=== PATIENT | female | born 1940 | race Caucasian/White ===

== ENCOUNTER → 2016-05-16 | Outpatient (CLI) | payer MEDICARE ==
--- NOTE | 2016-05-17 11:45 | MM ---
Reason for exam: screening (asymptomatic). Last mammogram was performed 1 year and 10 months ago. History: Patient is postmenopausal. Benign excisional biopsy of the right breast, December 08, 2001. Excisional biopsy of the left breast. Took estrogen for 6 years. Physical Findings: A clinical breast exam by your physician is recommended on an annual basis and results should be correlated with mammographic findings. MG 3D Screening Mammo W/Cad Bilateral CC and MLO view(s) were taken. Prior study comparison: July 09, 2014, bilateral MG screening mammo w CAD. July 06, 2013, bilateral digital screening mammo w/CAD. There are scattered fibroglandular densities. Finding: There are typically benign vascular, diffuse/scattered calcifications in both breasts. There are 4 grouped calcifications in the lower right breast seen on MLO view, short term follow up recommended. New finding since July 09, 2014 and July 06, 2013. ASSESSMENT: Probably benign, BI-RAD 3 RECOMMENDATION: Follow-up diagnostic mammogram of the right breast in 6 months.
== END | disposition home or self-care (01) ==
LOC: RADMAMWWP 14:44
PROVIDERS: ATTEND Family Medicine
DX: Z12.31 Encounter for screening mammogram for malignant neoplasm of breast (principal)
CPT/HCPCS: 77063; G0202

== ENCOUNTER → 2016-11-09 | Outpatient (CLI) | payer MEDICARE ==
--- NOTE | 2016-11-09 15:39 | US ---
EXAMINATION TYPE: US thyroid st tissue head/neck DATE OF EXAM: 11/09/2016 COMPARISON: Thyroid ultrasound September 12, 2015 CLINICAL HISTORY: E04.1 Thyroid Nodules. GLAND SIZE: Right Lobe: 4.9 x 2.0 x 2.0 cm Overall Parenchyma: heterogenous Left Lobe: 4.5 x 2.1 x 2.8 cm Overall Parenchyma: heterogeneous Isthmus Thickness: 0.3 cm NODULES RIGHT: # of nodules measured on right: 4 1. 0.8 X 0.5 x 0.8 cm complex cystic nodule at the upper pole with well-defined margins; . This no dule is wider than tall and shows no intranodular vascularity. Prior size: 0.8 x 0.4 x 0.8 cm 2. 1.1 X 0.8 x 1.0 cm cystic nodule at the mid/upper pole with well-defined margins; . This nodule is wider than tall and shows no intranodular vascularity. Prior size: 1.1 x 0.7 x 0.7 cm 3. 1.2 X 0.7 x 0.9 cm mixed solid nodule at the mid/lower pole with well-defined margins; . This no dule is wider than tall and shows intranodular vascularity. Prior size: 1.2 x 0.8 x 0.9 cm 4. 0.8 X 0.5 x 0.7 cm echogenic solid nodule at the anterior mid lower pole with well-defined margin s; . This nodule is wider than tall and shows intranodular vascularity. Prior size: 0.8 x 0.5 x 0.8 cm LEFT: # of nodules measured on left: 1 1. 2.8 X 1.9 x 2.9 cm isoechoic solid nodule at the mid pole with well-defined margins; . This nod ule is wider than tall and shows intranodular vascularity. Prior size: 2.6 x 2.0 x 2.6 cm ISTHMUS: # of nodules measured in the isthmus: 1 1. 0.6 X 0.3 x 0.6 cm isoechoic solid nodule with well-defined margins; . This nodule is wider esdras n tall and shows no intranodular vascularity. Prior size: 0.5 x 0.4 x 0.5 cm Bilateral neck scanned, no evidence of lymphadenopathy. Multiple thyroid nodules right lobe. Single nodule left lobe. Little to no change from prior exam IMPRESSION: There is redemonstration of multinodular thyroid gland with dominant solid nodule seen left thyroid l obe that appears stable in size and appearance from prior. No suspicious new greater than 1 cm nodule s are evident.
== END | disposition home or self-care (01) ==
LOC: RADUSWWP 14:33
PROVIDERS: ATTEND Otolaryngology
DX: E04.1 Nontoxic single thyroid nodule (principal)
CPT/HCPCS: 76536

== ENCOUNTER → 2016-11-14 | Outpatient (CLI) | payer MEDICARE ==
--- NOTE | 2016-11-15 09:37 | MM ---
Reason for exam: follow-up at short interval from prior study. Last mammogram was performed 6 months ago. History: Patient is postmenopausal. Benign excisional biopsy of the right breast, December 08, 2001. Excisional biopsy of the left breast. Took estrogen for 6 years. Physical Findings: Nurse did not find any significant physical abnormalities on exam. MG 3D Diag Mammo W/Cad RT CC and MLO view(s) were taken of the right breast. Prior study comparison: May 16, 2016, bilateral MG 3d screening mammo w/cad. July 09, 2014, bilateral MG screening mammo w CAD. July 06, 2013, bilateral digital screening mammo w/CAD. There are scattered fibroglandular densities. A couple punctate calcifications are redemonstrated in the inferior right breast. No progressive calcifications or other abnormality seen. These results were verbally communicated with the patient and result sheet given to the patient on 11/14/16. ASSESSMENT: Negative, BI-RAD 1 RECOMMENDATION: Return to routine screening mammogram schedule for both breasts.
== END | disposition home or self-care (01) ==
LOC: RADMAMWWP 14:46
PROVIDERS: ATTEND Family Medicine
DX: R92.8 Other abnormal and inconclusive findings on diagnostic imaging of breast (principal)
CPT/HCPCS: G0206; G0279

== ENCOUNTER 2017-04-10 09:08 | Day surgery (SDC) | payer MEDICARE ==
[2017-04-03 23:07] VITALS: BMI 41.5
[~2017-04-10 09:08] MED LIST: DEXAMETHASONE SOD PHOSPHATE 10 MG/ML 1 ML VIAL IV ONE; FAMOTIDINE 20 MG/2 ML VIAL IV ONE; HYDROmorphone 0.5 MG/0.5 ML SYRINGE IVP PRN; LACTATED RINGERS 1,000 ML IV SCH; ONDANSETRON 4 MG/2 ML VIAL IVP ONE; ceFAZolin 1,000 MG in DEXTROSE/WATER 1 50ML.BAG IV ONE
[2017-04-10 11:12] VITALS: TEMP 97.2
[2017-04-10] MEDS ORDERED: LIDOCAINE 1% 20 ML VIAL (10MG/ML) FOR IV START INTRADERMA ONE (11:14)
[2017-04-10 11:33] LABS: Potassium 3.1 mmol/L (3.5-5.1)
[2017-04-10] MEDS ORDERED: KETOROLAC 30 MG/ML 1 ML VIAL ONE (12:10)
[2017-04-10] MEDS ORDERED: diphenhydrAMINE 50 MG/ML 1 ML VIAL ONE (12:10)
[2017-04-10] MEDS ORDERED: KETAMINE 10 MG/ML 20 ML VIAL ONE (12:10)
[2017-04-10] MEDS ORDERED: MIDAZOLAM 2 MG/2 ML VIAL ONE (12:10)
[2017-04-10] MEDS ORDERED: ePHEDrine SULFATE/0.9% NACL/PF 50 MG/5 ML SYRINGE IV ONE (12:10)
[2017-04-10] MEDS ORDERED: LIDOCAINE 1%-EPI 1:100,000 20 ML VIAL SQ ONE ×3 (12:27)
[2017-04-10] MEDS ORDERED: BACITRACIN 500 UNIT/GM OINT 28.4 GM TUBE TOPICAL ONE (12:27)
[2017-04-10] MEDS ORDERED: SODIUM BICARB 8.4% 50 ML VIAL (1 MEQ/ML) MISCELLANE ONE ×3 (12:27)
--- NOTE | 2017-04-10 13:38 | P.OP ---
Date of Procedure: 04/10/17 Preoperative Diagnosis: Left anterior scalp squamous cell carcinoma Postoperative Diagnosis: Same Procedure(s) Performed: Excision left anterior scalp squamous cell carcinoma 3.5 x 3.2 cm Full-thickness skin graft reconstruction 3.2 x 3.5 cm Anesthesia: MAC Surgeon: Ac Nelson Estimated Blood Loss (ml): 5 Pathology: other (Left anterior scalp skin lesion) Condition: stable Disposition: PACU Indications for Procedure: This 76-year-old white female with a chronic left anterior scalp skin lesion. This has been biopsied outside previously which showed squamous cell carcinoma. This has been persistent. Operative Findings: Skin lesion with mild erythema and eschar left anterior scalp, margins negative on frozen section Description of Procedure: The patient was brought in the operative suite and placed in a supine position. The patient underwent induction of IV sedation by the carpenter supervisor wooden ship after appropriate monitors were placed. The patient was prepped and draped in usual aseptic fashion including shaving a portion of the surrounding hair from the scalp. 1% lidocaine with 1-100,000 epinephrine was infused subcutaneously and field block fashion. This was left to work for 7 minutes vasoconstrictive effect. The lesion is then excised from the surrounding tissue grossly entirely down to the muscular layer. This was marked and sent for frozen section with the frozen section margins being negative. The edges of the wound were undermined however it was apparent that this would not be closed primarily and therefore the skin graft was [id number] the left supraclavicular area which had been prepped and draped prior to the initial excision in place this was necessary. 1% lidocaine with 1-100,000 epinephrine was infused subcutaneously in the left supraclavicular area and an elliptical incision was fashioned and carried sharply through skin and subcutissue to the subcutaneous fat layer. The edges of the wound are undermined hemostasis gained with electrocautery and the wound was closed in the subcu layer with inverted interrupted 4-0 Vicryl suture skin closed with running locking 4-0 Prolene suture. Bacitracin ointment and a sterile dressing were placed. The skin graft was defatted and then cut to the appropriate size and shape and sutured circumferentially with 5-0 Vicryl sutures left long. A bolster dressing was then placed and tied down to the skin graft with the bolster dressing consisting of cotton coated with bacitracin ointment and covered with Adaptic. The patient was then allowed to emerge from anesthesia having tolerated procedure well was transferred to postop recovery area in satisfactory condition.
[2017-04-10 14:32] VITALS: RESP 18
[2017-04-10 15:05] VITALS: BP 167/82; PULSE 76
== END 2017-04-10 15:27 | disposition home or self-care (01) ==
LOC: OR 09:08
PROVIDERS: ATTEND Otolaryngology
DX: C44.42 Squamous cell carcinoma of skin of scalp and neck (principal); L90.5 Scar conditions and fibrosis of skin; L57.0 Actinic keratosis; L57.8 Other skin changes due to chronic exposure to nonionizing radiation; I10 Essential (primary) hypertension; E78.5 Hyperlipidemia, unspecified; J45.998 Other asthma; E04.2 Nontoxic multinodular goiter; K21.9 Gastro-esophageal reflux disease without esophagitis; M19.90 Unspecified osteoarthritis, unspecified site; F32.9 Major depressive disorder, single episode, unspecified; F41.9 Anxiety disorder, unspecified; I51.9 Heart disease, unspecified; E78.00 Pure hypercholesterolemia, unspecified; I25.2 Old myocardial infarction; Z87.891 Personal history of nicotine dependence; E66.9 Obesity, unspecified; Z68.41 Body mass index [BMI] 40.0-44.9, adult; M41.9 Scoliosis, unspecified; Z79.2 Long term (current) use of antibiotics; Z79.891 Long term (current) use of opiate analgesic; Z79.52 Long term (current) use of systemic steroids; Z79.899 Other long term (current) drug therapy; Z88.5 Allergy status to narcotic agent; Z88.2 Allergy status to sulfonamides
CPT/HCPCS: 11624; 15220; 93005; 88305; 80051; 88331; J2250; J1200; J1100; J2405; J1885; J0690

== ENCOUNTER 2017-07-18 07:06 | Day surgery (SDC) | payer MEDICARE ==
[2017-07-08 14:06] VITALS: BMI 41.5
[~2017-07-18 07:06] MED LIST changes: -DEXAMETHASONE SOD PHOSPHATE 10 MG/ML 1 ML VIAL IV ONE; -FAMOTIDINE 20 MG/2 ML VIAL IV ONE; -HYDROmorphone 0.5 MG/0.5 ML SYRINGE IVP PRN; -ONDANSETRON 4 MG/2 ML VIAL IVP ONE; -ceFAZolin 1,000 MG in DEXTROSE/WATER 1 50ML.BAG IV ONE
[2017-07-18] MEDS ORDERED: RX INFO: IV CONTRAST WAS GIVEN 1 EACH MISC MISCELLANE PRN (07:46)
--- NOTE | 2017-07-18 07:46 | P.GSHP ---
History of Present Illness H&P Date: 07/18/17 Chief Complaint: Screening colonoscopy This is a 76-year-old female referred from Dr. Trujillo. Patient presents to the hospital for screening colonoscopy. The patient fell this morning and she may have bumped her head against a piece of furniture warehouse. Patient denies any loss of consciousness. Due to the fact that she received IV sedation. The patient be scheduled for computed tomography scan of her head prior to colonoscopy. Past Medical History Past Medical History: Coronary Artery Disease (CAD), Cancer, Heart Failure, Eye Disorder, GERD/Reflux, Hearing Disorder / Deafness, Hyperlipidemia, Hypertension , Myocardial Infarction ([place]), Mitral Valve Prolapse (MVP), Osteoarthritis (OA), Pneumonia Additional Past Medical History / Comment(s): CHRONIC BACK PAIN, DJD, SPINAL STENOSIS, SCOLIOSIS, IBS WITH FREQUENT LOOSE STOOLS., STATES HX OF FAST HEART RATE, LINDSAY hemorrhoids,HEARING AIDS, MACULAR DEGENERATION, VARICOSE VEINS, STRESS INDUCED ASTHMA - STATES SOB WITH ACTIVITY. 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 TOTAL KNEES, LINDSAY TOTAL SHOULDERS,Cardiac ablation x2,skin CA removed with skin graft to neck Past Anesthesia/Blood Transfusion Reactions: Motion Sickness Smoking Status: Former smoker - Past Family History Father Family Medical History: Cancer Additional Family Medical History / Comment(s): ORAL CANCER Medications and Allergies Home Medications Medication Instructions Recorded Confirmed Type ALPRAZolam [Xanax] 0.5 mg PO QID 10/03/13 07/08/17 History Gabapentin [Neurontin] 100 mg PO TID 10/03/13 07/08/17 History Sertraline [Zoloft] 100 mg PO 1300 10/03/13 07/08/17 History Simvastatin [Zocor] 10 mg PO HS 10/03/13 07/08/17 History Aspirin 81 mg PO DAILY #1 chewable 11/21/14 07/08/17 Rx Carvedilol [Coreg] 1.5 tab PO BID 07/25/15 07/08/17 History Irbesartan 300 mg PO 1500 07/25/15 07/08/17 History Famotidine [Pepcid] 20 mg PO DAILY@1600 04/02/17 07/08/17 History Loperamide [Imodium] 2 mg PO DAILY PRN 04/02/17 07/08/17 History Calcium Carbonate [Calcium] 600 mg PO DAILY 07/08/17 07/08/17 History Cholecalciferol (Vitamin D3) 2,000 unit PO DAILY 07/08/17 07/08/17 History [Vitamin D3] Ibandronate Sodium [Boniva] 150 mg PO QMONTH 07/08/17 07/08/17 History Phenyleph/Mineral Oil/Petrolat 1 applic RECTAL DAILY PRN 07/08/17 07/08/17 History [Preparation H Ointment] Wheat Dextrin [Benefiber] 3 gm PO DAILY 07/08/17 07/08/17 History Zeaxanthin 5mg W/Lutein 25mg 1 tab PO DAILY 07/08/17 07/08/17 History Allergies Allergy/AdvReac Type Severity Reaction Status Date / Time codeine Allergy Severe Nausea & Verified 07/08/17 13:24 Vomiting Opioids - Morphine Analogues Allergy Dyspnea- Verified 07/08/17 13:24 Pt states withdrawal. Surgical - Exam - General well developed, well nourished, no distress - Eyes PERRL, normal ocular movement - ENT normal pinna, normal nares - Neck no masses - Respiratory normal expansion - Cardiovascular Rhythm: regular - Abdomen Abdomen: soft, non tender Assessment and Plan Assessment: [facility]. We'll perform computed tomography scan of the brain prior to receiving IV sedation. The patient will be scheduled for colonoscopy today if her CAT scan is negative.
--- NOTE | 2017-07-18 08:57 | CT ---
EXAMINATION TYPE: CT brain wo con DATE OF EXAM: 07/18/2017 COMPARISON: 10/03/2013 INDICATION: Patient fell today and hit head. Patient has no complaints at time of study. DLP: 1017 mGycm, Automated exposure control for dose reduction was used. CONTRAST: None CT of the brain is performed utilizing 3 mm thick sections through the posterior fossa and 3 mm thick sections through the remaining calvarium. Study is performed within 24 hours of arrival to the hosp [facility]. No abnormal hyperdensity is present to suggest an acute intracranial hemorrhage. No mass lesion is evident. No acute infarcts are evident. A small old lacunar infarct or Virchow-Abbe space is within the right basal ganglion, present previously. Ventricles and sulci are appropriate for the patient age. Paranasal sinuses and mastoid air cells within the [id number] are clear. Superficial soft tissues appear unremarkable. No acute fractures are evident. IMPRESSIONS: 1. No acute intracranial process.
[2017-07-18] MEDS ORDERED: GLYCOPYRROLATE 0.2 MG/ML 2 ML VIAL ONE (09:37)
[2017-07-18] MEDS ORDERED: LIDOCAINE 1% INJ 10MG/ML (20 ML MDV) ONE (09:37)
[2017-07-18] MEDS ORDERED: PROPOFOL 10 MG/ML 20 ML VIAL IV ONE (09:37)
[2017-07-18] MEDS ORDERED: ePHEDrine SULFATE/0.9% NACL/PF 50 MG/5 ML SYRINGE IV ONE (09:37)
--- NOTE | 2017-07-18 10:07 | P.OP ---
Date of Procedure: 07/18/17 Preoperative Diagnosis: GI bleed Hemorrhoids Postoperative Diagnosis: Severe internal and external hemorrhoids Diverticulosis Procedure(s) Performed: Colonoscopy Anesthesia: MAC Surgeon: Tu Kirk Pathology: none sent Condition: stable Disposition: PACU Description of Procedure: The patient's placed on the endoscopy table in the lateral position. She received IV sedation. Digital rectal exam was performed which revealed severe internal and external hemorrhoids. The flexible colonoscope was then placed patient anus and passed throughout the colon. Patient had significant diverticulosis. The scope was positioned in the right colon. At this point patient had significant bradycardia. The MVA was called to the room. He was decided to stop procedure this point. Scope was then withdrawn. Distal right colon, transverse colon appeared normal. In the descending colon there was diverticulosis. The sigmoid colon there is extensive diverticulosis. There were some very large diverticula. Scope was then brought back the rectum this appeared normal. Scope withdrawn for patient. Patient was sent to phase 1 recovery to have an EKG performed.
[2017-07-18 10:30] VITALS: TEMP 97.5
[2017-07-18 10:33] VITALS: RESP 16
[2017-07-18 11:28] VITALS: BP 157/76; PULSE 85
== END 2017-07-18 12:08 | disposition home or self-care (01) ==
LOC: ORWHC2ENDO 07:06
PROVIDERS: ATTEND Surgery
DX: K64.4 Residual hemorrhoidal skin tags (principal); K64.8 Other hemorrhoids; K57.30 Diverticulosis of large intestine without perforation or abscess without bleeding; Z53.8 Procedure and treatment not carried out for other reasons; Z91.81 History of falling; R00.1 Bradycardia, unspecified; K21.9 Gastro-esophageal reflux disease without esophagitis; K58.9 Irritable bowel syndrome, unspecified; I25.10 Atherosclerotic heart disease of native coronary artery without angina pectoris; I11.0 Hypertensive heart disease with heart failure; I50.9 Heart failure, unspecified; Z87.891 Personal history of nicotine dependence; J45.998 Other asthma; I34.1 Nonrheumatic mitral (valve) prolapse; H35.30 Unspecified macular degeneration; H91.90 Unspecified hearing loss, unspecified ear; M19.90 Unspecified osteoarthritis, unspecified site; M48.00 Spinal stenosis, site unspecified; M41.9 Scoliosis, unspecified; Z85.828 Personal history of other malignant neoplasm of skin; E78.5 Hyperlipidemia, unspecified; I25.2 Old myocardial infarction; Z79.82 Long term (current) use of aspirin; Z79.899 Other long term (current) drug therapy; Z88.5 Allergy status to narcotic agent
CPT/HCPCS: 93005; 70450; 45378; J2001; J2704

== ENCOUNTER 2017-08-08 07:07 | Day surgery (SDC) | payer MEDICARE ==
[2017-07-29 14:15] VITALS: BMI 40.7
[~2017-08-08 07:07] MED LIST changes: +DEXAMETHASONE SOD PHOSPHATE 10 MG/ML 1 ML VIAL IV ONE; +HEPARIN SODIUM,PORCINE 5,000 UNIT/ML 1 ML VIAL SQ ONE; +ONDANSETRON ODT 4 MG TAB PO ONE; +Pre Op ABX Message 1 EACH MISC MISCELLANE ONE; +fentaNYL (PF) 50 MCG/ML 2 ML AMP IV PRN
[2017-08-08 07:44] VITALS: RESP 18; TEMP 96.4
[2017-08-08] MEDS ORDERED: NA PHOS,M-B/NA PHOS,DI-BA 133 ML ENEMA RECTAL ONE (07:44)
[2017-08-08] MEDS ORDERED: LIDOCAINE 1% 20 ML VIAL (10MG/ML) FOR IV START INTRADERMA ONE (08:13)
[2017-08-08] MEDS ORDERED: ONDANSETRON 4 MG/2 ML VIAL IVP ONE (08:13)
[2017-08-08 08:15] LABS: Basophils % (A) 0 %; Eosinophils # (A) 0.2 k/uL (0-0.7); Eosinophils % (A) 2 %; HCT 44.4 % (34.0-46.0); HGB 14.6 gm/dL (11.4-16.0); Lymphocytes # (A) 0.8 k/uL (1.0-4.8); Lymphocytes % (A) 10 %; MCH 29.5 pg (25.0-35.0); MCHC 32.9 g/dL (31.0-37.0); MCV 89.7 fL (80.0-100.0); Mean Platelet Volume 7.1; Monocytes # (A) 0.6 k/uL (0-1.0); Monocytes % (A) 8 %; Neutrophils # (A) 5.9 k/uL (1.3-7.7); Neutrophils % (A) 78 %; Platelet Count 254 k/uL (150-450); RBC 4.95 m/uL (3.80-5.40); RDW 13.5 % (11.5-15.5); WBC 7.6 k/uL (3.8-10.6)
--- NOTE | 2017-08-08 08:36 | P.GSHP ---
History of Present Illness H&P Date: 08/08/17 Chief Complaint: Hemorrhoids This is a 76-year-old female who's had chronic issues with rectal pain and bleeding. She underwent previous colonoscopies found and internal/external hemorrhoids. Patient presents today for internal and external hemorrhoidectomy. Patient aware of risk of postoperative pain bleeding and drainage. 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 GLAUCOMA -"STRESS INDUCED" NODULES THYROID Last Myocardial Infarction Date:: 2009 History of Any Multi-Drug Resistant Organisms: None Reported Past Surgical History: Cardiac Ablation, Cholecystectomy, Heart Catheterization , Hysterectomy, Joint Replacement, Orthopedic Surgery Additional Past Surgical History / Comment(s): THYROID BX, LINDSAY. TOTAL KNEES, LINDSAY TOTAL SHOULDERS,Cardiac ablation x2,skin CA removed with skin graft to neck Past Anesthesia/Blood Transfusion Reactions: Motion Sickness Smoking Status: Former smoker - Past Family History Father Family Medical History: Cancer Additional Family Medical History / Comment(s): ORAL CANCER Medications and Allergies Home Medications Medication Instructions Recorded Confirmed Type ALPRAZolam [Xanax] 0.5 mg PO QID 10/03/13 08/08/17 History Gabapentin [Neurontin] 100 mg PO TID 10/03/13 08/08/17 History Sertraline [Zoloft] 100 mg PO 1300 10/03/13 08/08/17 History Simvastatin [Zocor] 10 mg PO HS 10/03/13 08/08/17 History Aspirin 81 mg PO DAILY #1 chewable 11/21/14 08/08/17 Rx Carvedilol [Coreg] 9.37 mg PO BID 07/25/15 08/08/17 History Irbesartan 300 mg PO 1500 07/25/15 08/08/17 History Famotidine [Pepcid] 20 mg PO DAILY@1600 04/02/17 08/08/17 History Loperamide [Imodium] 2 mg PO DAILY PRN 04/02/17 08/08/17 History Calcium Carbonate [Calcium] 600 mg PO DAILY 07/08/17 08/08/17 History Cholecalciferol (Vitamin D3) 2,000 unit PO DAILY 07/08/17 08/08/17 History [Vitamin D3] Ibandronate Sodium [Boniva] 150 mg PO QMONTH 07/08/17 08/08/17 History Phenyleph/Mineral Oil/Petrolat 1 applic RECTAL DAILY PRN 07/08/17 08/08/17 History [Preparation H Ointment] Wheat Dextrin [Benefiber] 3 gm PO DAILY 07/08/17 08/08/17 History Zeaxanthin 5mg W/Lutein 25mg 1 tab PO DAILY 07/08/17 08/08/17 History Allergies Allergy/AdvReac Type Severity Reaction Status Date / Time codeine Allergy Severe Nausea & Verified 07/29/17 13:56 Vomiting Opioids - Morphine Analogues Allergy Dyspnea- Verified 07/29/17 13:56 Surgical - Exam Vital Signs Temp Pulse Resp BP Pulse Ox 96.4 F L 55 L 18 162/64 93 L 08/08/17 07:36 08/08/17 07:36 08/08/17 07:36 08/08/17 07:36 08/08/17 07:36 - General well developed, no distress - Eyes PERRL - ENT normal pinna - Neck no masses - Respiratory normal expansion - Cardiovascular Rhythm: regular - Abdomen Abdomen: soft, non tender - Rectum Severe internal and external hemorrhoids Results - Labs 08/08/17 07:50 Abnormal Lab Results - Last 24 Hours (Table) 08/08/17 Range/Units 07:50 Lymphocytes # 0.8 L (1.0-4.8) k/uL Assessment and Plan Assessment: Internal and external hemorrhoids. We'll perform hemorrhoidectomy.
[2017-08-08] MEDS ORDERED: PROPOFOL 10 MG/ML 20 ML VIAL IV ONE (09:01)
[2017-08-08] MEDS ORDERED: LIDOCAINE 1% INJ 10MG/ML (20 ML MDV) ONE (09:01)
[2017-08-08] MEDS ORDERED: MIDAZOLAM 2 MG/2 ML VIAL ONE (09:01)
[2017-08-08] MEDS ORDERED: BUPIVACAINE (PF) 0.25% 30 ML VIAL SQ ONE (09:17)
--- NOTE | 2017-08-08 10:07 | P.OP ---
Date of Procedure: 08/08/17 Preoperative Diagnosis: Internal and external hemorrhoids Postoperative Diagnosis: Internal and external hemorrhoids Procedure(s) Performed: Internal and external hemorrhoidectomy Anesthesia: MAC Surgeon: Tu Kirk Pathology: other (Internal and external hemorrhoids) Condition: stable Disposition: PACU Description of Procedure: The patient's placed on the bring table in the prone jackknife position. She received IV sedation. Her anus was prepped and draped in sterile fashion. The patient had large internal and external hemorrhoids. Using the anal retractor the left hemorrhoidal column was grasped first and then using the Harmonic scissors the rectus performed. Next the right anterior and right posterior hemorrhoid columns were excised in identical fashion. The posterior hemostasis. The anus was packed with Gelfoam. Patient top she will was sent to recovery room stable condition.
[2017-08-08 10:37] VITALS: BP 183/74; PULSE 59
== END 2017-08-08 11:25 | disposition home or self-care (01) ==
LOC: OR 07:07
PROVIDERS: ATTEND Surgery
DX: K64.4 Residual hemorrhoidal skin tags (principal); K64.8 Other hemorrhoids; I42.0 Dilated cardiomyopathy; I11.0 Hypertensive heart disease with heart failure; I50.22 Chronic systolic (congestive) heart failure; E78.5 Hyperlipidemia, unspecified; I47.2 Ventricular tachycardia; I34.0 Nonrheumatic mitral (valve) insufficiency; E89.0 Postprocedural hypothyroidism; I34.1 Nonrheumatic mitral (valve) prolapse; M19.90 Unspecified osteoarthritis, unspecified site; M54.9 Dorsalgia, unspecified; G89.29 Other chronic pain; M48.00 Spinal stenosis, site unspecified; M41.9 Scoliosis, unspecified; K58.8 Other irritable bowel syndrome; H35.30 Unspecified macular degeneration; K21.9 Gastro-esophageal reflux disease without esophagitis; H91.90 Unspecified hearing loss, unspecified ear; E04.1 Nontoxic single thyroid nodule; F41.9 Anxiety disorder, unspecified; F32.9 Major depressive disorder, single episode, unspecified; I25.2 Old myocardial infarction; Z96.653 Presence of artificial knee joint, bilateral; Z96.612 Presence of left artificial shoulder joint; Z96.611 Presence of right artificial shoulder joint; Z85.828 Personal history of other malignant neoplasm of skin; Z79.82 Long term (current) use of aspirin; Z79.899 Other long term (current) drug therapy; Z88.5 Allergy status to narcotic agent; Z88.8 Allergy status to other drugs, medicaments and biological substances; Z87.891 Personal history of nicotine dependence
CPT/HCPCS: 88304; 85025; 46260; J2250; J1644; J1100; J2405; J2001; J2704

== ENCOUNTER → 2017-11-14 | Outpatient (CLI) | payer MEDICARE ==
--- NOTE | 2017-11-15 07:13 | US ---
EXAMINATION TYPE: US thyroid st tissue head/neck DATE OF EXAM: 11/14/2017 COMPARISON: 09/12/2015, 01/18/2014 and 2013. CLINICAL HISTORY: E04.1 THYROID NODULE. follow up thyroid nodules. Hx of bx- benign. Not on thyroid meds. GLAND SIZE: Right Lobe: 4.6 x 1.9 x 1.7 cm Overall Parenchyma: heterogenous Left Lobe: 3.7 x 2.1 x 3.1 cm Overall Parenchyma: Heterogenous Isthmus Thickness: 0.3 cm NODULES Right: # of nodules measured on left: 4 1. 1.2 X 0.8 x 0.8 cm cystic nodule at the upper pole with well-defined margins. This nodule is ta ller than wide and shows no intranodular vascularity. Prior size: 0.8 x 0.5 x 0.8 cm. This measures 0.9 x 0.7 x 0.7 cm on the exam of 2012. Only minima l interval growth is seen. 2. 1.7 X 1.0 x 1.0 cm cystic nodule at the upper/mid pole with well-defined margins. This nodule is taller than wide and shows no intranodular vascularity. Prior size: 1.1 x 0.8 x 1.0 cm. This measured 0.9 x 1.1 x 0.6 cm on the exam of 2012. Continued surveillance is recommended for interval growth. 3. 1.4 X 1.0 x 0.9 cm mixed nodule at the mid/lower pole with well-defined margins. This nodule is taller than wide and shows intranodular vascularity. Prior size: 1.2 x 0.7 x 0.9 cm. This measured 0.7 x 0.8 x 0.6 cm on the exam of 2012. Some inter fei growth is demonstrated. Continued surveillance is recommended. 4. 0.8 X 0.5 x 0.7 cm echogenic solid nodule at the lower pole with well-defined margins. This nodu le is taller than wide and shows no intranodular vascularity. Prior size: 0.8 x 0.5 x 0.7 cm. This measured 0.6 x 1.1 x 0.6 cm on the exam of 2012 and can be considered benign. LEFT: # of nodules measured on right: 2 1. 2.8 X 2.9 x 2.1 cm Complex solid nodule at the mid pole with well-defined margins. This nodule is wider than tall and shows intranodular vascularity. Prior size: 2.8 x 1.9 x 2.9 cm. This measured 2.4 x 2.1 x 2.2 cm on the exam of 2012, however giv en its more suspicious features fine-needle aspiration could be performed. 2. 0.9 X 0.7 x 0.6 cm cystic nodule at the upper pole with well-defined margins. This nodule is maribel ler than wide and shows no intranodular vascularity. Prior size: No previous ISTHMUS: # of nodules measured in the isthmus: 1 1. 0.6 X 0.6 x 0.3 cm hypoechoic solid nodule at the left lateral region with well-defined margins. This nodule is taller than wide and shows no intranodular vascularity. Prior size: 0.6 x 0.3 x 0.6 cm Bilateral neck scanned, no evidence of lymphadenopathy. IMPRESSION: Multinodular goiter with most thyroid nodules similar in size or demonstrating only mild interval edmond wth in comparison to exams dating back to 2013. The largest nodules the most suspicious on the left. If not previously biopsied fine-needle aspiration could be considered given its size (greater than 2. 5 cm).
== END | disposition home or self-care (01) ==
LOC: RADUSWWP 15:34
PROVIDERS: ATTEND Otolaryngology
DX: E04.2 Nontoxic multinodular goiter (principal); Z88.5 Allergy status to narcotic agent
CPT/HCPCS: 76536

== ENCOUNTER 2017-12-20 14:18 | Observation (INO) | payer MEDICARE ==
[2017-12-20 16:05] LABS: Basophils % (A) 1 %; Eosinophils # (A) 0.2 k/uL (0-0.7); Eosinophils % (A) 3 %; HCT 42.7 % (34.0-46.0); HGB 13.8 gm/dL (11.4-16.0); Lymphocytes # (A) 1.5 k/uL (1.0-4.8); Lymphocytes % (A) 25 %; MCHC 32.3 g/dL (31.0-37.0); MCV 89.7 fL (80.0-100.0); Mean Platelet Volume 7.2; Monocytes # (A) 0.4 k/uL (0-1.0); Monocytes % (A) 8 %; Neutrophils # (A) 3.6 k/uL (1.3-7.7); Neutrophils % (A) 62 %; Platelet Count 195 k/uL (150-450); RBC 4.76 m/uL (3.80-5.40); RDW 14.6 % (11.5-15.5); WBC 5.7 k/uL (3.8-10.6)
[2017-12-20 16:17] LABS: ALT 20 U/L (9-52); AST 19 U/L (14-36); Albumin 3.9 g/dL (3.5-5.0); Alkaline Phosphatase 61 U/L (38-126); Anion Gap 8 mmol/L; Blood Urea Nitrogen 17 mg/dL (7-17); Calcium 9.4 mg/dL (8.4-10.2); Carbon Dioxide 29 mmol/L (22-30); Chloride 105 mmol/L (98-107); Glucose 96 mg/dL (74-99); Magnesium 1.9 mg/dL (1.6-2.3); Potassium 3.2 mmol/L (3.5-5.1); Sodium 142 mmol/L (137-145); Total Protein 6.8 g/dL (6.3-8.2)
[2017-12-20 16:31] LABS: Creatine Kinase MB 1.2 ng/mL (0.0-2.4); Troponin I 0.015 ng/mL (0.000-0.034)
[2017-12-20] MEDS ORDERED: POTASSIUM CHLORIDE ER 20 MEQ TAB.ER PO STA (16:44)
[2017-12-20] MEDS ORDERED: ASPIRIN 325 MG TAB PO STA (16:44)
[2017-12-20] MEDS ORDERED: NALOXONE 0.4 MG/ML 1 ML VIAL IV PRN (16:51)
--- NOTE | 2017-12-20 16:59 | ED ---
General Adult HPI - General Chief complaint: Chest Pain Stated complaint: chest pain, htn Time Seen by Provider: 12/20/17 14:49 Source: patient, RN notes reviewed, old records reviewed Mode of arrival: wheelchair Limitations: no limitations - History of Present Illness Initial comments: 77 yo female presents from outpatient surgery with chief complaint of chest pain. Patient states she began feeling some throat and jaw pain which progressed into her chest. She initially thought this may be related to some pills she had taken. She did describe it as a burning sensation. This pain progressed and became more severe, central chest pain. Given the symptoms and was not advised that she continue to undergo her outpatient surgery which was I see of the thyroid gland. She was transferred to the emergency department for evaluation. She states she did have some nausea, no significant vomiting. Pain was resolved by the time of my evaluation. - Related Data Home Medications Medication Instructions Recorded Confirmed ALPRAZolam [Xanax] 0.5 mg PO QID 10/03/13 12/20/17 Gabapentin [Neurontin] 100 mg PO TID 10/03/13 12/20/17 Sertraline [Zoloft] 100 mg PO 1300 10/03/13 12/20/17 Simvastatin [Zocor] 10 mg PO HS 10/03/13 12/20/17 Carvedilol [Coreg] 9.37 mg PO BID 07/25/15 12/20/17 Irbesartan 300 mg PO 1500 07/25/15 12/20/17 Famotidine [Pepcid] 20 mg PO DAILY@1600 04/02/17 12/20/17 Calcium Carbonate [Calcium] 600 mg PO DAILY 07/08/17 12/20/17 Cholecalciferol (Vitamin D3) 2,000 unit PO DAILY 07/08/17 12/20/17 [Vitamin D3] Wheat Dextrin [Benefiber] 3 gm PO DAILY 07/08/17 12/20/17 Zeaxanthin 5mg W/Lutein 25mg 1 tab PO DAILY 07/08/17 12/20/17 Denosumab [Prolia] 60 mg SQ ONCE 12/18/17 12/20/17 Previous Rx's Medication Instructions Recorded Aspirin 81 mg PO DAILY #1 chewable 11/21/14 Allergies Allergy/AdvReac Type Severity Reaction Status Date / Time codeine Allergy Severe Nausea & Verified 12/20/17 16:00 Vomiting Opioids - Morphine Analogues Allergy Dyspnea- Verified 12/20/17 16:00 Review of Systems ROS Statement: Those systems with pertinent positive or pertinent negative responses have been documented in the HPI. ROS Other: All systems not noted in ROS Statement are negative. 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 GLAUCOMA -"STRESS INDUCED" NODULES THYROID Last Myocardial Infarction Date:: 2009 History of Any Multi-Drug Resistant Organisms: None Reported Past Surgical History: Cardiac Ablation, Cholecystectomy, Heart Catheterization , Hysterectomy, Joint Replacement, Orthopedic Surgery Additional Past Surgical History / Comment(s): THYROID BX, LINDSAY. TOTAL KNEES, LINDSAY TOTAL SHOULDERS,Cardiac ablation x2,skin CA removed with skin graft to neck Past Anesthesia/Blood Transfusion Reactions: Motion Sickness Past Psychological History: Anxiety, Depression, Panic Disorder Smoking Status: Former smoker Past Alcohol Use History: None Reported Past Drug Use History: None Reported - Past Family History Father Family Medical History: Cancer Additional Family Medical History / Comment(s): ORAL CANCER General Exam Limitations: no limitations General appearance: alert, in no apparent distress Head exam: Present: atraumatic, normocephalic Eye exam: Present: normal appearance, PERRL ENT exam: Present: normal exam Neck exam: Present: normal inspection. Absent: tenderness, meningismus Respiratory exam: Present: normal lung sounds bilaterally. Absent: respiratory distress, wheezes Cardiovascular Exam: Present: regular rate, normal rhythm GI/Abdominal exam: Present: soft. Absent: distended, tenderness Extremities exam: Present: normal inspection, full ROM Neurological exam: Present: alert, oriented X3 Psychiatric exam: Present: normal affect, normal mood Skin exam: Present: warm, dry, intact. Absent: cyanosis, diaphoretic Course Vital Signs 12/20/17 14:21 Temperature 99.2 F Pulse Rate 67 Respiratory 18 Rate Blood Pressure 181/78 O2 Sat by Pulse 95 Oximetry EKG Findings - EKG Comments: EKG Findings:: EKG: Sinus rhythm with occasional PVC the left axis, left ventricular hypertrophy, rate of 62, SC interval is 198, QRS duration 124, QTC 450 Medical Decision Making - Medical Decision Making 77 yo female presenting for evaluation of chest pain. EKG shows sinus rhythm with ectopy. CBC within normal limits, CMP does show hypokalemia at 3.2 which is replaced with both oral and IV potassium magnesium is normal 1.9, troponin is 0.015. Chest x-ray shows cardiomegaly, no heart failure. There is density seen on previous chest x-ray. Patient has no pain on reevaluation. Echo will be obtained She will be kept in observation for serial cardiac enzymes, potassium replacement and reevaluation as well as cardiology consultation. - Lab Data Result diagrams: 12/20/17 15:50 12/20/17 15:50 Lab Results 12/20/17 12/20/17 12/20/17 Range/Units 15:50 15:50 15:50 WBC 5.7 (3.8-10.6) k/uL RBC 4.76 (3.80-5.40) m/uL Hgb 13.8 (11.4-16.0) gm/dL Hct 42.7 (34.0-46.0) % MCV 89.7 (80.0-100.0) fL MCH 29.0 (25.0-35.0) pg MCHC 32.3 (31.0-37.0) g/dL RDW 14.6 (11.5-15.5) % Plt Count 195 (150-450) k/uL Neutrophils % 62 % Lymphocytes % 25 % Monocytes % 8 % Eosinophils % 3 % Basophils % 1 % Neutrophils # 3.6 (1.3-7.7) k/uL Lymphocytes # 1.5 (1.0-4.8) k/uL Monocytes # 0.4 (0-1.0) k/uL Eosinophils # 0.2 (0-0.7) k/uL Basophils # 0.0 (0-0.2) k/uL Sodium 142 (137-145) mmol/L Potassium 3.2 L (3.5-5.1) mmol/L Chloride 105 (98-107) mmol/L Carbon Dioxide 29 (22-30) mmol/L Anion Gap 8 mmol/L BUN 17 (7-17) mg/dL Creatinine 0.60 (0.52-1.04) mg/dL Est GFR (CKD-EPI)AfAm >90 (>60 ml/min/1.73 sqM) Est GFR (CKD-EPI)NonAf 89 (>60 ml/min/1.73 sqM) Glucose 96 (74-99) mg/dL Calcium 9.4 (8.4-10.2) mg/dL Magnesium 1.9 (1.6-2.3) mg/dL Total Bilirubin 1.0 (0.2-1.3) mg/dL AST 19 (14-36) U/L ALT 20 (9-52) U/L Alkaline Phosphatase 61 (38-126) U/L Total Creatine Kinase 44 (30-135) U/L CK-MB (CK-2) 1.2 (0.0-2.4) ng/mL CK-MB (CK-2) Rel Index 2.7 Troponin I 0.015 (0.000-0.034) ng/mL NT-Pro-B Natriuret Pep pg/mL Total Protein 6.8 (6.3-8.2) g/dL Albumin 3.9 (3.5-5.0) g/dL 12/20/17 Range/Units 15:50 WBC (3.8-10.6) k/uL RBC (3.80-5.40) m/uL Hgb (11.4-16.0) gm/dL Hct (34.0-46.0) % MCV (80.0-100.0) fL MCH (25.0-35.0) pg MCHC (31.0-37.0) g/dL RDW (11.5-15.5) % Plt Count (150-450) k/uL Neutrophils % % Lymphocytes % % Monocytes % % Eosinophils % % Basophils % % Neutrophils # (1.3-7.7) k/uL Lymphocytes # (1.0-4.8) k/uL Monocytes # (0-1.0) k/uL Eosinophils # (0-0.7) k/uL Basophils # (0-0.2) k/uL Sodium (137-145) mmol/L Potassium (3.5-5.1) mmol/L Chloride (98-107) mmol/L Carbon Dioxide (22-30) mmol/L Anion Gap mmol/L BUN (7-17) mg/dL Creatinine (0.52-1.04) mg/dL Est GFR (CKD-EPI)AfAm (>60 ml/min/1.73 sqM) Est GFR (CKD-EPI)NonAf (>60 ml/min/1.73 sqM) Glucose (74-99) mg/dL Calcium (8.4-10.2) mg/dL Magnesium (1.6-2.3) mg/dL Total Bilirubin (0.2-1.3) mg/dL AST (14-36) U/L ALT (9-52) U/L Alkaline Phosphatase (38-126) U/L Total Creatine Kinase (30-135) U/L CK-MB (CK-2) (0.0-2.4) ng/mL CK-MB (CK-2) Rel Index Troponin I (0.000-0.034) ng/mL NT-Pro-B Natriuret Pep 930 pg/mL Total Protein (6.3-8.2) g/dL Albumin (3.5-5.0) g/dL Disposition Clinical Impression: Chest pain, Hypokalemia Disposition: ADMITTED IP TO THIS [facility] Condition: Stable Is patient prescribed a controlled substance at d/c from ED?: No Referrals: Murali Trujillo MD [Primary Care Provider] - 1-2 days Decision to Admit Reason: Admit from EC Decision Date: 12/20/17 Decision Time: 16:59
--- NOTE | 2017-12-20 17:03 | XR ---
EXAMINATION TYPE: XR chest 2V DATE OF EXAM: 12/20/2017 COMPARISON: 11/20/2014 HISTORY: Chest pain TECHNIQUE: Frontal and lateral views of the chest are obtained. FINDINGS: Heart is enlarged. There is some infiltrate in the left midlung. There are bilateral shoul kevyn prostheses. There is no pleural effusion. There is no heart failure. IMPRESSION: There is moderate cardiomegaly. No heart failure. There is new 2.5 cm somewhat rounded a marylin of infiltrate in the left midlung compared to old exam. This density however is present on older exam of 01/24/2013 and is consistent with scarring. No definite acute lung disease.
[2017-12-20] MEDS ORDERED: LOSARTAN 50 MG TAB PO STA (17:07)
[2017-12-20] MEDS: 0.9% NACL WITH KCL 20 MEQ/L 1,000 ML IV SCH (18:15)
[2017-12-20] MEDS: POTASSIUM CHLORIDE 20 MEQ in WATER FOR INJECTION 1 100ML.BAG IVPB SCH ×2 (18:17→21:11)
[2017-12-20 18:34] LABS: INR 1.1 (<1.2); Partial Thromboplastin Time 24.1 sec (22.0-30.0); Prothrombin Time 10.7 sec (9.0-12.0)
[2017-12-20] MEDS: CARVEDILOL 3.125 MG TAB PO SCH (19:02)
[2017-12-20] MEDS: ALPRAZolam 0.5 MG TAB PO SCH ×2 (19:06→21:12)
[2017-12-20 21:02] VITALS: BMI 37.0
[2017-12-20] MEDS: GABAPENTIN 100 MG CAP PO SCH (21:12)
[2017-12-20] MEDS: ATORVASTATIN 10 MG TAB PO SCH (21:12)
--- NOTE | 2017-12-20 22:22 | P.HPIM ---
History of Present Illness H&P Date: 12/20/17 Chief Complaint: Chest pain 77 year old female with significant cardiac past medical history. Patient was at home , when she started having throat burning after taking her pills, then pain radiated down to retrosternal burning sensation, then started radiating to left shoulder, she describes the pain as burning "20/10" in severity, she still went to her OUtpatient surgery (today to have a biopsy of her thyroid gland,) but upon mentioning her chest pain , she was advised to go to the ED. This was associated with palpitations, nausea, but no SOB, sweating , or dizziness By the time the patient made it to the ED, her chest pain was easing , she did not take anything for the pain at home, and pain resolved 2 hours after its onset. In the ED, However, she was found to have multiple PVCs, and had a short run of non sustained vtach. asymptomatic though. Her labs showed hypokalemia , but other baldwin unremarkable, her CXR unremarkable . patient otherwise denies any nausea vomiting, abd pain , trouble breathing, coughing, or SOB. denies any fevers, chills, dizziness, or headache. She denies any GI bleeding. She denies any focal neurological deficits. She reports occasional leg edema but denies orthopnea. Review of Systems Pertinent positives as noted in HPI. 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 GLAUCOMA -"STRESS INDUCED" NODULES THYROID Last Myocardial Infarction Date:: 2009 History of Any Multi-Drug Resistant Organisms: None Reported Past Surgical History: Cardiac Ablation, Cholecystectomy, Heart Catheterization , Hysterectomy, Joint Replacement, Orthopedic Surgery Additional Past Surgical History / Comment(s): THYROID BX, LINDSAY. TOTAL KNEES, LINDSAY TOTAL SHOULDERS,Cardiac ablation x2,skin CA removed with skin graft to neck Past Anesthesia/Blood Transfusion Reactions: Motion Sickness Past Psychological History: Anxiety, Depression, Panic Disorder Smoking Status: Former smoker Past Alcohol Use History: None Reported Past Drug Use History: None Reported - Past Family History Father Family Medical History: Cancer Additional Family Medical History / Comment(s): ORAL CANCER Medications and Allergies Home Medications Medication Instructions Recorded Confirmed Type ALPRAZolam [Xanax] 0.5 mg PO QID 10/03/13 12/20/17 History Gabapentin [Neurontin] 100 mg PO TID 10/03/13 12/20/17 History Sertraline [Zoloft] 100 mg PO 1300 10/03/13 12/20/17 History Simvastatin [Zocor] 10 mg PO HS 10/03/13 12/20/17 History Aspirin 81 mg PO DAILY #1 chewable 11/21/14 12/20/17 Rx Carvedilol [Coreg] 9.37 mg PO BID 07/25/15 12/20/17 History Irbesartan 300 mg PO 1500 07/25/15 12/20/17 History Famotidine [Pepcid] 20 mg PO DAILY@1600 04/02/17 12/20/17 History Calcium Carbonate [Calcium] 600 mg PO DAILY 07/08/17 12/20/17 History Cholecalciferol (Vitamin D3) 2,000 unit PO DAILY 07/08/17 12/20/17 History [Vitamin D3] Wheat Dextrin [Benefiber] 3 gm PO DAILY 07/08/17 12/20/17 History Zeaxanthin 5mg W/Lutein 25mg 1 tab PO DAILY 07/08/17 12/20/17 History Denosumab [Prolia] 60 mg SQ ONCE 12/18/17 12/20/17 History Allergies Allergy/AdvReac Type Severity Reaction Status Date / Time codeine Allergy Severe Nausea & Verified 12/20/17 16:00 Vomiting Opioids - Morphine Analogues Allergy Dyspnea- Verified 12/20/17 16:00 Physical Exam Vitals: Vital Signs Temp Pulse Resp BP Pulse Ox 12/20/17 20:27 60 15 188/88 96 12/20/17 20:15 120 H 18 191/89 97 12/20/17 19:40 97.2 F L 78 18 194/80 96 12/20/17 19:10 97.2 F L 57 L 18 181/90 95 12/20/17 18:26 88 18 172/88 97 12/20/17 16:53 52 L 18 190/94 97 12/20/17 14:21 99.2 F 67 18 181/78 95 Intake and Output 12/20/17 12/20/17 12/20/17 06:59 14:59 22:59 Other: Weight 80.286 kg Constitutional: No acute distress, conversant, pleasant Eyes: Anicteric sclerae, moist conjunctiva, no lid-lag Pupils equal round reactive to light ENMT: NC/AT Oropharynx clear, no erythema, or exudates Neck: Supple, FROM, no masses, or JVD No carotid bruits palpable nodular thyromegaly Lungs: Clear to auscultation Clear to percussion Normal respiratory effort, no accessory muscle use Cardiovascular: Heart regular in rate and rhythm, systolic murmur, no gallops, or rubs No peripheral edema Abdominal: Soft Nontender, no guarding, rebound or rigidity Abdomen moving with respiration Normoactive bowel sounds No hepatomegaly, No splenomegaly No palpable mass No abdominal wall hernia noted Skin: Normal temperature, tone, texture, turgor No induration No subcutaneous nodules No rash, lesions No ulcers Extremities: No digital cyanosis No clubbing Pedal pulses intact and symmetrical Radial pulses intact and symmetrical No calf tenderness Psychiatric: Alert and oriented to person, place and time Appropriate affect fair judgment Neuro Muscles Strength 5/5 in all 4 extremities Sensation to light touch grossly present throughout Cranial nerves II-XII grossly intact No focal sensory deficits Lymphatics: no palpable cervical or supraclavicular , or inguinal lymph nodes Results CBC & Chem 7: 12/20/17 15:50 12/20/17 15:50 Labs: Abnormal Lab Results - Last 24 Hours (Table) 12/20/17 Range/Units 15:50 Potassium 3.2 L (3.5-5.1) mmol/L Assessment and Plan Assessment: 77 year old female with history of CAD, CHF , and multinodular goiter. Patient admitted under observation with anticipated length of stay <48 hours, for chest pain rule out. She was at the outpatient surgery getting ready for thyroid biopsy, when suddenly developed severe chest pain, procedure was cancelled and patient sent to the ED for evaluation. currently patient is chest pain free, however, she was having multiple PVCs and a run of non sustained Vtach, she had hypokalemia. Plan: Chest pain, rule out ACS chronic systolic CHF , NICMP based on left heart cath 2016 with LVEF of 25% and no significant CAD frequent PVCs, run of non sustained Vtach Hypokalemia trending cardiac enzymes cardiac monitoring cardiology consult replace electrolytes, follow up levels pain control , nitro PRN resume home meds ASA, statin, coreg and ARB Malignant hypertension with chest pain resume BP meds add hydrazine PRN multinodular goiter OP follow up hyperlipidemia on statin DVT ppx, heparin sc tid Preformed a thorough record review from recent hospitalization , left heart cath 2016 showing systolic CHF , NICMP with LVEF of 25% and no significant CAD Surrogate decision-maker: Johnny , patient CODE STATUS:full code Discussed with: Patient, ER, RN Anticipated discharge: <[address]: home A total of 60 minutes was spent on the care of this complex patient more than 50 % of the time was spent in counseling and care coordination.
[2017-12-20] MEDS: hydrALAZINE HCL 20 MG/ML 1 ML VIAL IVP PRN (22:32)
[2017-12-20 23:36] LABS: Creatine Kinase MB 1.1 ng/mL (0.0-2.4); Troponin I 0.024 ng/mL (0.000-0.034)
[2017-12-21] MEDS: HEPARIN SODIUM,PORCINE 5,000 UNIT/ML 1 ML VIAL SQ SCH ×4 (00:44→23:06)
[2017-12-21 04:30] LABS: Basophils % (A) 1 %; Eosinophils % (A) 1 %; HCT 43.7 % (34.0-46.0); HGB 13.4 gm/dL (11.4-16.0); Lymphocytes # (A) 1.7 k/uL (1.0-4.8); Lymphocytes % (A) 20 %; MCH 28.7 pg (25.0-35.0); MCHC 30.7 g/dL (31.0-37.0); MCV 93.6 fL (80.0-100.0); Monocytes # (A) 0.4 k/uL (0-1.0); Monocytes % (A) 4 %; Neutrophils # (A) 6.1 k/uL (1.3-7.7); Neutrophils % (A) 73 %; Platelet Count 185 k/uL (150-450); RBC 4.67 m/uL (3.80-5.40); RDW 14.5 % (11.5-15.5); WBC 8.4 k/uL (3.8-10.6)
[2017-12-21 04:42] LABS: ALT 18 U/L (9-52); AST 18 U/L (14-36); Albumin 3.4 g/dL (3.5-5.0); Alkaline Phosphatase 55 U/L (38-126); Anion Gap 8 mmol/L; Blood Urea Nitrogen 15 mg/dL (7-17); Calcium 9.1 mg/dL (8.4-10.2); Carbon Dioxide 26 mmol/L (22-30); Chloride 108 mmol/L (98-107); Glucose 115 mg/dL (74-99); Potassium 3.6 mmol/L (3.5-5.1); Sodium 142 mmol/L (137-145); Total Protein 6.1 g/dL (6.3-8.2)
[2017-12-21 05:22] LABS: Creatine Kinase MB 0.8 ng/mL (0.0-2.4); Troponin I 0.014 ng/mL (0.000-0.034)
[2017-12-21] MEDS ORDERED: POTASSIUM CHLORIDE ER 20 MEQ TAB.ER PO STA (06:52)
[2017-12-21] MEDS: CARVEDILOL 3.125 MG TAB PO SCH (06:53)
[2017-12-21] MEDS: hydrALAZINE HCL 20 MG/ML 1 ML VIAL IVP PRN (07:02)
[2017-12-21] MEDS: GABAPENTIN 100 MG CAP PO SCH ×3 (09:48→20:58)
[2017-12-21] MEDS: ALPRAZolam 0.5 MG TAB PO SCH ×4 (09:48→23:07)
[2017-12-21] MEDS: ASPIRIN 81 MG PO SCH (09:52)
--- NOTE | 2017-12-21 11:06 | P.CRDCN ---
History of Present Illness Consult date: 12/21/17 Reason for Consult (text): Chest pain Consult reason: chest pain Chief complaint: Chest discomfort History of present illness: This is a 77-year-old female patient who presented to the hospital with chest discomfort she described as a burning sensation after taking her pills. She also had radiation to her left shoulder. The patient was referred to the emergency department from the outpatient setting where she was scheduled to undergo thyroid gland surgery she describes some nausea but no shortness breath or diaphoresis. She's been up to the bathroom without any difficulties. States that she is quite constipated this morning. EKG shows a normal sinus mechanism with PVCs. No ST or T-wave abnormalities. The patient was seen in 2016 and underwent cardiac catheterization by Dr. Thai Canales which showed no coronary artery disease. She does have a history of nonischemic cardiomyopathy with an ejection fraction of 20-25%. Troponin 2 are negative. She was hypertensive on admission but her blood pressure is better controlled this morning. She is quite anxious. She is in no acute distress Review of Systems All systems: negative Constitutional: Reports as per HPI Past Medical History Past Medical History: Cancer, Heart Failure, Eye Disorder, GERD/Reflux, Hearing Disorder / Deafness, Hyperlipidemia, Hypertension, Myocardial Infarction ([place]), Mitral Valve Prolapse (MVP), Osteoarthritis (OA), Pneumonia Additional Past Medical History / Comment(s): CHRONIC BACK PAIN, SPINAL STENOSIS, SCOLIOSIS, IBS WITH FREQUENT LOOSE STOOLS., STATES HX OF FAST HEART RATE, hemorrhoids,HEARING AIDS, MACULAR DEGENERATION, VARICOSE VEINS, STRESS INDUCED ASTHMA - HX OF FALLS- 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 GLAUCOMA -"STRESS INDUCED" NODULES THYROID Last Myocardial Infarction Date:: 2009 History of Any Multi-Drug Resistant Organisms: None Reported Past Surgical History: Cardiac Ablation, Cholecystectomy, Heart Catheterization , Hysterectomy, Joint Replacement, Orthopedic Surgery Additional Past Surgical History / Comment(s): THYROID BX, LINDSAY. TOTAL KNEES, LINDSAY TOTAL SHOULDERS,Cardiac ablation x2,skin CA removed with skin graft to neck Past Anesthesia/Blood Transfusion Reactions: Motion Sickness Past Psychological History: Anxiety, Depression, Panic Disorder Smoking Status: Former smoker Past Alcohol Use History: None Reported Past Drug Use History: None Reported - Past Family History Father Family Medical History: Cancer Additional Family Medical History / Comment(s): ORAL CANCER Medications and Allergies Home Medications Medication Instructions Recorded Confirmed Type ALPRAZolam [Xanax] 0.5 mg PO QID 10/03/13 12/20/17 History Gabapentin [Neurontin] 100 mg PO TID 10/03/13 12/20/17 History Sertraline [Zoloft] 100 mg PO 1300 10/03/13 12/20/17 History Simvastatin [Zocor] 10 mg PO HS 10/03/13 12/20/17 History Aspirin 81 mg PO DAILY #1 chewable 11/21/14 12/20/17 Rx Carvedilol [Coreg] 9.37 mg PO BID 07/25/15 12/20/17 History Irbesartan 300 mg PO 1500 07/25/15 12/20/17 History Famotidine [Pepcid] 20 mg PO DAILY@1600 04/02/17 12/20/17 History Calcium Carbonate [Calcium] 600 mg PO DAILY 07/08/17 12/20/17 History Cholecalciferol (Vitamin D3) 2,000 unit PO DAILY 07/08/17 12/20/17 History [Vitamin D3] Wheat Dextrin [Benefiber] 3 gm PO DAILY 07/08/17 12/20/17 History Zeaxanthin 5mg W/Lutein 25mg 1 tab PO DAILY 07/08/17 12/20/17 History Denosumab [Prolia] 60 mg SQ ONCE 12/18/17 12/20/17 History Allergies Allergy/AdvReac Type Severity Reaction Status Date / Time codeine Allergy Severe Nausea & Verified 12/20/17 16:00 Vomiting Opioids - Morphine Analogues Allergy Dyspnea- Verified 12/20/17 16:00 Physical Exam Vitals: Vital Signs Temp Pulse Pulse Resp BP BP Pulse Ox 12/21/17 09:00 58 L 16 114/61 97 12/21/17 06:50 52 L 18 185/87 97 12/21/17 04:00 52 L 18 152/70 97 12/21/17 00:00 97.4 F L 48 L 18 147/79 96 12/20/17 21:18 55 L 18 188/75 95 12/20/17 20:27 60 15 188/88 96 12/20/17 20:15 120 H 18 191/89 97 12/20/17 20:00 55 L 18 12/20/17 19:40 97.2 F L 78 18 194/80 96 12/20/17 19:10 97.2 F L 57 L 18 181/90 95 12/20/17 18:26 88 18 172/88 97 12/20/17 17:52 97.8 F 78 18 169/74 97 12/20/17 16:53 52 L 18 190/94 97 12/20/17 14:21 99.2 F 67 18 181/78 95 Intake and Output 12/20/17 12/21/17 12/21/17 22:59 06:59 14:59 Intake Total 480 480 360 Balance 480 480 360 Intake: Oral 480 480 360 Other: # Voids 2 5 Weight 80.286 kg 77.4 kg - Constitutional General appearance: obese - EENT Eyes: normal appearance ENT: hearing grossly normal - Neck Carotids: bilateral: upstroke normal - Respiratory Respiratory: bilateral: CTA - Cardiovascular Rhythm: regular Abnormal Heart Sounds: systolic murmur leg Peripheral Edema: bilateral: None dorsalis pedis Peripheral Pulses: bilateral: Normal - Musculoskeletal Musculoskeletal: gait normal - Psychiatric Psychiatric: A&O x's 3 Anxious Results 12/21/17 03:59 12/21/17 03:59 Cardiac Enzymes 12/20/17 12/20/17 12/20/17 Range/Units 15:50 15:50 22:37 AST 19 (14-36) U/L CK-MB (CK-2) 1.2 1.1 (0.0-2.4) ng/mL Troponin I 0.015 0.024 (0.000-0.034) ng/mL 12/21/17 12/21/17 Range/Units 03:59 03:59 AST 18 (14-36) U/L CK-MB (CK-2) 0.8 (0.0-2.4) ng/mL Troponin I 0.014 (0.000-0.034) ng/mL Coagulation 12/20/17 Range/Units 18:22 PT 10.7 (9.0-12.0) sec APTT 24.1 (22.0-30.0) sec CBC 12/20/17 12/21/17 Range/Units 15:50 03:59 WBC 5.7 8.4 (3.8-10.6) k/uL RBC 4.76 4.67 (3.80-5.40) m/uL Hgb 13.8 13.4 (11.4-16.0) gm/dL Hct 42.7 43.7 (34.0-46.0) % Plt Count 195 185 (150-450) k/uL Comprehensive Metabolic Panel 12/20/17 12/21/17 Range/Units 15:50 03:59 Sodium 142 142 (137-145) mmol/L Potassium 3.2 L 3.6 (3.5-5.1) mmol/L Chloride 105 108 H (98-107) mmol/L Carbon Dioxide 29 26 (22-30) mmol/L BUN 17 15 (7-17) mg/dL Creatinine 0.60 0.53 (0.52-1.04) mg/dL Glucose 96 115 H (74-99) mg/dL Calcium 9.4 9.1 (8.4-10.2) mg/dL AST 19 18 (14-36) U/L ALT 20 18 (9-52) U/L Alkaline Phosphatase 61 55 (38-126) U/L Total Protein 6.8 6.1 L (6.3-8.2) g/dL Albumin 3.9 3.4 L (3.5-5.0) g/dL Current Medications Generic Name Dose Route Start Last Admin Trade Name Freq PRN Reason Stop Dose Admin Alprazolam 0.5 mg 12/20/17 18:00 12/21/17 09:48 Xanax PO 0.5 mg QID TOM Administration Aspirin 81 mg 12/21/17 09:00 12/21/17 09:52 Aspirin PO 81 mg DAILY TOM Administration Atorvastatin Calcium 10 mg 12/20/17 21:00 12/20/17 21:12 Lipitor PO 10 mg HS TOM Administration Carvedilol 9.375 mg 12/20/17 17:30 12/21/17 06:53 Coreg PO Not Given BID-W/MEALS [facility] Famotidine 20 mg 12/21/17 16:00 Pepcid PO DAILY@1600 TOM Gabapentin 100 mg 12/20/17 22:00 12/21/17 09:48 Neurontin PO 100 mg TID TOM Administration Heparin Sodium (Porcine) 5,000 unit 12/21/17 00:00 12/21/17 09:47 Heparin SQ 5,000 unit Q8HR TOM Administration Hydralazine HCl 10 mg 12/20/17 22:13 12/21/17 07:02 Apresoline IVP 10 mg Q6HR PRN Administration Blood Pressure - High SBP>180 Potassium Chloride/Sodium Chloride 1,000 mls @ 50 mls/hr 12/20/17 17:00 12/20 18:15 Ns-Kcl 20 Meq/L Iv Solution IV 50 mls/hr .Q20H TOM Administration Losartan Potassium 100 mg 12/21/17 15:00 Cozaar PO 1500 TOM Naloxone HCl 0.2 mg 12/20/17 16:51 Narcan IV Q2M PRN Opioid Reversal Sertraline HCl 100 mg 12/21/17 13:00 Zoloft PO 1300 TOM Intake and Output 12/20/17 12/21/17 12/21/17 22:59 06:59 14:59 Intake Total 480 480 360 Balance 480 480 360 Intake: Oral 480 480 360 Other: # Voids 2 5 Weight 80.286 kg 77.4 kg 12/21/17 03:59 12/21/17 03:59 EKG Interpretations (text) Normal sinus mechanism with occasional PVCs. Assessment and Plan Assessment: Atypical chest discomfort History of nonischemic cardiomyopathy Hypokalemia Frequent PVCs, nonsustained V. tach 1 Hypertension Morbid obesity Plan: Continue cardiac medications including aspirin, Lipitor, hydralazine and Cozaar. Increase Coreg for better blood pressure control and decrease PVCs. Obtain echocardiogram to evaluate LV size and systolic function. Replace potassium per protocol. Serial troponins are negative and EKG is not indicative of acute ischemia. Chest pain is atypical. No further cardiac investigations are necessary at this time. We will continue to monitor closely and make further recommendations as necessary. MANAGER FINANCE note has been reviewed, I agree with a documented findings and plan of care. Patient was seen and examined.
[2017-12-21] MEDS ORDERED: SERTRALINE 100 MG TAB PO SCH (13:00)
--- NOTE | 2017-12-21 13:56 | P.PN ---
Subjective Progress Note Date: 12/21/17 (Delayed charting bradford seen at 1030) Principal diagnosis: burning feeling in her chest Patient is a 77-year-old female with a past medical history of GERD, hypertension, dyslipidemia, prior myocardial infarction who presented to the hospital with complaint of retrosternal burning sensation. Initially patient was at the hospital for a biopsy of her thyroid gland however with her symptoms they were concerned and alert sent to the emergency department. In the ER she underwent an extensive evaluation and was found to have multiple PVCs and a short run of nonsustained V. tach. She was found to be hypokalemic on laboratory analysis but is otherwise unremarkable. Chest x-ray was within normal limits. Initial troponin and EKG were unremarkable. She was admitted as chest pain observation. Serial troponins remained negative. Her blood pressure was elevated on the morning of 12/21 but patient is feeling very anxious. Patient seen and examined at bedside. She complains of anxiety and panic attack from her blood pressure being up. This made her feel short of breath this is now resolved. She is no longer having the retrosternal burning cessation. She denies any nausea or vomiting but she is complaining of anxiety. Objective - Vital Signs Vital signs: Vital Signs Temp 97.4 F L 12/21/17 00:00 Pulse 73 12/21/17 12:00 Resp 17 12/21/17 12:00 BP 130/74 12/21/17 12:00 Pulse Ox 96 12/21/17 12:00 Intake & Output 12/20/17 12/21/17 12/21/17 18:59 06:59 18:59 Intake Total 960 582 Output Total 900 Balance 960 -318 Weight 80.286 kg 77.4 kg Intake: Oral 960 582 Output: Urine 900 Other: # Voids 5 2 - Exam General: non toxic, mild distress secondary to anxiety, appears at stated age Derm: warm, dry Head: atraumatic, normocephalic, symmetric Eyes: EOMI, no lid lag, anicteric sclera Mouth: no lip lesion, mucus membranes moist Cardiovascular: S1S2 reg, no murmur, positive posterior tibial pulse bilateral, Lungs: CTA bilateral, no rhonchi, no rales , no accessory muscle use Abdominal: soft, nontender to palpation, no guarding, no appreciable organomegaly Ext: no gross muscle atrophy, no edema, no contractures Neuro: CN II-XI grossly intact, no focal neuro deficits Psych: Alert, oriented, anxious with flight of ideas - Labs CBC & Chem 7: 12/21/17 03:59 12/21/17 03:59 Labs: Abnormal Lab Results - Last 24 Hours (Table) 12/20/17 12/21/17 12/21/17 Range/Units 15:50 03:59 03:59 MCHC 30.7 L (31.0-37.0) g/dL Potassium 3.2 L (3.5-5.1) mmol/L Chloride 108 H (98-107) mmol/L Glucose 115 H (74-99) mg/dL Total Protein 6.1 L (6.3-8.2) g/dL Albumin 3.4 L (3.5-5.0) g/dL Assessment and Plan Assessment: Chest discomfort -Serial troponins negative -Aspirin, statin, Coreg -Await cardiology recommendations -Await echocardiogram -Patient with normal left heart cath in 2016 Nonischemic cardiomyopathy, chronic systolic congestive heart failure with ejection fraction 25% -Resume aspirin, statin, Coreg, and beta carlitos -Heart healthy diet -Monitor for signs of fluid overload Hypertensive urgency, improved -Continue home blood pressure medications, coreg increased by cardio -Likely related to anxiety Multinodular goiter -Outpatient follow-up Dyslipidemia -Statin DVT prophylaxis: Heparin Discussed with: Patient, nursing Anticipated discharge: [address]: home A total of 25 minutes was spent on the care of this complex patient more than 50 % of the time was spent in counseling and care coordination.
[2017-12-21] MEDS ORDERED: LOSARTAN 50 MG TAB PO SCH (15:00)
[2017-12-21] MEDS ORDERED: FAMOTIDINE 20 MG TAB PO SCH (16:00)
[2017-12-21] MEDS: CARVEDILOL 12.5 MG TAB PO SCH (17:30)
[2017-12-21] MEDS: 0.9% NACL WITH KCL 20 MEQ/L 1,000 ML IV SCH ×2 (18:58→20:58)
[2017-12-21] MEDS: hydrALAZINE HCL 50 MG TAB PO SCH (20:54)
[2017-12-21] MEDS: ATORVASTATIN 10 MG TAB PO SCH (20:54)
[2017-12-22] MEDS: CARVEDILOL 12.5 MG TAB PO SCH (07:03)
[2017-12-22] MEDS: hydrALAZINE HCL 50 MG TAB PO SCH (07:04)
[2017-12-22] MEDS ORDERED: LORazepam 2 MG/ML INJ IV STA (07:11)
[2017-12-22] MEDS: ALPRAZolam 0.5 MG TAB PO SCH (07:15)
[2017-12-22 08:29] VITALS: TEMP 98
[2017-12-22] MEDS: ASPIRIN 81 MG PO SCH (08:34)
[2017-12-22] MEDS: GABAPENTIN 100 MG CAP PO SCH (08:34)
[2017-12-22] MEDS: HEPARIN SODIUM,PORCINE 5,000 UNIT/ML 1 ML VIAL SQ SCH (08:35)
[2017-12-22 08:47] LABS: Anion Gap 6 mmol/L; Blood Urea Nitrogen 18 mg/dL (7-17); Calcium 9.2 mg/dL (8.4-10.2); Carbon Dioxide 22 mmol/L (22-30); Chloride 115 mmol/L (98-107); Glucose 100 mg/dL (74-99); Potassium 4.7 mmol/L (3.5-5.1); Sodium 143 mmol/L (137-145)
[2017-12-22] MEDS ORDERED: PANTOPRAZOLE 40 MG TABLET PO STA (10:22)
[2017-12-22 10:37] VITALS: BP 136/73; PULSE 65; RESP 16
--- NOTE | 2017-12-22 11:47 | P.PN ---
Subjective Progress Note Date: 12/22/17 This is a 77-year-old female patient who presented to the hospital with chest discomfort she described as a burning sensation after taking her pills. She also had radiation to her left shoulder. The patient was referred to the emergency department from the outpatient setting where she was scheduled to undergo thyroid gland surgery she describes some nausea but no shortness breath or diaphoresis. She's been up to the bathroom without any difficulties. States that she is quite constipated this morning. EKG shows a normal sinus mechanism with PVCs. No ST or T-wave abnormalities. The patient was seen in 2016 and underwent cardiac catheterization by Dr. Thai Canales which showed no coronary artery disease. She does have a history of nonischemic cardiomyopathy with an ejection fraction of 20-25%. Troponin 2 are negative. She was hypertensive on admission but her blood pressure is better controlled this morning. She is quite anxious. She is in no acute distress. 12/22/2017. The patient is doing well this morning. Denies any chest discomfort, shortness breath or palpitations. No further ventricular tachycardia noted on the monitor. Occasional PVCs only. She remains in a normal sinus mechanism. She is hemodynamically stable. Objective - Vital Signs Vital signs: Vital Signs Temp 98.0 F 12/22/17 08:00 Pulse 65 12/22/17 10:36 Resp 16 12/22/17 10:36 BP 136/73 12/22/17 10:36 Pulse Ox 93 L 12/22/17 10:36 Intake & Output 12/21/17 12/22/17 12/22/17 18:59 06:59 18:59 Intake Total 582 480 200 Output Total 1700 1600 900 Balance -1118 -1120 -700 Weight 78.8 kg Intake: Oral 582 480 200 Output: Urine 1700 1600 900 Other: Voiding Method Toilet Toilet Toilet # Voids 2 2 - Exam GENERAL EXAM: Patient is alert and oriented and doesn't appear to be in any acute distress. Patient is obese HEENT: Normocephalic. Normal reaction of pupils, equal size, normal range of extraocular motion. No erythema or exudates in the throat. NECK: No masses, no nuchal rigidity. CHEST: No chest wall deformity. LUNGS: Diminished air exchange HEART: S1 and S2 normal. 2/6 systolic murmur. ABDOMEN: No hepatosplenomegaly, normal bowel sounds, no guarding or rigidity. SKIN: No rashes CENTRAL NERVOUS SYSTEM: No focal deficits. EXTREMITIES: No cyanosis. Trace edema. - Labs CBC & Chem 7: 12/21/17 03:59 12/22/17 07:15 Labs: Abnormal Lab Results - Last 24 Hours (Table) 12/22/17 Range/Units 07:15 Chloride 115 H (98-107) mmol/L BUN 18 H (7-17) mg/dL Glucose 100 H (74-99) mg/dL Assessment and Plan Assessment: Atypical chest discomfort History of nonischemic cardiomyopathy Hypokalemia Frequent PVCs, nonsustained V. tach 1 Hypertension Morbid obesity Plan: Continue current cardiac medications including aspirin, Coreg, Lipitor, hydralazine and Cozaar. Echocardiogram has been ordered. No further recommendations at this time. The patient may be discharged home if she is medically stable to follow up as an outpatient for echocardiogram. She can follow with Dr. VC Canales in 2 weeks.
--- NOTE | 2017-12-22 12:00 | ECHOF ---
Referral Reason: MEASUREMENTS -------- HEIGHT: 147.3 cm WEIGHT: 77.1 kg BP: 185/87 IVSd: 1.4 cm (0.6 - 1.1) LVIDd: 3.9 cm (3.9 - 5.3) LVPWd: 1.4 cm (0.6 - 1.1) IVSs: 1.6 cm LVIDs: 1.8 cm LVPWs: 1.6 cm LAESV Index (A-L): 56.72 ml/m MV E Chapo: 0.44 m/s MV DecT: 258 ms MV A Chapo: 0.73 m/s MV E/A Ratio: 0.61 AV maxP.93 mmHg AV meanP.12 mmHg RAP: 5.00 mmHg RVSP: 14.45 mmHg FINDINGS -------- Sinus rhythm. This was a technically adequate study. The left ventricular size is normal. There is moderate concentric left ventricular hypertrophy. O verall left ventricular systolic function is normal with, an EF between 55 - 60 %. The right ventricle is normal in size and function. LA is severely dilated >40 ml/m2 The right atrium is normal in size. There is mild aortic valve sclerosis. Trace amount of aortic regurgitation. There is no evidence of aortic stenosis. The mitral valve leaflets are mildly thickened. There is trace to mild mitral regurgitation. Trace tricuspid regurgitation present. Right ventricular systolic pressure is normal at < 35 mmHg. There is no evidence of pulmonary hypertension. The pulmonic valve was not well visualized. The aortic root size is normal. Normal inferior vena cava with normal inspiratory collapse consistent with estimated right atrial pre ssure of 5 mmHg. There is no pericardial effusion. CONCLUSIONS -------- 1. Sinus rhythm. 2. This was a technically adequate study. 3. The left ventricular size is normal. 4. There is moderate concentric left ventricular hypertrophy. 5. Overall left ventricular systolic function is normal with, an EF between 55 - 60 %. 6. LA is severely dilated >40 ml/m2 7. There is mild aortic valve sclerosis. 8. The mitral valve leaflets are mildly thickened. 9. There is trace to mild mitral regurgitation. 10. Trace tricuspid regurgitation present. 11. Right ventricular systolic pressure is normal at < 35 mmHg. 12. There is no evidence of pulmonary hypertension. 13. The pulmonic valve was not well visualized. 14. The aortic root size is normal. 15. There is no pericardial effusion. ELECTROMEDICAL EQUIPMENT TECHNICIAN: Cam Mejia RDCS
--- NOTE | 2017-12-22 13:47 | P.DS ---
Providers Date of admission: 12/20/17 16:53 Expected date of discharge: 12/22/17 Attending physician: Lisa Rodriguez MD Consults: 12/20/17 16:52 Consult Physician Routine Consulting Provider: Margarito Canales Consult Reason/Comments: Chest pain Do you want consulting provider notified?: Yes Primary care physician: Murali Trujillo Hospital Course: Discharge Diagnosis: Noncardiac chest pain, concern for pill esophagitis Hypertensive urgency Nonischemic cardiomyopathy-ejection fraction now improved to 55-60% Multinodular goiter Dyslipidemia Anxiety Hospital Course: Patient is a 77-year-old female with a past medical history of GERD, hypertension, dyslipidemia, prior myocardial infarction who presented to the hospital with complaint of retrosternal burning sensation that started after swallowing a pill. Initially patient was at the hospital for a biopsy of her thyroid gland however with her symptoms they were concerned and alert sent to the emergency department. In the ER she underwent an extensive evaluation and was found to have multiple PVCs and a short run of nonsustained V. tach. She was found to be hypokalemic on laboratory analysis but is otherwise unremarkable. Chest x-ray was within normal limits. Initial troponin and EKG were unremarkable. She was admitted as chest pain observation. Serial troponins remained negative. Her blood pressure was elevated on the morning of 12/21 but patient is feeling very anxious. Her Coreg was increased and she seen by cardiology. She did have some continued high blood pressures and she was started on hydralazine. Her echocardiogram showed improvement in her ejection fraction at 55-60% with a severely dilated left atrium. She had a normal cardiac catheterization with no signs of ischemic disease in 2016. She was seen by cardiology who did not recommend further inpatient workup. She had one additional chest pain the morning of 12/22. This occurred when she had been startled awake. She describes it as a half dollar sized area of pain in her left chest wall that went through to her back. She had been laying flat and sleeping. Patient reports that she does have a history of acid reflux and struggles with this intermittently. This all had begun when she tried swallowing a pill. She was transitioned off of her H2 carlitos and onto omeprazole. She was determined stable for discharge home and she had been cleared by cardiology. We suggested continued outpatient follow-up with Dr. Trujillo for further evaluation of possible esophageal etiology of her pain. We have also asked her to follow up with cardiology in the office in 2 weeks. Medications: Coreg increased to 12.5 twice a day, hydralazine 50mg 3 times a day. Patient seen and examined at bedside. Patient is feeling fine now. She states chest pain only lasted a brief second. It occurred after she was startled awake and didn't understand was telling her. She also been laying flat. She reports that the pain started as a half-dollar size lesion on the left center area of her chest and then tracked up the back of her throat to the roof of her mouth. She does struggle with acid reflux. Her other episode of chest pain which prompted admission occurred after attempting to swallow a pill. We discussed that she may be having increased acid reflux or possible esophagitis. She is willing to undergo 6 weeks trial of PPI. Vital signs reviewed and stable. General: non toxic, no distress, appears at stated age Derm: warm, dry Head: atraumatic, normocephalic, symmetric Eyes: EOMI, no lid lag, anicteric sclera Mouth: no lip lesion, mucus membranes moist Cardiovascular: S1S2 reg, no murmur, positive posterior tibial pulse bilateral, Lungs: CTA bilateral, no rhonchi, no rales , no accessory muscle use Abdominal: soft, nontender to palpation, no guarding, no appreciable organomegaly Ext: no gross muscle atrophy, no edema, no contractures Neuro: CN II-XI grossly intact, no focal neuro deficits Psych: Alert, oriented, anxious A total of 30 minutes of time were spent preparing this complex discharge summary . Pertinent Studies: Echo-ejection fraction at 55-60% with a severely dilated left atrium. Patient Condition at Discharge: Stable Plan - Discharge Summary Discharge Rx Participant: No New Discharge Prescriptions: New Carvedilol [Coreg*] 12.5 mg PO BID-W/MEALS #60 tab hydrALAZINE HCL [Apresoline] 50 mg PO TID #90 tab Omeprazole 40 mg PO DAILY #30 capsule. Continue Sertraline [Zoloft] 100 mg PO 1300 Gabapentin [Neurontin] 100 mg PO TID Simvastatin [Zocor] 10 mg PO HS ALPRAZolam [Xanax] 0.5 mg PO QID Aspirin 81 mg PO DAILY #1 chewable Irbesartan 300 mg PO 1500 Calcium Carbonate [Calcium] 600 mg PO DAILY Zeaxanthin 5mg W/Lutein 25mg 1 tab PO DAILY Cholecalciferol (Vitamin D3) [Vitamin D3] 2,000 unit PO DAILY Wheat Dextrin [Benefiber] 3 gm PO DAILY Denosumab [Prolia] 60 mg SQ ONCE Discontinued Carvedilol [Coreg] 9.37 mg PO BID Famotidine [Pepcid] 20 mg PO DAILY@1600 Discharge Medication List ALPRAZolam [Xanax] 0.5 mg PO QID 10/03/13 [History] Gabapentin [Neurontin] 100 mg PO TID 10/03/13 [History] Sertraline [Zoloft] 100 mg PO 1300 10/03/13 [History] Simvastatin [Zocor] 10 mg PO HS 10/03/13 [History] Aspirin 81 mg PO DAILY #1 chewable 11/21/14 [Rx] Irbesartan 300 mg PO 1500 07/25/15 [History] Calcium Carbonate [Calcium] 600 mg PO DAILY 07/08/17 [History] Cholecalciferol (Vitamin D3) [Vitamin D3] 2,000 unit PO DAILY 07/08/17 [History] Wheat Dextrin [Benefiber] 3 gm PO DAILY 07/08/17 [History] Zeaxanthin 5mg W/Lutein 25mg 1 tab PO DAILY 07/08/17 [History] Denosumab [Prolia] 60 mg SQ ONCE 12/18/17 [History] Carvedilol [Coreg*] 12.5 mg PO BID-W/MEALS #60 tab 12/22/17 [Rx] Omeprazole 40 mg PO DAILY #30 capsule. 12/22/17 [Rx] hydrALAZINE HCL [Apresoline] 50 mg PO TID #90 tab 12/22/17 [Rx] Follow up Appointment(s)/Referral(s): Murali Trujillo MD [Primary Care Provider] - 1-2 days Kang Clemens MD [STAFF PHYSICIAN] - 2 Weeks Patient Instructions/Handouts: Chest Pain (ED), Hypokalemia (DC), Gastroesophageal Reflux Disease (DC) Activity/Diet/Wound Care/Special Instructions: Heart healthy diet Activity as tolerated Discharge Disposition: HOME SELF-CARE
== END 2017-12-22 13:16 | disposition home or self-care (01) ==
LOC: EC 14:18 → 3OBS 16:53 → 3SUR 18:52 → 6SEL 19:54
PROVIDERS: ADMIT Internal Medicine; ATTEND Internal Medicine
DX: R07.89 Other chest pain (principal); I16.0 Hypertensive urgency; E87.6 Hypokalemia; K21.9 Gastro-esophageal reflux disease without esophagitis; E04.2 Nontoxic multinodular goiter; I11.0 Hypertensive heart disease with heart failure; I50.22 Chronic systolic (congestive) heart failure; I49.3 Ventricular premature depolarization; I47.2 Ventricular tachycardia; I34.1 Nonrheumatic mitral (valve) prolapse; E78.5 Hyperlipidemia, unspecified; Z68.36 Body mass index [BMI] 36.0-36.9, adult; E66.01 Morbid (severe) obesity due to excess calories; F41.0 Panic disorder [episodic paroxysmal anxiety]; H91.90 Unspecified hearing loss, unspecified ear; M19.90 Unspecified osteoarthritis, unspecified site; F32.9 Major depressive disorder, single episode, unspecified; F41.9 Anxiety disorder, unspecified; M41.9 Scoliosis, unspecified; K58.9 Irritable bowel syndrome, unspecified; G89.29 Other chronic pain; M54.9 Dorsalgia, unspecified; M48.00 Spinal stenosis, site unspecified; J45.909 Unspecified asthma, uncomplicated; H35.30 Unspecified macular degeneration; I83.90 Asymptomatic varicose veins of unspecified lower extremity; H40.9 Unspecified glaucoma; Z79.82 Long term (current) use of aspirin; Z79.899 Other long term (current) drug therapy; Z88.5 Allergy status to narcotic agent; I25.2 Old myocardial infarction; Z97.4 Presence of external hearing-aid; Z91.81 History of falling; Z87.01 Personal history of pneumonia (recurrent); Z90.49 Acquired absence of other specified parts of digestive tract; Z90.710 Acquired absence of both cervix and uterus; Z96.653 Presence of artificial knee joint, bilateral; Z96.612 Presence of left artificial shoulder joint; Z96.611 Presence of right artificial shoulder joint; Z85.828 Personal history of other malignant neoplasm of skin; Z87.891 Personal history of nicotine dependence; Z80.0 Family history of malignant neoplasm of digestive organs
CPT/HCPCS: 96376; 96366 ×3; 96372 ×2; 96375; 96365; 99285; 36415; 93005; 93306; 83880; 80053 ×2; 80048; 82550 ×2; 82553 ×2; 83735 ×2; 84484 ×2; 85025 ×2; 85610; 85730; 71046; G0378 ×3; J0360 ×2; J1644 ×2; J3480

== ENCOUNTER → 2017-12-20 | Day surgery (SDC) | payer MEDICARE ==
[2017-12-20 14:14] VITALS: BP 208/94; PULSE 64; RESP 16; TEMP 98.6
--- NOTE | 2017-12-20 15:05 | US ---
Discontinued fine-needle aspiration of thyroid On presentation patient was noted to be hypertensive. Fine-needle aspiration thyroid can be reschedul ed.
== END ==
LOC: RADPROMAIN 13:40
PROVIDERS: ATTEND Otolaryngology
DX: Z53.8 Procedure and treatment not carried out for other reasons (principal); I10 Essential (primary) hypertension; R07.9 Chest pain, unspecified; E04.1 Nontoxic single thyroid nodule
CPT/HCPCS: 76536

== ENCOUNTER 2018-01-03 12:11 | Day surgery (SDC) | payer MEDICARE ==
[2018-01-03 13:16] VITALS: RESP 16; TEMP 97.3
--- NOTE | 2018-01-03 15:29 | US ---
EXAMINATION TYPE: US FNA thyroid DATE OF EXAM: 01/03/2018 COMPARISON: NONE HISTORY: Thyroid nodule, E04.1 Maximal barrier technique was utilized. Ultrasound using sterile technique. The skin overlying the lo wer pole cystic nodule was localized with ultrasound and the overlying skin prepped and draped. Lidoc preet used for local anesthesia. 3 passes with a 25-gauge needle were made into the nodule under ultra sound guidance. Aspirate specimen submitted to cytology. Following the procedure hemostasis achieved. No immediate complication IMPRESSION: Status post ultrasound-guided fine-needle aspiration of right lower lobe thyroid nodule, pathology pending.
--- NOTE | 2018-01-03 15:30 | US ---
EXAMINATION TYPE: US FNA thyroid DATE OF EXAM: 01/03/2018 COMPARISON: NONE HISTORY: Thyroid nodule.Maximal barrier technique was utilized. After informed consent, skin overlyi ng the lesion was localized with ultrasound and the overlying skin prepped and draped. Ultrasound was utilized using sterile technique. Lidocaine was used for local anesthesia. 3 passes with a 25-gauge needle were made into the right lobe mid pole cystic nodule and aspirated specimen was submitted to cytology. Following the procedure hemostasis achieved. No immediate complication. The patient disc harged in stable condition. IMPRESSION: STATUS POST ULTRASOUND GUIDED FINE NEEDLE ASPIRATION OF RIGHT LOBE mid and lower cystic T HYROID NODULE, PATHOLOGY IS PENDING. THIS PROCEDURE WAS PERFORMED BY THE UNDERSIGNED.
--- NOTE | 2018-01-03 15:31 | US ---
EXAMINATION TYPE: US FNA thyroid DATE OF EXAM: 01/03/2018 COMPARISON: Thyroid ultrasound 11/14/2017 HISTORY: Thyroid nodule. Maximal barrier technique was utilized. After informed consent, skin overlying the lower pole solid cystic nodule was localized with ultrasound and the overlying skin prepped and draped. Ultrasound was utilized using sterile technique. Lidocaine was used for local anesthesia. 4 passes with a 25-gauge needle were made into the nodule and aspirated specimen was submitted to cytology. Following the pro cedure hemostasis achieved. No immediate complication. The patient discharged in stable condition. IMPRESSION: STATUS POST ULTRASOUND GUIDED FINE NEEDLE ASPIRATION OF LOWER POLE SOLID CYSTIC THYROID N ODULE, PATHOLOGY IS PENDING. THIS PROCEDURE WAS PERFORMED BY THE UNDERSIGNED.
[2018-01-03 15:53] VITALS: BP 178/92; PULSE 55
== END 2018-01-03 14:45 | disposition home or self-care (01) ==
LOC: RADPROMAIN 12:11
PROVIDERS: ATTEND Otolaryngology
DX: E04.1 Nontoxic single thyroid nodule (principal)
CPT/HCPCS: 10022; 76942; 88173; 88305

== ENCOUNTER → 2018-03-26 | Outpatient (CLI) | payer MEDICARE ==
--- NOTE | 2018-03-27 14:43 | MM ---
Reason for exam: screening (asymptomatic). Last mammogram was performed 1 year and 4 months ago. History: Patient is postmenopausal. Benign excisional biopsy of the right breast, December 08, 2001. Excisional biopsy of the left breast. Took estrogen for 6 years. Physical Findings: A clinical breast exam by your physician is recommended on an annual basis and results should be correlated with mammographic findings. MG 3D Screening Mammo W/Cad Bilateral CC and MLO view(s) were taken. Prior study comparison: November 14, 2016, right breast MG 3d diag mammo w/cad RT. May 16, 2016, bilateral MG 3d screening mammo w/cad. The breast tissue is heterogeneously dense. This may lower the sensitivity of mammography. Stable benign calcifications. No significant changes when compared with prior studies. ASSESSMENT: Benign, BI-RAD 2 RECOMMENDATION: Routine screening mammogram of both breasts in 1 year.
== END | disposition home or self-care (01) ==
LOC: RADMAMWWP 13:10
PROVIDERS: ATTEND Family Medicine
DX: Z12.31 Encounter for screening mammogram for malignant neoplasm of breast (principal)
CPT/HCPCS: 77063; 77067

== ENCOUNTER → 2018-04-03 | Outpatient (CLI) | payer MEDICARE ==
--- NOTE | 2018-04-03 19:01 | PN ---
PROGRESS NOTE DATE OF SERVICE: 04/03/2018 77-year-old lady who has been re-evaluated in Sleep Center for possible obstructive sleep apnea-hypopnea syndrome. Presently, patient's sleep schedule from midnight until 8:00 am, but she wakes up 3 times during the night with nocturia, snoring, and according to her , she has episodes of shallow breathing and possibly stops breathing during the sleep. She also wakes up with dry mouth, panic attacks, palpitation, heart going, gasping for air, restless legs and sweating. In the morning she wakes up tired, has problem with memory, anxiety, irritability, depression, falling asleep during the day. Glasgow Sleepiness Scale today is 9. MEDICATIONS: Alprazolam, gabapentin, carvedilol, hydralazine, vitamin D supplement, omeprazole, baby aspirin, simvastatin, Prolia. PHYSICAL EXAM: GENERAL: lady without distress. VITAL SIGNS: BP 161/93, HR 48, RR 16. Height 4 feet 10 inches, weight 177, body mass index 36.9, temperature 97.8, oxygen saturation at room air 95%. Oropharynx low position of soft palate. Neck: 14 inches in circumference. Supple, no JVD. Thyroid is not palpable. LUNGS Clear to percussion and to auscultation. Good air exchange. No wheezing or rhonchi. HEART: S1, S2 regular. No murmurs, gallops, or rubs. ABDOMEN: Slightly obese. Soft and nontender. Bowel sounds are present. No organomegaly appreciated. EXTREMITIES: 1+ bilateral ankle edema. No clubbing or cyanosis. RECREATIONAL THERAPY TECHNICIAN Awake, alert, and oriented X3. Cranial nerves 2 to 7 intact. There is no fasciculation or atrophy. noted. No focal deficits observed. IMPRESSION: 1. Snoring, witnessed episodes of changing breathing during the sleep. Low position of the soft palate. Possible obstructive sleep apnea-hypopnea syndrome. 2. History of cardiac arrhythmia. 3. Hyperlipidemia. 4. History of irritable bowel syndrome. 5. History of panic attack. 6. Anxiety. 7. Status post bilateral knee replacement. 8. Status post cholecystectomy. 9. History of spinal stenosis. 10.Status post bilateral shoulder replacement. 11.History of atrial fibrillation. PLAN: 1. Polysomnography for evaluation of patient's breathing during sleep. 2. CPAP titration for correction of respiratory abnormalities if necessary. 3. Watching and losing weight. 4. Sleep hygiene with regular time in bed for at least 8 hours. 5. No driving if feeling sleepiness. Thank you very much for allowing me to participate in management of your patient. Sincerely, Mau Figueroa MD, PhD, FAASM Diplomat of [employer] [facility] [place] [facility] / [place]: [id number] /
== END ==
LOC: SLEEP 15:46
PROVIDERS: ATTEND Internal Medicine
DX: R06.83 Snoring (principal); I49.9 Cardiac arrhythmia, unspecified; E78.5 Hyperlipidemia, unspecified; K58.9 Irritable bowel syndrome, unspecified; F41.0 Panic disorder [episodic paroxysmal anxiety]; F41.9 Anxiety disorder, unspecified; M48.00 Spinal stenosis, site unspecified; I48.91 Unspecified atrial fibrillation; Z96.653 Presence of artificial knee joint, bilateral; Z90.49 Acquired absence of other specified parts of digestive tract; Z96.611 Presence of right artificial shoulder joint; Z96.612 Presence of left artificial shoulder joint; Z99.89 Dependence on other enabling machines and devices; Z79.899 Other long term (current) drug therapy; Z79.82 Long term (current) use of aspirin

== ENCOUNTER → 2018-05-07 | Outpatient (CLI) | payer MEDICARE ==
--- NOTE | 2018-05-07 14:59 | SFUN ---
SLEEP CENTER FOLLOW UP NOTE DATE OF SERVICE: 05/07/2018 A 77-year-old lady who has been followed in the Sleep Center to discuss results of the sleep study and following plan. I discussed results of the sleep study with the patient and family in detail. Sleep study showed mild obstructive sleep apnea-hypopnea syndrome with apnea-hypopnea index 5.7 and lowest oxygen level 87.3%. Heart rate by computer calculation was in the range between 33 and 64. No periodic limb movements have been documented. Patient continued to have symptoms of excessive daytime sleepiness. [place] Sleepiness Scale significantly increased to 17. PHYSICAL EXAM: Patient in no distress. BP 155/95, HR 45, RR 16, temperature 97.6, oxygen saturation at room air 94%. Weight 177 pounds. Height 4 foot 10 inches tall. PHYSICAL EXAM: OROPHARYNX: Low position of soft palate. ABDOMEN: Slightly obese. Neck Supple, no JVD. Thyroid is not palpable. LUNGS Clear to percussion and to auscultation. Good air exchange. No wheezing or rhonchi. HEART S1, S2 regular. No murmurs, gallops, or rubs. EXTREMITIES No clubbing or cyanosis. UI SOFTWARE ENGINEER Awake, alert, and oriented X3. Cranial nerves 2 to 7 intact. There is no fasciculation or atrophy. noted. No focal deficits observed. IMPRESSION: 1. Mild obstructive sleep apnea-hypopnea syndrome. 2. Hypertension. 3. History of cardiac arrhythmia including ventricular tachycardia and atrial fibrillation episodes. 4. Hyperlipidemia. 5. Irritable bowel syndrome. 6. Anxiety. 7. History of panic attacks. 8. Status post bilateral knee replacement. 9. Status post bilateral shoulder replacement. PLAN: 1. CPAP titration for correction of respiratory abnormalities during sleep. 2. Sleep hygiene with regular time in bed for at least 8 hours. 3. No driving if feeling sleepiness. 4. Watching and losing weight. Thank you very much for allowing me to participate in the management of your patient. Sincerely, Mau Figueroa MD, PhD, FAASM Diplomat of [employer] [facility] [place] [facility] / [place]AN: [id number] /
== END | disposition home or self-care (01) ==
LOC: SLEEP 14:09
PROVIDERS: ATTEND Internal Medicine
DX: G47.33 Obstructive sleep apnea (adult) (pediatric) (principal); I10 Essential (primary) hypertension; E78.5 Hyperlipidemia, unspecified; K58.9 Irritable bowel syndrome, unspecified; F41.9 Anxiety disorder, unspecified; Z86.79 Personal history of other diseases of the circulatory system; Z86.59 Personal history of other mental and behavioral disorders; Z96.653 Presence of artificial knee joint, bilateral; Z96.611 Presence of right artificial shoulder joint; Z96.612 Presence of left artificial shoulder joint

== ENCOUNTER → 2018-05-16 | Outpatient (CLI) | payer MEDICARE ==
[2018-05-16 17:55] LABS: Basophils % (A) 0 %; Eosinophils # (A) 0.1 k/uL (0-0.7); Eosinophils % (A) 2 %; HCT 41.4 % (34.0-46.0); HGB 13.5 gm/dL (11.4-16.0); Lymphocytes # (A) 1.3 k/uL (1.0-4.8); Lymphocytes % (A) 23 %; MCH 30.6 pg (25.0-35.0); MCHC 32.5 g/dL (31.0-37.0); MCV 94.2 fL (80.0-100.0); Mean Platelet Volume 6.4; Monocytes # (A) 0.4 k/uL (0-1.0); Monocytes % (A) 7 %; Neutrophils # (A) 3.8 k/uL (1.3-7.7); Neutrophils % (A) 66 %; Platelet Count 205 k/uL (150-450); RDW 13.7 % (11.5-15.5); WBC 5.7 k/uL (3.8-10.6)
[2018-05-16 23:51] LABS: Albumin 4.1 g/dL (3.80-4.90); Albumin/Globulin Ratio 2.16 (1.60-3.17); Anion Gap 7.8 mmol/L (4.00-12.00); Calcium 9.7 mg/dL (8.7-10.3); Carbon Dioxide 29.2 mmol/L (21.6-31.8); Globulin 1.9 g/dL (1.6-3.3); Potassium 3.4 mmol/L (3.5-5.5); Total Bilirubin 1.2 mg/dL (0.3-1.2)
== END | disposition home or self-care (01) ==
LOC: LABWHC1 17:07
PROVIDERS: ATTEND Nurse Practitioner Adult Health
DX: I50.9 Heart failure, unspecified (principal)
CPT/HCPCS: 36415; 80053; 83880; 85025

== ENCOUNTER 2018-05-21 10:18 | Emergency (ER) | payer MEDICARE ==
[2018-05-21 10:41] VITALS: TEMP 98
[2018-05-21] MEDS ORDERED: SODIUM CHLORIDE 0.9% 1,000 ML IV STA ×2 (11:48)
--- NOTE | 2018-05-21 12:26 | ED ---
Female Urogenital HPI - General Chief complaint: Urogenital Stated complaint: urinary/bowel issues Time Seen by Provider: 05/21/18 11:09 Source: patient, RN notes reviewed, old records reviewed Mode of arrival: wheelchair Limitations: no limitations - History of Present Illness Initial comments: 77-year-old female presents emergency department today with complaints of urinary retention and pain with constipation and lack of bowel movements. Patient states that she was found by her nurse practitioner and diagnosed with urinary tract infection. She is to follow up with urology. But she does not currently be treated with any antibiotics. Patient states that she has severe lower abdominal distention and pain. - Related Data Home Medications Medication Instructions Recorded Confirmed ALPRAZolam [Xanax] 0.5 mg PO QID 10/03/13 05/21/18 Gabapentin [Neurontin] 100 mg PO TID 10/03/13 05/21/18 Simvastatin [Zocor] 10 mg PO HS 10/03/13 05/21/18 Irbesartan 300 mg PO DAILY 07/25/15 05/21/18 Calcium Carbonate [Calcium] 600 mg PO DAILY 07/08/17 05/21/18 Cholecalciferol (Vitamin D3) 2,000 unit PO DAILY 07/08/17 05/21/18 [Vitamin D3] Wheat Dextrin [Benefiber] 3 gm PO DAILY 07/08/17 05/21/18 Zeaxanthin 5mg W/Lutein 25mg 1 tab PO DAILY 07/08/17 05/21/18 Denosumab [Prolia] 60 mg SQ ONCE 12/18/17 05/21/18 Sertraline [Zoloft] 100 mg PO DAILY 05/21/18 05/21/18 Previous Rx's Medication Instructions Recorded Aspirin 81 mg PO DAILY #1 chewable 11/21/14 Carvedilol [Coreg*] 12.5 mg PO BID-W/MEALS #60 tab 12/22/17 Omeprazole 40 mg PO DAILY #30 capsule. 12/22/17 hydrALAZINE HCL [Apresoline] 50 mg PO TID #90 tab 12/22/17 Bisacodyl [Dulcolax] 10 mg PO ONCE #20 tablet. 05/21/18 Cephalexin [Keflex] 500 mg PO Q8HR #21 cap 05/21/18 Allergies Allergy/AdvReac Type Severity Reaction Status Date / Time codeine Allergy Severe Nausea & Verified 05/21/18 11:52 Vomiting Opioids - Morphine Analogues Allergy Dyspnea- Verified 05/21/18 11:52 Review of Systems ROS Statement: Those systems with pertinent positive or pertinent negative responses have been documented in the HPI. ROS Other: All systems not noted in ROS Statement are negative. 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 GLAUCOMA -"STRESS INDUCED" NODULES THYROID Last Myocardial Infarction Date:: 2009 History of Any Multi-Drug Resistant Organisms: None Reported Past Surgical History: Cardiac Ablation, Cholecystectomy, Heart Catheterization , Hysterectomy, Joint Replacement, Orthopedic Surgery Additional Past Surgical History / Comment(s): THYROID BX, LINDSAY. TOTAL KNEES, LINDSAY TOTAL SHOULDERS,Cardiac ablation x2,skin CA removed with skin graft to neck Past Anesthesia/Blood Transfusion Reactions: Motion Sickness Past Psychological History: Anxiety, Depression, Panic Disorder Smoking Status: Former smoker Past Alcohol Use History: None Reported Past Drug Use History: None Reported - Past Family History Father Family Medical History: Cancer Additional Family Medical History / Comment(s): ORAL CANCER General Exam - General Exam Comments Initial Comments: 77 year old female, moderatediscomfort' Limitations: no limitations General appearance: alert, in no apparent distress Head exam: Present: atraumatic, normocephalic, normal inspection Eye exam: Present: normal appearance, PERRL, EOMI. Absent: scleral icterus, conjunctival injection, periorbital swelling ENT exam: Present: normal exam, mucous membranes moist Neck exam: Present: normal inspection. Absent: tenderness, meningismus, lymphadenopathy Respiratory exam: Present: normal lung sounds bilaterally. Absent: respiratory distress, wheezes, rales, rhonchi, stridor Cardiovascular Exam: Present: regular rate, normal rhythm, normal heart sounds. Absent: systolic murmur, diastolic murmur, rubs, gallop, clicks GI/Abdominal exam: Present: soft, normal bowel sounds. Absent: distended, tenderness, guarding, rebound, rigid Rectal exam: Present: normal inspection, normal rectal tone, fecal impaction Extremities exam: Present: normal inspection, full ROM, normal capillary refill. Absent: tenderness, pedal edema, joint swelling, calf tenderness Back exam: Present: normal inspection Neurological exam: Present: alert, oriented X3, CN II-XII intact Psychiatric exam: Present: normal affect, normal mood Course Vital Signs 05/21/18 05/21/18 05/21/18 10:34 15:09 18:32 Temperature 98 F Pulse Rate 55 L 67 56 L Respiratory 18 20 20 Rate Blood Pressure 136/68 150/92 182/84 O2 Sat by Pulse 95 95 93 L Oximetry Medical Decision Making - Medical Decision Making 77 year old femael presents with fecal impaction and urinary retention. Patient has 9cm dilted rectum with stool. She has urinary retention due to pressure on her bladder. She states she used to take stool softners and then recently decided not to take them. She had kohler cath placed, and patient ahd 1800 cc of urine output. She undersent disimpaction and had large amout of stool removed. She was given mag citrate and Rx for stool softners. CT abdomen and pelvis also shows possible mass over stomach. Discussed follow up with GI and PCP. Will DC with kohler cath for removal by PCP or urology. - Lab Data Result diagrams: 05/21/18 12:17 05/21/18 12:17 Lab Results 05/21/18 05/21/18 05/21/18 Range/Units 12:17 12:17 12:17 WBC 5.1 (3.8-10.6) k/uL RBC 4.47 (3.80-5.40) m/uL Hgb 13.5 (11.4-16.0) gm/dL Hct 41.8 (34.0-46.0) % MCV 93.7 (80.0-100.0) fL MCH 30.2 (25.0-35.0) pg MCHC 32.2 (31.0-37.0) g/dL RDW 13.8 (11.5-15.5) % Plt Count 225 (150-450) k/uL Neutrophils % 67 % Lymphocytes % 22 % Monocytes % 7 % Eosinophils % 2 % Basophils % 1 % Neutrophils # 3.4 (1.3-7.7) k/uL Lymphocytes # 1.1 (1.0-4.8) k/uL Monocytes # 0.3 (0-1.0) k/uL Eosinophils # 0.1 (0-0.7) k/uL Basophils # 0.0 (0-0.2) k/uL PT 10.7 (9.0-12.0) sec INR 1.0 (<1.2) APTT 24.0 (22.0-30.0) sec Sodium 141 (137-145) mmol/L Potassium 2.9 L (3.5-5.1) mmol/L Chloride 107 (98-107) mmol/L Carbon Dioxide 28 (22-30) mmol/L Anion Gap 6 mmol/L BUN 21 H (7-17) mg/dL Creatinine 0.73 (0.52-1.04) mg/dL Est GFR (CKD-EPI)AfAm >90 (>60 ml/min/1.73 sqM) Est GFR (CKD-EPI)NonAf 81 (>60 ml/min/1.73 sqM) Glucose 95 (74-99) mg/dL Calcium 9.9 (8.4-10.2) mg/dL Magnesium (1.6-2.3) mg/dL Total Bilirubin 1.3 (0.2-1.3) mg/dL AST 18 (14-36) U/L ALT 29 (9-52) U/L Alkaline Phosphatase 46 (38-126) U/L Total Protein 6.1 L (6.3-8.2) g/dL Albumin 3.7 (3.5-5.0) g/dL Amylase 33 (30-110) U/L Lipase 58 (23-300) U/L Urine Color Urine Appearance (Clear) Urine pH (5.0-8.0) Ur Specific [place] (1.001-1.035) Urine Protein (Negative) Urine Glucose (UA) (Negative) Urine Ketones (Negative) Urine Blood (Negative) Urine Nitrite (Negative) Urine Bilirubin (Negative) Urine Urobilinogen (<2.0) mg/dL Ur Leukocyte Esterase (Negative) 05/21/18 05/21/18 Range/Units 12:17 13:29 WBC (3.8-10.6) k/uL RBC (3.80-5.40) m/uL Hgb (11.4-16.0) gm/dL Hct (34.0-46.0) % MCV (80.0-100.0) fL MCH (25.0-35.0) pg MCHC (31.0-37.0) g/dL RDW (11.5-15.5) % Plt Count (150-450) k/uL Neutrophils % % Lymphocytes % % Monocytes % % Eosinophils % % Basophils % % Neutrophils # (1.3-7.7) k/uL Lymphocytes # (1.0-4.8) k/uL Monocytes # (0-1.0) k/uL Eosinophils # (0-0.7) k/uL Basophils # (0-0.2) k/uL PT (9.0-12.0) sec INR (<1.2) APTT (22.0-30.0) sec Sodium (137-145) mmol/L Potassium (3.5-5.1) mmol/L Chloride (98-107) mmol/L Carbon Dioxide (22-30) mmol/L Anion Gap mmol/L BUN (7-17) mg/dL Creatinine (0.52-1.04) mg/dL Est GFR (CKD-EPI)AfAm (>60 ml/min/1.73 sqM) Est GFR (CKD-EPI)NonAf (>60 ml/min/1.73 sqM) Glucose (74-99) mg/dL Calcium (8.4-10.2) mg/dL Magnesium 2.0 (1.6-2.3) mg/dL Total Bilirubin (0.2-1.3) mg/dL AST (14-36) U/L ALT (9-52) U/L Alkaline Phosphatase (38-126) U/L Total Protein (6.3-8.2) g/dL Albumin (3.5-5.0) g/dL Amylase (30-110) U/L Lipase (23-300) U/L Urine Color Yellow Urine Appearance Clear (Clear) Urine pH 6.0 (5.0-8.0) Ur Specific [place] 1.012 (1.001-1.035) Urine Protein Negative (Negative) Urine Glucose (UA) Negative (Negative) Urine Ketones Negative (Negative) Urine Blood Negative (Negative) Urine Nitrite Negative (Negative) Urine Bilirubin Negative (Negative) Urine Urobilinogen <2.0 (<2.0) mg/dL Ur Leukocyte Esterase Negative (Negative) Disposition Clinical Impression: Fecal impaction, Hypokalemia, Urinary retention, Abnormal CT scan, stomach Disposition: HOME SELF-CARE Condition: Good Instructions (If sedation given, give patient instructions): Acute Urinary Retention in Women (ED), Fecal Impaction (ED) Additional Instructions: Patient advised to follow-up with your primary care physician next 1-2 days. Keep the Kohler catheter in place until seen by PCP for removal in 2 days. Keflex for UTI prevention after the Kohler catheter removed. Patient should be taking milk of magnesia and stool softeners. Prescriptions: Bisacodyl [Dulcolax] 10 mg PO ONCE #20 tablet. Cephalexin [Keflex] 500 mg PO Q8HR #21 cap Is patient prescribed a controlled substance at d/c from ED?: No Referrals: Murali Trujillo MD [Primary Care Provider] - 1-2 days Time of Disposition: 17:09
[2018-05-21 12:38] LABS: Basophils % (A) 1 %; Eosinophils # (A) 0.1 k/uL (0-0.7); Eosinophils % (A) 2 %; HCT 41.8 % (34.0-46.0); HGB 13.5 gm/dL (11.4-16.0); Lymphocytes # (A) 1.1 k/uL (1.0-4.8); Lymphocytes % (A) 22 %; MCH 30.2 pg (25.0-35.0); MCHC 32.2 g/dL (31.0-37.0); MCV 93.7 fL (80.0-100.0); Mean Platelet Volume 6.4; Monocytes # (A) 0.3 k/uL (0-1.0); Monocytes % (A) 7 %; Neutrophils # (A) 3.4 k/uL (1.3-7.7); Neutrophils % (A) 67 %; Platelet Count 225 k/uL (150-450); RBC 4.47 m/uL (3.80-5.40); RDW 13.8 % (11.5-15.5); WBC 5.1 k/uL (3.8-10.6)
[2018-05-21 12:49] LABS: Prothrombin Time 10.7 sec (9.0-12.0)
[2018-05-21 12:53] LABS: ALT 29 U/L (9-52); AST 18 U/L (14-36); Albumin 3.7 g/dL (3.5-5.0); Alkaline Phosphatase 46 U/L (38-126); Amylase 33 U/L (30-110); Anion Gap 6 mmol/L; Blood Urea Nitrogen 21 mg/dL (7-17); Calcium 9.9 mg/dL (8.4-10.2); Carbon Dioxide 28 mmol/L (22-30); Chloride 107 mmol/L (98-107); Glucose 95 mg/dL (74-99); Lipase 58 U/L (23-300); Potassium 2.9 mmol/L (3.5-5.1); Sodium 141 mmol/L (137-145); Total Bilirubin 1.3 mg/dL (0.2-1.3); Total Protein 6.1 g/dL (6.3-8.2)
[2018-05-21] MEDS ORDERED: POTASSIUM CHLORIDE ER 20 MEQ TAB.ER PO STA (13:48)
[2018-05-21 14:01] LABS: Appearance,Urine Clear (Clear); Bilirubin,Urine Negative (Negative); Blood,Urine Negative (Negative); Color,Urine Yellow; Glucose,Urine (UA) Negative (Negative); Ketones,Urine Negative (Negative); Leukocyte Esterase,Urine Negative (Negative); Nitrite,Urine Negative (Negative); Protein,Urine Negative (Negative); Specific Gravity,Urine 1.012 (1.001-1.035); Urobilinogen,Urine <2.0 mg/dL (<2.0)
[2018-05-21] MEDS ORDERED: DOCUSATE 283 MG/5 ML ENEMA RECTAL STA (14:06)
--- NOTE | 2018-05-21 14:21 | CT ---
EXAMINATION TYPE: CT lumbar spine w con DATE OF EXAM: 05/21/2018 COMPARISON: None HISTORY: Low back pain with nausea, diarrhea and uncontrolled urination CT DLP: 1882.2 mGycm Automated exposure control for dose reduction was used. CONTRAST: CT scan of the lumbar spine, abdomen, and pelvis is performed with IV Contrast, patient injected with 100 mL of Isovue 300. TECHNIQUE: Enhanced CT of the lumbar spine was performed. Bone and soft tissue window settings are s ubmitted as well as coronal and sagittal reconstructions. FINDINGS: Osseous structures: There is focal reversal of the usual lumbar lordosis from T12 through L4. There i s extensive multilevel degenerative disc disease and a severe levoscoliosis. Multilevel facet arthrop athy, intervertebral disc space narrowing, endplate sclerosis, and vacuum disc phenomenon as well as posterior and anterior osteophytes are noted. Multilevel malalignment is seen with mild retrolisthesi s of L2 on L3 and L3 on L4. Overall vertebral body heights appear maintained. L1-L2: Severe degenerative disc disease and a broad-based disc bulge create mild spinal canal stenosi s. Evaluation of the neural foramen are limited secondary to the scoliosis. L2-L3: Severe degenerative disc disease create at least moderate bilateral neural foraminal narrowing and mild spinal canal stenosis, limited by the severe scoliosis. L3-L4: Severe degenerative disc disease create at least moderate bilateral neural foraminal narrowing and mild spinal canal stenosis with limitations as above. L4-L5: At least broad-based disc bulge and severe degenerative disc disease create severe left and mo derate to severe right neural foraminal narrowing again with limitations as described above. Moderate spinal canal stenosis. L5-S1: Severe left and moderate right neural foraminal narrowing and mild spinal canal stenosis are s een due to facet arthropathy and a broad-based disc bulge. In addition to a small hiatal hernia there is a focal gastric fundal lesion with peripheral enhanceme nt and central hypoattenuation on image 4 that could relate to intraluminal mass or polyp. Thickening of the gastric fundus is seen in the visualized portions of the abdomen. Upper pole 9 mm right renal cyst is noted. Too small to accurately characterize left renal lesions ar e seen. No claudia hydronephrosis of either kidney. The urinary bladder is decompressed, shifted anteri alfredo from the large rectal fecal ball, and contains a Caldwell catheter. Air is likely from recent instr umentation. Within the left upper quadrant hazy mesentery is noted on image 143 anterior to the stomach. This cou ld represent mesenteric carcinomatosis given the adjacent appearance of the stomach with diffuse yumiko mike body and fundal thickening. There is a rectal fecal ball dilating the rectum measuring up to 8.9 cm with surrounding rectal wall thickening and presacral edema. Extensive atherosclerosis is seen of the abdominal aorta and its bran ches. Thickening of the adrenal glands are nonspecific and should be further characterized with three -phase CT or MRI abdomen. There is generalized paraspinal muscular atrophy. Hepatic steatosis and cholecystectomy change are present. There is tortuosity of the descending thora cic aorta with extensive atherosclerosis. Post surgical changes of the anterior abdominal wall with d iastases recti and a small amount of local hernia are seen. Large bowel abuts the hernia defect. Sple en is unremarkable. Heart is enlarged. IMPRESSION: 1. Rectal fecal impaction with a fecal ball measuring 8.9 cm and surrounding rectal wall thickening i n addition to surrounding pericolonic edema and presacral edema. This creates mass effect upon the de compressed urinary bladder. Urinary bladder contains air, likely related to the Caldwell catheter placem ent. 2. Abnormal thickening of the gastric fundus and body with possible polyp located within a small hiat al hernia and suspicion for gastric carcinoma versus less likely gastritis. 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 Direct visualization is recommended. 3. Extensive degenerative disc disease of the lumbar spine with severe levoscoliosis, limiting neural foraminal evaluation. There is at least moderate to severe multilevel neural foraminal narrowing as described above and multilevel malalignment, likely on a degenerative basis.
[2018-05-21 15:13] VITALS: RESP 20
[2018-05-21] MEDS ORDERED: MAGNESIUM CITRATE 296 ML BOTTLE PO ONE (17:10)
[2018-05-21 18:33] VITALS: BP 182/84; PULSE 56
== END 2018-05-21 18:32 | disposition home or self-care (01) ==
LOC: EC 10:18
DX: K56.41 Fecal impaction (principal); E87.6 Hypokalemia; R33.9 Retention of urine, unspecified; R93.3 Abnormal findings on diagnostic imaging of other parts of digestive tract; I11.0 Hypertensive heart disease with heart failure; I50.9 Heart failure, unspecified; E78.5 Hyperlipidemia, unspecified; I25.2 Old myocardial infarction; M19.90 Unspecified osteoarthritis, unspecified site; F41.0 Panic disorder [episodic paroxysmal anxiety]; F32.9 Major depressive disorder, single episode, unspecified; Z79.899 Other long term (current) drug therapy; Z88.5 Allergy status to narcotic agent; Z87.891 Personal history of nicotine dependence; Z95.5 Presence of coronary angioplasty implant and graft; Z90.49 Acquired absence of other specified parts of digestive tract; Z85.828 Personal history of other malignant neoplasm of skin; Z96.653 Presence of artificial knee joint, bilateral; Z96.611 Presence of right artificial shoulder joint; Z96.612 Presence of left artificial shoulder joint
CPT/HCPCS: 36415; 80053; 82150; 83690; 83735; 85025; 85610; 85730; 81003; 72132; 74177; 99284; 51702; 96360; 96361 ×3; Q9967

== ENCOUNTER → 2018-06-10 | Outpatient (CLI) | payer MEDICARE ==
[~2018-06-10] MED LIST changes: +DENOSUMAB 60 MG/ML 1 ML SYRINGE SQ ONE; -DEXAMETHASONE SOD PHOSPHATE 10 MG/ML 1 ML VIAL IV ONE; -HEPARIN SODIUM,PORCINE 5,000 UNIT/ML 1 ML VIAL SQ ONE; -LACTATED RINGERS 1,000 ML IV SCH; -ONDANSETRON ODT 4 MG TAB PO ONE; -Pre Op ABX Message 1 EACH MISC MISCELLANE ONE; -fentaNYL (PF) 50 MCG/ML 2 ML AMP IV PRN
[2018-06-10 14:59] VITALS: BP 172/71; PULSE 51; RESP 16; TEMP 97.7
== END ==
LOC: PROCWHC3 13:56
PROVIDERS: ATTEND Nurse Practitioner Adult Health
DX: M81.0 Age-related osteoporosis without current pathological fracture (principal)
CPT/HCPCS: 96372; J0897

== ENCOUNTER → 2018-08-28 | Outpatient (CLI) | payer MEDICARE ==
--- NOTE | 2018-08-28 16:09 | PN ---
PROGRESS NOTE DATE OF SERVICE: 08/11/2018 This patient is a 77-year-old lady who [facility] of obstructive sleep apnea-hypopnea syndrome. Recently the patient received a new CPAP unit. She is able to use the CPAP equipment every night without any significant problems related to mask fitting, pressure or humidification. No snoring with the machine. [place] Sleepiness Scale is 6, which is normal. I checked her CPAP unit. CPAP pressure is 5 cm of water. Leak is 5 L/minute, which is absolutely normal. Apnea-hypopnea index is 0.1, which is perfect. Usage is 100% of nights for more than 4 hours, with average usage 7.7 hours per night, which is an absolutely normal amount. MEDICATIONS: 1. Apresoline. 2. Gabapentin. 3. Sertraline. 4. Simvastatin. 5. Aspirin. 6. Carvedilol. 7. Tylenol. 8. Vitamin D. 9. Spironolactone. PHYSICAL EXAMINATION: GENERAL: A pleasant patient in no distress. VITAL SIGNS: BP 193/113, HR 74, RR 18, weight 180, temperature 98.4. HEENT: PERRLA, EOMI. Evaluation of oropharynx showed tongue protrudes midline. Extremely low position of soft palate. Mallampati IV. NECK: Supple. No JVD. Thyroid is not palpable. LUNGS: Clear to percussion and to auscultation. Good air exchange. No wheezing or rhonchi. HEART: S1, S2 regular. No murmurs, gallops or rubs. ABDOMEN: Obese. EXTREMITIES: No edema. IMPRESSION: 1. Obstructive sleep apnea-hypopnea syndrome, fully controlled with CPAP. The patient demonstrated 100% compliance with treatment, benefitting from treatment. 2. History of cardiac arrhythmia. 3. Hyperlipidemia. 4. History of irritable bowel syndrome. 5. History of anxiety and panic attacks. 6. Status post cholecystectomy. 7. Status post benign tumor of thyroid. 8. Status post bilateral knee replacement. 9. History of spinal stenosis. 10.Status post bilateral shoulder replacement. PLAN: 1. Patient will continue to use CPAP equipment every night for the whole night. 2. Watching and losing weight. 3. Sleep hygiene with regular time in bed for at least 8 hours. 4. No driving if feeling any sleepiness. 5. Follow-up visit in one year, or earlier if the patient has any problems. 6. I will maintain all necessary prescriptions for CPAP supplies, including mask, tube, filters. Thank you very much for allowing me to participate in the management of your patient. Sincerely, Mau Figueroa MD, PhD, FAASM Diplomat of [place] [employer] [place] [employer] [facility] [facility] [place] MMPRINCEL / MARGOT: [id number] /
== END | disposition home or self-care (01) ==
LOC: SLEEP 14:46
PROVIDERS: ATTEND Internal Medicine
DX: G47.33 Obstructive sleep apnea (adult) (pediatric) (principal); E78.5 Hyperlipidemia, unspecified; Z86.79 Personal history of other diseases of the circulatory system; Z87.19 Personal history of other diseases of the digestive system; Z86.59 Personal history of other mental and behavioral disorders; Z86.018 Personal history of other benign neoplasm; Z87.39 Personal history of other diseases of the musculoskeletal system and connective tissue; Z99.89 Dependence on other enabling machines and devices; Z96.653 Presence of artificial knee joint, bilateral; Z96.611 Presence of right artificial shoulder joint; Z96.612 Presence of left artificial shoulder joint; Z90.49 Acquired absence of other specified parts of digestive tract; Z79.82 Long term (current) use of aspirin; Z79.899 Other long term (current) drug therapy

== ENCOUNTER → 2018-10-07 | Outpatient (CLI) | payer MEDICARE ==
--- NOTE | 2018-10-07 23:25 | CT ---
EXAMINATION TYPE: CT abdomen pelvis wo con DATE OF EXAM: 10/07/2018 COMPARISON: 05/21/2018 HISTORY: 77-year-old female with abdominal pain CT DLP: 686.7 mGycm. Automated exposure control for dose reduction was used. TECHNIQUE: Contiguous axial scanning of the abdomen and pelvis without IV contrast. Coronal and sagit maribel reconstructions performed. FINDINGS: Heart remains mildly enlarged without pericardial effusion. Lung bases clear without pleural effusion . Small hiatal hernia redemonstrated. Noncontrast appearance of the liver shows a Aurea's lobe. Noncontrast images of the bilateral adrena l glands show diffuse thickening without discrete nodularity. Noncontrast appearance of the right kidney, spleen, and atrophic pancreas show no gross abnormality. Subcentimeter cortical hypodensity from the upper pole of the left kidney unchanged Suture material along the anterior abdominal midline. No dilated small bowel, free fluid, or free air. No mesenteric or retroperitoneal lymphadenopathy. Normal appendix. There is moderate colonic stool. No pericolonic inflammatory change. Sigmoid diverticulosis. Redundan t sigmoid colon. Peripherally calcified 1.5 cm nodule in the left side of the pelvis probably sequela of prior inflamm atory etiology. Bladder not distended. Uterus surgically absent. Left ovary is visualized. Unable to clearly delineat e the right ovary from adjacent clustered bowel loops. No abnormal fluid collection the pelvis or pel brent lymphadenopathy seen. Bones: Mild degenerative changes at the hips. Degenerated S-shaped scoliosis. IMPRESSION: 1. Small hiatal hernia, moderate stool burden. The previously seen severe fecal impaction has resolv ed. Sigmoid diverticulosis without redundant sigmoid colon. 2. Stable diffuse thickening of the bilateral adrenal glands without discrete nodularity, possible a drenal hyperplasia. 3. Degenerated S-shaped scoliosis.
== END | disposition home or self-care (01) ==
LOC: RADCTMAIN 15:27
PROVIDERS: ATTEND Nurse Practitioner Adult Health
DX: K44.9 Diaphragmatic hernia without obstruction or gangrene (principal); K56.41 Fecal impaction; K57.30 Diverticulosis of large intestine without perforation or abscess without bleeding; E27.9 Disorder of adrenal gland, unspecified
CPT/HCPCS: 74176

== ENCOUNTER → 2018-11-20 | Outpatient (CLI) | payer MEDICARE ==
--- NOTE | 2018-11-21 08:59 | US ---
EXAMINATION TYPE: US thyroid st tissue head/neck DATE OF EXAM: 11/20/2018 COMPARISON: US CLINICAL HISTORY: E04.1 Thyroid nodule. Follow up GLAND SIZE: Right Lobe: 5.0 x 1.7 x 1.5 cm Overall Parenchyma: heterogenous Left Lobe: 5.1 x 4.0 x 2.6 cm Overall Parenchyma: heterogeneous Isthmus Thickness: 0.2 cm NODULES RIGHT: # of nodules measured on right: 3 largest of multiple 1. 1.3 X 0.8 x 0.9 cm isoechoic mixed nodule at the upper pole with well-defined margins; present w ith microcalcifications. This nodule is taller than wide and shows intranodular vascularity. Prior size: not seen as only simple cysts seen upper pole on prior US 2. 1.3 X 1.1 x 0.9 cm hypoechoic mixed nodule at the lower pole with well-defined margins. This nod ule is wider than tall and shows no intranodular vascularity. Prior size: 1.4 x 1.0 x 0.9 cm 3. 0.9 X 0.7 x 0.4 cm hyperechoic solid nodule at the lower pole with well-defined margins; present with microcalcifications. This nodule is wider than tall and shows intranodular vascularity. Prior size: 0.9 x 0.7 x 0.5 cm LEFT: # of nodules measured on left: 1 1. 3.2 X 3.2 x 2.3 cm hypoechoic mixed nodule at the mid and lower pole with well-defined margins. This nodule is wider than tall and shows intranodular vascularity. Prior size: 2.8 x 2.9 x 2.1 cm ISTHMUS: # of nodules measured in the isthmus: 1 1. 0.8 X 0.8 x 0.3 cm hypoechoic mixed nodule at the lower pole with well-defined margins. This no dule is wider than tall and shows no intranodular vascularity. Prior size: 0.6 x 0.6 x 0.3 cm Bilateral neck scanned: no evidence of lymphadenopathy. IMPRESSION: 1. Increasing size left lobe thyroid nodule
== END | disposition home or self-care (01) ==
LOC: RADUSWWP 15:57
PROVIDERS: ATTEND Otolaryngology
DX: E04.1 Nontoxic single thyroid nodule (principal)
CPT/HCPCS: 76536

== ENCOUNTER → 2018-12-18 | Outpatient (CLI) | payer MEDICARE ==
[~2018-12-18] MED LIST changes: +DENOSUMAB 60 MG/ML 1 ML SYRINGE SQ NR; -DENOSUMAB 60 MG/ML 1 ML SYRINGE SQ ONE
[2018-12-18 15:00] VITALS: BP 160/81; PULSE 48; RESP 16; TEMP 97.7
== END | disposition home or self-care (01) ==
LOC: PROCWHC3 14:50
PROVIDERS: ATTEND Nurse Practitioner Adult Health
DX: M81.0 Age-related osteoporosis without current pathological fracture (principal)
CPT/HCPCS: 96372; J0897

== ENCOUNTER → 2019-01-08 | Outpatient (CLI) | payer MEDICARE ==
[2019-01-08 23:21] LABS: African American GFR (CKD) 82.4 (60.0-200.0); Anion Gap 6.4 mmol/L (4.00-12.00); BUN/Creat Ratio 28.75 Ratio (12.00-20.00); Calcium 9.7 mg/dL (8.7-10.3); Carbon Dioxide 28.6 mmol/L (21.6-31.8); Chol/HDL Ratio 1.86; LDL Cholesterol,Calculated 48.4 mg/dL (0.0-131.0); Potassium 3.6 mmol/L (3.5-5.5); VLDL Calculation 17.6 mg/dL (5.00-40.00)
== END | disposition home or self-care (01) ==
LOC: LABWHC1 15:13
PROVIDERS: ATTEND Physician Assistant
DX: I11.9 Hypertensive heart disease without heart failure (principal); I43 Cardiomyopathy in diseases classified elsewhere
CPT/HCPCS: 36415; 80048; 80061; 84443

== ENCOUNTER → 2019-03-09 | Day surgery (SDC) | payer MEDICARE ==
[~2019-03-09] MED LIST changes: +ALPRAZolam 0.25 MG TAB PO PRN; +ALPRAZolam 0.5 MG TAB PO PRN; +ASPIRIN 325 MG TAB PO STA; +ATORVASTATIN 80 MG TAB PO STA; -DENOSUMAB 60 MG/ML 1 ML SYRINGE SQ NR; +HEPARIN SODIUM 1,000 UN/ML (10ML VL) IV ONE; +HEPARIN SODIUM 1,000 UN/ML (10ML VL) ONE; +HYDROmorphone 1 MG/ML 1 ML SYRINGE ONE; +IOPAMIDOL-370 125ML BTL INJ ONE; +LIDOCAINE 1% INJ 10MG/ML (20 ML MDV) ONE; +LIDOCAINE 1% INJ 10MG/ML (20 ML MDV) SQ ONE; +MIDAZOLAM 2 MG/2 ML VIAL IVP ONE; +NITROGLYCERIN SL TABS 0.4 MG TAB SUBLINGUAL PRN; +ONDANSETRON 4 MG/2 ML VIAL IVP PRN; +RX INFO: IV CONTRAST WAS GIVEN 1 EACH MISC MISCELLANE PRN; +SODIUM CHLORIDE 0.9% 1,000 ML IV ONE; +SODIUM CHLORIDE 0.9% 1,000 ML IV SCH; +SODIUM CHLORIDE 0.9% 1,000 ML in EMPTY BAG 1 BAG IV ONE; +VERAPAMIL 2.5 MG/ML 2 ML AMP ONE; +VERAPAMIL SYRINGE (5 MG/10 ML) INTRAARTER ONE; +hydrALAZINE HCL 20 MG/ML 1 ML VIAL IVP PRN
[2019-03-09 08:15] LABS: Basophils % (A) 0 %; Eosinophils # (A) 0.1 k/uL (0-0.7); Eosinophils % (A) 2 %; HCT 43.6 % (34.0-46.0); HGB 14.4 gm/dL (11.4-16.0); Lymphocytes # (A) 1.4 k/uL (1.0-4.8); Lymphocytes % (A) 23 %; MCH 30.9 pg (25.0-35.0); MCV 93.4 fL (80.0-100.0); Mean Platelet Volume 6.4; Monocytes # (A) 0.3 k/uL (0-1.0); Monocytes % (A) 6 %; Neutrophils % (A) 67 %; Platelet Count 245 k/uL (150-450); RBC 4.67 m/uL (3.80-5.40); RDW 13.1 % (11.5-15.5)
[2019-03-09 08:44] VITALS: RESP 16; TEMP 97.9
[2019-03-09 09:12] LABS: Potassium 4.7 mmol/L (3.5-5.1)
--- NOTE | 2019-03-09 10:06 | LTR ---
March 09, 2019 Re: Lee Ann Lenny Dear Dr. Roth: I had the pleasure of seeing Lee Ann Galvez at [facility] on March 09, 2019. I was asked to perform a heart catheterization on her by Dr. Carrera. The heart catheterization revealed normal coronaries with dominant left circumflex coronary system and normal left ventricular end-diastolic pressure. A copy of the heart catheterization will be forwarded to you. We want to thank you for allowing us to participate in her care and please do not hesitate to call if you have any question or concern. Sincerely, MD KRISSY Diane / GLENDAN: [id number] /
--- NOTE | 2019-03-09 10:22 | CC ---
CARDIAC CATHETERIZATION REPORT DATE OF SERVICE: March 09, 2019 PERFORMING PHYSICIAN: Harpal Collier MD PROCEDURE PERFORMED: 1. Selective right and left coronary angiogram. 2. Left heart catheterization. INDICATIONS: This is a very pleasant 78-year-old female patient who sees Dr. Carrera in the office as an outpatient with history of cardiomyopathy, hypertension, and history of SVT ablation, was experiencing symptoms of palpitation associated with dizziness and chest discomfort. She underwent myocardial perfusion imaging stress test and that came in to be abnormal. Because of that, a heart catheterization was advised. APPROACH: Right radial artery. COMPLICATION: None. LEVEL OF SEDATION: Moderate with sedation length of 16 minutes. PROCEDURE DESCRIPTION: After obtaining an informed consent, the patient was brought to the cardiac laborer hoisting. The right radial artery was cannulated using micropuncture technique, the micropuncture wire passed easily then I placed a 6-Luxembourgish sheath in the right radial artery. After that I gave the patient 2 mg of verapamil IA and 10,000 units of heparin IV. Selective right and left coronary angiogram was performed using JR4 and JL3.5 catheters. Left heart catheterization was performed using 5-Luxembourgish pigtail catheter. The procedure was completed without any complication. SELECTIVE CORONARY ANGIOGRAM: 1. The right coronary angiogram is a medium caliber vessel. It is a nondominant vessel. It appeared to be angiographically normal. 2. The left main is angiographically normal. It bifurcates into left circumflex, ramus intermedius, and left anterior descending artery. 3. Left circumflex is a large caliber vessel. It is a dominant vessel. It is angiographically normal. In the proximal portion, it gives rise into a large OM branch which appeared to be angiographically normal. 4. The ramus intermedius is a moderate caliber vessel and seems to be angiographically normal. 5. The LAD: The proximal LAD appeared to be angiographically normal. The mid LAD appeared to be normal and the LAD distally is normal as well. HEMODYNAMICS: The LVEDP was 10 mmHg without significant gradient across the aortic valve. CONCLUSION: 1. Normal coronary angiogram. 2. Dominant left circumflex coronary system. 3. Normal left ventricular end-diastolic pressure. POSTPROCEDURE MANAGEMENT: 1. Maximize medical treatment. 2. Follow up with Dr. Carrera in the office as an outpatient. MMODL / IJN: [id number] /
[2019-03-09 17:35] VITALS: BP 123/61; PULSE 56
== END ==
LOC: CATHCVL 07:18
PROVIDERS: ATTEND Internal Medicine Interventional Cardiology
DX: R07.89 Other chest pain (principal); R00.2 Palpitations; R94.39 Abnormal result of other cardiovascular function study; R42 Dizziness and giddiness; R06.02 Shortness of breath; I42.0 Dilated cardiomyopathy; I11.0 Hypertensive heart disease with heart failure; I50.22 Chronic systolic (congestive) heart failure; I47.1 Supraventricular tachycardia; E78.5 Hyperlipidemia, unspecified; Z72.0 Tobacco use; Z88.5 Allergy status to narcotic agent; Z88.8 Allergy status to other drugs, medicaments and biological substances; G47.33 Obstructive sleep apnea (adult) (pediatric); Z99.89 Dependence on other enabling machines and devices; Z79.82 Long term (current) use of aspirin; Z79.899 Other long term (current) drug therapy
CPT/HCPCS: 93458; 80048; 85025; C1769; C1894; J2250; J0360; J2405; J2001; J1644; Q9967

== ENCOUNTER → 2019-04-20 | Outpatient (CLI) | payer MEDICARE ==
[2019-04-20 13:14] LABS: HCT 41.6 % (34.0-46.0); HGB 12.9 gm/dL (11.4-16.0); MCH 30.1 pg (25.0-35.0); MCHC 31.1 g/dL (31.0-37.0); MCV 96.9 fL (80.0-100.0); Mean Platelet Volume 7.8; Platelet Count 185 k/uL (150-450); RBC 4.29 m/uL (3.80-5.40); RDW 13.1 % (11.5-15.5); WBC 5.7 k/uL (3.8-10.6)
[2019-04-20 13:27] LABS: African American GFR (CKD) >90 (>60 ml/min/1.73 sqM); Anion Gap 4 mmol/L; Blood Urea Nitrogen 27 mg/dL (7-17); Carbon Dioxide 29 mmol/L (22-30); Chloride 109 mmol/L (98-107); Glucose 84 mg/dL (74-99); Non-African American GFR(CKD) 82 (>60 ml/min/1.73 sqM); Potassium 4.4 mmol/L (3.5-5.1); Sodium 142 mmol/L (137-145)
== END | disposition home or self-care (01) ==
LOC: LABPAT 12:15
PROVIDERS: ATTEND Internal Medicine Clinical Cardiac Electrophysiology
DX: Z01.812 Encounter for preprocedural laboratory examination (principal); I47.2 Ventricular tachycardia; I49.5 Sick sinus syndrome
CPT/HCPCS: 36415; 80051; 82565; 82947; 84520; 85027

== ENCOUNTER 2019-04-22 08:58 | Emergency (ER) | payer MEDICARE ==
[2019-04-22 09:04] VITALS: RESP 18; TEMP 98.3
[2019-04-22] MEDS ORDERED: SODIUM CHLORIDE 0.9% 500 ML 500 ML IV STA (09:13)
[2019-04-22 09:43] LABS: Basophils % (A) 1 %; Eosinophils # (A) 0.1 k/uL (0-0.7); Eosinophils % (A) 3 %; HCT 43.9 % (34.0-46.0); HGB 13.9 gm/dL (11.4-16.0); Lymphocytes # (A) 1.3 k/uL (1.0-4.8); Lymphocytes % (A) 31 %; MCH 29.9 pg (25.0-35.0); MCHC 31.6 g/dL (31.0-37.0); MCV 94.6 fL (80.0-100.0); Mean Platelet Volume 7.4; Monocytes # (A) 0.3 k/uL (0-1.0); Monocytes % (A) 6 %; Neutrophils # (A) 2.3 k/uL (1.3-7.7); Neutrophils % (A) 57 %; Platelet Count 195 k/uL (150-450); RBC 4.64 m/uL (3.80-5.40); RDW 13.2 % (11.5-15.5)
[2019-04-22 09:43] LABS: Appearance,Urine Clear (Clear); Bilirubin,Urine Negative (Negative); Blood,Urine Negative (Negative); Color,Urine Light Yellow; Glucose,Urine (UA) Negative (Negative); Ketones,Urine Negative (Negative); Leukocyte Esterase,Urine Negative (Negative); Nitrite,Urine Negative (Negative); PH, Urine 7.5 (5.0-8.0); Protein,Urine Negative (Negative); Specific Gravity,Urine 1.012 (1.001-1.035); Urobilinogen,Urine <2.0 mg/dL (<2.0)
--- NOTE | 2019-04-22 09:50 | ED ---
General Adult HPI - General Chief complaint: Extremity Injury, Lower Stated complaint: abd pain Time Seen by Provider: 04/22/19 09:12 Source: EMS Mode of arrival: EMS Limitations: no limitations - History of Present Illness Initial comments: Dictation was produced using Eleph[employer] dictation software. please excuse any grammatical, word or spelling errors. Chief Complaint: 78-year-old caleb presents with right-sided flank pain. History of Present Illness: She is 78-year-old female presents with right-sided flank pain. She states her pain starts in her back and radiates around the right flank into the groin. Patient states she's had pain like this before she states that it started last night. She reports she has significant history of lower back problems. She states that she has spinal stenosis. Patient states she has pain at rest however is worse with movement. Denies any constitutional symptoms. She does not have any abdominal pain. She talks about how she drank 5 cups of water yesterday. She reports that her pain is controlled and 10 out of 10. The ROS documented in this emergency department record has been reviewed and confirmed by me. Those systems with pertinent positive or negative responses have been documented in the HPI. All other systems are other negative and/or noncontributory. PHYSICAL EXAM: General Impression: Alert and oriented x3, not in acute distress HEENT: Normocephalic atraumatic, extra-ocular movements intact, pupils equal and reactive to light bilaterally, mucous membranes moist. Cardiovascular: Heart regular rate and rhythm, S1&S2 audible, no murmurs, rubs or gallops Chest: Lungs clear to auscultation bilaterally, no rhonchi, no wheeze, no rales Abdomen: Bowel sounds present, abdomen soft, non-tender, non-distended, no organomegaly Musculoskeletal: Pulses present and equal in all extremities, no peripheral edema Motor: no focal deficits noted Neurological: CN II-XII grossly intact, no focal motor or sensory deficits noted Skin: Intact with no visualized rashes Psych: Normal affect and mood ED course: 78-year-old caleb chief complaint flank pain. Vital signs upon arri fei shows blood pressure 213/127, heart rate of 50. She reports she has a history of hypertension. Laboratory evaluation obtained. CBC, coag panel, metabolic panel is negative. Abdominal labs are unremarkable. Urinalysis is negative. Computed tomography scan of the abdomen and pelvis shows severe fecal stasis. Patient given an enema with minimal improvement. Patient was manually disimpacted with removal of large amounts of stool. Discussed with patient that her constipation issues are secondary to poor diet. 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 She is also told to have a more rounded diet with consumption of high-fiber foods including wheat bread, vegetables and fruit. Patient reevaluated at bedside with improvement of symptoms. Patient clear for discharge. - Related Data Home Medications Medication Instructions Recorded Confirmed ALPRAZolam [Xanax] 0.5 mg PO QID PRN 10/03/13 04/22/19 Gabapentin [Neurontin] 100 mg PO TID 10/03/13 04/22/19 Simvastatin [Zocor] 10 mg PO HS 10/03/13 04/22/19 Irbesartan 300 mg PO 1500 07/25/15 04/22/19 Calcium Carbonate [Calcium] 600 mg PO DAILY 07/08/17 04/22/19 Cholecalciferol (Vitamin D3) 50,000 unit PO SA 07/08/17 04/22/19 [Vitamin D3] Denosumab [Prolia] 60 mg SQ Q180D 12/18/17 04/22/19 Carvedilol [Coreg*] 18.75 mg PO BID-W/MEALS 03/06/19 04/22/19 Omeprazole 40 mg PO DAILY@1500 03/06/19 04/22/19 Potassium Chloride [Klor-Con 20] 20 meq PO DAILY@1900 03/06/19 04/22/19 Wheat Dextrin [Benefiber] 3 gm PO DAILY 03/06/19 04/22/19 Bismuth Subsalicylate 524 mg PO Q30M PRN 04/22/19 04/22/19 [Pepto-Bismol] Vit A/Vit C/Vit E/Zinc/Copper 1 cap PO DAILY 04/22/19 04/22/19 [ICAPS SOFTGEL] Previous Rx's Medication Instructions Recorded Aspirin 81 mg PO DAILY #1 chewable 11/21/14 Allergies Allergy/AdvReac Type Severity Reaction Status Date / Time famotidine Allergy Unknown Verified 04/22/19 10:34 spironolactone Allergy Unknown Verified 04/22/19 10:34 codeine AdvReac Severe Nausea & Verified 04/22/19 10:34 Vomiting Opioids - Morphine Analogues AdvReac Dyspnea- Verified 04/22/19 10:34 Review of Systems ROS Statement: Those systems with pertinent positive or pertinent negative responses have been documented in the HPI. ROS Other: All systems not noted in ROS Statement are negative. 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 GLAUCOMA -"STRESS INDUCED" NODULES THYROID; IBS. Losing bladder control Last Myocardial Infarction Date:: 2009 History of Any Multi-Drug Resistant Organisms: None Reported Past Surgical History: Cardiac Ablation, Cholecystectomy, Heart Catheterization, Hysterectomy, Joint Replacement, Orthopedic Surgery Additional Past Surgical History / Comment(s): THYROID BX, LINDSAY. TOTAL KNEES, LINDSAY TOTAL SHOULDERS,Cardiac ablation x2,skin CA removed with skin graft to neck Past Anesthesia/Blood Transfusion Reactions: Motion Sickness Additional Past Anesthesia/Blood Transfusion Reaction / Comment(s): BRADYCARDIA. Past Psychological History: Anxiety, Depression, Panic Disorder Smoking Status: Former smoker Past Alcohol Use History: None Reported Past Drug Use History: None Reported - Past Family History Father Family Medical History: Cancer Additional Family Medical History / Comment(s): ORAL CANCER General Exam Limitations: no limitations Course Vital Signs 04/22/19 04/22/19 09:00 12:26 Temperature 98.3 F Pulse Rate 50 L Respiratory 18 Rate Blood Pressure 213/127 172/98 O2 Sat by Pulse 99 Oximetry Medical Decision Making - Lab Data Result diagrams: 04/22/19 09:28 04/22/19 09:28 Lab Results 04/22/19 04/22/19 04/22/19 Range/Units 09:28 09:28 09:28 WBC 4.0 (3.8-10.6) k/uL RBC 4.64 (3.80-5.40) m/uL Hgb 13.9 (11.4-16.0) gm/dL Hct 43.9 (34.0-46.0) % MCV 94.6 (80.0-100.0) fL MCH 29.9 (25.0-35.0) pg MCHC 31.6 (31.0-37.0) g/dL RDW 13.2 (11.5-15.5) % Plt Count 195 (150-450) k/uL Neutrophils % 57 % Lymphocytes % 31 % Monocytes % 6 % Eosinophils % 3 % Basophils % 1 % Neutrophils # 2.3 (1.3-7.7) k/uL Lymphocytes # 1.3 (1.0-4.8) k/uL Monocytes # 0.3 (0-1.0) k/uL Eosinophils # 0.1 (0-0.7) k/uL Basophils # 0.0 (0-0.2) k/uL PT 9.6 (9.0-12.0) sec INR 0.9 (<1.2) APTT 22.0 (22.0-30.0) sec Sodium 143 (137-145) mmol/L Potassium 3.9 (3.5-5.1) mmol/L Chloride 109 H (98-107) mmol/L Carbon Dioxide 28 (22-30) mmol/L Anion Gap 6 mmol/L BUN 21 H (7-17) mg/dL Creatinine 0.83 (0.52-1.04) mg/dL Est GFR (CKD-EPI)AfAm 79 (>60 ml/min/1.73 sqM) Est GFR (CKD-EPI)NonAf 69 (>60 ml/min/1.73 sqM) Glucose 90 (74-99) mg/dL Calcium 9.5 (8.4-10.2) mg/dL Total Bilirubin 1.2 (0.2-1.3) mg/dL AST 21 (14-36) U/L ALT 11 (4-34) U/L Alkaline Phosphatase 49 (38-126) U/L Total Protein 6.6 (6.3-8.2) g/dL Albumin 3.9 (3.5-5.0) g/dL Lipase 100 (23-300) U/L Urine Color Urine Appearance (Clear) Urine pH (5.0-8.0) Ur Specific [place] (1.001-1.035) Urine Protein (Negative) Urine Glucose (UA) (Negative) Urine Ketones (Negative) Urine Blood (Negative) Urine Nitrite (Negative) Urine Bilirubin (Negative) Urine Urobilinogen (<2.0) mg/dL Ur Leukocyte Esterase (Negative) 04/22/19 Range/Units 09:30 WBC (3.8-10.6) k/uL RBC (3.80-5.40) m/uL Hgb (11.4-16.0) gm/dL Hct (34.0-46.0) % MCV (80.0-100.0) fL MCH (25.0-35.0) pg MCHC (31.0-37.0) g/dL RDW (11.5-15.5) % Plt Count (150-450) k/uL Neutrophils % % Lymphocytes % % Monocytes % % Eosinophils % % Basophils % % Neutrophils # (1.3-7.7) k/uL Lymphocytes # (1.0-4.8) k/uL Monocytes # (0-1.0) k/uL Eosinophils # (0-0.7) k/uL Basophils # (0-0.2) k/uL PT (9.0-12.0) sec INR (<1.2) APTT (22.0-30.0) sec Sodium (137-145) mmol/L Potassium (3.5-5.1) mmol/L Chloride (98-107) mmol/L Carbon Dioxide (22-30) mmol/L Anion Gap mmol/L BUN (7-17) mg/dL Creatinine (0.52-1.04) mg/dL Est GFR (CKD-EPI)AfAm (>60 ml/min/1.73 sqM) Est GFR (CKD-EPI)NonAf (>60 ml/min/1.73 sqM) Glucose (74-99) mg/dL Calcium (8.4-10.2) mg/dL Total Bilirubin (0.2-1.3) mg/dL AST (14-36) U/L ALT (4-34) U/L Alkaline Phosphatase (38-126) U/L Total Protein (6.3-8.2) g/dL Albumin (3.5-5.0) g/dL Lipase (23-300) U/L Urine Color Light Yellow Urine Appearance Clear (Clear) Urine pH 7.5 (5.0-8.0) Ur Specific [place] 1.012 (1.001-1.035) Urine Protein Negative (Negative) Urine Glucose (UA) Negative (Negative) Urine Ketones Negative (Negative) Urine Blood Negative (Negative) Urine Nitrite Negative (Negative) Urine Bilirubin Negative (Negative) Urine Urobilinogen <2.0 (<2.0) mg/dL Ur Leukocyte Esterase Negative (Negative) Disposition Clinical Impression: Constipation Disposition: HOME SELF-CARE Condition: Good Instructions (If sedation given, give patient instructions): Constipation (DC) Additional Instructions: Please get some Metamucil from the local pharmacy and take 1 teaspoon and makes with 8 ounces of Water every day for constipation Is patient prescribed a controlled substance at d/c from ED?: No Referrals: Addie Roth MD [Primary Care Provider] - 1-2 days Time of Disposition: 13:18
[2019-04-22 09:51] LABS: Albumin 3.9 g/dL (3.5-5.0); Calcium 9.5 mg/dL (8.4-10.2); Potassium 3.9 mmol/L (3.5-5.1); Total Bilirubin 1.2 mg/dL (0.2-1.3); Total Protein 6.6 g/dL (6.3-8.2)
[2019-04-22 09:57] LABS: INR 0.9 (<1.2); Prothrombin Time 9.6 sec (9.0-12.0)
--- NOTE | 2019-04-22 10:56 | CT ---
EXAMINATION TYPE: CT abdomen pelvis w con DATE OF EXAM: 04/22/2019 HISTORY: Generalized pain not further specified. CT DLP: 1520.1mGycm Automated Exposure Control for Dose Reduction was Utilized. CONTRAST: CT scan of the abdomen and pelvis is performed without oral but with IV Contrast, patient injected wi th 100 mL of Isovue 300. COMPARISON: CT abdomen and pelvis October 07, 2018 FINDINGS: LUNG BASES: Cardiomegaly is redemonstrated respiratory motion artifact degradation is seen. There is left basilar linear scarring and/or atelectasis. Slightly elevated left hemidiaphragm noted. LIVER/GB: Cholecystectomy clips are redemonstrated. PANCREAS: Moderate to severe diffuse fat replacement atrophy of pancreas again seen. SPLEEN: No significant abnormality is seen. ADRENALS: Nonspecific 2.0 x 1.2 cm low dense right adrenal nodule image 12 not significantly enlarged from prior CT where it had Hounsfield units near 0 consistent with benign lipid rich adenoma. Nonspe cific thickening of left adrenal gland favors benign lipid rich hyperplasia. KIDNEYS: Occasional subcentimeter low dense lesions throughout both kidneys favor simple thin-walled cyst. Symmetric cortical medullary uptake and excretion is seen without hydronephrosis identified yoandy aterally. BOWEL: Stable small size hiatal hernia. Suboptimal evaluation of bowel without enteric contrast. Stom ach is poorly distended and thus suboptimally evaluated. No suspicious small bowel dilatation. Wander ing cecum into the anterior right mid abdomen noted coronal image 42. Terminal ileum identified coron al image 54 and axial image 39 both within normal limits. Moderate prominence of fecal material in th e right colon. There are diverticula in the sigmoid colon. There is severe fecal prominence in the di stal sigmoid colon and rectum. Some diverticula sigmoid colon redemonstrated without CT evidence for acute diverticulitis. UTERUS/ADNEXA: No gross abnormality seen. LYMPH NODES: No greater than 1cm abdominal or pelvic lymph nodes are appreciated. OSSEOUS STRUCTURES: Underlying levoconvex scoliosis centered at L3 level redemonstrated. Multilevel m oderate to severe disc space narrowing in the lumbar spine with multilevel vacuum disc phenomenon. Mo derate narrowing in both hip joints. OTHER: There is 1 cm calcified phlebolith or lymph node in the central pelvis axial image 58 redemons trated that is stable. IMPRESSION: Severe rectal fecal stasis identified even more prominent from prior study. Overall nonob structive bowel gas pattern. Wandering cecum with mild to moderate proximal colonic fecal stasis on c urrent study similar in appearance to prior study.
[2019-04-22] MEDS ORDERED: POLYETHYLENE GLYCOL 3350 17 GM POWD.PACK PO STA (12:45)
[2019-04-22 13:35] VITALS: BP 172/88; PULSE 68
== END 2019-04-22 13:30 | disposition home or self-care (01) ==
LOC: EC 08:58
DX: K59.00 Constipation, unspecified (principal); M48.00 Spinal stenosis, site unspecified; I11.0 Hypertensive heart disease with heart failure; I50.9 Heart failure, unspecified; K21.9 Gastro-esophageal reflux disease without esophagitis; H91.90 Unspecified hearing loss, unspecified ear; E78.5 Hyperlipidemia, unspecified; I25.2 Old myocardial infarction; M19.90 Unspecified osteoarthritis, unspecified site; F41.9 Anxiety disorder, unspecified; Z87.891 Personal history of nicotine dependence; Z88.5 Allergy status to narcotic agent; Z88.8 Allergy status to other drugs, medicaments and biological substances; Z79.899 Other long term (current) drug therapy; Z85.828 Personal history of other malignant neoplasm of skin; Z96.653 Presence of artificial knee joint, bilateral; Z96.611 Presence of right artificial shoulder joint; Z96.612 Presence of left artificial shoulder joint; Z98.890 Other specified postprocedural states
CPT/HCPCS: 99284; 36415; 80053; 83690; 85025; 85610; 85730; 81003; 74177; Q9967

== ENCOUNTER 2019-05-04 13:45 | Day surgery (SDC) | payer MEDICARE ==
[2019-05-01 11:57] VITALS: BMI 37.6
[~2019-05-04 13:45] MED LIST changes: -ALPRAZolam 0.25 MG TAB PO PRN; -ALPRAZolam 0.5 MG TAB PO PRN; -ASPIRIN 325 MG TAB PO STA; -ATORVASTATIN 80 MG TAB PO STA; -HEPARIN SODIUM 1,000 UN/ML (10ML VL) IV ONE; -HEPARIN SODIUM 1,000 UN/ML (10ML VL) ONE; -HYDROmorphone 1 MG/ML 1 ML SYRINGE ONE; -IOPAMIDOL-370 125ML BTL INJ ONE; +LIDOCAINE 1% 20 ML VIAL (10MG/ML) FOR IV START INTRADERMA PRN; -LIDOCAINE 1% INJ 10MG/ML (20 ML MDV) ONE; -LIDOCAINE 1% INJ 10MG/ML (20 ML MDV) SQ ONE; -MIDAZOLAM 2 MG/2 ML VIAL IVP ONE; -NITROGLYCERIN SL TABS 0.4 MG TAB SUBLINGUAL PRN; -ONDANSETRON 4 MG/2 ML VIAL IVP PRN; -RX INFO: IV CONTRAST WAS GIVEN 1 EACH MISC MISCELLANE PRN; -SODIUM CHLORIDE 0.9% 1,000 ML IV ONE; -SODIUM CHLORIDE 0.9% 1,000 ML in EMPTY BAG 1 BAG IV ONE; -VERAPAMIL 2.5 MG/ML 2 ML AMP ONE; -VERAPAMIL SYRINGE (5 MG/10 ML) INTRAARTER ONE; +ceFAZolin 1,000 MG in SODIUM CHLORIDE 0.9% IRRIGATIO 250 ML IRRIGATION ONE; -hydrALAZINE HCL 20 MG/ML 1 ML VIAL IVP PRN
[2019-05-04] MEDS ORDERED: MIDAZOLAM 2 MG/2 ML VIAL ONE (14:20)
[2019-05-04] MEDS ORDERED: PROPOFOL 10 MG/ML 20 ML VIAL IV ONE (14:20)
[2019-05-04] MEDS ORDERED: fentaNYL (PF) 50 MCG/ML 2 ML AMP ONE (14:20)
[2019-05-04] MEDS ORDERED: SODIUM CHLORIDE 0.9% 1,000 ML IV ONE (14:25)
[2019-05-04] MEDS ORDERED: LIDOCAINE 1% INJ 10MG/ML (20 ML MDV) ONE ×2 (14:57→16:25)
[2019-05-04] MEDS ORDERED: LIDOCAINE 1% INJ 10MG/ML (20 ML MDV) SQ ONE ×2 (15:07→16:29)
--- NOTE | 2019-05-04 16:02 | P.HPCAR ---
History of Present Illness This is Dr. Carrera dictating an H&P on this patient The patient was interviewed and examined by me IMPRESSION / ASSESSMENT: History of LV VT status post ablation many years back Frequent PVCs and very long runs of nonsustained ventricular tachycardia despite high-dose carvedilol Dizzy spells Left radical ejection fraction low normal of about 50% Normal coronary arteries normal LVEDP Hypertension Dyslipidemia PLAN: Diagnostic EP study for risk stratification, to look for any easily inducible fast ventricular tachycardia or ventricular fibrillation HPI This is a 78-year-old female who has had a history of idiopathic ventricular tachycardia status post successful ablation almost 12 years back. Recent 24 Holter monitors show frequent PVCs and runs of nonsustained ventricular tachycardia that are quite long. She is on carvedilol and despite that she has breakthrough episodes. She is normal coronary arteries She complains of chest discomfort off and on and dizzy spells. No heart failure symptoms Most recently she denies any orthopnea PND or any fever chills. She had a urinary tract infection ROS: No fever chills or rigors, no cough, phlegm or expectoration, no nausea, vomiting or diarrhea, no hematuria, dysuria, no musculoskeletal complaints, no strokes or seizures, no skin lesions. EXAMINATION: Afebrile 98.2F pulse rate in the 60s Heart sounds are normal no murmurs Breath sounds are clear no rhonchi no crackles Abdomen is soft nontender Extremities warm no edema No JVD No lower extremity edema REVIEW OF LABS, ECG & MEDICAL DATA medications reviewed and include carvedilol aspirin and hydralazine Physical Exam Vitals: Vital Signs Temp Pulse Resp BP Pulse Ox 05/04/19 14:05 98.2 F 62 16 188/81 96 Intake and Output 05/04/19 05/04/19 05/04/19 06:59 14:59 22:59 Other: Weight 84.7 kg Past Medical History Past Medical History: Cancer, Eye Disorder, GERD/Reflux, Hearing Disorder / Deafness, Hyperlipidemia, Osteoarthritis (OA), Pneumonia, Rheumatoid Arthritis (RA), Skin Disorder, Sleep Apnea/CPAP/BIPAP Additional Past Medical History / Comment(s): CHRONIC BACK PAIN, SPINAL STENOSIS, SCOLIOSIS, IBS, DEGENERATION, VARICOSE VEINS, STRESS INDUCED ASTHMA - HX OF FALLS- USES CANE ,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 GLAUCOMA -"STRESS INDUCED",8 NODULES ON THYROID; soreness on rt side of neck, psoriasis, eczema, see Dr Carrera H&P Last Myocardial Infarction Date:: 2009 History of Any Multi-Drug Resistant Organisms: None Reported Past Surgical History: Cardiac Ablation, Cholecystectomy, EPS, Heart Catheterization, Hysterectomy, Joint Replacement, Orthopedic Surgery Additional Past Surgical History / Comment(s): THYROID BX, LINDSAY. TOTAL KNEES, LINDSAY TOTAL SHOULDERS,Cardiac ablation x2,skin CA removed with skin graft to neck, hemorrhoidectomy, lindsay cataracts, "stomach surgery for a hemorrhage during pregancy", tumor removed from thyroid Past Anesthesia/Blood Transfusion Reactions: Previous Problems w/ Anesthesia, Motion Sickness Additional Past Anesthesia/Blood Transfusion Reaction / Comment(s): "heart failure with colonocopy twice" Smoking Status: Former smoker - Past Family History Father Family Medical History: Cancer Additional Family Medical History / Comment(s): ORAL CANCER Physical Examination Vital Signs Temp Pulse Resp BP Pulse Ox 05/04/19 14:05 98.2 F 62 16 188/81 96 Intake and Output 05/04/19 05/04/19 05/04/19 06:59 14:59 22:59 Other: Weight 84.7 kg Results Current Medications Generic Name Dose Route Start Last Admin Trade Name Freq PRN Reason Stop Dose Admin Lactated Ringer's 1,000 mls @ 20 mls/hr 05/01/19 09:00 Lactated Ringers IV .Q24H TOM Sodium Chloride 1,000 mls @ 20 mls/hr 05/04/19 06:36 Saline 0.9% IV .Q24H TOM Sodium Chloride 1,000 mls @ 50 mls/hr 05/04/19 06:36 Saline 0.9% IV .Q20H TOM Sodium Chloride 1,000 mls @ 50 mls/hr 05/04/19 06:36 Saline 0.9% IV .Q20H TOM Lidocaine HCl 0.1 ml 05/01/19 08:52 .Xylocaine 1% Inj (10mg/Ml) For Iv Start INTRADERMA PER PROTOCOL PRN IV Start Intake and Output 05/04/19 05/04/19 05/04/19 06:59 14:59 22:59 Other: Weight 84.7 kg Patient Weight 05/05/19 06:59 Weight 84.7 kg
--- NOTE | 2019-05-04 16:06 | P.PRLE ---
RE: Lee Ann Galvez V Dear Addie Lee Ann Mathews underwent a diagnostic EP study for frequent runs of nonsustained ventricular tachycardia which were quite long despite high doses of beta bloc kers. She's had a history of VT ablation in the past A diagnostic EP study revealed a very rapid VT at 323 beats a minute. She underwent dual-chamber ICD since she also has Sick Sinus Syndrome which is limited the dose of beta blockers previously After implantation of dual-chamber ICD. Hydralazine and further maximize carvedilol Thank you for entrusting me with the care of the patient Warm regards Sincerely Mani Carrera
--- NOTE | 2019-05-04 16:11 | P.PCN ---
Preoperative Diagnosis: Diagnosis Frequent runs of nonsustained ventricular tachycardia very long On 18.75 mg twice daily of carvedilol Sick Sinus Syndrome Past history of sustained VT status post ablation almost 12 years back and very mild cardio myopathy ejection fraction at best 50% Diagnostic EP study recommended further stratification to see if she has any inducible fast VT of ventricular fibrillation Details Impression was brought to the EP lab in a fasting state with informed consent was obtained prior to procedure the right groin was prepped and draped as a protocol. 3 venous sheaths were placed in the right femoral vein VADs 3 diagnostic cath was replaced including a high right atrial catheter, His bundle catheter and RV catheter Patient was sinus rhythm with the start of study Sinus cycle length 1007 ms, WI interval 209 ms, QRS 148 ms and QT 463 ms AH 112 and HV 46 ms Sinus node recovery times at 600 ms was 763 ms Intermittent pacing at a cycle length of 500 ms atrial fibrillation was induced Burst stimulation was performed from the RV septum from 400 ms down to 200 ms Very fast ventricular tachycardia was induced, 323 beats a minute, cycle length 191 ms With antitachycardia pacing, her VT degenerated into ventricular fibrillation and she received an external shock successfully The VT morphology is as follows Left bundle branch block morphology, QS pattern with a transition in V2 Somewhat upright QRS is in inferior leads Upright QRS is in lead 1 and aVL Intracardiac catheter in the RV septum was earlier than the onset of the QRS consistent with a rightward exit of the ventricular tachycardia. The intracardiac electrogram on the RV apical catheter was slightly later than this. Plan Proceed with a dual-chamber ICD since she has Sick Sinus Syndrome Following that maximize beta blockers and stop hydralazine Atrial based pacing
[2019-05-04] MEDS ORDERED: IOPAMIDOL-250 50ML BTL IV ONE (16:16)
[2019-05-04] MEDS ORDERED: SODIUM CHLORIDE 0.9% 50 ML with ceFAZolin 1,000 MG IV ONE ×4 (16:20)
[2019-05-04] MEDS ORDERED: SODIUM CHLORIDE 0.9% 50 ML IV ONE (16:20)
[2019-05-04] MEDS ORDERED: HEPARIN SODIUM 1,000 UN/ML (10ML VL) ONE (16:25)
[2019-05-04] MEDS ORDERED: DEXTROSE 5% IN WATER 100 ML with AMIODARONE 150 MG IV ONE (17:08)
[2019-05-04] MEDS ORDERED: ACETAMINOPHEN TAB 325 MG TAB PO PRN ×2 (17:32)
[2019-05-04] MEDS ORDERED: LOPERAMIDE 2 MG CAP PO PRN (17:33)
[2019-05-04] MEDS ORDERED: DENOSUMAB 60 MG/ML 1 ML SYRINGE SQ SCH (17:45)
[2019-05-04] MEDS ORDERED: ACETAMINOPHEN IV (For NPO) 1,000 MG in EMPTY BAG 1 BAG IVPB ONE (18:00)
[2019-05-04] MEDS: SODIUM CHLORIDE 0.9% 1,000 ML IV SCH (18:41)
[2019-05-04] MEDS: CARVEDILOL 12.5 MG TAB PO SCH (19:52)
[2019-05-04] MEDS: ALPRAZolam 0.5 MG TAB PO PRN (19:53)
--- NOTE | 2019-05-04 19:56 | PCN ---
PROCEDURE NOTE Lee Ann Galvez underwent diagnostic EP study for risk stratification for recurrent episodes of long runs of nonsustained ventricular tachycardia and very frequent PVCs despite a fairly high dose of beta blockers. Diagnostic EP study revealed very easily inducible, very fast VT at 323 beats per minute and antitachycardia pacing resulted in degeneration of ventricular fibrillation. She has underlying sick sinus syndrome and this limits further maximization of beta blockers. Therefore a dual-chamber ICD was implanted. DESCRIPTION OF PROCEDURE: The patient presented to the EP lab in a fasting state. Written informed consent was obtained prior to the procedure. The left shoulder area was prepped and draped as per protocol. 1% lidocaine was used for local anesthesia. IV antibiotics were administered. 4 cm incision was made in the left deltopectoral groove and carried down to the level of the muscle. A subfascial pocket was made. Hemostasis was assured. The left axillary vein was accessed at 2 separate points under fluoroscopy and via appropriately-sized introducer sheaths 2 leads were positioned the right heart. The atrial lead was a passive lead Medtronic model #4574, 53 cm length and serial number [id number]. The patient was in atrial fibrillation from the EP study and we did perform an electrical cardioversion, but she had immediate recurrence of atrial fibrillation and therefore IV amiodarone was administered. However, the brief period of sinus rhythm, the P waves were greater than 2.5 mV. Pacing impedance 850 ohms. During atrial fibrillation, the fibrillated waves were about 0.6-0.8 mV. The ICD lead was single coil Medtronic model #6935m, 62 cm in length and serial number [id number]. This was positioned just above the RV apex. was noted. The R-waves were 18 mV, pacing impedance 730 ohms, pacing threshold 0.7 V at 0.5 milliseconds. 10 V test negative. Both leads were secured to the underlying pectoralis fascia using 2 nonabsorbable sutures. Pocket was irrigated with antibiotic solution. Leads were connected to the generator (Medtronic ICD dual chamber Evera MRI XT DF 4, model number [id number], serial number [id number]) leads and generator were then placed in subfascial pocket. The generator was secured to the underlying pectoralis muscle with 1 nonabsorbable suture and the pocket was irrigated with antibiotic solution. The wound was closed in 3 layers and dressed per protocol. Defibrillation level testing was performed under anesthesia. Shock and T-wave protocol was used to induce ventricular fibrillation. This was adequately and appropriately detected at least sensitivity. No drop outs noted. Charge time 2.1 seconds. Shocking impedance 73 ohms. No post shock noise. The device was then programmed at 2 zones, VT at 176 beats per minute and VF at 214 beats per minute with appropriate antitachycardia pacing, cardioversion defibrillation. The VT detection was programmed at 76 beats and VF at 30 or 40. Pacing AAI to DDDR to avoid RV pacing. PLAN: Maximize Coreg to 25 mg twice daily and stop hydralazine. If needed, Coreg can be increased to 50 mg twice daily. Continue irbesartan. Continue all other medications. MMODL / IJN: [id number] /
[2019-05-04 20:44] VITALS: RESP 18
[2019-05-04] MEDS ORDERED: ATORVASTATIN 10 MG TAB PO SCH (21:00)
[2019-05-04] MEDS: HYDROcodone/APAP 5-325MG 1 EACH TAB PO PRN (21:32)
[2019-05-04] MEDS: GABAPENTIN 100 MG CAP PO SCH (23:13)
[2019-05-05] MEDS: SODIUM CHLORIDE 0.9% 1,000 ML IV SCH ×2 (02:51→04:45)
[2019-05-05] MEDS: HYDROcodone/APAP 5-325MG 1 EACH TAB PO PRN (04:43)
[2019-05-05] MEDS: ALPRAZolam 0.5 MG TAB PO PRN (04:43)
--- NOTE | 2019-05-05 08:39 | XR ---
EXAMINATION TYPE: XR chest 2V DATE OF EXAM: 05/05/2019 COMPARISON: 12/20/2017 HISTORY: 78-year-old female placement check TECHNIQUE: AP and lateral views FINDINGS: Bilateral shoulder arthroplasties. Left anterior chest wall ICD generator with right atrial and right ventricular leads. Heart remains moderately enlarged. No sizable effusion. Some opacity at the poste rior base likely projectional. Kyphotic deformity thoracolumbar junction. IMPRESSION: Moderate cardiomegaly. No acute process. Left-sided ICD generator with right atrial and right ventric ular leads.
[2019-05-05] MEDS: GABAPENTIN 100 MG CAP PO SCH ×2 (08:53→11:49)
[2019-05-05] MEDS: CARVEDILOL 12.5 MG TAB PO SCH (08:53)
[2019-05-05] MEDS: LACTATED RINGERS 1,000 ML IV SCH ×3 (09:50→09:53)
[2019-05-05 11:33] VITALS: BP 163/85; PULSE 60; TEMP 98.1
--- NOTE | 2019-05-05 14:35 | P.DS ---
Providers Attending physician: Mani Carrera [facility] Course: Patient is a 78-year-old female with a past medical history significant for ventricular tachycardia status post ablation, hypertension, dyslipidemia who presents for evaluation and management of NSVT. Patient had been having recurrent dizzy spells and one episode of presyncope. She underwent a Holter monitor which showed frequent PVCs and very long runs of NSVT. Coronary angiogram in March 2019 showed normal coronary arteries and normal LVEDP. Most recent echocardiogram shows EF about 50%. Yesterday she underwent a diagnostic EP study showing very fast ventricular tachycardia which degenerated into ventricular fibrillation with antitachycardia pacing. She subsequently underwent a dual-chamber ICD implantation. Patient is doing well postprocedure. No acute events overnight. Patient seen and examined resting in bed. States she does have some soreness in the groin. Denies any chest pain or shortness of breath. She has gotten up out of bed and denies any dizziness or lightheadedness. No palpitations. Device check this morning shows normally functioning device Chest x-ray did not show any pneumothorax Labs reviewed, most recent labs show WBC 4.0, hemoglobin 13.9, platelets 195, potassium 3.9, BUN 21, creatinine 0.83 Patient is afebrile, pulse in the 60s, respirations 18, blood pressure 163/85, oxygen saturation 95% on room air Patient seen and examined resting in bed, in no acute distress Lungs are clear to auscultation bilaterally Heart is regular, systolic murmur audible Device dressing clean dry and intact Right groin site tender to palpation, no palpable hematomas Impression EP study revealing ventricular tachycardia status post dual-chamber ICD implantation for secondary prevention of sudden cardiac Hypertension Dyslipidemia Underlying sick sinus syndrome Plan Increase Coreg to 25 mg twice a day, may further maximize if blood pressure remains elevated Stop hydralazine Continue irbesartan Continue atorvastatin Follow-up in the device clinic next week Plan - Discharge Summary Discharge Rx Participant: Yes New Discharge Prescriptions: New Carvedilol 25 mg PO BID #180 tablet Continue Gabapentin [Neurontin] 100 mg PO 0800,1300,2300 Simvastatin [Zocor] 10 mg PO HS ALPRAZolam [Xanax] 0.5 mg PO QID PRN PRN Reason: Anxiety Irbesartan 300 mg PO 1500 Calcium Carbonate [Calcium] 300 mg PO DAILY Denosumab [Prolia] 60 mg SQ Q180D Omeprazole 40 mg PO DAILY@1500 Potassium Chloride [Klor-Con 20] 20 meq PO 1800 Ergocalciferol [Vitamin D2 (DRISDOL)] 50,000 unit PO SA Lutein 25 mg PO 1700 Polyethylene Glycol 3350 [Miralax] 17 gm PO DAILY PRN PRN Reason: Constipation Zeaxanthin 5 mg PO 1700 Tylenol Tab 1,200 mg PO BID PRN PRN Reason: Pain Aspirin 81 mg PO HS Loperamide HCl [Imodium A-D] 2 mg PO DIRECTED PRN PRN Reason: Diarrhea Discontinued Carvedilol [Coreg*] 18.75 mg PO BID hydrALAZINE HCL [Apresoline] 50 mg PO TID Discharge Medication List ALPRAZolam [Xanax] 0.5 mg PO QID PRN 10/03/13 [History] Gabapentin [Neurontin] 100 mg PO 0800,1300,2300 10/03/13 [History] Simvastatin [Zocor] 10 mg PO HS 10/03/13 [History] Irbesartan 300 mg PO 1500 07/25/15 [History] Calcium Carbonate [Calcium] 300 mg PO DAILY 07/08/17 [History] Denosumab [Prolia] 60 mg SQ Q180D 12/18/17 [History] Omeprazole 40 mg PO DAILY@1500 03/06/19 [History] Potassium Chloride [Klor-Con 20] 20 meq PO 1800 03/06/19 [History] Aspirin 81 mg PO HS 05/01/19 [History] Ergocalciferol [Vitamin D2 (DRISDOL)] 50,000 unit PO SA 05/01/19 [History] Loperamide HCl [Imodium A-D] 2 mg PO DIRECTED PRN 05/01/19 [History] Lutein 25 mg PO 1700 05/01/19 [History] Polyethylene Glycol 3350 [Miralax] 17 gm PO DAILY PRN 05/01/19 [History] Tylenol Tab 1,200 mg PO BID PRN 05/01/19 [History] Zeaxanthin 5 mg PO 1700 05/01/19 [History] Carvedilol 25 mg PO BID #180 tablet 05/04/19 [Rx] Follow up Appointment(s)/Referral(s): Mani Carrera MD [STAFF PHYSICIAN] - 1 Week (Device clinic follow-up within one week- please get her an appointment for Thursday 05/11 Follow-up with Dr. Carrera/Leonor Wilson/Halina Kent between 3-4 months) Activity/Diet/Wound Care/Special Instructions: My patient instructions PATIENT EDUCATION MATERIAL Instructions following a heart rhythm device implant. 1. Keep dressing DRY for 5 DAYS. You may cover the area with Saran or Cling Wrap, prior to a shower. 2. The dressing will be removed in the Device Clinic at [facility]. Absorbable sutures were used to close the wound. 3. Avoid raising the left arm above the shoulder level. 4 week restriction 4. Avoid arm movements, like backscratching, rubbing the head, or pulling on a cord. 4 weeks restriction 5. Gentle range of motion movements of the shoulder, closest to the incision should be performed to avoid a frozen shoulder. (Pendulum exercises of the shoulder) 6. The opposite arm may be used freely. 7. Avoid driving for 7 days. 8. Avoid activities such as golfing, swimming, weed whacking, lifting more than 10 pounds weight, bowling, gymnastics and weight training/lifting. (6 weeks restriction) 9. Activities such as wood chopping with an axe, pull-ups in the gymnasium, power lifting, arc-welding, being close to home induction cooktops will always be a problem. 10. Arm sling is only a reminder not to raise the arm above the head. You do not need to keep the arm completely immobilized. Your free to move the arm and use it and for normal activities. In case of any problems, please call [facility] [place], @ [phone], Attention: Device Clinic Device clinic follow-up in 5 days Follow-up with primary cement mason [facility] in 2-3 months Stop hydralazine Increase carvedilol to 25 mg twice daily Discharge Disposition: HOME SELF-CARE
[2019-05-05] MEDS ORDERED: PANTOPRAZOLE 40 MG TABLET PO SCH (15:00)
[2019-05-05] MEDS ORDERED: LOSARTAN 50 MG TAB PO SCH (15:00)
== END 2019-05-05 16:37 | disposition home or self-care (01) ==
LOC: CATHEP 13:45 → 1SOBS 17:42 → CATHEP 05-05 16:37
PROVIDERS: ATTEND Internal Medicine Clinical Cardiac Electrophysiology
DX: I49.5 Sick sinus syndrome (principal); I47.2 Ventricular tachycardia; I49.3 Ventricular premature depolarization; I42.9 Cardiomyopathy, unspecified; I44.7 Left bundle-branch block, unspecified; I49.01 Ventricular fibrillation; I48.91 Unspecified atrial fibrillation; I25.2 Old myocardial infarction; I11.0 Hypertensive heart disease with heart failure; I50.9 Heart failure, unspecified; E78.5 Hyperlipidemia, unspecified; G47.33 Obstructive sleep apnea (adult) (pediatric); M06.9 Rheumatoid arthritis, unspecified; H40.9 Unspecified glaucoma; H91.90 Unspecified hearing loss, unspecified ear; L40.9 Psoriasis, unspecified; L30.9 Dermatitis, unspecified; G89.29 Other chronic pain; K58.9 Irritable bowel syndrome, unspecified; M41.9 Scoliosis, unspecified; J45.909 Unspecified asthma, uncomplicated; M19.90 Unspecified osteoarthritis, unspecified site; I83.90 Asymptomatic varicose veins of unspecified lower extremity; K21.9 Gastro-esophageal reflux disease without esophagitis; Z88.5 Allergy status to narcotic agent; Z88.8 Allergy status to other drugs, medicaments and biological substances; Z79.82 Long term (current) use of aspirin; Z79.02 Long term (current) use of antithrombotics/antiplatelets; Z79.899 Other long term (current) drug therapy; Z87.891 Personal history of nicotine dependence; Z90.49 Acquired absence of other specified parts of digestive tract; Z96.653 Presence of artificial knee joint, bilateral; Z96.611 Presence of right artificial shoulder joint; Z96.612 Presence of left artificial shoulder joint; Z90.710 Acquired absence of both cervix and uterus; Z98.890 Other specified postprocedural states; Z98.41 Cataract extraction status, right eye; Z98.42 Cataract extraction status, left eye; Z85.828 Personal history of other malignant neoplasm of skin; Z87.01 Personal history of pneumonia (recurrent); Z99.89 Dependence on other enabling machines and devices; Z80.8 Family history of malignant neoplasm of other organs or systems
CPT/HCPCS: 93641; 93620; 33249; 71046; C1894; C1769 ×2; C1892; C1730 ×2; C1895; C1898; C1721; J2250; J0282; J0690 ×3; J2001; J3010; J0131; J2704; Q9966

== ENCOUNTER 2019-07-17 14:31 | Emergency (ER) | payer MEDICARE ==
[2019-07-17 14:40] VITALS: RESP 18; TEMP 98.8
[2019-07-17 15:55] LABS: Basophils % (A) 1 %; Eosinophils # (A) 0.2 k/uL (0-0.7); Eosinophils % (A) 4 %; HCT 45.5 % (34.0-46.0); HGB 14.5 gm/dL (11.4-16.0); Lymphocytes # (A) 1.5 k/uL (1.0-4.8); Lymphocytes % (A) 29 %; MCH 29.5 pg (25.0-35.0); MCHC 31.9 g/dL (31.0-37.0); MCV 92.4 fL (80.0-100.0); Mean Platelet Volume 7.8; Monocytes # (A) 0.4 k/uL (0-1.0); Monocytes % (A) 8 %; Neutrophils % (A) 57 %; Platelet Count 209 k/uL (150-450); RBC 4.92 m/uL (3.80-5.40); WBC 5.2 k/uL (3.8-10.6)
[2019-07-17 15:59] LABS: ALT 11 U/L (4-34); AST 22 U/L (14-36); African American GFR (CKD) >90 (>60 ml/min/1.73 sqM); Albumin 4.1 g/dL (3.5-5.0); Alkaline Phosphatase 57 U/L (38-126); Anion Gap 7 mmol/L; Blood Urea Nitrogen 23 mg/dL (7-17); Calcium 10.6 mg/dL (8.4-10.2); Carbon Dioxide 26 mmol/L (22-30); Chloride 106 mmol/L (98-107); Glucose 90 mg/dL (74-99); Non-African American GFR(CKD) 80 (>60 ml/min/1.73 sqM); Potassium 3.9 mmol/L (3.5-5.1); Sodium 139 mmol/L (137-145); Total Bilirubin 0.8 mg/dL (0.2-1.3); Total Protein 6.9 g/dL (6.3-8.2)
--- NOTE | 2019-07-17 16:00 | CT ---
EXAMINATION TYPE: CT brain wo con DATE OF EXAM: 07/17/2019 COMPARISON: 07/18/2017 INDICATION: Diplopia DLP: 1062.4 mGycm, Automated exposure control for dose reduction was used. CONTRAST: None CT of the brain is performed utilizing 3 mm thick sections through the posterior fossa and 3 mm thick sections through the remaining calvarium. Study is performed within 24 hours of arrival to the hosp [facility]. No abnormal hyperdensity is present to suggest an acute intracranial hemorrhage. No mass lesion is evident. No acute infarcts are evident. Virchow-Abbe spaces or lacunar infarcts are the inferior bilateral ba westley ganglion. These are old. Ventricles and sulci are appropriate for the patient age. Paranasal sinuses and mastoid air cells within the [id number] are clear. IMPRESSIONS: 1. 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 2. No acute intracranial process.
[2019-07-17 16:02] LABS: Partial Thromboplastin Time 23.8 sec (22.0-30.0); Prothrombin Time 10.3 sec (9.0-12.0)
--- NOTE | 2019-07-17 17:17 | ED ---
Eye Problem HPI <PatrickPaulymonica Abbott - Last Filed: 07/17/19 17:21> - General Source: patient Mode of arrival: wheelchair Limitations: physical limitation <Gissel Thorne - Last Filed: 07/17/19 18:34> - General Chief complaint: Eye Problems Stated complaint: Blurred vision Time Seen by Provider: 07/17/19 14:46 - History of Present Illness Initial comments: 78-year-old female presenting today for chief complaint of right eye itching drainage blurred vision. Patient states that her right eye has been draining sometimes crusty she's polices draining monroe fluid. She denies any headache nausea vomiting. patient states at time she feels like she cant see through her center of vision but this is at night only. Denies an loss of vision. Denies new weakness of the UE and LE or sensation deficits. Dizziness, chest pain, shortness of breath, floaters, flashes of lights, trauma to the eye, redness surrounding eye. Patient has no additional complaints. Wears corrective lenses, no CL use. Patient appears well on arrival. (Gissel Thorne) - Related Data Home Medications Medication Instructions Recorded Confirmed ALPRAZolam [Xanax] 0.5 mg PO QID PRN 10/03/13 05/04/19 Gabapentin [Neurontin] 100 mg PO 0800,1300,2300 10/03/13 05/04/19 Simvastatin [Zocor] 10 mg PO HS 10/03/13 05/04/19 Irbesartan 300 mg PO 1500 07/25/15 05/04/19 Calcium Carbonate [Calcium] 300 mg PO DAILY 07/08/17 05/04/19 Denosumab [Prolia] 60 mg SQ Q180D 12/18/17 05/04/19 Omeprazole 40 mg PO DAILY@1500 03/06/19 05/04/19 Potassium Chloride [Klor-Con 20] 20 meq PO 1800 03/06/19 05/04/19 Aspirin 81 mg PO HS 05/01/19 05/04/19 Ergocalciferol [Vitamin D2 50,000 unit PO SA 05/01/19 05/04/19 (DRISDOL)] Loperamide HCl [Imodium A-D] 2 mg PO DIRECTED PRN 05/01/19 05/04/19 Lutein 25 mg PO 1700 01/31/20 02/03/20 Polyethylene Glycol 3350 [Miralax] 17 gm PO DAILY PRN 05/01/19 05/04/19 Tylenol Tab 1,200 mg PO BID PRN 05/01/19 05/04/19 Zeaxanthin 5 mg PO 1700 05/01/19 05/04/19 Previous Rx's Medication Instructions Recorded Carvedilol 25 mg PO BID #180 tablet 05/04/19 Artificial Tears-Hypromellose 1 drops BOTH EYES TID 7 Days #1 07/17/19 [Artificial Tear Drops] bottle [id number] 1 drops BOTH EYES Q6H 5 Days #1 07/17/19 [Maxitrol Ophth Susp] bottle Allergies Allergy/AdvReac Type Severity Reaction Status Date / Time famotidine Allergy Unknown Verified 07/17/19 14:40 spironolactone Allergy Unknown Verified 07/17/19 14:40 codeine AdvReac Severe Nausea & Verified 07/17/19 14:40 Vomiting Opioids - Morphine Analogues AdvReac Dyspnea- Verified 07/17/19 14:40 Review of Systems ROS Other: All systems not noted in ROS Statement are negative. <Reinier Nguyen D - Last Filed: 07/17/19 17:21> ROS Other: All systems not noted in ROS Statement are negative. <Gissel Thorne - Last Filed: 07/17/19 18:34> ROS Statement: Those systems with pertinent positive or pertinent negative responses have been documented in the HPI. 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 GLAUCOMA -"STRESS INDUCED",8 NODULES ON THYROID; soreness on rt side of neck, psoriasis, eczema, stress induced asthma, broncitis Last Myocardial Infarction Date:: unknown History of Any Multi-Drug Resistant Organisms: None Reported Past Surgical History: Cardiac Ablation, Cholecystectomy, Heart Catheterization, Hysterectomy, Joint Replacement, Orthopedic Surgery Additional Past Surgical History / Comment(s): THYROID BX, LINDSAY. TOTAL KNEES, LINDSAY TOTAL SHOULDERS,Cardiac ablation x2,skin CA removed with skin graft to neck Past Anesthesia/Blood Transfusion Reactions: Motion Sickness Additional Past Anesthesia/Blood Transfusion Reaction / Comment(s): BRADYCARDIA. Past Psychological History: Anxiety, Depression, Panic Disorder Smoking Status: Former smoker Past Alcohol Use History: None Reported Past Drug Use History: None Reported - Past Family History Father Family Medical History: Cancer Additional Family Medical History / Comment(s): ORAL CANCER <Gissel Thorne - Last Filed: 07/17/19 18:34> General Exam Limitations: physical limitation <Gissel Thorne - Last Filed: 07/17/19 18:34> - General Exam Comments Initial Comments: General: The patient is awake and alert, in no distress, and does not appear acutely ill. Eye: +3 mm pupils are equal, round and reactive to light, extra-ocular movement s are intact,no pain. No nystagmus. There is normal conjunctiva bilaterally. No signs of icterus. Crusting of the right eye, mild conjunctival redness. No surrounding redness of tissues. IOP 9 OS, 10 OD. VF intact to confrontation. Initially thought things looked doubled when finger to nose exam, but not when finger was held out in front of one eye. Ears, nose, mouth and throat: There are moist mucous membranes and no oral lesions. Neck: The neck is supple, there is no tenderness or JVD. Cardiovascular: There is a regular rate and rhythm. No murmur, rub or gallop is appreciated. Respiratory: Lungs are clear to auscultation, respirations are non-labored, breath sounds are equal. No wheezes, stridor, rales, or rhonchi. Musculoskeletal: Normal ROM, no tenderness. Strength 5/5. Sensation intact. Radial pulses equal bilaterally 2+. Neurological: A&O x 3. CN II-XII intact, There are no obvious motor or sensory deficits. Coordination appears grossly intact. Speech is normal. Skin: Skin is warm and dry and no rashes or lesions are noted. Psychiatric: Cooperative, appropriate mood & affect, normal judgment. (Gissel Thorne) Course Vital Signs 07/17/19 14:37 Temperature 98.8 F Pulse Rate 58 L Respiratory 18 Rate Blood Pressure 173/93 O2 Sat by Pulse 97 Oximetry Medical Decision Making - Lab Data Result diagrams: 07/17/19 15:37 07/17/19 15:37 <Reinier Nguyen - Last Filed: 07/17/19 17:21> - Lab Data Result diagrams: 07/17/19 15:37 07/17/19 15:37 <Gissel Thorne - Last Filed: 07/17/19 18:34> - Medical Decision Making PA attestation: I, Dr. Reinier Nguyen, personally saw and examined the patient. I have reviewed and agree with the resident/PA findings, including all diagnostic interpretations and treatment plans as written unless otherwise stated. I was present for the agudelo portions of any procedures performed and inclusive time noted for any critical care statement. Patient was seen and evaluated at bedside along with physician assistant auto center manager, Adriana Thorne. Briefly, patient is 78-year-old female presents with visual complaints for several days. Patient has visual deficit of the right eye compared to the left. She does complain of drainage from the right eye with crusting around both upper and lower eyelids concerning for conjunctival infection. Patient also complains of double vision however her pupils did not suggest any diplopia. Her extraocular muscles appear to be intact on physical examination. Patient has complaints of fogging to bilateral visual farias. She does not have any other neurologic findings. Highly doubt central cause of diplopia at this time considering rest of neurologic exam is normal. Patient has had this intermittent central darkness that occurs supervision only at night when she gets out of bed and last for only several minutes and resolve spontaneously. She has not had this during the daytime. Patient case was discussed in detail with Dr. Lopes of ophthalmology. Recommends that patient be prescribed extra eyedrops 4 times a day and artificial tears daily and to follow up with his office on Saturday. (Reinier Nguyen) - Lab Data Lab Results 07/17/19 07/17/19 07/17/19 Range/Units 15:37 15:37 15:37 WBC 5.2 (3.8-10.6) k/uL RBC 4.92 (3.80-5.40) m/uL Hgb 14.5 (11.4-16.0) gm/dL Hct 45.5 (34.0-46.0) % MCV 92.4 (80.0-100.0) fL MCH 29.5 (25.0-35.0) pg MCHC 31.9 (31.0-37.0) g/dL RDW 13.0 (11.5-15.5) % Plt Count 209 (150-450) k/uL Neutrophils % 57 % Lymphocytes % 29 % Monocytes % 8 % Eosinophils % 4 % Basophils % 1 % Neutrophils # 3.0 (1.3-7.7) k/uL Lymphocytes # 1.5 (1.0-4.8) k/uL Monocytes # 0.4 (0-1.0) k/uL Eosinophils # 0.2 (0-0.7) k/uL Basophils # 0.0 (0-0.2) k/uL PT 10.3 (9.0-12.0) sec INR 1.0 (<1.2) APTT 23.8 (22.0-30.0) sec Sodium 139 (137-145) mmol/L Potassium 3.9 (3.5-5.1) mmol/L Chloride 106 (98-107) mmol/L Carbon Dioxide 26 (22-30) mmol/L Anion Gap 7 mmol/L BUN 23 H (7-17) mg/dL Creatinine 0.73 (0.52-1.04) mg/dL Est GFR (CKD-EPI)AfAm >90 (>60 ml/min/1.73 sqM) Est GFR (CKD-EPI)NonAf 80 (>60 ml/min/1.73 sqM) Glucose 90 (74-99) mg/dL Calcium 10.6 H (8.4-10.2) mg/dL Total Bilirubin 0.8 (0.2-1.3) mg/dL AST 22 (14-36) U/L ALT 11 (4-34) U/L Alkaline Phosphatase 57 (38-126) U/L Total Protein 6.9 (6.3-8.2) g/dL Albumin 4.1 (3.5-5.0) g/dL Disposition <Reinier Nguyen - Last Filed: 07/17/19 17:21> Is patient prescribed a controlled substance at d/c from ED?: No Time of Disposition: 17:31 <Gissel Thorne - Last Filed: 07/17/19 18:34> Clinical Impression: Blurred vision, Eye drainage, Itchy eyes Disposition: HOME SELF-CARE Condition: Good Instructions (If sedation given, give patient instructions): Eye Lubricant (Into the eye), Conjunctivitis (ED) Additional Instructions: Please use medication as discussed. Please follow-up with family doctor in the next 2 days, follow up with Dr. Morales on Saturday-please call office at 8AM to set up this appointment. Please return to emergency room if the symptoms increase or worsen or for any other concerns. Prescriptions: Artificial Tears-Hypromellose [Artificial Tear Drops] 1 drops BOTH EYES TID 7 Days #1 bottle [id number]-Sefymcgua-Bczsvttm [Maxitrol Ophth Susp] 1 drops BOTH EYES Q6H 5 Days #1 bottle Referrals: Addie Roth MD [Primary Care Provider] - 1-2 days Bebeto Lopes MD [STAFF PHYSICIAN] - 1-2 days
[2019-07-17] MEDS ORDERED: hydrALAZINE HCL 20 MG/ML 1 ML VIAL IVP STA (17:59)
[2019-07-17 19:02] VITALS: PULSE 80
[2019-07-17 19:14] VITALS: BP 163/77
== END 2019-07-17 19:24 | disposition home or self-care (01) ==
LOC: EC 14:31
DX: H53.8 Other visual disturbances (principal); H57.89 Other specified disorders of eye and adnexa; I48.91 Unspecified atrial fibrillation; I11.0 Hypertensive heart disease with heart failure; I50.9 Heart failure, unspecified; K21.9 Gastro-esophageal reflux disease without esophagitis; I25.2 Old myocardial infarction; E78.5 Hyperlipidemia, unspecified; M06.9 Rheumatoid arthritis, unspecified; G47.30 Sleep apnea, unspecified; Z99.89 Dependence on other enabling machines and devices; Z85.828 Personal history of other malignant neoplasm of skin; Z86.69 Personal history of other diseases of the nervous system and sense organs; Z98.890 Other specified postprocedural states; Z95.818 Presence of other cardiac implants and grafts; Z96.698 Presence of other orthopedic joint implants; Z87.891 Personal history of nicotine dependence; Z79.82 Long term (current) use of aspirin; Z79.899 Other long term (current) drug therapy; Z88.8 Allergy status to other drugs, medicaments and biological substances; Z88.5 Allergy status to narcotic agent
CPT/HCPCS: 36415; 93005; 80053; 85025; 85610; 85730; 70450; 99284; 96374; J0360

== ENCOUNTER 2019-10-10 17:50 | Emergency (ER) | payer MEDICARE ==
[2019-10-10 17:59] VITALS: RESP 18
[2019-10-10] MEDS ORDERED: SODIUM CHLORIDE 0.9% 1,000 ML IV ONE (18:18)
--- NOTE | 2019-10-10 18:22 | ED ---
Female Urogenital HPI - General Chief complaint: Urogenital Stated complaint: UTI Time Seen by Provider: 10/10/19 18:02 Source: patient, RN notes reviewed, old records reviewed Mode of arrival: wheelchair Limitations: no limitations - History of Present Illness Initial comments: Surgeries a 78-year-old female presents today with UTI symptoms. Patient r eports that she's been on Keflex and antibiotic by her primary care doctor for the past 2 days. Patient is a general poor historian and with disorganized conversation. She does report that she does get frequent urinary tract infections. She has had history of urinary retention in the past as well. She states that she recently switched primary care doctors from previously Dr. Trujillo to now Dr. Valentin. Patient states that she has issues with her bowels and frequently has diarrhea and then later constipation. - Related Data Home Medications Medication Instructions Recorded Confirmed ALPRAZolam [Xanax] 0.5 mg PO QID PRN 10/03/13 09/08/19 Gabapentin [Neurontin] 100 mg PO 0800,1200,2300 10/03/13 09/08/19 Simvastatin [Zocor] 10 mg PO HS 10/03/13 09/08/19 Irbesartan 300 mg PO 1500 07/25/15 09/08/19 Calcium Carbonate [Calcium] 600 mg PO DAILY 07/08/17 09/08/19 Denosumab [Prolia] 60 mg SQ Q180D 12/18/17 09/08/19 Potassium Chloride [Klor-Con 20] 20 meq PO 1800 03/06/19 09/08/19 Aspirin 81 mg PO HS 05/01/19 09/08/19 Ergocalciferol [Vitamin D2 50,000 unit PO SA 05/01/19 09/08/19 (DRISDOL)] Loperamide HCl [Imodium A-D] 2 mg PO TID 05/01/19 09/08/19 Polyethylene Glycol 3350 [Miralax] 17 gm PO DAILY PRN 05/01/19 09/08/19 Acetaminophen [Tylenol Arthritis] 1,300 mg PO BID 09/08/19 09/08/19 Pantoprazole Sodium [Protonix] 40 mg PO DAILY PRN 09/08/19 09/08/19 Saliva Stimulant Agents Comb.3 1 spray MUCOUS MEM DIRECTED PRN 09/08/19 09/08/19 [Biotene Moisturizing Mouth] Zeaxan W/ Lutein 1 tab PO DAILY 09/08/19 Previous Rx's Medication Instructions Recorded Carvedilol 25 mg PO BID #180 tablet 05/04/19 Allergies Allergy/AdvReac Type Severity Reaction Status Date / Time famotidine Allergy Unknown Verified 10/10/19 17:59 spironolactone Allergy Unknown Verified 10/10/19 17:59 codeine AdvReac Severe Nausea & Verified 10/10/19 17:59 Vomiting omeprazole AdvReac Nausea, Verified 10/10/19 17:59 dizzyness Opioids - Morphine Analogues AdvReac Dyspnea- Verified 10/10/19 17:59 Review of Systems ROS Statement: Those systems with pertinent positive or pertinent negative responses have been documented in the HPI. ROS Other: All systems not noted in ROS Statement are negative. 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 GLAUCOMA -"STRESS INDUCED",8 NODULES ON THYROID; soreness on rt side of neck, psoriasis, eczema, stress induced asthma, broncitis Last Myocardial Infarction Date:: unknown History of Any Multi-Drug Resistant Organisms: None Reported Past Surgical History: Cardiac Ablation, Cholecystectomy, Heart Catheterization, Hysterectomy, Joint Replacement, Orthopedic Surgery Additional Past Surgical History / Comment(s): THYROID BX, LINDSAY. TOTAL KNEES, LINDSAY TOTAL SHOULDERS,Cardiac ablation x2,skin CA removed with skin graft to neck Past Anesthesia/Blood Transfusion Reactions: Motion Sickness Additional Past Anesthesia/Blood Transfusion Reaction / Comment(s): BRADYCARDIA. Past Psychological History: Anxiety, Depression, Panic Disorder Smoking Status: Former smoker - Past Family History Father Family Medical History: Cancer Additional Family Medical History / Comment(s): ORAL CANCER General Exam - General Exam Comments Initial Comments: Alert and oriented 78-year-old female. No distress. Limitations: no limitations General appearance: alert, in no apparent distress Head exam: Present: atraumatic, normocephalic, normal inspection Eye exam: Present: normal appearance, PERRL, EOMI. Absent: scleral icterus, conjunctival injection, periorbital swelling ENT exam: Present: normal exam Neck exam: Present: normal inspection. Absent: tenderness, meningismus, lymphadenopathy Respiratory exam: Present: normal lung sounds bilaterally. Absent: respiratory distress, wheezes, rales, rhonchi, stridor Cardiovascular Exam: Present: regular rate, normal rhythm, normal heart sounds. Absent: systolic murmur, diastolic murmur, rubs, gallop, clicks GI/Abdominal exam: Present: soft, tenderness (suprapubic tendernss), normal bowel sounds. Absent: distended, guarding, rebound, rigid Extremities exam: Present: normal inspection, full ROM, normal capillary refill. Absent: tenderness, pedal edema, joint swelling, calf tenderness Back exam: Present: normal inspection Neurological exam: Present: alert, oriented X3, CN II-XII intact Psychiatric exam: Present: normal affect, normal mood Skin exam: Present: warm, dry, intact, normal color. Absent: rash Course Vital Signs 10/10/19 10/10/19 10/10/19 17:54 20:46 21:49 Temperature 98.1 F 98 F Pulse Rate 57 L 60 Respiratory 18 18 Rate Blood Pressure 161/100 182/91 194/100 O2 Sat by Pulse 98 98 Oximetry 10/10/19 22:22 Temperature Pulse Rate 90 Respiratory 18 Rate Blood Pressure 168/89 O2 Sat by Pulse 100 Oximetry Medical Decision Making - Medical Decision Making Patient is a 38-year-old female who presents emergency Department today with lower abdominal pain times or urinary tract infection symptoms. Patient is apparently started on Keflex by her primary care doctor. Patient was unable to provide a urine sample bladder scan was completed and showed 600 mL of urine within the bladder. The straight catheter was initiated. Her urinalysis shows no infection. Patient reported immediate relief of lower abdominal pain after bladder was drained. She was given IV fluids and lab work was obtained. Patient has had history of urinary tract retention in the past related to constipation. She did have a bowel movement in the emergency department. She has no lower extremity any significant weakness. After Patient received IV fluids and labs were completed Patient attempted to urinate on her own again and was not able to. Therefore Caldwell catheter was placed. She states that she's had urinary retention before But does not remember falling up with a urologist. I discussed at this time for the concern for urinary retention that would like to the written leave a Caldwell catheter in place to have the Patient follow-up with urology to have it removed. Patient is agreeable to this plan and her understands treatment plan. - Lab Data Result diagrams: 10/10/19 20:19 10/10/19 20:19 Lab Results 10/10/19 10/10/19 10/10/19 Range/Units 19:22 20:19 20:19 WBC 7.0 (3.8-10.6) k/uL RBC 4.57 (3.80-5.40) m/uL Hgb 13.6 (11.4-16.0) gm/dL Hct 42.4 (34.0-46.0) % MCV 92.7 (80.0-100.0) fL MCH 29.8 (25.0-35.0) pg MCHC 32.1 (31.0-37.0) g/dL RDW 14.3 (11.5-15.5) % Plt Count 176 (150-450) k/uL Neutrophils % 74 % Lymphocytes % 14 % Monocytes % 8 % Eosinophils % 2 % Basophils % 1 % Neutrophils # 5.2 (1.3-7.7) k/uL Lymphocytes # 1.0 (1.0-4.8) k/uL Monocytes # 0.6 (0-1.0) k/uL Eosinophils # 0.2 (0-0.7) k/uL Basophils # 0.0 (0-0.2) k/uL PT (9.0-12.0) sec INR (<1.2) APTT (22.0-30.0) sec Sodium 137 (137-145) mmol/L Potassium 4.4 (3.5-5.1) mmol/L Chloride 103 (98-107) mmol/L Carbon Dioxide 29 (22-30) mmol/L Anion Gap 5 mmol/L BUN 19 H (7-17) mg/dL Creatinine 0.78 (0.52-1.04) mg/dL Est GFR (CKD-EPI)AfAm 85 (>60 ml/min/1.73 sqM) Est GFR (CKD-EPI)NonAf 74 (>60 ml/min/1.73 sqM) Glucose 93 (74-99) mg/dL Plasma Lactic Acid Chriss (0.7-2.0) mmol/L Calcium 10.5 H (8.4-10.2) mg/dL Total Bilirubin 1.6 H (0.2-1.3) mg/dL AST 20 (14-36) U/L ALT 10 (4-34) U/L Alkaline Phosphatase 68 (38-126) U/L Total Protein 6.1 L (6.3-8.2) g/dL Albumin 3.7 (3.5-5.0) g/dL Urine Color Yellow Urine Appearance Clear (Clear) Urine pH 6.0 (5.0-8.0) Ur Specific [place] 1.013 (1.001-1.035) Urine Protein Negative (Negative) Urine Glucose (UA) Negative (Negative) Urine Ketones Negative (Negative) Urine Blood Negative (Negative) Urine Nitrite Negative (Negative) Urine Bilirubin Negative (Negative) Urine Urobilinogen <2.0 (<2.0) mg/dL Ur Leukocyte Esterase Negative (Negative) 10/10/19 10/10/19 Range/Units 20:19 20:19 WBC (3.8-10.6) k/uL RBC (3.80-5.40) m/uL Hgb (11.4-16.0) gm/dL Hct (34.0-46.0) % MCV (80.0-100.0) fL MCH (25.0-35.0) pg MCHC (31.0-37.0) g/dL RDW (11.5-15.5) % Plt Count (150-450) k/uL Neutrophils % % Lymphocytes % % Monocytes % % Eosinophils % % Basophils % % Neutrophils # (1.3-7.7) k/uL Lymphocytes # (1.0-4.8) k/uL Monocytes # (0-1.0) k/uL Eosinophils # (0-0.7) k/uL Basophils # (0-0.2) k/uL PT 10.6 (9.0-12.0) sec INR 1.0 (<1.2) APTT 24.2 (22.0-30.0) sec Sodium (137-145) mmol/L Potassium (3.5-5.1) mmol/L Chloride (98-107) mmol/L Carbon Dioxide (22-30) mmol/L Anion Gap mmol/L BUN (7-17) mg/dL Creatinine (0.52-1.04) mg/dL Est GFR (CKD-EPI)AfAm (>60 ml/min/1.73 sqM) Est GFR (CKD-EPI)NonAf (>60 ml/min/1.73 sqM) Glucose (74-99) mg/dL Plasma Lactic Acid Chriss 0.9 (0.7-2.0) mmol/L Calcium (8.4-10.2) mg/dL Total Bilirubin (0.2-1.3) mg/dL AST (14-36) U/L ALT (4-34) U/L Alkaline Phosphatase (38-126) U/L Total Protein (6.3-8.2) g/dL Albumin (3.5-5.0) g/dL Urine Color Urine Appearance (Clear) Urine pH (5.0-8.0) Ur Specific [place] (1.001-1.035) Urine Protein (Negative) Urine Glucose (UA) (Negative) Urine Ketones (Negative) Urine Blood (Negative) Urine Nitrite (Negative) Urine Bilirubin (Negative) Urine Urobilinogen (<2.0) mg/dL Ur Leukocyte Esterase (Negative) - Radiology Data Radiology results: report reviewed Disposition Clinical Impression: Urinary retention Disposition: HOME SELF-CARE Condition: Stable Instructions (If sedation given, give patient instructions): Acute Urinary Retention in Women (ED) Additional Instructions: Keep the Caldwell catheter in place until seen by urology. Follow-up with your primary care doctor on Saturday as well. Return to the emergency department if any alarming signs or symptoms occur. Is patient prescribed a controlled substance at d/c from ED?: No Referrals: Addie Roth MD [Primary Care Provider] - 1-2 days Manuel Ram MD [STAFF PHYSICIAN] - 1-2 days Time of Disposition: 22:07
[2019-10-10 19:27] LABS: Appearance,Urine Clear (Clear); Bilirubin,Urine Negative (Negative); Blood,Urine Negative (Negative); Color,Urine Yellow; Glucose,Urine (UA) Negative (Negative); Ketones,Urine Negative (Negative); Leukocyte Esterase,Urine Negative (Negative); Nitrite,Urine Negative (Negative); Protein,Urine Negative (Negative); Specific Gravity,Urine 1.013 (1.001-1.035); Urobilinogen,Urine <2.0 mg/dL (<2.0)
--- NOTE | 2019-10-10 20:34 | XR ---
EXAMINATION TYPE: XR KUB DATE OF EXAM: 10/10/2019 COMPARISON: 03/29/2015 HISTORY: Constipation TECHNIQUE: Single view upright FINDINGS: There is no sign of intestinal obstruction or pneumoperitoneum. Fecal pattern is fairly nor mal. There is lumbar levoscoliosis deformity. I see no definite calcifications over the kidneys. Ther e are clips from cholecystectomy. IMPRESSION: Nonacute abdomen. No change.
[2019-10-10 20:43] LABS: Basophils % (A) 1 %; Eosinophils # (A) 0.2 k/uL (0-0.7); Eosinophils % (A) 2 %; HCT 42.4 % (34.0-46.0); HGB 13.6 gm/dL (11.4-16.0); Lymphocytes % (A) 14 %; MCH 29.8 pg (25.0-35.0); MCHC 32.1 g/dL (31.0-37.0); MCV 92.7 fL (80.0-100.0); Mean Platelet Volume 7.8; Monocytes # (A) 0.6 k/uL (0-1.0); Monocytes % (A) 8 %; Neutrophils # (A) 5.2 k/uL (1.3-7.7); Neutrophils % (A) 74 %; Platelet Count 176 k/uL (150-450); RBC 4.57 m/uL (3.80-5.40); RDW 14.3 % (11.5-15.5)
[2019-10-10 20:47] VITALS: TEMP 98
[2019-10-10 20:59] LABS: Partial Thromboplastin Time 24.2 sec (22.0-30.0); Prothrombin Time 10.6 sec (9.0-12.0)
[2019-10-10 21:18] LABS: Albumin 3.7 g/dL (3.5-5.0); Calcium 10.5 mg/dL (8.4-10.2); Potassium 4.4 mmol/L (3.5-5.1); Total Bilirubin 1.6 mg/dL (0.2-1.3); Total Protein 6.1 g/dL (6.3-8.2)
[2019-10-10] MEDS ORDERED: LABETALOL 5 MG/ML VIAL MDV IVP STA (21:49)
[2019-10-10 22:23] VITALS: BP 168/89; PULSE 90
== END 2019-10-10 22:45 | disposition home or self-care (01) ==
LOC: EC 17:50
DX: R33.9 Retention of urine, unspecified (principal); I48.91 Unspecified atrial fibrillation; I11.0 Hypertensive heart disease with heart failure; I50.9 Heart failure, unspecified; I25.2 Old myocardial infarction; E78.5 Hyperlipidemia, unspecified; G47.30 Sleep apnea, unspecified; F32.9 Major depressive disorder, single episode, unspecified; F41.0 Panic disorder [episodic paroxysmal anxiety]; Z79.82 Long term (current) use of aspirin; Z79.899 Other long term (current) drug therapy; Z88.5 Allergy status to narcotic agent; Z88.8 Allergy status to other drugs, medicaments and biological substances; Z87.891 Personal history of nicotine dependence; Z85.828 Personal history of other malignant neoplasm of skin
CPT/HCPCS: 36415; 51702; 74018; 80053; 81003; 83605; 85025; 85610; 85730; 87040; 96361; 96374; 99284

== ENCOUNTER → 2019-11-09 | Outpatient (CLI) | payer MEDICARE ==
[2019-11-09 19:37] LABS: African American GFR (CKD) 81.8 (60.0-200.0); Anion Gap 5.6 mmol/L (4.00-12.00); BUN/Creat Ratio 23.75 Ratio (12.00-20.00); Calcium 9.9 mg/dL (8.7-10.3); Carbon Dioxide 28.4 mmol/L (21.6-31.8); Magnesium 1.8 mg/dL (1.5-2.4); Non-African American GFR(CKD) 70.6 (60.0-200.0); Potassium 3.8 mmol/L (3.5-5.5)
== END | disposition home or self-care (01) ==
LOC: LABWHC1 11:14
PROVIDERS: ATTEND Physician Assistant
DX: I47.2 Ventricular tachycardia (principal); I10 Essential (primary) hypertension
CPT/HCPCS: 36415; 80048; 83735

== ENCOUNTER 2020-04-04 12:55 | Inpatient (IN) | payer MEDICARE ==
[2020-04-04 14:47] LABS: Basophils % (A) 0 %; Eosinophils # (A) 0.2 k/uL (0-0.7); Eosinophils % (A) 2 %; HCT 37.1 % (34.0-46.0); HGB 12.7 gm/dL (11.4-16.0); Lymphocytes # (A) 1.3 k/uL (1.0-4.8); Lymphocytes % (A) 14 %; MCH 32.1 pg (25.0-35.0); MCHC 34.3 g/dL (31.0-37.0); MCV 93.5 fL (80.0-100.0); Mean Platelet Volume 7.8; Monocytes # (A) 0.7 k/uL (0-1.0); Monocytes % (A) 8 %; Neutrophils # (A) 6.7 k/uL (1.3-7.7); Neutrophils % (A) 75 %; Platelet Count 192 k/uL (150-450); RBC 3.97 m/uL (3.80-5.40); RDW 13.4 % (11.5-15.5); WBC 8.9 k/uL (3.8-10.6)
[2020-04-04 14:56] LABS: ALT 14 U/L (4-34); AST 28 U/L (14-36); African American GFR (CKD) >90 (>60 ml/min/1.73 sqM); Albumin 2.9 g/dL (3.5-5.0); Alkaline Phosphatase 39 U/L (38-126); Anion Gap -1 mmol/L; Blood Urea Nitrogen 23 mg/dL (7-17); Calcium 9.3 mg/dL (8.4-10.2); Carbon Dioxide 35 mmol/L (22-30); Chloride 104 mmol/L (98-107); Creatine Kinase 54 U/L (30-135); Glucose 102 mg/dL (74-99); Non-African American GFR(CKD) 84 (>60 ml/min/1.73 sqM); Sodium 138 mmol/L (137-145); Total Bilirubin 1.4 mg/dL (0.2-1.3); Total Protein 5.6 g/dL (6.3-8.2)
--- NOTE | 2020-04-04 14:56 | ED ---
Weakness HPI - General Chief complaint: Weakness Stated complaint: weakness Source: EMS Mode of arrival: EMS Limitations: no limitations - History of Present Illness Initial comments: is a 79-year-old female presents emergency Department with reported weakness. Patient states she has chronic diarrhea ever since she had rectal surgery by Dr. Kirk. Review of the patient's chart demonstrate that the had the surgery done in 08/16. Patient reports that the diarrhea has been significantly worse over the past week. States she is so weak to the point where she can get up and ambulate. Patient admits to an episode of black stool. Months ago however denies any bloody stools. Admits to diffuse abdominal and rectal pain. No fevers or chills. Denies any nausea or vomiting. No chest pain or shortness of breath. No other alleviating, precipitating modifying factors - Related Data Home Medications Medication Instructions Recorded Confirmed ALPRAZolam [Xanax] 0.5 mg PO QID PRN 10/03/13 09/08/19 Gabapentin [Neurontin] 100 mg PO 0800,1200,2300 10/03/13 09/08/19 Simvastatin [Zocor] 10 mg PO HS 10/03/13 09/08/19 Irbesartan 300 mg PO 1500 07/25/15 09/08/19 Calcium Carbonate [Calcium] 600 mg PO DAILY 07/08/17 09/08/19 Denosumab [Prolia] 60 mg SQ Q180D 12/18/17 09/08/19 Potassium Chloride [Klor-Con 20] 20 meq PO 1800 03/06/19 09/08/19 Aspirin 81 mg PO HS 05/01/19 09/08/19 Ergocalciferol [Vitamin D2 50,000 unit PO SA 05/01/19 09/08/19 (DRISDOL)] Loperamide HCl [Imodium A-D] 2 mg PO TID 05/01/19 09/08/19 Polyethylene Glycol 3350 [Miralax] 17 gm PO DAILY PRN 05/01/19 09/08/19 Acetaminophen [Tylenol Arthritis] 1,300 mg PO BID 09/08/19 09/08/19 Pantoprazole Sodium [Protonix] 40 mg PO DAILY PRN 09/08/19 09/08/19 Saliva Stimulant Agents Comb.3 1 spray MUCOUS MEM DIRECTED PRN 09/08/19 09/08/19 [Biotene Moisturizing Mouth] Zeaxan W/ Lutein 1 tab PO DAILY 09/08/19 Previous Rx's Medication Instructions Recorded carvediloL [Carvedilol] 25 mg PO BID #180 tablet 05/04/19 Allergies Allergy/AdvReac Type Severity Reaction Status Date / Time famotidine Allergy Unknown Verified 04/04/20 13:01 morphine Allergy Unknown Verified 04/04/20 13:01 spironolactone Allergy Unknown Verified 04/04/20 13:01 codeine AdvReac Severe Nausea & Verified 04/04/20 13:01 Vomiting omeprazole AdvReac Nausea, Verified 04/04/20 13:01 dizzyness Opioids - Morphine Analogues AdvReac Dyspnea- Verified 04/04/20 13:01 Review of Systems ROS Statement: Those systems with pertinent positive or pertinent negative responses have been documented in the HPI. ROS Other: All systems not noted in ROS Statement are negative. 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 GLAUCOMA -"STRESS INDUCED",8 NODULES ON THYROID; soreness on rt side of neck, psoriasis, eczema, stress induced asthma, broncitis Last Myocardial Infarction Date:: unknown History of Any Multi-Drug Resistant Organisms: None Reported Past Surgical History: Cardiac Ablation, Cholecystectomy, Heart Catheterization, Hysterectomy, Joint Replacement, Orthopedic Surgery Additional Past Surgical History / Comment(s): THYROID BX, LINDSAY. TOTAL KNEES, LINDSAY TOTAL SHOULDERS,Cardiac ablation x2,skin CA removed with skin graft to neck Past Anesthesia/Blood Transfusion Reactions: Motion Sickness Additional Past Anesthesia/Blood Transfusion Reaction / Comment(s): BRADYCARDIA. Past Psychological History: Anxiety, Depression, Panic Disorder Smoking Status: Former smoker Past Alcohol Use History: None Reported Past Drug Use History: None Reported - Past Family History Father Family Medical History: Cancer Additional Family Medical History / Comment(s): ORAL CANCER General Exam Limitations: no limitations Course Vital Signs 04/04/20 04/04/20 13:02 15:40 Temperature 98.3 F Pulse Rate 60 59 L Respiratory 18 18 Rate Blood Pressure 162/86 180/87 O2 Sat by Pulse 95 97 Oximetry EKG Findings - EKG Comments: EKG Findings:: EKG demonstrates a ventricular rate of 61. OR interval 214. QRS 126. QTC of 412. Atrial paced, prolonged AV conduction. No acute ST segment elevations or depressions. Morphology appears similar to last EKG Medical Decision Making - Medical Decision Making Upon arrival patient was placed into room 17. A thorough history and physical exam was performed. Rectal exam is performed and does demonstrate a significant amount of rust colored stool. Peripheral IV is established. Laboratory studies were conducted. Urinalysis is obtained. There are traces are reviewed and hemoglobin is stable at 12.7. Urinalysis is positive for nitrites. CT the patient's abdomen and pelvis demonstrates severe rectal fecal stasis. An enema was ordered. Results are discussed with the patient. Did recommend hospital admission for which the patient did agree to. Discussed case with Dr. Crawford and Dr. Rayo. Patient awaiting a bed on the floor - Lab Data Result diagrams: 04/04/20 14:27 04/04/20 14:27 Lab Results 04/04/20 04/04/20 04/04/20 Range/Units 14:27 14:27 14:27 WBC 8.9 (3.8-10.6) k/uL RBC 3.97 (3.80-5.40) m/uL Hgb 12.7 (11.4-16.0) gm/dL Hct 37.1 (34.0-46.0) % MCV 93.5 (80.0-100.0) fL MCH 32.1 (25.0-35.0) pg MCHC 34.3 (31.0-37.0) g/dL RDW 13.4 (11.5-15.5) % Plt Count 192 (150-450) k/uL MPV 7.8 Neutrophils % 75 % Lymphocytes % 14 % Monocytes % 8 % Eosinophils % 2 % Basophils % 0 % Neutrophils # 6.7 (1.3-7.7) k/uL Lymphocytes # 1.3 (1.0-4.8) k/uL Monocytes # 0.7 (0-1.0) k/uL Eosinophils # 0.2 (0-0.7) k/uL Basophils # 0.0 (0-0.2) k/uL PT 11.4 (9.0-12.0) sec INR 1.1 (<1.2) APTT 27.5 (22.0-30.0) sec Sodium 138 (137-145) mmol/L Potassium 3.3 L (3.5-5.1) mmol/L Chloride 104 (98-107) mmol/L Carbon Dioxide 35 H (22-30) mmol/L Anion Gap -1 mmol/L BUN 23 H (7-17) mg/dL Creatinine 0.68 (0.52-1.04) mg/dL Est GFR (CKD-EPI)AfAm >90 (>60 ml/min/1.73 sqM) Est GFR (CKD-EPI)NonAf 84 (>60 ml/min/1.73 sqM) Glucose 102 H (74-99) mg/dL Plasma Lactic Acid Chriss (0.7-2.0) mmol/L Calcium 9.3 (8.4-10.2) mg/dL Total Bilirubin 1.4 H (0.2-1.3) mg/dL AST 28 (14-36) U/L ALT 14 (4-34) U/L Alkaline Phosphatase 39 (38-126) U/L Creatine Kinase 54 (30-135) U/L Troponin I (0.000-0.034) ng/mL NT-Pro-B Natriuret Pep pg/mL Total Protein 5.6 L (6.3-8.2) g/dL Albumin 2.9 L (3.5-5.0) g/dL TSH 1.320 (0.465-4.680) mIU/L Urine Color Urine Appearance (Clear) Urine pH (5.0-8.0) Ur Specific [place] (1.001-1.035) Urine Protein (Negative) Urine Glucose (UA) (Negative) Urine Ketones (Negative) Urine Blood (Negative) Urine Nitrite (Negative) Urine Bilirubin (Negative) Urine Urobilinogen (<2.0) mg/dL Ur Leukocyte Esterase (Negative) Urine RBC (0-5) /hpf Urine WBC (0-5) /hpf Ur Squamous Epith Cells (0-4) /hpf Urine Bacteria (None) /hpf Urine Mucus (None) /hpf Stool Occult Blood (Negative) 04/04/20 04/04/20 04/04/20 Range/Units 14:27 14:27 14:27 WBC (3.8-10.6) k/uL RBC (3.80-5.40) m/uL Hgb (11.4-16.0) gm/dL Hct (34.0-46.0) % MCV (80.0-100.0) fL MCH (25.0-35.0) pg MCHC (31.0-37.0) g/dL RDW (11.5-15.5) % Plt Count (150-450) k/uL MPV Neutrophils % % Lymphocytes % % Monocytes % % Eosinophils % % Basophils % % Neutrophils # (1.3-7.7) k/uL Lymphocytes # (1.0-4.8) k/uL Monocytes # (0-1.0) k/uL Eosinophils # (0-0.7) k/uL Basophils # (0-0.2) k/uL PT (9.0-12.0) sec INR (<1.2) APTT (22.0-30.0) sec Sodium (137-145) mmol/L Potassium (3.5-5.1) mmol/L Chloride (98-107) mmol/L Carbon Dioxide (22-30) mmol/L Anion Gap mmol/L BUN (7-17) mg/dL Creatinine (0.52-1.04) mg/dL Est GFR (CKD-EPI)AfAm (>60 ml/min/1.73 sqM) Est GFR (CKD-EPI)NonAf (>60 ml/min/1.73 sqM) Glucose (74-99) mg/dL Plasma Lactic Acid Chriss 1.3 (0.7-2.0) mmol/L Calcium (8.4-10.2) mg/dL Total Bilirubin (0.2-1.3) mg/dL AST (14-36) U/L ALT (4-34) U/L Alkaline Phosphatase (38-126) U/L Creatine Kinase (30-135) U/L Troponin I 0.018 (0.000-0.034) ng/mL NT-Pro-B Natriuret Pep 2710 pg/mL Total Protein (6.3-8.2) g/dL Albumin (3.5-5.0) g/dL TSH (0.465-4.680) mIU/L Urine Color Urine Appearance (Clear) Urine pH (5.0-8.0) Ur Specific [place] (1.001-1.035) Urine Protein (Negative) Urine Glucose (UA) (Negative) Urine Ketones (Negative) Urine Blood (Negative) Urine Nitrite (Negative) Urine Bilirubin (Negative) Urine Urobilinogen (<2.0) mg/dL Ur Leukocyte Esterase (Negative) Urine RBC (0-5) /hpf Urine WBC (0-5) /hpf Ur Squamous Epith Cells (0-4) /hpf Urine Bacteria (None) /hpf Urine Mucus (None) /hpf Stool Occult Blood (Negative) 04/04/20 04/04/20 Range/Units 14:27 15:38 WBC (3.8-10.6) k/uL RBC (3.80-5.40) m/uL Hgb (11.4-16.0) gm/dL Hct (34.0-46.0) % MCV (80.0-100.0) fL MCH (25.0-35.0) pg MCHC (31.0-37.0) g/dL RDW (11.5-15.5) % Plt Count (150-450) k/uL MPV Neutrophils % % Lymphocytes % % Monocytes % % Eosinophils % % Basophils % % Neutrophils # (1.3-7.7) k/uL Lymphocytes # (1.0-4.8) k/uL Monocytes # (0-1.0) k/uL Eosinophils # (0-0.7) k/uL Basophils # (0-0.2) k/uL PT (9.0-12.0) sec INR (<1.2) APTT (22.0-30.0) sec Sodium (137-145) mmol/L Potassium (3.5-5.1) mmol/L Chloride (98-107) mmol/L Carbon Dioxide (22-30) mmol/L Anion Gap mmol/L BUN (7-17) mg/dL Creatinine (0.52-1.04) mg/dL Est GFR (CKD-EPI)AfAm (>60 ml/min/1.73 sqM) Est GFR (CKD-EPI)NonAf (>60 ml/min/1.73 sqM) Glucose (74-99) mg/dL Plasma Lactic Acid Chriss (0.7-2.0) mmol/L Calcium (8.4-10.2) mg/dL Total Bilirubin (0.2-1.3) mg/dL AST (14-36) U/L ALT (4-34) U/L Alkaline Phosphatase (38-126) U/L Creatine Kinase (30-135) U/L Troponin I (0.000-0.034) ng/mL NT-Pro-B Natriuret Pep pg/mL Total Protein (6.3-8.2) g/dL Albumin (3.5-5.0) g/dL TSH (0.465-4.680) mIU/L Urine Color Yellow Urine Appearance Cloudy H (Clear) Urine pH 6.5 (5.0-8.0) Ur Specific [place] 1.021 (1.001-1.035) Urine Protein Negative (Negative) Urine Glucose (UA) Negative (Negative) Urine Ketones Negative (Negative) Urine Blood Negative (Negative) Urine Nitrite Positive H (Negative) Urine Bilirubin Negative (Negative) Urine Urobilinogen <2.0 (<2.0) mg/dL Ur Leukocyte Esterase Moderate H (Negative) Urine RBC 8 H (0-5) /hpf Urine WBC 26 H (0-5) /hpf Ur Squamous Epith Cells 1 (0-4) /hpf Urine Bacteria Rare H (None) /hpf Urine Mucus Rare H (None) /hpf Stool Occult Blood Positive H (Negative) Disposition Clinical Impression: Rectal bleed, Diarrhea, Fecal impaction Disposition: ADMITTED IP TO THIS [facility] Condition: Serious Is patient prescribed a controlled substance at d/c from ED?: No Referrals: Johnny Sanford MD [Primary Care Provider] - 1-2 days Decision to Admit Reason: Admit from EC Decision Date: 04/04/20 Decision Time: 15:48
[2020-04-04 15:00] LABS: Potassium 3.3 mmol/L (3.5-5.1)
[2020-04-04 15:11] LABS: INR 1.1 (<1.2); Partial Thromboplastin Time 27.5 sec (22.0-30.0); Prothrombin Time 11.4 sec (9.0-12.0)
[2020-04-04] MEDS ORDERED: NA PHOS,M-B/NA PHOS,DI-BA 133 ML ENEMA RECTAL STA (15:45)
--- NOTE | 2020-04-04 15:45 | CT ---
EXAMINATION TYPE: CT abdomen pelvis w con DATE OF EXAM: 04/04/2020 HISTORY: Rectal bleeding. Abdominal pain. CT DLP: 960.5mGycm Automated Exposure Control for Dose Reduction was Utilized. CONTRAST: CT scan of the abdomen and pelvis is performed without oral but with IV Contrast, patient injected wi th 100 mL of Isovue 300. COMPARISON: CT abdomen and pelvis April 22, 2019 and older CTs FINDINGS: LUNG BASES: Persistent cardiomegaly. LIVER/GB: Cholecystectomy clips are redemonstrated. Liver remains diffusely low dense. PANCREAS: Moderate generalized fat replaced atrophy redemonstrated. SPLEEN: No significant abnormality is seen. ADRENALS: Thickening and slight nodularity to both adrenal glands redemonstrated and stable. Findings favored benign. KIDNEYS: Symmetric cortical medullary uptake and excretion without hydronephrosis seen bilaterally. S ubcentimeter thin-walled cyst medially upper pole right kidney image 21 series 301 redemonstrated. BOWEL: No suspicious small or large bowel dilatation. Stomach poorly distended and suboptimally eval uated. Severe fecal prominence in the rectum on current exam. Mild surrounding fat stranding UTERUS/ADNEXA: Uterus surgically absent or markedly atrophic. LYMPH NODES: No greater than 1cm abdominal or pelvic lymph nodes are appreciated. OSSEOUS STRUCTURES: Levoconvex scoliosis centered at L3 level redemonstrated. Fairly severe disc space narrowing L2-L3 le edson again seen. Moderate axial joint space loss of both hips redemonstrated. OTHER: Moderate calcified plaque of the aorta extends into branch vessels IMPRESSION: Severe rectal fecal stasis or impaction. Overall nonobstructive bowel gas pattern. Perhap s mild surrounding inflammatory change.
[2020-04-04] MEDS ORDERED: NALOXONE 0.4 MG/ML 1 ML VIAL IV PRN (15:48)
[2020-04-04 15:50] LABS: Appearance,Urine Cloudy (Clear); Bacteria,Urine Rare /hpf; Bilirubin,Urine Negative (Negative); Blood,Urine Negative (Negative); Color,Urine Yellow; Glucose,Urine (UA) Negative (Negative); Ketones,Urine Negative (Negative); Leukocyte Esterase,Urine Moderate (Negative); Mucus,Urine Rare /hpf; Nitrite,Urine Positive (Negative); PH, Urine 6.5 (5.0-8.0); Protein,Urine Negative (Negative); RBC,Urine 8 /hpf (0-5); Specific Gravity,Urine 1.021 (1.001-1.035); Squamous Epithelial Cell,Urine 1 /hpf (0-4); Urobilinogen,Urine <2.0 mg/dL (<2.0); WBC,Urine 26 /hpf (0-5)
[2020-04-04] MEDS ORDERED: cefTRIAXone IN SWFI 1,000 MG/10 ML SYRINGE IVP STA (15:58)
[2020-04-04] MEDS ORDERED: PANTOPRAZOLE 40 MG/10 ML VIAL IVP STA (16:05)
--- NOTE | 2020-04-04 16:24 | XR ---
EXAMINATION TYPE: XR chest 1V portable DATE OF EXAM: 04/04/2020 COMPARISON: Chest x-ray May 05, 2019 HISTORY: Weakness. TECHNIQUE: Single AP portable follow-up right view of the chest is obtained. FINDINGS: The osseous structures are demineralized. Underlying scoliosis is redemonstrated. Metallic hardware from bilateral shoulder arthroplasty is redemonstrated. Significant cardiomegaly with dual- lead pacemaker/defibrillator and atherosclerotic and ectatic thoracic aorta. Chronic parenchymal lynn ges without suspicious new focal airspace opacity, pleural effusion, or pneumothorax seen bilaterally . IMPRESSION: Chronic changes and cardiomegaly without acute pulmonary process.
[2020-04-04] MEDS: SODIUM CHLORIDE 0.9% 1,000 ML IV SCH (17:34)
[2020-04-04] MEDS: metroNIDAZOLE-NS PMX 500 MG in SALINE 1 100ML.BAG IVPB SCH ×2 (17:35→22:54)
[2020-04-04 23:06] LABS: HCT 40.5 % (34.0-46.0); HGB 13.1 gm/dL (11.4-16.0); MCH 30.5 pg (25.0-35.0); MCHC 32.4 g/dL (31.0-37.0); Mean Platelet Volume 7.5; Platelet Count 162 k/uL (150-450); RBC 4.31 m/uL (3.80-5.40); RDW 13.7 % (11.5-15.5); WBC 9.1 k/uL (3.8-10.6)
[2020-04-05] MEDS: SODIUM CHLORIDE 0.9% 1,000 ML IV SCH ×3 (02:29→21:30)
[2020-04-05] MEDS: ALPRAZolam 0.5 MG TAB PO PRN ×2 (03:03→21:28)
[2020-04-05] MEDS: ACETAMINOPHEN TAB 500 MG TAB PO PRN ×2 (03:03→23:35)
[2020-04-05 06:33] LABS: Basophils % (A) 0 %; Eosinophils # (A) 0.1 k/uL (0-0.7); Eosinophils % (A) 1 %; HCT 37.7 % (34.0-46.0); HGB 12.8 gm/dL (11.4-16.0); Lymphocytes # (A) 1.3 k/uL (1.0-4.8); Lymphocytes % (A) 16 %; MCH 31.9 pg (25.0-35.0); MCHC 33.8 g/dL (31.0-37.0); MCV 94.3 fL (80.0-100.0); Mean Platelet Volume 7.6; Monocytes # (A) 0.6 k/uL (0-1.0); Monocytes % (A) 8 %; Neutrophils # (A) 5.7 k/uL (1.3-7.7); Neutrophils % (A) 74 %; Platelet Count 183 k/uL (150-450); RDW 13.4 % (11.5-15.5); WBC 7.7 k/uL (3.8-10.6)
[2020-04-05] MEDS: carvediloL 12.5 MG TAB PO SCH ×2 (08:31→16:10)
[2020-04-05] MEDS: LOSARTAN 50 MG TAB PO SCH (08:31)
[2020-04-05] MEDS: POTASSIUM CHLORIDE ER 20 MEQ TAB.ER PO SCH ×4 (08:41→16:19)
[2020-04-05] MEDS: SOTALOL 80 MG TAB PO SCH ×2 (08:47→21:30)
[2020-04-05] MEDS ORDERED: cefTRIAXone IN SWFI 1,000 MG/10 ML SYRINGE IVP SCH (09:00)
[2020-04-05] MEDS ORDERED: PANTOPRAZOLE 40 MG TABLET PO PRN (09:00)
[2020-04-05] MEDS: metroNIDAZOLE-NS PMX 500 MG in SALINE 1 100ML.BAG IVPB SCH ×3 (10:00→21:27)
[2020-04-05 10:20] LABS: African American GFR (CKD) 107.4 (60.0-200.0); Anion Gap 8.4 mmol/L (4.00-12.00); Calcium 8.6 mg/dL (8.7-10.3); Carbon Dioxide 31.6 mmol/L (21.6-31.8); Non-African American GFR(CKD) 92.7 (60.0-200.0)
[2020-04-05 11:04] LABS: Potassium 2.4 mmol/L (3.5-5.5)
--- NOTE | 2020-04-05 11:28 | P.HPIM ---
History of Present Illness H&P Date: 04/05/20 Chief Complaint: abd pain HISTORY OF PRESENT ILLNESS This is a 79-year-old female patient of Dr. Sanford and Dr. Carrera with past medical history of paroxysmal atrial fibrillation, history of nonsustained idiopathic ventricular tachycardia status post ablations, sick sinus syndrome status post dual-chamber ICD, normal coronary arteries on heart catheterization done March 2019, ejection fraction 50%, obstructive sleep apnea with CPAP, hypertension, hyperlipidemia, mild memory loss, osteoarthritis, osteoporosis. Patient gives history of having diarrhea ever since hemorrhoid surgery that was done with Dr. Kirk. She currently complains of burning with urination and states she has a really bad UTI. She states she is having diarrhea more frequently than she is urinating but this has been going on for about 15 years. She apparently had appointment with Dr. Rayo on March 16 but this was canceled by the physician. She complains of bilateral lower abdominal pain. She also complains of weakness of the point that she is not able to get up. Patient noted black stools. No nausea or vomiting. No fever or chills. No ch est pain or shortness of breath. Patient came into [facility] emergency center for evaluation. She was afebrile, heart rate 61, blood pressure 176/95, pulse ox 94% on room air. CBC was unremarkable with hemoglobin of 12.7. Potassium 3.3, BUN 23 and creatinine 0.68. Total bilirubin 1.4, liver function tests normal. Troponin negative. TSH 1.320. CK 54. ProBNP 2710. Stool for occult blood positive. Urinalysis was cloudy with moderate leukoesterase, positive nitrate, bacteria rare. Chest x-ray reveals chronic changes and cardiomegaly without acute pulmonary process. CAT scan of the abdomen and pelvis with contrast reveals severe rectal fecal stasis or impaction. Overall nonobstructive bowel gas pattern. Perhaps mild surrounding inflammatory change. Patient was started on Flagyl and ceftriaxone and [facility], currently waiting in the ER for bed. Consult in place with Dr. Rayo. REVIEW OF SYSTEMS Constitutional: No fever, no chills, no night sweats. No weight change. Reports weakness, Reports fatigue. EENT: No headache. No blurred vision or double vision, no loss of vision. No loss of Hearing, no ringing in the ears, no dizziness. No nasal drainage or congestion. No epistaxis. No sore throat. Lungs: No shortness of breath, cough, no sputum production. No wheezing. Cardiovascular: No chest pain, no lower extremity edema. No palpitations. No paroxysmal nocturnal dyspnea. No orthopnea. No lightheadedness or dizziness. No syncopal episodes. Abdominal: Reports abdominal pain. No nausea, vomiting. Reports diarrhea. Denies constipation. Reports bloody or tarry stools. No loss of appetite. Genitourinary: Reports dysuria, increased frequency, urgency. No urinary retention. Reports urinary incontinence. Musculoskeletal: No myalgias. No muscle weakness, no gait dysfunction, no frequent falls. No back pain. No neck pain. Integumentary: No wounds, no lesions. No rash or pruritus. No unusual bruising. Neurologic: No aphasia. No facial droop. No change in mentation. No head injury. No headache. No paralysis. No paresthesia. Psychiatric: No depression. No anxiety. Endocrine: No abnormal blood sugars. No weight change. SOCIAL HISTORY The patient was a smoker of cigarettes, 4 packs per day for 12 years and quit approximately 35 years ago. 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 She denies any marijuana or street drug use. She was at home with her . She utilizes CPAP for sleep apnea. FAMILY HISTORY Mother at age 83 from alcohol complications. Father in his 80s from myocardial infarction. Patient does not have any sisters. She has one brother living with Alzheimer's dementia. Patient has 4 children with no major medical problems.. PHYSICAL EXAMINATION Gen: This is a 79-year-old female. She is resting on the ER stretcher and appears to be comfortable. No respiratory distress is noted. HEENT: Head is atraumatic, normocephalic. Pupils equal, round. Sclerae is anicteric. Conjunctiva pink. NECK: Supple. No JVD. No lymphadenopathy. No thyromegaly. LUNGS: Clear to auscultation. No wheezes or rhonchi. No intercostal retractions. HEART: Regular rate and rhythm. 2/6 systolic murmur. ABDOMEN: Soft. Bowel sounds are present. No masses. Bilateral lower quadrant tenderness. EXTREMITIES: No pedal edema. No calf tenderness. NEUROLOGICAL: Patient is awake, alert and oriented x3. Cranial nerves 2 through 12 are grossly intact. ASSESSMENT AND PLAN 1. Acute urinary tract infection. Urine culture and blood culture in progress. Continue ceftriaxone 1 g IV piggyback daily. 2. Fecal impaction presenting with frequent diarrhea. Consult with Dr. Rayo. Patient apparently has history of diarrhea for 15 years 3. Hypokalemia. Potassium will be replaced and repeat potassium level this afternoon.. 4. Possible acute GI bleed. Stool for occult blood positive. Patient does relate 1 black stool. Hemoglobin is stable. GI consult. 5. Paroxysmal atrial fibrillation. Eliquis 5 mg twice daily is on hold. Continue sotalol 80 mg twice daily, Coreg 25 mg twice daily. 6. Hypertension. Continue losartan 100 mg daily, Coreg, sotalol. 7. History of nonsustained idiopathic ventricular tachycardia status post ablations. 8. Sick sinus syndrome status post dual-chamber AICD. 9. Obstructive sleep apnea on CPAP. 10. Hyperlipidemia. Continue Lipitor 10 mg at bedtime. 11. Mild memory loss, chronic. 12. DVT prophylaxis. JOSE hose and SCDs. We'll resume eliquis once cleared by GI. 13. GI prophylaxis. Protonix daily. Patient will be admitted to the hospital for a minimum of 2 night stay. DISCHARGE PLAN To be determined. PT and OT consults.. Impression and plan of care have been directed as dictated by the signing physic ian. Maday Ramos nurse practitioner acting as scribe for signing physician. 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 GLAUCOMA -"STRESS INDUCED",8 NODULES ON THYROID; soreness on rt side of neck, psoriasis, eczema, stress induced asthma, broncitis Last Myocardial Infarction Date:: unknown History of Any Multi-Drug Resistant Organisms: None Reported Past Surgical History: Cardiac Ablation, Cholecystectomy, Heart Catheterization, Hysterectomy, Joint Replacement, Orthopedic Surgery Additional Past Surgical History / Comment(s): THYROID BX, LINDSAY. TOTAL KNEES, LINDSAY TOTAL SHOULDERS,Cardiac ablation x2,skin CA removed with skin graft to neck Past Anesthesia/Blood Transfusion Reactions: Motion Sickness Additional Past Anesthesia/Blood Transfusion Reaction / Comment(s): BRADYCARDIA. Past Psychological History: Anxiety, Depression, Panic Disorder Smoking Status: Former smoker Past Alcohol Use History: None Reported Past Drug Use History: None Reported - Past Family History Father Family Medical History: Cancer Additional Family Medical History / Comment(s): ORAL CANCER Medications and Allergies Home Medications Medication Instructions Recorded Confirmed Type ALPRAZolam [Xanax] 0.5 mg PO TID PRN 10/03/13 04/04/20 History Simvastatin [Zocor] 10 mg PO HS 10/03/13 04/04/20 History Irbesartan 300 mg PO DAILY 07/25/15 04/04/20 History Potassium Chloride [Klor-Con 20] 20 meq PO DAILY 03/06/19 04/04/20 History Ergocalciferol [Vitamin D2 50,000 unit PO SA 05/01/19 04/04/20 History (DRISDOL)] Pantoprazole Sodium [Protonix] 40 mg PO DAILY PRN 09/08/19 04/04/20 History Apixaban [Eliquis] 5 mg PO BID 04/04/20 04/04/20 History Carvedilol [Coreg] 25 mg PO BID 04/04/20 04/04/20 History Sotalol [Betapace] 80 mg PO BID 04/04/20 04/04/20 History Allergies Allergy/AdvReac Type Severity Reaction Status Date / Time famotidine Allergy Unknown Verified 04/04/20 17:56 morphine Allergy Unknown Verified 04/04/20 17:56 spironolactone Allergy Unknown Verified 04/04/20 17:56 codeine AdvReac Severe Nausea & Verified 04/04/20 17:56 Vomiting omeprazole AdvReac Nausea, Verified 04/04/20 17:56 dizzyness Opioids - Morphine Analogues AdvReac Dyspnea- Verified 04/04/20 17:56 Physical Exam Vitals: Vital Signs Temp Pulse Pulse Resp BP BP Pulse Ox 04/05/20 02:00 97.8 F 57 L 19 183/90 97 04/04/20 20:10 98.1 F 61 18 176/95 94 L 04/04/20 17:35 60 18 182/94 98 04/04/20 15:40 59 L 18 180/87 97 04/04/20 13:02 98.3 F 60 18 162/86 95 Intake and Output 04/04/20 04/05/20 04/05/20 22:59 06:59 14:59 Other: # Voids 2 # Bowel Movements 3 Results CBC & Chem 7: 04/05/20 05:35 04/05/20 05:35 Labs: Abnormal Lab Results - Last 24 Hours (Table) 04/04/20 04/04/20 04/04/20 Range/Units 14:27 14:27 15:38 Potassium 3.3 L (3.5-5.1) mmol/L Carbon Dioxide 35 H (22-30) mmol/L BUN 23 H (7-17) mg/dL Glucose 102 H (74-99) mg/dL Total Bilirubin 1.4 H (0.2-1.3) mg/dL Total Protein 5.6 L (6.3-8.2) g/dL Albumin 2.9 L (3.5-5.0) g/dL Urine Appearance Cloudy H (Clear) Urine Nitrite Positive H (Negative) Ur Leukocyte Esterase Moderate H (Negative) Urine RBC 8 H (0-5) /hpf Urine WBC 26 H (0-5) /hpf Urine Bacteria Rare H (None) /hpf Urine Mucus Rare H (None) /hpf Stool Occult Blood Positive H (Negative) Microbiology - Last 24 Hours (Table) 04/04/20 15:38 Urine Culture - Preliminary Urine,Voided
[2020-04-05] MEDS: PANTOPRAZOLE 40 MG TABLET PO SCH (11:29)
[2020-04-05] MEDS ORDERED: MAGNESIUM CITRATE 296 ML BOTTLE PO ONE (12:52)
[2020-04-05 16:23] LABS: HCT 41.3 % (34.0-46.0); HGB 13.7 gm/dL (11.4-16.0); MCH 31.8 pg (25.0-35.0); MCHC 33.1 g/dL (31.0-37.0); WBC 9.3 k/uL (3.8-10.6)
[2020-04-05 16:24] LABS: Mean Platelet Volume 7.8; Platelet Count 145 k/uL (150-450); RDW 13.5 % (11.5-15.5)
--- NOTE | 2020-04-05 18:03 | CONS ---
CONSULTATION DATE OF DICTATION: 04/05/2020 REASON FOR CONSULTATION: Diarrhea, rectal bleeding and fecal impaction. HISTORY OF PRESENT ILLNESS: The patient is a 79-year-old pleasant white female who was seen in the emergency room, wherein she presented with burning urination, rectal discomfort, chronic constipation with rectal frequency on and off for the last 2 years' duration. The patient states that she has been having these symptoms on and off for the last 2 years' duration. She underwent a colonoscopy by Dr. Kirk in May of 2017 that revealed evidence of diverticulosis and external and internal hemorrhoids. Subsequently in July of 2017 she underwent hemorrhoidectomy. Since then she has been having symptoms with intermittent rectal discomfort, rectal urgency, but never able to evacuate bowel movements. For the last 3 or 4 days she started having intermittent rectal bleeding also. She became concerned and hence came into the emergency room for further evaluation. She did have a CT of the abdomen and pelvis done in the ER that showed fecal impaction with severe rectal fecal stasis noted. The patient was given an enema last night, with not much improvement in her symptoms. She denies any fever, chills or night sweats. Reports no nausea, vomiting. PAST MEDICAL HISTORY: Her past medical history is significant for hypertension, paroxysmal atrial fibrillation, history of non-sustained idiopathic ventricular tachycardia, for which she sees Dr. Gilbert and underwent ablation in the past, history of sick sinus syndrome, obstructive sleep apnea, hypertension, hyperlipidemia, mild dementia, degenerative joint disease and osteoporosis. MEDICATIONS: Medications at home include Betapace, Coreg, Eliquis, Zocor, potassium chloride, Protonix, irbesartan, Drisdol, Xanax. ALLERGIES: OMEPRAZOLE, OPIOIDS, CODEINE, SPIRONOLACTONE, MORPHINE AND FAMOTIDINE. SOCIAL HISTORY: No smoking. No alcohol use. FAMILY HISTORY: Unremarkable. REVIEW OF SYSTEMS: CARDIOPULMONARY: She denies any chest pain or shortness of breath. GENITOURINARY: Complains of dysuria but no hematuria. NEUROLOGY: Mild dementia. PSYCHIATRY: Unremarkable. ENT/VISION: Unremarkable. CONSTITUTIONAL: Does not feel well. No fever, chills or night sweats. GI: As mentioned above. HEMATOLOGY: Unremarkable. PHYSICAL EXAMINATION: She appears comfortable. No apparent distress. Vital signs are stable. Blood pressure 143/84, pulse rate 60, temperature 98.3. HEENT examination unremarkable. Conjunctivae pink. Sclerae anicteric. Oral cavity no lesions. NECK: No JVD or lymph node enlargement. CHEST: Clear to auscultation. HEART: Regular rate and rhythm. ABDOMEN: Soft. Bowel sounds are positive. There was very minimal tenderness in the left lower quadrant area. Rest of the abdomen was benign. EXTREMITIES: No pedal edema. SKIN: No rashes. NEUROLOGIC: Alert and oriented x3. No focal deficits. LABS/IMAGING: WBC 8.9, hemoglobin 12.7, platelets 192. AST, ALT normal. T-bilirubin 1.4. BUN is 23, creatinine 0.68. Stool occult blood was positive. CT of the abdomen and pelvis done in the emergency room yesterday showed severe rectal fecal stasis with mild surrounding inflammatory changes. IMPRESSION: 1. Severe fecal impaction with diarrhea and intermittent rectal bleeding, most likely related to stercoral ulceration. CT of the abdomen showed fecal stasis with mild inflammatory changes in the rectum. Last colonoscopy done by Dr. Kirk in May of 2017 showed evidence of diverticulosis, internal and external hemorrhoids. 2. Acute urinary tract infection, on broad-spectrum antibiotics. 3. History of atrial fibrillation, on Eliquis, which is currently on hold. 4. History of hypertension and hyperlipidemia. 5. History of nonsustained idiopathic ventricular tachycardia. Follows with Dr. Gilbert. 6. History of chronic obstructive pulmonary disease. RECOMMENDATIONS: 1. Continue to hold Eliquis. 2. Will give her a bottle of magnesium citrate to help her with the fecal impaction, as she is refusing enemas at this time. The patient did receive an enema last night but developed severe abdominal discomfort following that, with no results. 3. Start her on a clear liquid diet. 4. Repeat abdominal x-rays tomorrow morning to see if there is any improvement of fecal impaction. 5. Continue with symptomatic and supportive care. 6. No plans for any endoscopic intervention at the present time. However, will keep this as a contingency based on her overall clinical condition. Will follow with you closely. Thank you for this consultation. MMODL / IJN: [id number] /
[2020-04-05] MEDS: ATORVASTATIN 10 MG TAB PO SCH (21:28)
[2020-04-05 22:34] LABS: HCT 39.9 % (34.0-46.0); HGB 13.4 gm/dL (11.4-16.0); MCH 31.8 pg (25.0-35.0); MCHC 33.7 g/dL (31.0-37.0); MCV 94.4 fL (80.0-100.0); Mean Platelet Volume 7.3; Platelet Count 171 k/uL (150-450); RBC 4.22 m/uL (3.80-5.40); RDW 13.3 % (11.5-15.5); WBC 6.2 k/uL (3.8-10.6)
[2020-04-06] MEDS ORDERED: POTASSIUM CHLORIDE ER 20 MEQ TAB.ER PO STA (04:00)
[2020-04-06] MEDS: traMADol 50 MG TAB PO PRN ×2 (04:29→19:46)
[2020-04-06] MEDS ORDERED: POTASSIUM CHLORIDE ER 20 MEQ TAB.ER PO ONE (06:30)
[2020-04-06] MEDS: SOTALOL 80 MG TAB PO SCH ×2 (09:17→19:47)
--- NOTE | 2020-04-06 09:30 | XR ---
EXAMINATION TYPE: XR KUB DATE OF EXAM: 04/06/2020 9:14 AM CLINICAL HISTORY: Abdominal pain and stool impaction. TECHNIQUE: Two supine KUB images of the abdomen are obtained. COMPARISON: CT 2 days ago. Abdominal x-ray October 10, 2019 FINDINGS: Scattered gas is again seen in non-distended small bowel loops. Gas and fecal material is a gain seen in colonic loops. Gas prominent colonic loop near hepatic flexure is present currently. The re is persistent severe fecal prominent rectum. Osseous structures are demineralized. Underlying levo convex scoliosis centered at L2-L3 level is redemonstrated. Cholecystectomy clips are redemonstrated. There is persistent overlying cutaneous vertical skin abdullahi in the right abdomen and pelvis. There is persistent cardiomegaly and partial visualization of pacemaker wires. IMPRESSION: Severe rectal fecal stasis or impaction remains present.
[2020-04-06] MEDS: carvediloL 12.5 MG TAB PO SCH ×2 (09:45→17:42)
[2020-04-06] MEDS: LOSARTAN 50 MG TAB PO SCH (09:47)
[2020-04-06] MEDS: PANTOPRAZOLE 40 MG TABLET PO SCH (09:48)
[2020-04-06] MEDS: metroNIDAZOLE-NS PMX 500 MG in SALINE 1 100ML.BAG IVPB SCH ×3 (10:52→19:48)
[2020-04-06] MEDS: PHENAZOPYRIDINE 100 MG TAB PO SCH ×3 (10:53→19:47)
[2020-04-06] MEDS: POTASSIUM CHLORIDE ER 20 MEQ TAB.ER PO SCH (12:07)
--- NOTE | 2020-04-06 13:54 | P.PN ---
Subjective Progress Note Date: 04/06/20 HISTORY OF PRESENT ILLNESS This is a 79-year-old female patient of Dr. Sanford and Dr. Carrera with past medical history of paroxysmal atrial fibrillation, history of nonsustained idiopathic ventricular tachycardia status post ablations, sick sinus syndrome status post dual-chamber ICD, normal coronary arteries on heart catheterization done March 2019, ejection fraction 50%, obstructive sleep apnea with CPAP, hypertension, hyperlipidemia, mild memory loss, osteoarthritis, osteoporosis. Patient gives history of having diarrhea ever since hemorrhoid surgery that was done with Dr. Kirk. She currently complains of burning with urination and states she has a really bad UTI. She states she is having diarrhea more frequently than she is urinating but this has been going on for about 15 years. She apparently had appointment with Dr. Rayo on March 16 but this was canceled by the physician. She complains of bilateral lower abdominal pain. She also complains of weakness of the point that she is not able to get up. Patient noted black stools. No nausea or vomiting. No fever or chills. No chest pain or shortness of breath. Patient came into [facility] emergency center for evaluation. She was afebrile, heart rate 61, blood pressure 176/95, pulse ox 94% on room air. CBC was unremarkable with hemoglobin of 12.7. Potassium 3.3, BUN 23 and creatinine 0.68. Total bilirubin 1.4, liver function tests normal. Troponin negative. TSH 1.320. CK 54. ProBNP 2710. Stool for occult blood positive. Urinalysis was cloudy with moderate leukoesterase, positive nitrate, bacteria rare. Chest x-ray reveals chronic changes and cardiomegaly without acute pulmonary process. CAT scan of the abdomen and pelvis with contrast reveals s evere rectal fecal stasis or impaction. Overall nonobstructive bowel gas pattern. Perhaps mild surrounding inflammatory change. Patient was started on Flagyl and ceftriaxone and [facility], currently waiting in the ER for bed. Consult in place with Dr. Rayo. 04/06: Patient was seen by Dr. Rayo with recommendations to continue to hold eliquis, magnesium citrate for fecal impaction, start clear liquid diet and repeat x-rays. No plan for endoscopy. Patient has been afebrile, heart rate 55, blood pressure 160/87, pulse ox 97% on room air. Patient states that she had diarrhea all night long and current of a lot of stool. Abdominal x-rays this morning revealed severe rectal fecal stasis or impaction remains present. Patient started on a clear liquid diet. Potassium 2.6 and patient has been ordered for a total of 100 mEq this morning of potassium supplementation. Repeat potassium level at 3 PM. Patient complains of burning with urination and Pyridium added. Urine culture is positive for gram-negative bacilli. REVIEW OF SYSTEMS Constitutional: No fever, no chills, no night sweats. No weight change. Reports weakness, Reports fatigue. EENT: No headache. No blurred vision or double vision, no loss of vision. No loss of Hearing, no ringing in the ears, no dizziness. No nasal drainage or congestion. No epistaxis. No sore throat. Lungs: No shortness of breath, cough, no sputum production. No wheezing. Cardiovascular: No chest pain, no lower extremity edema. No palpitations. No paroxysmal nocturnal dyspnea. No orthopnea. No lightheadedness or dizziness. No syncopal episodes. Abdominal: Reports abdominal pain. No nausea, vomiting. Reports diarrhea. Denies constipation. Reports bloody or tarry stools. No loss of appetite. Genitourinary: Reports continued dysuria, increased frequency, urgency. No urinary retention. Reports urinary incontinence. Musculoskeletal: No myalgias. No muscle weakness, no gait dysfunction, no frequent falls. No back pain. No neck pain. Integumentary: No wounds, no lesions. No rash or pruritus. No unusual bruising. Neurologic: No aphasia. No facial droop. No change in mentation. No head injury. No headache. No paralysis. Psychiatric: No depression. No anxiety. Endocrine: No abnormal blood sugars. No weight change. PHYSICAL EXAMINATION Gen: This is a 79-year-old female. She is resting on the ER stretcher and appears to be comfortable. No respiratory distress is noted. HEENT: Head is atraumatic, normocephalic. Pupils equal, round. Sclerae is anicteric. Conjunctiva pink. NECK: Supple. No JVD. No lymphadenopathy. No thyromegaly. LUNGS: Clear to auscultation. No wheezes or rhonchi. No intercostal retractions. HEART: Regular rate and rhythm. 2/6 systolic murmur. ABDOMEN: Soft. Bowel sounds are present. No masses. Bilateral lower quadrant tenderness. EXTREMITIES: No pedal edema. No calf tenderness. NEUROLOGICAL: Patient is awake, alert and oriented x3. Cranial nerves 2 through 12 are grossly intact. ASSESSMENT AND PLAN 1. Acute urinary tract infection. Urine culture and blood culture in progress. Continue ceftriaxone 1 g IV piggyback daily. 2. Fecal impaction presenting with frequent diarrhea. Consult with Dr. Rayo appreciated. Patient apparently has history of diarrhea for 15 years. Continue Flagyl and ceftriaxone. Patient is status post magnesium citrate and repeat x- ray continues to show fecal impaction. 3. Hypokalemia. Potassium will be replaced and repeat potassium level this afternoon.. 4. Possible acute GI bleed. Stool for occult blood positive. Patient does relate 1 black stool. Hemoglobin is stable. GI consult appreciated. 5. Paroxysmal atrial fibrillation. Eliquis 5 mg twice daily is on hold. Continue sotalol 80 mg twice daily, Coreg 25 mg twice daily. 6. Hypertension. Continue losartan 100 mg daily, Coreg, sotalol. 7. History of nonsustained idiopathic ventricular tachycardia status post ablations. 8. Sick sinus syndrome status post dual-chamber AICD. 9. Obstructive sleep apnea on CPAP. 10. Hyperlipidemia. Continue Lipitor 10 mg at bedtime. 11. Mild memory loss, chronic. 12. DVT prophylaxis. JOSE hose and SCDs. We'll resume eliquis once cleared by GI. 13. GI prophylaxis. Protonix daily. DISCHARGE PLAN Subacute rehab at [facility] or [facility]. Impression and plan of care have been directed as dictated by the signing physician. Maday Ramos nurse practitioner acting as scribe for signing physician. Objective - Vital Signs Vital signs: Vital Signs Temp 97.6 F 04/06/20 01:30 Pulse 55 L 04/06/20 01:30 Resp 20 04/06/20 01:30 BP 160/87 04/06/20 01:30 Pulse Ox 97 04/06/20 01:30 Intake & Output 04/05/20 04/06/20 04/06/20 18:59 06:59 18:59 Other: Voiding Method Bedpan # Voids 2 1 # Bowel Movements 2 1 - Labs CBC & Chem 7: 04/05/20 22:16 04/05/20 16:10 Labs: Abnormal Lab Results - Last 24 Hours (Table) 04/05/20 04/05/20 04/05/20 Range/Units 05:35 16:10 16:10 Plt Count 145 L (150-450) k/uL Potassium 2.4 L* 2.5 L* (3.5-5.5) mmol/L Creatinine 0.5 L (0.6-1.5) mg/dL BUN/Creatinine Ratio 24.00 H (12.00-20.00) Ratio Calcium 8.6 L (8.7-10.3) mg/dL Microbiology - Last 24 Hours (Table) 04/04/20 15:38 Urine Culture - Preliminary Urine,Voided Gram Neg Bacilli 04/04/20 16:53 Blood Culture - Preliminary Blood No Growth after 24 hours
--- NOTE | 2020-04-06 15:43 | P.PN ---
Subjective Progress Note Date: 04/06/20 Principal diagnosis: Diarrhea, rectal bleeding, and fecal impaction This is a 71-year-old pleasant white female who came into the emergency department yesterday with burning urination, rectal discomfort and chronic constipation with rectal frequency on and off for the last 2 years duration. The patient states she's been having these symptoms on and off since her hemorrhoidectomy. The patient underwent a colonoscopy by Dr. Kirk in May 2017 which revealed evidence of diverticulosis and external and internal hemorrhoids. She was given an enema without much relief in the emergency department. Yesterday magnesium citrate was ordered. She is having relief today and has had multiple bowel movements. She states her abdominal pain has improved, she is denying any nausea or vomiting. She has been afebrile. Abdominal x-ray this morning showing severe rectal fecal stasis or impaction remains present. Objective - Vital Signs Vital signs: Vital Signs Temp 98.4 F 04/06/20 08:00 Pulse 59 L 04/06/20 08:00 Resp 16 04/06/20 08:00 BP 167/86 04/06/20 08:00 Pulse Ox 96 04/06/20 08:00 Intake & Output 04/05/20 04/06/20 04/06/20 18:59 06:59 18:59 Other: Voiding Method Bedpan # Voids 2 1 # Bowel Movements 2 1 - Exam General appearance: The patient is alert, oriented, in no acute distress. HET: Head is normocephalic and atraumatic. Conjunctiva pink. Sclera anicteric. Neck: Supple without lymphadenopathy. Abdomen: Soft, mild lower abdominal tenderness, nondistended with bowel sounds. No guarding or rigidity. Extremities: Normal skin color and turgor. No pedal edema Neurological: No focal deficits. Alert and oriented 3. - Labs CBC & Chem 7: 04/05/20 22:16 04/05/20 16:10 Labs: Abnormal Lab Results - Last 24 Hours (Table) 04/05/20 04/05/20 Range/Units 16:10 16:10 Plt Count 145 L (150-450) k/uL Potassium 2.5 L* (3.5-5.5) mmol/L Microbiology - Last 24 Hours (Table) 04/04/20 15:38 Urine Culture - Preliminary Urine,Voided Gram Neg Bacilli 04/04/20 16:53 Blood Culture - Preliminary Blood No Growth after 24 hours Assessment and Plan (1) Fecal impaction Narrative/Plan: Severe fecal impaction with diarrhea and intermittent rectal bleeding most likely related to stercoral ulceration. CT of the abdomen showed fecal stasis with mild inflammatory changes in the rectum. Last colonoscopy done by Dr. Kirk in May 2017 showing evidence of diverticulosis, internal and exte rnal hemorrhoids. Abdominal x-ray done this morning showed continued fecal impaction. However patient has had multiple bowel movements today after receiving magnesium citrate yesterday evening. Current Visit: Yes Status: Acute Code(s): K56.41 - FECAL IMPACTION SNOMED Code(s): 17088594 (2) Rectal bleed Current Visit: Yes Status: Acute Code(s): K62.5 - HEMORRHAGE OF ANUS AND RECTUM SNOMED Code(s): 78943091 (3) Diarrhea Narrative/Plan: Improved Current Visit: Yes Status: Acute Code(s): R19.7 - DIARRHEA, UNSPECIFIED SNOMED Code(s): 12631181 (4) Urinary tract infection Narrative/Plan: On broad-spectrum antibiotics Current Visit: Yes Status: Acute Code(s): N39.0 - URINARY TRACT INFECTION, SITE NOT SPECIFIED SNOMED Code(s): 33958087 (5) History of atrial fibrillation Narrative/Plan: Treatment of atrial fibrillation on Ahlquist which is currently on hold Current Visit: Yes Status: Acute Code(s): Z86.79 - PERSONAL HISTORY OF OTHER DISEASES OF THE CIRCULATORY SYSTEM SNOMED Code(s): 620153511 Plan: 1. Continue to hold Eliquis 2. Patient is status post magnesium citrate followed with multiple bowel movements 3. Clear liquid diet 4. Continue with symptomatic supportive care 5. No plans for any endoscopic intervention at the present time We will continue to follow with you closely Dr. Torrie Rayo I agree with the dictator's note, documented as a scribe by Yuni Jc.
[2020-04-06 16:30] LABS: Magnesium 1.7 mg/dL (1.6-2.3); Potassium 3.7 mmol/L (3.5-5.1)
[2020-04-06] MEDS: SODIUM CHLORIDE 0.9% 1,000 ML IV SCH ×2 (17:35→19:46)
[2020-04-06] MEDS: ATORVASTATIN 10 MG TAB PO SCH (19:47)
[2020-04-06] MEDS: ALPRAZolam 0.5 MG TAB PO PRN (19:47)
[2020-04-07] MEDS: traMADol 50 MG TAB PO PRN (02:57)
[2020-04-07] MEDS: SODIUM CHLORIDE 0.9% 1,000 ML IV SCH ×2 (04:05→11:44)
[2020-04-07 06:54] LABS: ALT 15 U/L (4-34); AST 18 U/L (14-36); African American GFR (CKD) >90 (>60 ml/min/1.73 sqM); Albumin 2.4 g/dL (3.5-5.0); Alkaline Phosphatase 44 U/L (38-126); Anion Gap 1 mmol/L; Blood Urea Nitrogen 12 mg/dL (7-17); Calcium 8.5 mg/dL (8.4-10.2); Carbon Dioxide 30 mmol/L (22-30); Chloride 108 mmol/L (98-107); Globulin 2.3 g/dL; Glucose 103 mg/dL (74-99); Non-African American GFR(CKD) 79 (>60 ml/min/1.73 sqM); Potassium 3.7 mmol/L (3.5-5.1); Sodium 139 mmol/L (137-145); Total Bilirubin 0.9 mg/dL (0.2-1.3); Total Protein 4.7 g/dL (6.3-8.2)
[2020-04-07] MEDS: PANTOPRAZOLE 40 MG TABLET PO SCH (07:27)
[2020-04-07] MEDS: LOSARTAN 50 MG TAB PO SCH (07:27)
[2020-04-07] MEDS: ALPRAZolam 0.5 MG TAB PO PRN (07:27)
[2020-04-07] MEDS: carvediloL 12.5 MG TAB PO SCH (07:27)
[2020-04-07] MEDS: POTASSIUM CHLORIDE ER 20 MEQ TAB.ER PO SCH (07:27)
[2020-04-07] MEDS: SOTALOL 80 MG TAB PO SCH (07:27)
[2020-04-07] MEDS: PHENAZOPYRIDINE 100 MG TAB PO SCH (07:27)
[2020-04-07] MEDS: metroNIDAZOLE-NS PMX 500 MG in SALINE 1 100ML.BAG IVPB SCH (07:28)
[2020-04-07 07:45] VITALS: BP 177/106; PULSE 67; RESP 18; TEMP 98.2
[2020-04-07] MEDS ORDERED: bisacodyL 10 MG SUPP RECTAL STA (08:06)
--- NOTE | 2020-04-07 08:12 | P.DS ---
Providers Date of admission: 04/04/20 15:48 Expected date of discharge: 04/07/20 Attending physician: Murali Juarez Consults: 04/04/20 15:49 Consult Physician Urgent Consulting Provider: Michelle Rayo Consult Reason/Comments: acute LGIB Do you want consulting provider notified?: Yes Primary care physician: [facility] Course: HISTORY OF PRESENT ILLNESS This is a 79-year-old female patient of Dr. Sanford and Dr. Carrera with past medical history of paroxysmal atrial fibrillation, history of nonsustained idiopathic ventricular tachycardia status post ablations, sick sinus syndrome status post dual-chamber ICD, normal coronary arteries on heart catheterization done March 2019, ejection fraction 50%, obstructive sleep apnea with CPAP, hypertension, hyperlipidemia, mild memory loss, osteoarthritis, osteoporosis. Patient gives history of having diarrhea ever since hemorrhoid surgery that was done with Dr. Kirk. She currently complains of burning with urination and states she has a really bad UTI. She states she is having diarrhea more frequently than she is urinating but this has been going on for about 15 years. She apparently had appointment with Dr. Rayo on March 16 but this was canceled by the physician. She complains of bilateral lower abdominal pain. She also complains of weakness of the point that she is not able to get up. Patient noted black stools. No nausea or vomiting. No fever or chills. No chest pain or shortness of breath. Patient came into [facility] emergency center for evaluation. She was afebrile, heart rate 61, blood pressure 176/95, pulse ox 94% on room air. CBC was unremarkable with hemoglobin of 12.7. Potassium 3.3, BUN 23 and creatinine 0.68. Total bilirubin 1.4, liver function tests normal. Troponin negative. TSH 1.320. CK 54. ProBNP 2710. Stool for occult blood positive. Urinalysis was cloudy with moderate leukoesterase, positive nitrate, bacteria rare. Chest x-ray reveals chronic changes and cardiomegaly without acute pulmonary process. CAT scan of the abdomen and pelvis with contrast reveals severe rectal fecal stasis or impaction. Overall nonobstructive bowel gas pattern. Perhaps mild surrounding inflammatory change. Patient was started on Flagyl and ceftriaxone and admitted to the [facility] floor, currently waiting in the ER for bed. Consult in place with Dr. Rayo. 04/06: Patient was seen by Dr. Rayo with recommendations to continue to hold eliquis, magnesium citrate for fecal impaction, start clear liquid diet and r epeat x-rays. No plan for endoscopy. Patient has been afebrile, heart rate 55, blood pressure 160/87, pulse ox 97% on room air. Patient states that she had diarrhea all night long and current of a lot of stool. Abdominal x-rays this morning revealed severe rectal fecal stasis or impaction remains present. Patient started on a clear liquid diet. Potassium 2.6 and patient has been ordered for a total of 100 mEq this morning of potassium supplementation. Repeat potassium level at 3 PM. Patient complains of burning with urination and Pyridium added. Urine culture is positive for gram-negative bacilli. 04/07: Patient has had 1 loose bowel movement this morning's small size. Nausea and vomiting are resolved. We will order for a Dulcolax suppository prior to discharge and patient will continued on magnesium citrate at the long term. We have advance diet to regular this morning. She has been afebrile, heart rate 67, blood pressure 177/106 prior to medications. Pulse ox 97% on room air. Repeat blood work reveals potassium of 3.7, creatinine 0.73. Patient will be discharged to [facility] once all arrangements are completed. Stat Covid 19 test ordered. Patient will be resumed on eliquis. ASSESSMENT AND PLAN 1. Acute urinary tract infection. 2. Fecal impaction presenting with frequent diarrhea. 3. Hypokalemia secondary to diarrhea. 4. Possible acute GI bleed, ruled out with stable hemoglobin. 5. Paroxysmal atrial fibrillation. 6. Hypertension. 7. History of nonsustained idiopathic ventricular tachycardia status post ablations. 8. Sick sinus syndrome status post dual-chamber AICD. 9. Obstructive sleep apnea on CPAP. 10. Hyperlipidemia. 11. Mild memory loss, chronic. DISCHARGE PLAN Subacute rehab at [facility]. Impression and plan of care have been directed as dictated by the signing physician. Maday Ramos nurse practitioner acting as scribe for signing physician. Patient Condition at Discharge: Stable Plan - Discharge Summary New Discharge Prescriptions: New Magnesium Citrate 15 ml PO DAILY #90 ml Cefuroxime Axetil [Ceftin] 500 mg PO BID 5 Days #10 tab metroNIDAZOLE [Flagyl] 500 mg PO TID #15 tab Continue Simvastatin [Zocor] 10 mg PO HS Irbesartan 300 mg PO DAILY Potassium Chloride [Klor-Con 20] 20 meq PO DAILY Ergocalciferol [Vitamin D2 (DRISDOL)] 50,000 unit PO SA Pantoprazole Sodium [Protonix] 40 mg PO DAILY PRN PRN Reason: Heartburn Carvedilol [Coreg] 25 mg PO BID Apixaban [Eliquis] 5 mg PO BID Sotalol [Betapace] 80 mg PO BID ALPRAZolam [Xanax] 0.5 mg PO TID PRN #9 tab PRN Reason: Anxiety Discharge Medication List Simvastatin [Zocor] 10 mg PO HS 10/03/13 [History] Irbesartan 300 mg PO DAILY 07/25/15 [History] Potassium Chloride [Klor-Con 20] 20 meq PO DAILY 03/06/19 [History] Ergocalciferol [Vitamin D2 (DRISDOL)] 50,000 unit PO SA 05/01/19 [History] Pantoprazole Sodium [Protonix] 40 mg PO DAILY PRN 09/08/19 [History] Apixaban [Eliquis] 5 mg PO BID 04/04/20 [History] Carvedilol [Coreg] 25 mg PO BID 04/04/20 [History] Sotalol [Betapace] 80 mg PO BID 04/04/20 [History] ALPRAZolam [Xanax] 0.5 mg PO TID PRN #9 tab 04/07/20 [Rx] Cefuroxime Axetil [Ceftin] 500 mg PO BID 5 Days #10 tab 04/07/20 [Rx] Magnesium Citrate 15 ml PO DAILY #90 ml 04/07/20 [Rx] metroNIDAZOLE [Flagyl] 500 mg PO TID #15 tab 04/07/20 [Rx] Follow up Appointment(s)/Referral(s): Johnny Sanford MD [Primary Care Provider] - 1 Week (after discharge from [facility]) Michelle Rayo MD [STAFF PHYSICIAN] - 1 Week Discharge Disposition: TRANSFER TO SNF/ECF
--- NOTE | 2020-04-07 08:50 | P.PN ---
Subjective Progress Note Date: 04/07/20 Principal diagnosis: Diarrhea, rectal bleeding, and fecal impaction This is a 71-year-old pleasant white female who came into the emergency department yesterday with burning urination, rectal discomfort and chronic constipation with rectal frequency on and off for the last 2 years duration. The patient states she's been having these symptoms on and off since her hemorrhoidectomy. The patient underwent a colonoscopy by Dr. Kirk in May 2017 which revealed evidence of diverticulosis and external and internal hemorrhoids. Given an enema and a dose of magnesium citrate. The patient has much relief today. She had several bowel movements yesterday. She is denying any abdominal pain, nausea, or vomiting. She is being advanced to a regular diet. Plans are for discharge to [facility] today.. Objective - Vital Signs Vital signs: Vital Signs Temp 98.2 F 04/07/20 07:42 Pulse 67 04/07/20 07:42 Resp 18 04/07/20 07:42 BP 177/106 04/07/20 07:42 Pulse Ox 97 04/07/20 07:42 Intake & Output 04/06/20 04/07/20 04/07/20 18:59 06:59 18:59 Intake Total 200 Balance 200 Intake: Other 200 Other: Voiding Method Bedpan # Voids 1 # Bowel Movements 1 1 - Exam General appearance: The patient is alert, oriented, in no acute distress. HET: Head is normocephalic and atraumatic. Conjunctiva pink. Sclera anicteric. Neck: Supple without lymphadenopathy. Abdomen: Soft, non-tender, nondistended with bowel sounds. No guarding or rigidity. Extremities: Normal skin color and turgor. No pedal edema Neurological: No focal deficits. Alert and oriented 3. - Labs CBC & Chem 7: 04/05/20 22:16 04/07/20 05:44 Labs: Abnormal Lab Results - Last 24 Hours (Table) 04/06/20 04/07/20 Range/Units 11:35 05:44 Potassium 3.3 L (3.5-5.5) mmol/L Chloride 108 H (98-107) mmol/L Glucose 103 H (74-99) mg/dL Total Protein 4.7 L (6.3-8.2) g/dL Albumin 2.4 L (3.5-5.0) g/dL Microbiology - Last 24 Hours (Table) 04/04/20 16:53 Blood Culture - Preliminary Blood No Growth after 48 hours 04/04/20 15:38 Urine Culture - Final Urine,Voided Klebsiella pneumoniae Assessment and Plan (1) Fecal impaction Narrative/Plan: Severe fecal impaction with diarrhea and intermittent rectal bleeding most likely related to stercoral ulceration. CT of the abdomen showed fecal stasis with mild inflammatory changes in the rectum. Last colonoscopy done by Dr. Kirk in May 2017 showing evidence of diverticulosis, internal and external hemorrhoids. Patient has had significant relief of constipation and stool impaction. Patient had several bowel movements yesterday. Current Visit: Yes Status: Acute Code(s): K56.41 - FECAL IMPACTION SNOMED Code(s): 83152381 (2) Rectal bleed Current Visit: Yes Status: Acute Code(s): K62.5 - HEMORRHAGE OF ANUS AND RECTUM SNOMED Code(s): 61146152 (3) Diarrhea Narrative/Plan: Improved Current Visit: Yes Status: Acute Code(s): R19.7 - DIARRHEA, UNSPECIFIED SNOMED Code(s): 25407998 (4) Urinary tract infection Narrative/Plan: On broad-spectrum antibiotics Current Visit: Yes Status: Acute Code(s): N39.0 - URINARY TRACT INFECTION, SITE NOT SPECIFIED SNOMED Code(s): 02441027 (5) History of atrial fibrillation Narrative/Plan: Treatment of atrial fibrillation on [place] which is currently on hold Current Visit: Yes Status: Acute Code(s): Z86.79 - PERSONAL HISTORY OF OTHER DISEASES OF THE CIRCULATORY SYSTEM SNOMED Code(s): 897036967 Plan: 1. May resume Eliquis 2. Patient is status post magnesium citrate followed with multiple bowel mo vements 3. Advance to regular diet 4. Continue with symptomatic supportive care 5. No plans for any endoscopic intervention at the present time 6. Discussed with patient recommendation of regular bowel movement regimen to include MiraLAX daily, may titrate Thank you for this consultation May be discharged home from gastroenterology standpoint. Dr. Torrie Rayo I agree with the dictator's note, documented as a scribe by Yuni Jc.
[2020-04-09] MEDS ORDERED: ERGOCALCIFEROL 50,000 UNIT CAP PO SCH (09:00)
--- NOTE | 2020-04-17 20:02 | CDI ---
Documentation Clarification Form Date: 04/18/2020 From: Garret Barakat Phone: If you have a question about this query, please contact Varsha Rashid, Hand Or Machine Paster at [phone] between 8am and 5pm. Admit Date: 04/04/2020 03:48:00 PM Patient Name: Lee Ann Galvez V Visit Number: [id number] Discharge Date: 04/07/2020 02:23:00 PM ATTENTION: The Clinical Documentation Specialists (CDI) and [facility] Coding Staff appreciate your assistance in clarifying documentation. Please respond to the clarification below the line at the bottom and electronically sign. The CDI & [facility] Coding staff will review the response and follow-up if needed. Please note: Queries are made part of the Legal Health Record. If you have any questions, please contact the author of this message via ITS. Dr. Murali Juarez MD., The patient presented with the following Rectal bleed, Diarrhea, Fecal impaction History/Risk Factors:Her past medical history is significant for hypertension, paroxysmal atrial fibrillation, history of non-sustained idiopathic ventricular tachycardia Clinical Indicators: .Severe fecal impaction with diarrhea and intermittent rectal bleeding, most likely related to stercoral ulceration. Radiology findings:Severe rectal fecal stasis or impaction remains present. Treatment:Will give her a bottle of magnesium citrate to help her with the fecal impaction, as she is refusing enemas at this time.The patient did receive an enema last night but developed severe abdominal discomfort following that, with no results. Dr. Girma Martinez MD stated "Severe fecal impaction with diarrhea and intermittent rectal bleeding most likely related to stercoral ulceration.CT of the abdomen showed fecal stasis with mild inflammatory changes in the rectum". In your professional opinion, can you please clarify fecal impaction related to stercoral ulcer? xx YES NO Other, please specify Unable to determine MTDD
== END 2020-04-07 14:23 | DRG 394 ==
LOC: EC 12:55 → 4SSUR 15:48 → 5NMEDONC 04-05 11:44
PROVIDERS: ADMIT Internal Medicine Geriatric Medicine; ATTEND Internal Medicine Geriatric Medicine
DX: K63.3 Ulcer of intestine (principal); N39.0 Urinary tract infection, site not specified; K56.41 Fecal impaction; K21.9 Gastro-esophageal reflux disease without esophagitis; M06.9 Rheumatoid arthritis, unspecified; M41.9 Scoliosis, unspecified; Z20.822 Contact with and (suspected) exposure to COVID-19; J44.9 Chronic obstructive pulmonary disease, unspecified; F32.9 Major depressive disorder, single episode, unspecified; F41.0 Panic disorder [episodic paroxysmal anxiety]; G47.33 Obstructive sleep apnea (adult) (pediatric); H91.90 Unspecified hearing loss, unspecified ear; I48.0 Paroxysmal atrial fibrillation; I49.5 Sick sinus syndrome; E78.5 Hyperlipidemia, unspecified; E87.6 Hypokalemia; F03.90 Unspecified dementia, unspecified severity, without behavioral disturbance, psychotic disturbance, mood disturbance, and anxiety; I11.0 Hypertensive heart disease with heart failure; I34.1 Nonrheumatic mitral (valve) prolapse; I50.9 Heart failure, unspecified; K57.90 Diverticulosis of intestine, part unspecified, without perforation or abscess without bleeding; K64.4 Residual hemorrhoidal skin tags; K64.8 Other hemorrhoids; Z80.8 Family history of malignant neoplasm of other organs or systems; Z79.82 Long term (current) use of aspirin; Z79.01 Long term (current) use of anticoagulants; Z79.899 Other long term (current) drug therapy; Z88.5 Allergy status to narcotic agent; Z88.8 Allergy status to other drugs, medicaments and biological substances; Z90.710 Acquired absence of both cervix and uterus; Z90.49 Acquired absence of other specified parts of digestive tract; Z91.81 History of falling; Z87.891 Personal history of nicotine dependence; Z85.828 Personal history of other malignant neoplasm of skin; Z82.49 Family history of ischemic heart disease and other diseases of the circulatory system; Z82.0 Family history of epilepsy and other diseases of the nervous system; I25.2 Old myocardial infarction; Z95.0 Presence of cardiac pacemaker
CPT/HCPCS: 36415; 71045; 74018; 74177; 80048; 80053; 81001; 82272; 82550; 83605; 83735; 83880; 84132; 84443; 84484; 85025; 85027; 85610; 85730; 87040; 87077; 87086; 87186; 87635; 93005; 96365; 96366; 96367; 96375; 99285

== ENCOUNTER 2021-02-27 13:38 | Emergency (ER) | payer MEDICARE ==
[2021-02-27 13:53] VITALS: RESP 18; TEMP 98
[2021-02-27] MEDS ORDERED: SODIUM CHLORIDE 0.9% 1,000 ML IV STA (15:04)
[2021-02-27 15:48] VITALS: BP 157/88; PULSE 87
[2021-02-27 16:24] LABS: Basophils % (A) 0 %; Eosinophils # (A) 0.2 k/uL (0-0.7); Eosinophils % (A) 2 %; HCT 38.6 % (34.0-46.0); HGB 12.9 gm/dL (11.4-16.0); Lymphocytes # (A) 1.6 k/uL (1.0-4.8); Lymphocytes % (A) 21 %; MCH 29.8 pg (25.0-35.0); MCHC 33.5 g/dL (31.0-37.0); MCV 88.9 fL (80.0-100.0); Mean Platelet Volume 7.5; Monocytes # (A) 0.5 k/uL (0-1.0); Monocytes % (A) 7 %; Neutrophils # (A) 5.2 k/uL (1.3-7.7); Neutrophils % (A) 69 %; Platelet Count 233 k/uL (150-450); RBC 4.34 m/uL (3.80-5.40); RDW 13.1 % (11.5-15.5); WBC 7.6 k/uL (3.8-10.6)
[2021-02-27 16:26] LABS: Appearance,Urine Clear (Clear); Bacteria,Urine Occasional /hpf; Bilirubin,Urine Negative (Negative); Blood,Urine Moderate (Negative); Color,Urine Colorless; Glucose,Urine (UA) Negative (Negative); Ketones,Urine Negative (Negative); Leukocyte Esterase,Urine Trace (Negative); Mucus,Urine Rare /hpf; Nitrite,Urine Negative (Negative); PH, Urine 7.5 (5.0-8.0); Protein,Urine Negative (Negative); RBC,Urine 12 /hpf (0-5); Specific Gravity,Urine 1.005 (1.001-1.035); Squamous Epithelial Cell,Urine <1 /hpf (0-4); Urobilinogen,Urine <2.0 mg/dL (<2.0); WBC,Urine 2 /hpf (0-5)
[2021-02-27 16:33] LABS: Partial Thromboplastin Time 23.7 sec (22.0-30.0); Prothrombin Time 10.8 sec (9.0-12.0)
[2021-02-27 16:34] LABS: ALT 11 U/L (4-34); AST 19 U/L (14-36); African American GFR (CKD) >90 (>60 ml/min/1.73 sqM); Albumin 3.6 g/dL (3.5-5.0); Alkaline Phosphatase 70 U/L (38-126); Anion Gap 6 mmol/L; Blood Urea Nitrogen 16 mg/dL (7-17); Calcium 10.2 mg/dL (8.4-10.2); Carbon Dioxide 26 mmol/L (22-30); Chloride 107 mmol/L (98-107); Glucose 89 mg/dL (74-99); Non-African American GFR(CKD) 86 (>60 ml/min/1.73 sqM); Potassium 3.7 mmol/L (3.5-5.1); Sodium 139 mmol/L (137-145); Total Bilirubin 1.6 mg/dL (0.2-1.3); Total Protein 6.4 g/dL (6.3-8.2)
--- NOTE | 2021-02-27 18:16 | XR ---
EXAMINATION TYPE: XR ankle complete RT DATE OF EXAM: 02/27/2021 CLINICAL HISTORY: Pain TECHNIQUE: Frontal, lateral and oblique images of the right ankle are obtained. COMPARISON: None. FINDINGS: There is no acute fracture/dislocation evident in the right ankle. The ankle mortise appe ars within normal limits. Some infiltration the soft tissue at the inferior aspect of the medial mall eolus. IMPRESSION: There is no acute fracture or dislocation in the right ankle.
--- NOTE | 2021-02-27 18:28 | ED ---
General Adult HPI - General Chief complaint: Extremity Problem,Nontraumatic Stated complaint: blood in stool, diarrhea Time Seen by Provider: 02/27/21 14:55 Source: patient, EMS, RN notes reviewed Mode of arrival: EMS Limitations: no limitations - History of Present Illness Initial comments: Patient is a 80-year-old female that presents to the emergency department complaining of right ankle pain urinary frequency and diarrhea. She notes that she had her right ankle on her knee walker. Patient was otherwise well- appearing. She notes that she had a hemorrhoidectomy with Dr. Kirk approximately 3 years ago and has been having issues ever since. She was otherwise well-appearing. She denied any chest pain shortness of breath headache nausea vomiting diarrhea constipation fever fatigue chills. - Related Data Home Medications Medication Instructions Recorded Confirmed Simvastatin [Zocor] 10 mg PO HS@2300 10/03/13 02/27/21 Irbesartan 300 mg PO DAILY 07/25/15 02/27/21 Potassium Chloride [Klor-Con 20] 20 meq PO DAILY 03/06/19 02/27/21 Ergocalciferol [Vitamin D2 50,000 unit PO SA 05/01/19 02/27/21 (DRISDOL)] Pantoprazole Sodium [Protonix] 40 mg PO DAILY 09/08/19 02/27/21 Apixaban [Eliquis] 5 mg PO BID 04/04/20 02/27/21 Carvedilol [Coreg] 25 mg PO BID 04/04/20 02/27/21 Sotalol [Betapace] 80 mg PO BID 04/04/20 02/27/21 ALPRAZolam [Xanax] 0.125 mg PO DAILY@0500 02/27/21 02/27/21 ALPRAZolam [Xanax] 0.25 mg PO HS@2330 02/27/21 02/27/21 Acetaminophen [Tylenol] 1,000 mg PO Q6H PRN 02/27/21 02/27/21 Cranberry Fruit Concentrate [Azo 500 mg PO DAILY PRN 02/27/21 02/27/21 Cranberry] Loperamide HCl [Imodium A-D] 8 mg PO DAILY PRN 02/27/21 02/27/21 Saliva Stimulant Agents Comb.3 1 spray MUCOUS MEM DAILY PRN 02/27/21 02/27/21 [Biotene Moisturizing Mouth] Allergies Allergy/AdvReac Type Severity Reaction Status Date / Time famotidine Allergy Unknown Verified 02/27/21 16:31 morphine Allergy Unknown Verified 02/27/21 16:31 spironolactone Allergy Unknown Verified 02/27/21 16:31 codeine AdvReac Severe Nausea & Verified 02/27/21 16:31 Vomiting omeprazole AdvReac Nausea, Verified 02/27/21 16:31 dizzyness Opioids - Morphine Analogues AdvReac Dyspnea- Verified 02/27/21 16:31 Review of Systems ROS Statement: Those systems with pertinent positive or pertinent negative responses have been documented in the HPI. ROS Other: All systems not noted in ROS Statement are negative. 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 GLAUCOMA -"STRESS INDUCED",8 NODULES ON THYROID; soreness on rt side of neck, psoriasis, eczema, stress induced asthma, broncitis Last Myocardial Infarction Date:: unknown History of Any Multi-Drug Resistant Organisms: None Reported Past Surgical History: Cardiac Ablation, Cholecystectomy, Heart Catheterization, Hysterectomy, Joint Replacement, Orthopedic Surgery Additional Past Surgical History / Comment(s): THYROID BX, LINDSAY. TOTAL KNEES, LINDSAY TOTAL SHOULDERS,Cardiac ablation x2,skin CA removed with skin graft to neck Past Anesthesia/Blood Transfusion Reactions: Motion Sickness Additional Past Anesthesia/Blood Transfusion Reaction / Comment(s): BRADYCARDIA. Past Psychological History: Anxiety, Depression, Panic Disorder Smoking Status: Former smoker Past Alcohol Use History: None Reported Past Drug Use History: None Reported - Past Family History Father Family Medical History: Cancer Additional Family Medical History / Comment(s): ORAL CANCER General Exam Limitations: no limitations General appearance: alert, in no apparent distress Head exam: Present: atraumatic, normocephalic, normal inspection Eye exam: Present: normal appearance, PERRL, EOMI. Absent: scleral icterus, conjunctival injection, periorbital swelling ENT exam: Present: normal exam, mucous membranes moist Neck exam: Present: normal inspection. Absent: tenderness, meningismus, lymphadenopathy Respiratory exam: Present: normal lung sounds bilaterally. Absent: respiratory distress, wheezes, rales, rhonchi, stridor Cardiovascular Exam: Present: regular rate, normal rhythm, normal heart sounds. Absent: systolic murmur, diastolic murmur, rubs, gallop, clicks GI/Abdominal exam: Present: soft, normal bowel sounds. Absent: distended, tenderness, guarding, rebound, rigid Rectal exam: Present: normal inspection, normal rectal tone, heme (+) stool, hemorrhoids (Several external and several internal.) Extremities exam: Present: normal inspection, full ROM, normal capillary refill. Absent: tenderness, pedal edema, joint swelling, calf tenderness Neurological exam: Present: alert, oriented X3 Psychiatric exam: Present: normal affect, normal mood Skin exam: Present: warm, dry, intact, normal color. Absent: rash Course Vital Signs 02/27/21 02/27/21 13:47 15:46 Temperature 98.0 F Pulse Rate 62 87 Respiratory 18 18 Rate Blood Pressure 176/110 157/88 O2 Sat by Pulse 99 98 Oximetry Medical Decision Making - Medical Decision Making 80-year-old female complaining of pain and diarrhea and urinary frequency. Labs, occult blood, x-ray of the right ankle, 1 L normal saline. Labs unremarkable. X-ray negative for any acute dislocations or fractures. Patient most likely has a right ankle contusion. Patient's CBC is stable, vital signs stable, patient is agreeable with discharge home with follow-up to primary care and GI specialist. Case discussed with Dr. Jean, patient can discharge home. - Lab Data Result diagrams: 02/27/21 16:17 02/27/21 16:17 Lab Results 02/27/21 02/27/21 02/27/21 Range/Units 16:17 16:17 16:17 WBC 7.6 (3.8-10.6) k/uL RBC 4.34 (3.80-5.40) m/uL Hgb 12.9 (11.4-16.0) gm/dL Hct 38.6 (34.0-46.0) % MCV 88.9 (80.0-100.0) fL MCH 29.8 (25.0-35.0) pg MCHC 33.5 (31.0-37.0) g/dL RDW 13.1 (11.5-15.5) % Plt Count 233 (150-450) k/uL MPV 7.5 Neutrophils % 69 % Lymphocytes % 21 % Monocytes % 7 % Eosinophils % 2 % Basophils % 0 % Neutrophils # 5.2 (1.3-7.7) k/uL Lymphocytes # 1.6 (1.0-4.8) k/uL Monocytes # 0.5 (0-1.0) k/uL Eosinophils # 0.2 (0-0.7) k/uL Basophils # 0.0 (0-0.2) k/uL PT (9.0-12.0) sec INR (<1.2) APTT (22.0-30.0) sec Sodium (137-145) mmol/L Potassium (3.5-5.1) mmol/L Chloride (98-107) mmol/L Carbon Dioxide (22-30) mmol/L Anion Gap mmol/L BUN (7-17) mg/dL Creatinine (0.52-1.04) mg/dL Est GFR (CKD-EPI)AfAm (>60 ml/min/1.73 sqM) Est GFR (CKD-EPI)NonAf (>60 ml/min/1.73 sqM) Glucose (74-99) mg/dL Calcium (8.4-10.2) mg/dL Total Bilirubin (0.2-1.3) mg/dL AST (14-36) U/L ALT (4-34) U/L Alkaline Phosphatase (38-126) U/L Total Protein (6.3-8.2) g/dL Albumin (3.5-5.0) g/dL Urine Color Colorless Urine Appearance Clear (Clear) Urine pH 7.5 (5.0-8.0) Ur Specific [place] 1.005 (1.001-1.035) Urine Protein Negative (Negative) Urine Glucose (UA) Negative (Negative) Urine Ketones Negative (Negative) Urine Blood Moderate H (Negative) Urine Nitrite Negative (Negative) Urine Bilirubin Negative (Negative) Urine Urobilinogen <2.0 (<2.0) mg/dL Ur Leukocyte Esterase Trace H (Negative) Urine RBC 12 H (0-5) /hpf Urine WBC 2 (0-5) /hpf Ur Squamous Epith Cells <1 (0-4) /hpf Urine Bacteria Occasional H (None) /hpf Urine Mucus Rare H (None) /hpf Stool Occult Blood Positive H (Negative) 02/27/21 02/27/21 Range/Units 16:17 16:17 WBC (3.8-10.6) k/uL RBC (3.80-5.40) m/uL Hgb (11.4-16.0) gm/dL Hct (34.0-46.0) % MCV (80.0-100.0) fL MCH (25.0-35.0) pg MCHC (31.0-37.0) g/dL RDW (11.5-15.5) % Plt Count (150-450) k/uL MPV Neutrophils % % Lymphocytes % % Monocytes % % Eosinophils % % Basophils % % Neutrophils # (1.3-7.7) k/uL Lymphocytes # (1.0-4.8) k/uL Monocytes # (0-1.0) k/uL Eosinophils # (0-0.7) k/uL Basophils # (0-0.2) k/uL PT 10.8 (9.0-12.0) sec INR 1.0 (<1.2) APTT 23.7 (22.0-30.0) sec Sodium 139 (137-145) mmol/L Potassium 3.7 (3.5-5.1) mmol/L Chloride 107 (98-107) mmol/L Carbon Dioxide 26 (22-30) mmol/L Anion Gap 6 mmol/L BUN 16 (7-17) mg/dL Creatinine 0.62 (0.52-1.04) mg/dL Est GFR (CKD-EPI)AfAm >90 (>60 ml/min/1.73 sqM) Est GFR (CKD-EPI)NonAf 86 (>60 ml/min/1.73 sqM) Glucose 89 (74-99) mg/dL Calcium 10.2 (8.4-10.2) mg/dL Total Bilirubin 1.6 H (0.2-1.3) mg/dL AST 19 (14-36) U/L ALT 11 (4-34) U/L Alkaline Phosphatase 70 (38-126) U/L Total Protein 6.4 (6.3-8.2) g/dL Albumin 3.6 (3.5-5.0) g/dL Urine Color Urine Appearance (Clear) Urine pH (5.0-8.0) Ur Specific [place] (1.001-1.035) Urine Protein (Negative) Urine Glucose (UA) (Negative) Urine Ketones (Negative) Urine Blood (Negative) Urine Nitrite (Negative) Urine Bilirubin (Negative) Urine Urobilinogen (<2.0) mg/dL Ur Leukocyte Esterase (Negative) Urine RBC (0-5) /hpf Urine WBC (0-5) /hpf Ur Squamous Epith Cells (0-4) /hpf Urine Bacteria (None) /hpf Urine Mucus (None) /hpf Stool Occult Blood (Negative) - Radiology Data Radiology results: report reviewed, image reviewed X-ray right ankle: Negative right ankle exam, no acute fractures dislocations. Disposition Clinical Impression: Bright red blood per rectum, Right ankle pain Disposition: HOME SELF-CARE Condition: Stable Instructions (If sedation given, give patient instructions): Hemorrhoids (ED) Additional Instructions: Please return to the Emergency Department if symptoms worsen or any other concerns. Follow-up with primary care in 1-2 days. Follow-up with GI specialist as soon as possible. Is patient prescribed a controlled substance at d/c from ED?: No Referrals: Sergei De La Garza MD [Primary Care Provider] - 1-2 days Time of Disposition: 18:56
== END 2021-02-27 19:15 | disposition home or self-care (01) ==
LOC: EC 13:38
DX: K62.5 Hemorrhage of anus and rectum (principal); M25.571 Pain in right ankle and joints of right foot; I11.0 Hypertensive heart disease with heart failure; I50.9 Heart failure, unspecified; J45.909 Unspecified asthma, uncomplicated; I48.91 Unspecified atrial fibrillation; E78.5 Hyperlipidemia, unspecified; K21.9 Gastro-esophageal reflux disease without esophagitis; I25.2 Old myocardial infarction; H91.90 Unspecified hearing loss, unspecified ear; Z87.891 Personal history of nicotine dependence; Z79.01 Long term (current) use of anticoagulants; Z79.899 Other long term (current) drug therapy; Z88.5 Allergy status to narcotic agent; Z88.8 Allergy status to other drugs, medicaments and biological substances
CPT/HCPCS: 36415; 80053; 81001; 82272; 85025; 85610; 85730; 96360; 99284

== ENCOUNTER 2021-03-10 11:30 | Observation (INO) | payer MEDICARE ==
[2021-03-10] MEDS ORDERED: SODIUM CHLORIDE 0.9% 500 ML 500 ML IV STA (11:48)
--- NOTE | 2021-03-10 11:53 | ED ---
General Adult HPI - General Chief complaint: GI Bleed Stated complaint: GI Bleed Time Seen by Provider: 03/10/21 11:39 Source: patient, EMS, RN notes reviewed, old records reviewed Mode of arrival: EMS Limitations: no limitations - History of Present Illness Initial comments: 80-year-old female, alert and oriented 4, presents to the emergency room with complaints of 36 hours of bloody diarrhea. She has history of ulcerative colitis. She does take eliquis for atrial fibrillation. She states she has lower abdominal pain and then when he has a bowel movement it relieves the pain. She states that there is blood on the stool and in the toilet. She states it is bright red in color. This is similar to her previous ulcerative colitis episodes. She denies any nausea, vomiting or fevers. She does have history of atrial fibrillation, hypertension, cholecystectomy, ulcerative colitis and scoliosis. She ambulates at home with a walker. -: days(s) (2) Location: abdomen (lower) Severity scale (1-10): 0 Consistency: now resolved Improves with: other (bowel movement) Associated Symptoms: malaise Treatments Prior to Arrival: none - Related Data Home Medications Medication Instructions Recorded Confirmed Simvastatin [Zocor] 10 mg PO HS 10/03/13 03/10/21 Irbesartan 300 mg PO DAILY 07/25/15 03/10/21 Potassium Chloride [Klor-Con 20] 20 meq PO DAILY 03/06/19 03/10/21 Ergocalciferol [Vitamin D2 50,000 unit PO SA 05/01/19 03/10/21 (DRISDOL)] Pantoprazole Sodium [Protonix] 40 mg PO DAILY 09/08/19 03/10/21 Apixaban [Eliquis] 5 mg PO BID 04/04/20 03/10/21 Carvedilol [Coreg] 25 mg PO BID 04/04/20 03/10/21 Sotalol [Betapace] 80 mg PO BID 04/04/20 03/10/21 ALPRAZolam [Xanax] 0.375 mg PO HS 02/27/21 03/10/21 Acetaminophen [Tylenol] 500 mg PO HS 02/27/21 03/10/21 Cranberry Fruit Concentrate [Azo 500 mg PO DAILY PRN 02/27/21 03/10/21 Cranberry] Saliva Stimulant Agents Comb.3 1 spray MUCOUS MEM DAILY PRN 02/27/21 03/10/21 [Biotene Moisturizing Mouth] Aspirin EC [Ecotrin Low Dose] 81 mg PO DAILY 03/10/21 03/10/21 Cephalexin [Keflex] 250 mg PO QID 03/10/21 03/10/21 Furosemide [Lasix] 20 mg PO DAILY 03/10/21 03/10/21 Melatonin 5 mg PO HS 03/10/21 03/10/21 diphenhydrAMINE [Benadryl] 25 mg PO HS 03/10/21 03/10/21 Allergies Allergy/AdvReac Type Severity Reaction Status Date / Time famotidine Allergy Unknown Verified 03/10/21 12:07 morphine Allergy Unknown Verified 03/10/21 12:07 spironolactone Allergy Unknown Verified 03/10/21 12:07 codeine AdvReac Severe Nausea & Verified 03/10/21 12:07 Vomiting omeprazole AdvReac Nausea, Verified 03/10/21 12:07 dizzyness Opioids - Morphine Analogues AdvReac Dyspnea- Verified 03/10/21 12:07 Review of Systems ROS Statement: Those systems with pertinent positive or pertinent negative responses have been documented in the HPI. ROS Other: All systems not noted in ROS Statement are negative. 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 GLAUCOMA -"STRESS INDUCED",8 NODULES ON THYROID; soreness on rt side of neck, psoriasis, eczema, stress induced asthma, broncitis Last Myocardial Infarction Date:: unknown History of Any Multi-Drug Resistant Organisms: None Reported Past Surgical History: Cardiac Ablation, Cholecystectomy, Heart Catheterization, Hysterectomy, Joint Replacement, Orthopedic Surgery Additional Past Surgical History / Comment(s): THYROID BX, LINDSAY. TOTAL KNEES, LINDSAY TOTAL SHOULDERS,Cardiac ablation x2,skin CA removed with skin graft to neck Past Anesthesia/Blood Transfusion Reactions: Motion Sickness Additional Past Anesthesia/Blood Transfusion Reaction / Comment(s): BRADYCARDIA. Past Psychological History: Anxiety, Depression, Panic Disorder Smoking Status: Former smoker Past Alcohol Use History: None Reported Past Drug Use History: None Reported - Past Family History Father Family Medical History: Cancer Additional Family Medical History / Comment(s): ORAL CANCER General Exam Limitations: no limitations General appearance: alert, in no apparent distress Head exam: Present: atraumatic, normocephalic, normal inspection Eye exam: Present: normal appearance, EOMI ENT exam: Present: normal exam, normal oropharynx, mucous membranes moist Neck exam: Present: normal inspection, full ROM. Absent: tenderness, meningismus, lymphadenopathy Respiratory exam: Present: normal lung sounds bilaterally. Absent: respiratory distress, wheezes, rales, rhonchi, stridor Cardiovascular Exam: Present: regular rate, normal rhythm, normal heart sounds. Absent: systolic murmur, diastolic murmur, rubs, gallop, clicks, JVD GI/Abdominal exam: Present: soft, normal bowel sounds. Absent: distended, tenderness, guarding, rebound, rigid Rectal exam: Present: bloody stool, hemorrhoids, tenderness. Absent: mass Extremities exam: Present: normal inspection, full ROM, normal capillary refill. Absent: tenderness, pedal edema, joint swelling, calf tenderness Back exam: Present: normal inspection, full ROM. Absent: CVA tenderness (R), CVA tenderness (L), rash noted Neurological exam: Present: alert, oriented X3 Psychiatric exam: Present: normal affect, normal mood Skin exam: Present: warm, dry, intact, normal color. Absent: rash, cyanosis, diaphoretic, petechiae, pallor Course Vital Signs 03/10/21 11:34 Temperature 98.1 F Pulse Rate 62 Respiratory 18 Rate Blood Pressure 137/75 O2 Sat by Pulse 97 Oximetry Medical Decision Making - Medical Decision Making 80-year-old female, alert and oriented 4, presents to the emergency room with complaints of 36 hours of bloody diarrhea. She does take eliquis for atrial fibrillation. States pain relieved with bowel movement. She states that there is blood on the stool and in the toilet, bright red in color. This is similar to her previous ulcerative colitis episodes. Rectal exam shows external hemorrhoids with grossly positive red blood. Vital signs are stable. I did discuss this case with Dr. De La Garza who was agreeable to admitting the patient. Case was also discussed with Dr. Kapoor. Patient is agreeable to this plan of care - Lab Data Result diagrams: 03/10/21 11:55 12 11:55 Lab Results 03/10/21 03/10/21 12 Range/Units 11:55 11:55 11:55 WBC 6.3 (3.8-10.6) k/uL RBC 4.14 (3.80-5.40) m/uL Hgb 12.5 (11.4-16.0) gm/dL Hct 38.5 (34.0-46.0) % MCV 93.1 (80.0-100.0) fL MCH 30.3 (25.0-35.0) pg MCHC 32.5 (31.0-37.0) g/dL RDW 13.4 (11.5-15.5) % Plt Count 241 (150-450) k/uL MPV 7.4 Neutrophils % 71 % Lymphocytes % 18 % Monocytes % 7 % Eosinophils % 2 % Basophils % 1 % Neutrophils # 4.5 (1.3-7.7) k/uL Lymphocytes # 1.1 (1.0-4.8) k/uL Monocytes # 0.5 (0-1.0) k/uL Eosinophils # 0.1 (0-0.7) k/uL Basophils # 0.0 (0-0.2) k/uL PT 11.1 (9.0-12.0) sec INR 1.0 (<1.2) APTT 25.5 (22.0-30.0) sec Sodium (137-145) mmol/L Potassium (3.5-5.1) mmol/L Chloride (98-107) mmol/L Carbon Dioxide (22-30) mmol/L Anion Gap mmol/L BUN (7-17) mg/dL Creatinine (0.52-1.04) mg/dL Est GFR (CKD-EPI)AfAm (>60 ml/min/1.73 sqM) Est GFR (CKD-EPI)NonAf (>60 ml/min/1.73 sqM) Glucose (74-99) mg/dL Plasma Lactic Acid Chriss (0.7-2.0) mmol/L Calcium (8.4-10.2) mg/dL Magnesium (1.6-2.3) mg/dL Total Bilirubin (0.2-1.3) mg/dL AST (14-36) U/L ALT (4-34) U/L Alkaline Phosphatase (38-126) U/L Troponin I (0.000-0.034) ng/mL Total Protein (6.3-8.2) g/dL Albumin (3.5-5.0) g/dL Lipase (23-300) U/L Stool Occult Blood Positive H (Negative) 03/10/21 03/10/21 03/10/21 Range/Units 11:55 11:55 11:55 WBC (3.8-10.6) k/uL RBC (3.80-5.40) m/uL Hgb (11.4-16.0) gm/dL Hct (34.0-46.0) % MCV (80.0-100.0) fL MCH (25.0-35.0) pg MCHC (31.0-37.0) g/dL RDW (11.5-15.5) % Plt Count (150-450) k/uL MPV Neutrophils % % Lymphocytes % % Monocytes % % Eosinophils % % Basophils % % Neutrophils # (1.3-7.7) k/uL Lymphocytes # (1.0-4.8) k/uL Monocytes # (0-1.0) k/uL Eosinophils # (0-0.7) k/uL Basophils # (0-0.2) k/uL PT (9.0-12.0) sec INR (<1.2) APTT (22.0-30.0) sec Sodium 140 (137-145) mmol/L Potassium 3.4 L (3.5-5.1) mmol/L Chloride 104 (98-107) mmol/L Carbon Dioxide 31 H (22-30) mmol/L Anion Gap 5 mmol/L BUN 22 H (7-17) mg/dL Creatinine 0.64 (0.52-1.04) mg/dL Est GFR (CKD-EPI)AfAm >90 (>60 ml/min/1.73 sqM) Est GFR (CKD-EPI)NonAf 85 (>60 ml/min/1.73 sqM) Glucose 129 H (74-99) mg/dL Plasma Lactic Acid Chriss 1.3 (0.7-2.0) mmol/L Calcium 10.0 (8.4-10.2) mg/dL Magnesium 2.0 (1.6-2.3) mg/dL Total Bilirubin 0.8 (0.2-1.3) mg/dL AST 20 (14-36) U/L ALT 12 (4-34) U/L Alkaline Phosphatase 57 (38-126) U/L Troponin I <0.012 (0.000-0.034) ng/mL Total Protein 6.0 L (6.3-8.2) g/dL Albumin 3.4 L (3.5-5.0) g/dL Lipase 67 (23-300) U/L Stool Occult Blood (Negative) Disposition Clinical Impression: Gastrointestinal bleeding Disposition: ADMITTED IP TO [facility] Referrals: Sergei De La Garza MD [Primary Care Provider] - 1-2 days Decision Date: 03/10/21 Decision Time: 15:00
[2021-03-10 12:34] LABS: Partial Thromboplastin Time 25.5 sec (22.0-30.0); Prothrombin Time 11.1 sec (9.0-12.0)
[2021-03-10 12:42] LABS: Basophils % (A) 1 %; Eosinophils # (A) 0.1 k/uL (0-0.7); Eosinophils % (A) 2 %; HCT 38.5 % (34.0-46.0); HGB 12.5 gm/dL (11.4-16.0); Lymphocytes # (A) 1.1 k/uL (1.0-4.8); Lymphocytes % (A) 18 %; MCH 30.3 pg (25.0-35.0); MCHC 32.5 g/dL (31.0-37.0); MCV 93.1 fL (80.0-100.0); Mean Platelet Volume 7.4; Monocytes # (A) 0.5 k/uL (0-1.0); Monocytes % (A) 7 %; Neutrophils # (A) 4.5 k/uL (1.3-7.7); Neutrophils % (A) 71 %; Platelet Count 241 k/uL (150-450); RBC 4.14 m/uL (3.80-5.40); RDW 13.4 % (11.5-15.5); WBC 6.3 k/uL (3.8-10.6)
[2021-03-10 12:50] LABS: ALT 12 U/L (4-34); AST 20 U/L (14-36); African American GFR (CKD) >90 (>60 ml/min/1.73 sqM); Albumin 3.4 g/dL (3.5-5.0); Alkaline Phosphatase 57 U/L (38-126); Anion Gap 5 mmol/L; Blood Urea Nitrogen 22 mg/dL (7-17); Carbon Dioxide 31 mmol/L (22-30); Chloride 104 mmol/L (98-107); Glucose 129 mg/dL (74-99); Lipase 67 U/L (23-300); Non-African American GFR(CKD) 85 (>60 ml/min/1.73 sqM); Potassium 3.4 mmol/L (3.5-5.1); Sodium 140 mmol/L (137-145); Total Bilirubin 0.8 mg/dL (0.2-1.3)
--- NOTE | 2021-03-10 13:33 | CT ---
EXAMINATION TYPE: CT abdomen pelvis w con DATE OF EXAM: 03/10/2021 COMPARISON: 04/04/2020 HISTORY: GI bleed, diarrhea CT DLP: 813.3 mGycm Automated exposure control for dose reduction was used. TECHNIQUE: Helical acquisition of images was performed from the lung bases through the pelvis. CONTRAST: Performed without Oral Contrast and with IV Contrast, patient injected with 100 mL of Isovue 300. FINDINGS: LUNG BASES: No significant abnormality is appreciated. LIVER/GB: The liver is normal without focal mass or organomegaly. There has been prior cholecystectom y.. PANCREAS: No significant there is ill-defined hazy density in the peripancreatic fat adjacent to the pancreatic head raising the question of pancreatitis. This was seen on the prior study and is stable however. SPLEEN: No significant abnormality is seen. ADRENALS: Adrenal glands are diffusely thickened but stable. KIDNEYS: No significant abnormality is seen. FREE AIR: No free air is visualized. 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 PELVIC ADENOPATHY: None visualized. OSSEOUS STRUCTURES: No significant abnormality is seen. BOWEL: There is no bowel obstruction but there is a large amount of stool within the colon and rectu m. OTHER: IMPRESSION: 1. HAZY DENSITY ADJACENT TO THE PANCREATIC HEAD WHICH WAS SEEN PREVIOUSLY AND IS STABLE. CLINICAL COR RELATION REGARDING THE POSSIBILITY OF PANCREATITIS. 2. FECAL IMPACTION WHICH WAS SEEN PREVIOUSLY WELL. THERE IS NO BOWEL OBSTRUCTION, FREE INTRAPERITO KATIA AIR OR FLUID. 3. Cholecystectomy and hysterectomy. 4. Stable thickened adrenal glands.
[2021-03-10] MEDS ORDERED: ACETAMINOPHEN TAB 325 MG TAB PO PRN (14:11)
[2021-03-10] MEDS ORDERED: NALOXONE 0.4 MG/ML 1 ML VIAL IV PRN (14:11)
[2021-03-10] MEDS: carvediloL 12.5 MG TAB PO SCH (18:08)
[2021-03-10] MEDS: APIXABAN 5 MG TAB PO SCH ×2 (20:13→23:23)
[2021-03-10] MEDS: SODIUM CHLORIDE 0.9% 1,000 ML IV SCH ×2 (20:14→20:23)
[2021-03-10] MEDS: ATORVASTATIN 10 MG TAB PO SCH (20:23)
[2021-03-10] MEDS: diphenhydrAMINE 25 MG CAP PO SCH ×2 (20:23→20:30)
[2021-03-10] MEDS: MELATONIN 5 MG TABLET PO SCH (20:23)
[2021-03-10] MEDS ORDERED: ALPRAZolam 0.25 MG TAB PO SCH (21:00)
[2021-03-10] MEDS ORDERED: Potassium Replacement Protocol 1 EACH MISC MISCELLANE PRN (23:11)
[2021-03-10] MEDS: POTASSIUM CHLORIDE ER 20 MEQ TAB.ER PO SCH (23:55)
[2021-03-11] MEDS: POTASSIUM CHLORIDE ER 20 MEQ TAB.ER PO SCH (01:32)
[2021-03-11] MEDS: ALPRAZolam 0.25 MG TAB PO PRN ×2 (05:14→19:58)
[2021-03-11] MEDS: carvediloL 12.5 MG TAB PO SCH ×2 (06:28→15:57)
[2021-03-11] MEDS: PANTOPRAZOLE 40 MG TABLET PO SCH (06:29)
[2021-03-11] MEDS: APIXABAN 5 MG TAB PO SCH ×2 (08:44→19:58)
[2021-03-11] MEDS: FUROSEMIDE 20 MG TAB PO SCH (08:44)
[2021-03-11] MEDS: LOSARTAN 50 MG TAB PO SCH (08:45)
[2021-03-11] MEDS ORDERED: ERGOCALCIFEROL 1,250 MCG (50,000 IU) CAPSULE PO SCH (09:00)
[2021-03-11] MEDS ORDERED: CEPHALEXIN 250 MG CAP PO SCH ×2 (09:00→13:00)
[2021-03-11 14:44] LABS: Albumin 3.2 g/dL (3.5-5.0); Calcium 9.5 mg/dL (8.4-10.2); Total Bilirubin 0.9 mg/dL (0.2-1.3); Total Protein 5.9 g/dL (6.3-8.2)
[2021-03-11 14:46] LABS: Potassium 3.6 mmol/L (3.5-5.1)
--- NOTE | 2021-03-11 18:14 | HP ---
HISTORY AND PHYSICAL CHIEF COMPLAINT: Crampy abdominal pain with diarrhea, hematochezia. HISTORY OF PRESENT ILLNESS: This is the first known admission to this hospital on my service. She is a new patient in the practice. She was recently given cephalosporin for what was thought to be a cellulitis in the right foot. She called the day of admission that she was having persistent diarrhea and was becoming progressively weak. She was sent to the emergency room. There, vital signs and hemoglobin were stable. REVIEW OF SYSTEMS: She denies any syncope, chest pain, nausea, vomiting, fever, chills, etc. Past medical history, family history, personal and social histories are otherwise unremarkable or noncontributory. PHYSICAL EXAMINATION: Blood pressure is 145/88 with a pulse of 79, respirations of 34, and she is afebrile. In GENERAL she appeared to be well developed, well nourished, no acute distress. SKIN color is normal. Skin is warm, dry. LYMPH nodes are not enlarged. HEENT: Head, ears, eyes, nose, mouth and throat were normal. CHEST is clear to auscultation. CARDIAC exam sounded like sinus rhythm and. ABDOMEN is soft and nontender without visceromegaly or masses. Bowel sounds are present. EXTREMITIES normal. NEUROLOGICALLY: She is intact. IMPRESSION: She is admitted to the hospital with diagnosis: Colitis with hematochezia. PLAN: 1. IV fluids. 2. Monitor hemoglobin and vital signs. 3. Possibly require GI consult. MMODL / IJN: [id number] /
--- NOTE | 2021-03-11 18:17 | PN ---
PROGRESS NOTE DATE OF SERVICE: 03/11/2021 CHIEF COMPLAINT: Hematochezia and colitis. HISTORY OF PRESENT ILLNESS: This lady is doing very well. She has had no further pain, diarrhea, hematochezia, etc. She has had no fever or chills. PHYSICAL EXAMINATION: Chest is clear. Cardiac exam is normal. Abdomen is soft and nontender and extremities normal. IMPRESSION: Colitis with hematochezia-resolved. PLAN: Gradually increase diet and activity and monitor hemoglobin and she can probably go home tomorrow. MMODL / IJN: [id number] /
[2021-03-11] MEDS: diphenhydrAMINE 25 MG CAP PO SCH (19:43)
[2021-03-11] MEDS: ATORVASTATIN 10 MG TAB PO SCH (19:58)
[2021-03-11] MEDS: ACETAMINOPHEN TAB 500 MG TAB PO SCH (19:58)
[2021-03-11] MEDS: SOTALOL 80 MG TAB PO SCH (19:59)
[2021-03-11] MEDS: MELATONIN 5 MG TABLET PO SCH (19:59)
[2021-03-12] MEDS: ALPRAZolam 0.25 MG TAB PO PRN ×2 (05:40→20:00)
[2021-03-12] MEDS: carvediloL 12.5 MG TAB PO SCH ×2 (06:23→16:23)
[2021-03-12] MEDS: PANTOPRAZOLE 40 MG TABLET PO SCH (06:23)
[2021-03-12 08:22] LABS: Basophils % (A) 1 %; Eosinophils # (A) 0.1 k/uL (0-0.7); Eosinophils % (A) 2 %; HCT 37.5 % (34.0-46.0); HGB 12.3 gm/dL (11.4-16.0); Lymphocytes # (A) 1.5 k/uL (1.0-4.8); Lymphocytes % (A) 24 %; MCH 30.5 pg (25.0-35.0); MCHC 32.8 g/dL (31.0-37.0); MCV 92.9 fL (80.0-100.0); Mean Platelet Volume 8.7; Monocytes # (A) 0.5 k/uL (0-1.0); Monocytes % (A) 8 %; Neutrophils # (A) 4.1 k/uL (1.3-7.7); Neutrophils % (A) 64 %; Platelet Count 180 k/uL (150-450); RBC 4.04 m/uL (3.80-5.40); RDW 13.7 % (11.5-15.5); WBC 6.3 k/uL (3.8-10.6)
[2021-03-12] MEDS: FUROSEMIDE 20 MG TAB PO SCH (08:47)
[2021-03-12] MEDS: LOSARTAN 50 MG TAB PO SCH (08:47)
[2021-03-12] MEDS: APIXABAN 5 MG TAB PO SCH ×2 (08:47→20:00)
[2021-03-12] MEDS: SOTALOL 80 MG TAB PO SCH ×2 (08:48→20:00)
[2021-03-12] MEDS: POTASSIUM CHLORIDE ER 20 MEQ TAB.ER PO SCH (08:48)
[2021-03-12] MEDS: ASPIRIN 81 MG PO SCH (08:48)
[2021-03-12] MEDS: diphenhydrAMINE 25 MG CAP PO SCH (19:52)
[2021-03-12] MEDS: MELATONIN 5 MG TABLET PO SCH (20:00)
[2021-03-12] MEDS: ACETAMINOPHEN TAB 500 MG TAB PO SCH (20:00)
[2021-03-12] MEDS: ATORVASTATIN 10 MG TAB PO SCH (20:00)
[2021-03-12 21:01] VITALS: RESP 18
[2021-03-13] MEDS: ALPRAZolam 0.25 MG TAB PO PRN (05:55)
[2021-03-13] MEDS: PANTOPRAZOLE 40 MG TABLET PO SCH (06:55)
[2021-03-13] MEDS: carvediloL 12.5 MG TAB PO SCH (06:55)
[2021-03-13] MEDS: LOSARTAN 50 MG TAB PO SCH (10:10)
[2021-03-13] MEDS: ASPIRIN 81 MG PO SCH (10:10)
[2021-03-13] MEDS: APIXABAN 5 MG TAB PO SCH (10:10)
[2021-03-13] MEDS: FUROSEMIDE 20 MG TAB PO SCH (10:10)
[2021-03-13] MEDS: POTASSIUM CHLORIDE ER 20 MEQ TAB.ER PO SCH (10:10)
[2021-03-13 10:56] VITALS: BP 124/60; PULSE 62; TEMP 98.3
--- NOTE | 2021-03-13 18:38 | PN ---
PROGRESS NOTE DATE OF SERVICE: 03/12/2021 CHIEF COMPLAINT: Diarrhea and hematochezia. HISTORY OF PRESENT ILLNESS: This lady is doing well. She has been stable. She did have a little bit of blood noticed with a bowel movement this morning. Hemoglobin has been stable. PHYSICAL EXAMINATION: Her chest is clear. The cardiac exam is normal. Abdomen is soft, nontender. There are no masses. IMPRESSION: 1. Diarrhea with hematochezia. 2. Colitis. PLAN: Progress activity and diet and hold discharge for one more day. MMODL / IJN: [id number] /
--- NOTE | 2021-03-13 20:59 | DS ---
DISCHARGE SUMMARY CHIEF COMPLAINT: Crampy abdominal pain with bloody diarrhea. HISTORY OF PRESENT ILLNESS AND PHYSICAL EXAMINATION: Details of this lady's history and physical can be found in the initial workup. LABORATORY STUDIES: While she was in the hospital she had laboratory studies, details of which can be found in the laboratory section of her chart. COURSE IN THE HOSPITAL: After admission she was placed on bedrest and started on intravenous fluids and had frequent monitoring of her vital signs, hemoglobin and episodes of bloody diarrhea. She had none. Hemoglobin remained stable. She was doing well and it was felt that she could be safely discharged on 03/13. She will be followed up in the office in several days. She will go home without the Keflex. FINAL DIAGNOSES: 1. Colitis. 2. Lower gastrointestinal bleed. OPERATIONS: None. CONSULTATIONS: None. She is improved. KRISSY / MARGOT: [id number] /
== END 2021-03-13 15:47 | disposition home or self-care (01) ==
LOC: EC 11:30 → 3SCARD 14:11
PROVIDERS: ADMIT Family Medicine; ATTEND Family Medicine
DX: K51.911 Ulcerative colitis, unspecified with rectal bleeding (principal); E78.5 Hyperlipidemia, unspecified; I11.0 Hypertensive heart disease with heart failure; I50.9 Heart failure, unspecified; I34.1 Nonrheumatic mitral (valve) prolapse; I48.91 Unspecified atrial fibrillation; K21.9 Gastro-esophageal reflux disease without esophagitis; I25.2 Old myocardial infarction; Z20.822 Contact with and (suspected) exposure to COVID-19; R00.1 Bradycardia, unspecified; M19.90 Unspecified osteoarthritis, unspecified site; M48.00 Spinal stenosis, site unspecified; M41.9 Scoliosis, unspecified; G89.29 Other chronic pain; H91.90 Unspecified hearing loss, unspecified ear; F41.0 Panic disorder [episodic paroxysmal anxiety]; J45.909 Unspecified asthma, uncomplicated; M06.9 Rheumatoid arthritis, unspecified; K64.4 Residual hemorrhoidal skin tags; E07.9 Disorder of thyroid, unspecified; F41.9 Anxiety disorder, unspecified; F32.A Depression, unspecified; G47.30 Sleep apnea, unspecified; H40.9 Unspecified glaucoma; K58.9 Irritable bowel syndrome, unspecified; I83.90 Asymptomatic varicose veins of unspecified lower extremity; L40.9 Psoriasis, unspecified; L30.9 Dermatitis, unspecified; Z79.82 Long term (current) use of aspirin; Z79.01 Long term (current) use of anticoagulants; Z79.899 Other long term (current) drug therapy; Z88.5 Allergy status to narcotic agent; Z88.8 Allergy status to other drugs, medicaments and biological substances; Z90.710 Acquired absence of both cervix and uterus; Z91.81 History of falling; Z87.01 Personal history of pneumonia (recurrent); Z87.891 Personal history of nicotine dependence; Z85.828 Personal history of other malignant neoplasm of skin; Z90.49 Acquired absence of other specified parts of digestive tract; Z80.8 Family history of malignant neoplasm of other organs or systems
CPT/HCPCS: 96360; 99285; 36415; 80053 ×2; 83605; 83690; 83735; 84484; 85025 ×2; 85610; 85730; 82272; 87635; 74177; G0378 ×4; Q9967

== ENCOUNTER 2021-04-07 12:54 | Observation (INO) | payer MEDICARE ==
[2021-04-07] MEDS ORDERED: SODIUM CHLORIDE 0.9% 500 ML 500 ML IV STA (14:24)
[2021-04-07 15:04] LABS: Appearance,Urine Clear (Clear); Bacteria,Urine Occasional /hpf; Bilirubin,Urine Negative (Negative); Blood,Urine Negative (Negative); Color,Urine Colorless; Glucose,Urine (UA) Negative (Negative); Ketones,Urine Negative (Negative); Leukocyte Esterase,Urine Large (Negative); Nitrite,Urine Negative (Negative); Protein,Urine Negative (Negative); RBC,Urine 1 /hpf (0-5); Specific Gravity,Urine 1.004 (1.001-1.035); Squamous Epithelial Cell,Urine <1 /hpf (0-4); Urobilinogen,Urine <2.0 mg/dL (<2.0); WBC,Urine 37 /hpf (0-5)
[2021-04-07 15:14] LABS: HCT 37.7 % (34.0-46.0); HGB 12.1 gm/dL (11.4-16.0); MCV 91.3 fL (80.0-100.0); RBC 4.13 m/uL (3.80-5.40); WBC 5.8 k/uL (3.8-10.6)
[2021-04-07 15:15] LABS: Basophils % (A) 1 %; Eosinophils # (A) 0.1 k/uL (0-0.7); Eosinophils % (A) 2 %; Lymphocytes # (A) 1.6 k/uL (1.0-4.8); Lymphocytes % (A) 27 %; MCH 29.4 pg (25.0-35.0); MCHC 32.1 g/dL (31.0-37.0); Mean Platelet Volume 7.7; Monocytes # (A) 0.5 k/uL (0-1.0); Monocytes % (A) 9 %; Neutrophils # (A) 3.5 k/uL (1.3-7.7); Neutrophils % (A) 60 %; Platelet Count 208 k/uL (150-450); RDW 12.9 % (11.5-15.5)
[2021-04-07 15:23] LABS: Partial Thromboplastin Time 22.3 sec (22.0-30.0); Prothrombin Time 10.3 sec (9.0-12.0)
[2021-04-07 15:26] LABS: ALT 10 U/L (4-34); AST 23 U/L (14-36); African American GFR (CKD) >90 (>60 ml/min/1.73 sqM); Albumin 3.4 g/dL (3.5-5.0); Alkaline Phosphatase 52 U/L (38-126); Anion Gap 6 mmol/L; Blood Urea Nitrogen 19 mg/dL (7-17); Calcium 10.2 mg/dL (8.4-10.2); Carbon Dioxide 25 mmol/L (22-30); Chloride 107 mmol/L (98-107); Glucose 87 mg/dL (74-99); Non-African American GFR(CKD) 86 (>60 ml/min/1.73 sqM); Potassium 3.8 mmol/L (3.5-5.1); Sodium 138 mmol/L (137-145); Total Bilirubin 1.2 mg/dL (0.2-1.3); Total Protein 5.8 g/dL (6.3-8.2)
--- NOTE | 2021-04-07 16:17 | ED ---
General Adult HPI - General Chief complaint: GI Bleed Stated complaint: Rectal bleed Time Seen by Provider: 04/07/21 13:40 Source: patient, EMS, RN notes reviewed, old records reviewed Mode of arrival: EMS Limitations: no limitations - History of Present Illness Initial comments: This is a 80-year-old female who presents emergency department stating that for the last week she's had diarrhea and she's had bright red blood with the diarrhea. Patient states she's had a history of hemorrhoidectomy and has had occasion to have bright red blood per rectum. Patient states there is no pain. Patient states there is no abdominal pain. Patient states she also is having urinary incontinence at this time but denies any dysuria. Patient states she's had no fever chills she denies any back pain. Patient denies any problems breathing or chest pain. - Related Data Home Medications Medication Instructions Recorded Confirmed Simvastatin [Zocor] 10 mg PO HS 10/03/13 04/07/21 Irbesartan 300 mg PO DAILY 07/25/15 04/07/21 Potassium Chloride [Klor-Con 20] 20 meq PO DAILY 03/06/19 04/07/21 Ergocalciferol [Vitamin D2 50,000 unit PO SA 05/01/19 04/07/21 (DRISDOL)] Pantoprazole Sodium [Protonix] 40 mg PO DAILY 09/08/19 04/07/21 Apixaban [Eliquis] 5 mg PO BID 04/04/20 04/07/21 Sotalol [Betapace] 80 mg PO BID 04/04/20 04/07/21 ALPRAZolam [Xanax] 0.375 mg PO HS 02/27/21 04/07/21 Acetaminophen [Tylenol] 500 mg PO HS 02/27/21 04/07/21 Cranberry Fruit Concentrate [Azo 500 mg PO DAILY PRN 02/27/21 04/07/21 Cranberry] Saliva Stimulant Agents Comb.3 1 spray MUCOUS MEM DAILY PRN 02/27/21 04/07/21 [Biotene Moisturizing Mouth] Aspirin EC [Ecotrin Low Dose] 81 mg PO DAILY 03/10/21 04/07/21 Furosemide [Lasix] 20 mg PO DAILY 03/10/21 04/07/21 Melatonin 5 mg PO HS 03/10/21 04/07/21 diphenhydrAMINE [Benadryl] 25 mg PO HS 03/10/21 04/07/21 Carvedilol [Coreg] 25 mg PO BID 04/07/21 04/07/21 Allergies Allergy/AdvReac Type Severity Reaction Status Date / Time famotidine Allergy Unknown Verified 04/07/21 15:33 morphine Allergy Unknown Verified 04/07/21 15:33 spironolactone Allergy Unknown Verified 04/07/21 15:33 codeine AdvReac Severe Nausea & Verified 04/07/21 15:33 Vomiting omeprazole AdvReac Nausea, Verified 04/07/21 15:33 dizzyness Opioids - Morphine Analogues AdvReac Dyspnea- Verified 04/07/21 15:33 Review of Systems ROS Statement: Those systems with pertinent positive or pertinent negative responses have been documented in the HPI. ROS Other: All systems not noted in ROS Statement are negative. 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 GLAUCOMA -"STRESS INDUCED",8 NODULES ON THYROID; soreness on rt side of neck, psoriasis, eczema, stress induced asthma, broncitis Last Myocardial Infarction Date:: Pt unknown History of Any Multi-Drug Resistant Organisms: None Reported Past Surgical History: Cardiac Ablation, Cholecystectomy, Heart Catheterization, Hysterectomy, Joint Replacement, Orthopedic Surgery Additional Past Surgical History / Comment(s): THYROID BX, LINDSAY. TOTAL KNEES, LINDSAY TOTAL SHOULDERS,Cardiac ablation x2,skin CA removed with skin graft to neck Past Anesthesia/Blood Transfusion Reactions: No Reported Reaction Additional Past Anesthesia/Blood Transfusion Reaction / Comment(s): BRADYCARDIA. Past Psychological History: Anxiety, Depression, Panic Disorder Smoking Status: Former smoker Past Alcohol Use History: None Reported Past Drug Use History: None Reported - Past Family History Father Family Medical History: Cancer Additional Family Medical History / Comment(s): ORAL CANCER General Exam - General Exam Comments Initial Comments: GENERAL: Patient is well-developed and well-nourished. Patient is nontoxic and well- hydrated and is in no acute distress. ENT: Neck is soft and supple. No significant lymphadenopathy is noted. Oropharynx is clear. Moist mucous membranes. Neck has full range of motion without eliciting any pain. EYES: The sclera were anicteric and conjunctiva were pink and moist. Extraocular movements were intact and pupils were equal round and reactive to light. Eyelids were unremarkable. PULMONARY: Unlabored respirations. Good breath sounds bilaterally. No audible rales rhonchi or wheezing was noted. CARDIOVASCULAR: There is a regular rate and rhythm without any murmurs gallops or rubs. ABDOMEN: Soft and nontender with normal bowel sounds. SKIN: Skin is clear with no lesions or rashes and otherwise unremarkable. NEUROLOGIC: Patient is alert and oriented x3. Cranial nerves II through XII are grossly intact. Motor and sensory are also intact. Normal speech, volume and content. Symmetrical smile. MUSCULOSKELETAL: Normal extremities with adequate strength and full range of motion. LYMPHATICS: No significant lymphadenopathy is noted PSYCHIATRIC: Normal psychiatric evaluation. Limitations: no limitations Course Vital Signs 04/07/21 13:37 Temperature 97.9 F Pulse Rate 59 L Respiratory 16 Rate Blood Pressure 179/81 O2 Sat by Pulse 98 Oximetry Medical Decision Making - Medical Decision Making Patient had bacteria and white cells in the urine psychiatric the patient gram of Rocephin. Patient also received Lomotil for the diarrhea. I spoke with Dr. Mustafa and he agreed to admit the patient admitted the patient I wrote admitting orders I did every 6 CBCs. - Lab Data Result diagrams: 04/07/21 14:50 04/07/21 14:50 Lab Results 04/07/21 04/07/21 04/07/21 Range/Units 14:50 14:50 14:50 WBC 5.8 (3.8-10.6) k/uL RBC 4.13 (3.80-5.40) m/uL Hgb 12.1 (11.4-16.0) gm/dL Hct 37.7 (34.0-46.0) % MCV 91.3 (80.0-100.0) fL MCH 29.4 (25.0-35.0) pg MCHC 32.1 (31.0-37.0) g/dL RDW 12.9 (11.5-15.5) % Plt Count 208 (150-450) k/uL MPV 7.7 Neutrophils % 60 % Lymphocytes % 27 % Monocytes % 9 % Eosinophils % 2 % Basophils % 1 % Neutrophils # 3.5 (1.3-7.7) k/uL Lymphocytes # 1.6 (1.0-4.8) k/uL Monocytes # 0.5 (0-1.0) k/uL Eosinophils # 0.1 (0-0.7) k/uL Basophils # 0.0 (0-0.2) k/uL PT 10.3 (9.0-12.0) sec INR 1.0 (<1.2) APTT 22.3 (22.0-30.0) sec Sodium 138 (137-145) mmol/L Potassium 3.8 (3.5-5.1) mmol/L Chloride 107 (98-107) mmol/L Carbon Dioxide 25 (22-30) mmol/L Anion Gap 6 mmol/L BUN 19 H (7-17) mg/dL Creatinine 0.62 (0.52-1.04) mg/dL Est GFR (CKD-EPI)AfAm >90 (>60 ml/min/1.73 sqM) Est GFR (CKD-EPI)NonAf 86 (>60 ml/min/1.73 sqM) Glucose 87 (74-99) mg/dL Calcium 10.2 (8.4-10.2) mg/dL Magnesium 2.0 (1.6-2.3) mg/dL Total Bilirubin 1.2 (0.2-1.3) mg/dL AST 23 (14-36) U/L ALT 10 (4-34) U/L Alkaline Phosphatase 52 (38-126) U/L Troponin I (0.000-0.034) ng/mL Total Protein 5.8 L (6.3-8.2) g/dL Albumin 3.4 L (3.5-5.0) g/dL Urine Color Urine Appearance (Clear) Urine pH (5.0-8.0) Ur Specific Delta (1.001-1.035) Urine Protein (Negative) Urine Glucose (UA) (Negative) Urine Ketones (Negative) Urine Blood (Negative) Urine Nitrite (Negative) Urine Bilirubin (Negative) Urine Urobilinogen (<2.0) mg/dL Ur Leukocyte Esterase (Negative) Urine RBC (0-5) /hpf Urine WBC (0-5) /hpf Ur Squamous Epith Cells (0-4) /hpf Urine Bacteria (None) /hpf 04/07/21 04/07/21 Range/Units 14:50 14:50 WBC (3.8-10.6) k/uL RBC (3.80-5.40) m/uL Hgb (11.4-16.0) gm/dL Hct (34.0-46.0) % MCV (80.0-100.0) fL MCH (25.0-35.0) pg MCHC (31.0-37.0) g/dL RDW (11.5-15.5) % Plt Count (150-450) k/uL MPV Neutrophils % % Lymphocytes % % Monocytes % % Eosinophils % % Basophils % % Neutrophils # (1.3-7.7) k/uL Lymphocytes # (1.0-4.8) k/uL Monocytes # (0-1.0) k/uL Eosinophils # (0-0.7) k/uL Basophils # (0-0.2) k/uL PT (9.0-12.0) sec INR (<1.2) APTT (22.0-30.0) sec Sodium (137-145) mmol/L Potassium (3.5-5.1) mmol/L Chloride (98-107) mmol/L Carbon Dioxide (22-30) mmol/L Anion Gap mmol/L BUN (7-17) mg/dL Creatinine (0.52-1.04) mg/dL Est GFR (CKD-EPI)AfAm (>60 ml/min/1.73 sqM) Est GFR (CKD-EPI)NonAf (>60 ml/min/1.73 sqM) Glucose (74-99) mg/dL Calcium (8.4-10.2) mg/dL Magnesium (1.6-2.3) mg/dL Total Bilirubin (0.2-1.3) mg/dL AST (14-36) U/L ALT (4-34) U/L Alkaline Phosphatase (38-126) U/L Troponin I <0.012 (0.000-0.034) ng/mL Total Protein (6.3-8.2) g/dL Albumin (3.5-5.0) g/dL Urine Color Colorless Urine Appearance Clear (Clear) Urine pH 7.0 (5.0-8.0) Ur Specific Delta 1.004 (1.001-1.035) Urine Protein Negative (Negative) Urine Glucose (UA) Negative (Negative) Urine Ketones Negative (Negative) Urine Blood Negative (Negative) Urine Nitrite Negative (Negative) Urine Bilirubin Negative (Negative) Urine Urobilinogen <2.0 (<2.0) mg/dL Ur Leukocyte Esterase Large H (Negative) Urine RBC 1 (0-5) /hpf Urine WBC 37 H (0-5) /hpf Ur Squamous Epith Cells <1 (0-4) /hpf Urine Bacteria Occasional H (None) /hpf Disposition Clinical Impression: Rectal bleeding, Diarrhea, UTI (urinary tract infection) Disposition: ADMITTED IP TO THIS [facility] Referrals: Sergei De La Garza MD [Primary Care Provider] - 1-2 days Time of Disposition: 16:50
[2021-04-07] MEDS ORDERED: cefTRIAXone IN SWFI 1,000 MG/10 ML SYRINGE IVP STA (16:19)
[2021-04-07] MEDS ORDERED: DIPHENOX-ATROP STARTER PACK 8 TAB BTL PO STA (16:19)
[2021-04-07] MEDS ORDERED: SODIUM CHLORIDE 0.9% 1,000 ML IV ONE (16:50)
[2021-04-07] MEDS ORDERED: ALPRAZolam 0.25 MG TAB PO SCH (23:45)
[2021-04-08] MEDS: carvediloL 12.5 MG TAB PO SCH ×3 (00:05→16:50)
[2021-04-08] MEDS: MELATONIN 5 MG TABLET PO SCH ×2 (00:05→21:21)
[2021-04-08] MEDS: ACETAMINOPHEN TAB 500 MG TAB PO SCH ×2 (00:05→21:21)
[2021-04-08] MEDS: SOTALOL 80 MG TAB PO SCH ×3 (00:07→21:22)
[2021-04-08] MEDS: ALPRAZolam 0.25 MG TAB PO SCH ×3 (00:22→21:21)
[2021-04-08] MEDS: ASPIRIN 81 MG PO SCH (07:32)
[2021-04-08] MEDS: APIXABAN 5 MG TAB PO SCH ×2 (07:32→21:21)
[2021-04-08] MEDS: FUROSEMIDE 20 MG TAB PO SCH (07:32)
[2021-04-08] MEDS: LOSARTAN 50 MG TAB PO SCH (07:33)
[2021-04-08] MEDS: POTASSIUM CHLORIDE ER 20 MEQ TAB.ER PO SCH (07:33)
[2021-04-08] MEDS: PANTOPRAZOLE 40 MG TABLET PO SCH (07:33)
[2021-04-08 07:50] LABS: Basophils % (A) 1 %; Eosinophils # (A) 0.1 k/uL (0-0.7); Eosinophils % (A) 2 %; HCT 41.1 % (34.0-46.0); HGB 13.1 gm/dL (11.4-16.0); Hypochromasia Slight; Lymphocytes # (A) 1.2 k/uL (1.0-4.8); Lymphocytes % (A) 18 %; MCH 29.4 pg (25.0-35.0); MCHC 31.8 g/dL (31.0-37.0); MCV 92.5 fL (80.0-100.0); Mean Platelet Volume 7.9; Monocytes # (A) 0.4 k/uL (0-1.0); Monocytes % (A) 7 %; Neutrophils # (A) 4.7 k/uL (1.3-7.7); Neutrophils % (A) 72 %; Platelet Count 206 k/uL (150-450); RBC 4.44 m/uL (3.80-5.40); RDW 12.8 % (11.5-15.5); WBC 6.5 k/uL (3.8-10.6)
[2021-04-08] MEDS ORDERED: ERGOCALCIFEROL 1,250 MCG (50,000 IU) CAPSULE PO SCH (09:00)
--- NOTE | 2021-04-08 12:38 | HP ---
HISTORY AND PHYSICAL CHIEF COMPLAINT: Chronic diarrhea and rectal bleeding. HISTORY OF PRESENT ILLNESS: This is another admission for this 80-year-old white female who was just in the hospital recently. At that time, diarrhea was corrected and she had no further rectal bleeding. She had been doing well at home and then she came back in, stating that she was having chronic diarrhea "all the time." She also stated that she had had some bright red rectal bleeding. There was also a possibility of urinary tract infection. REVIEW OF SYSTEMS: She denies any syncope, neurologic problems, shortness of breath, chest pain, nausea, vomiting, hematemesis, melena, dysuria, frequency, urgency, etc. Past medical history, family history, and personal and social histories are all unchanged from her recent admitting and discharge summaries. She does take Xanax and she also uses Eliquis, furosemide, pantoprazole, carvedilol, potassium, sartan, Benadryl, simvastatin, aspirin and sotalol. The remainder of her history is unremarkable. PHYSICAL EXAMINATION: Blood pressure is 143/72 with a pulse of 73, respirations of 15, and she is afebrile. In general she appeared to be slightly pale and in no acute distress. Head, ears, eyes, nose, mouth and throat were normal. Neck veins were not distended. The chest was clear. Cardiac exam demonstrated normal sinus rhythm and no murmurs or extra sounds. Abdomen was soft and nontender without any visceromegaly or masses. It was slightly distended. Bowel sounds were present. Extremities were normal. Neurologically she was intact. She is admitted to the hospital with the diagnoses: 1. Recurrent chronic diarrhea. 2. History of hematochezia. 3. Anxiety. 4. History of heart failure. 5. History of atrial fibrillation. PLAN: 1. Bedrest. 2. IV fluids. 3. Consult with Gastroenterology. MMODL / IJN: [id number] /
--- NOTE | 2021-04-08 12:44 | PN ---
PROGRESS NOTE CHIEF COMPLAINT: Diarrhea and rectal bleeding. HISTORY OF PRESENT ILLNESS: This lady is complaining bitterly once again of having chronic diarrhea. REVIEW OF SYSTEMS: This is unchanged. PHYSICAL EXAMINATION: Vital signs are stable. Abdomen is soft and nontender. Chest is clear. IMPRESSION: 1. Chronic diarrhea. 2. Rectal bleeding. PLAN: Continue with IV fluids. Gastroenterology consult has been placed. MMODL / IJN: [id number] /
[2021-04-08] MEDS: ATORVASTATIN 10 MG TAB PO SCH (21:20)
[2021-04-08] MEDS: diphenhydrAMINE 25 MG CAP PO SCH (21:21)
[2021-04-09] MEDS: ALPRAZolam 0.25 MG TAB PO SCH ×2 (05:28→20:50)
[2021-04-09] MEDS: carvediloL 12.5 MG TAB PO SCH ×2 (07:26→12:41)
[2021-04-09] MEDS: APIXABAN 5 MG TAB PO SCH ×2 (07:26→19:23)
[2021-04-09] MEDS: LOSARTAN 50 MG TAB PO SCH (07:31)
[2021-04-09] MEDS: POTASSIUM CHLORIDE ER 20 MEQ TAB.ER PO SCH (07:31)
[2021-04-09] MEDS: SOTALOL 80 MG TAB PO SCH ×2 (07:32→20:50)
[2021-04-09] MEDS: PANTOPRAZOLE 40 MG TABLET PO SCH (07:32)
[2021-04-09] MEDS: ASPIRIN 81 MG PO SCH (07:32)
[2021-04-09] MEDS: FUROSEMIDE 20 MG TAB PO SCH (07:32)
[2021-04-09] MEDS: SULFAMETHOX-TMP 800-160MG 1 EACH TAB PO SCH ×2 (12:42→20:50)
[2021-04-09] MEDS: DICYCLOMINE 10 MG CAP PO SCH ×3 (12:42→20:50)
[2021-04-09] MEDS: diphenhydrAMINE 25 MG CAP PO SCH (20:48)
[2021-04-09] MEDS: ATORVASTATIN 10 MG TAB PO SCH (20:50)
[2021-04-09] MEDS: ACETAMINOPHEN TAB 500 MG TAB PO SCH (20:51)
[2021-04-09] MEDS: MELATONIN 5 MG TABLET PO SCH (20:51)
[2021-04-10] MEDS: ALPRAZolam 0.25 MG TAB PO SCH ×2 (05:06→22:56)
[2021-04-10] MEDS: FUROSEMIDE 20 MG TAB PO SCH (09:01)
[2021-04-10] MEDS: LOSARTAN 50 MG TAB PO SCH (09:02)
[2021-04-10] MEDS: SULFAMETHOX-TMP 800-160MG 1 EACH TAB PO SCH ×2 (09:02→20:08)
[2021-04-10] MEDS: DICYCLOMINE 10 MG CAP PO SCH ×4 (09:02→23:01)
[2021-04-10] MEDS: APIXABAN 5 MG TAB PO SCH ×2 (09:02→20:06)
[2021-04-10] MEDS: ASPIRIN 81 MG PO SCH (09:02)
[2021-04-10] MEDS: SOTALOL 80 MG TAB PO SCH ×2 (09:50→20:07)
[2021-04-10] MEDS: carvediloL 12.5 MG TAB PO SCH (11:12)
--- NOTE | 2021-04-10 11:49 | P.CONS ---
History of Present Illness - Reason for Consult Consult date: 04/10/21 Rectal bleeding, chronic diarrhea Requesting physician: Sergei De La Garza - Chief Complaint diarrhea, rectal bleeding, urinary frequency - History of Present Illness This is a 80-year-old femalewith multiple comorbidities including coronary artery disease, atrial fibrillation on Eliquis, heart failure, GERD, hyperlipidemia, hypertension, memory impairment, rheumatoid arthritis, sleep apnea, thyroid disorder, and IBS who presented to the emergency department 3 days ago with complaints of chronic diarrhea with rectal bleeding as well as urinary frequency. She was noted to have a mild UTI and started on antibiotics. States that she has diarrhea several times a day which she states is loose and soft. States it has some blood mixed in with it however she does have a history of a hemorrhoide[place] [address] Kirk. Her last colonoscopy was May 2017 with findings of diverticulosis, internal and external hemorrhoids. Patient states this morning she had a formed stool with no bleeding. On admission her Ahlquist was on hold, today Dr. Carvajal restarted it. She denies any abdominal pain, nausea, or vomiting. States her appetite has been good. She is currently on Bactrim for her urinary tract infection. Patient has had chronic diarrhea since 2018. She does not take anything at home. She also does not treat her hemorrhoids at home. States she has used some Imodium in the past however was told to stop from her PCP. On admission in the emergency room she was given Lomotil and was started on dicyclomine. Labs have been unremarkable. WBC 6.5 hemoglobin 13.1 hematocrit 41 platelet count 206,000 INR 1.0. Review of Systems REVIEW OF SYSTEMS: CARDIOPULMONARY: No chest pain or shortness of breath. Gastrointestinal: No abdominal or epigastric pain. No nausea or vomiting. No hematemesis, coffee-ground emesis. Chronic loose stool, history of hemorrhoids. Rectal bleeding that has resolved.. GENITOURINARY: No dysuria or hematuria. MUSCULOSKELETAL: Reports normal range of motion., Joint pain. SKIN: No rashes. No jaundice. ENDOCRINE: No chills, fevers. No excessive weight gain or loss. No polydipsia or polyuria. PSYCHIATRIC: Unremarkable. NEUROLOGY: No change in mental status. Denies dizziness, headache. ENT: Vision unremarkable. CONSTITUTIONAL: No recent weight loss. No fever, chills, night sweats. Past Medical History Past Medical History: Atrial Fibrillation, Asthma, Cancer, Heart Failure, Eye Disorder, GERD/Reflux, Hearing Disorder / Deafness, Hyperlipidemia, Hypertension, Memory Impairment, Myocardial Infarction (VA), Mitral Valve Prolapse (MVP), Osteoarthritis (OA), Pneumonia, Respiratory Disorder, Rheumatoid Arthritis (RA), Skin Disorder, Sleep Apnea/CPAP/BIPAP, Thyroid Disorder Additional Past Medical History / Comment(s): CHRONIC BACK PAIN, SPINAL STENOSIS, SCOLIOSIS, IBS, VARICOSE VEINS, STRESS INDUCED ASTHMA. 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 GLAUCOMA -"STRESS I NDUCED",8 NODULES ON THYROID, psoriasis, eczema Last Myocardial Infarction Date:: Pt unknown History of Any Multi-Drug Resistant Organisms: None Reported Past Surgical History: Cardiac Ablation, Cholecystectomy, Heart Catheterization, Hysterectomy, Joint Replacement, Orthopedic Surgery Additional Past Surgical History / Comment(s): THYROID BX, LINDSAY. TOTAL KNEES, LINDSAY TOTAL SHOULDERS,Cardiac ablation x2,skin CA removed with skin graft to neck Past Anesthesia/Blood Transfusion Reactions: No Reported Reaction Additional Past Anesthesia/Blood Transfusion Reaction / Comm: BRADYCARDIA. Past Psychological History: Anxiety, Depression, Panic Disorder Smoking Status: Former smoker Past Alcohol Use History: None Reported Additional Past Alcohol Use History / Comment(s): STARTED SMOKING AT AGE 13 QUIT IN 1986- SMOKED 4PPD. QUIT ALCOHOL IN 1983 . Past Drug Use History: None Reported Additional Drug Use History / Comment(s): Hx MORPHINE QUIT IN SEPTEMBER 2013 - Past Family History Father Family Medical History: Cancer Additional Family Medical History / Comment(s): ORAL CANCER Medications and Allergies Home Medications Medication Instructions Recorded Confirmed Type Simvastatin [Zocor] 10 mg PO HS 10/03/13 04/07/21 History Irbesartan 300 mg PO DAILY 07/25/15 04/07/21 History Potassium Chloride [Klor-Con 20] 20 meq PO DAILY 03/06/19 04/07/21 History Ergocalciferol [Vitamin D2 50,000 unit PO SA 05/01/19 04/07/21 History (DRISDOL)] Pantoprazole Sodium [Protonix] 40 mg PO DAILY 09/08/19 04/07/21 History Apixaban [Eliquis] 5 mg PO BID 04/04/20 04/07/21 History Sotalol [Betapace] 80 mg PO BID 04/04/20 04/07/21 History ALPRAZolam [Xanax] 0.25 mg PO BID 02/27/21 04/08/21 History Acetaminophen [Tylenol] 500 mg PO HS 02/27/21 04/07/21 History Cranberry Fruit Concentrate [Azo 500 mg PO DAILY PRN 02/27/21 04/07/21 History Cranberry] Saliva Stimulant Agents Comb.3 1 spray MUCOUS MEM DAILY PRN 02/27/21 04/07/21 History [Biotene Moisturizing Mouth] Aspirin EC [Ecotrin Low Dose] 81 mg PO DAILY 03/10/21 04/07/21 History Furosemide [Lasix] 20 mg PO DAILY 03/10/21 04/07/21 History Melatonin 5 mg PO HS 03/10/21 04/07/21 History Carvedilol [Coreg] 25 mg PO BID 04/07/21 04/07/21 History Allergies Allergy/AdvReac Type Severity Reaction Status Date / Time famotidine Allergy Unknown Verified 04/07/21 15:33 morphine Allergy Unknown Verified 04/07/21 15:33 spironolactone Allergy Unknown Verified 04/07/21 15:33 codeine AdvReac Severe Nausea & Verified 04/07/21 15:33 Vomiting omeprazole AdvReac Nausea, Verified 04/07/21 15:33 dizzyness Opioids - Morphine Analogues AdvReac Dyspnea- Verified 04/07/21 15:33 Physical Exam Vitals: Vital Signs Temp Pulse Resp BP BP Pulse Ox 04/10/21 07:00 97.7 F 86 18 166/104 96 04/10/21 03:24 97.9 F 86 17 175/96 96 04/09/21 19:05 98.2 F 96 17 163/85 96 04/09/21 14:49 98.2 F 60 18 134/82 99 Intake and Output 04/09/21 04/10/21 04/10/21 22:59 06:59 14:59 Other: Voiding Method Toilet Toilet Bedside Commode Bedside Commode Diaper Diaper # Voids 1 2 2 # Bowel Movements 1 2 General appearance: The patient is alert, oriented, appears in no acute distress. HET: Head is normocephalic and atraumatic. Conjunctiva pink. Sclera anicteric. Neck: Supple without lymphadenopathy. Trachea midline. Heart: S1 S2. Regular rate and rhythm. Lungs: Clear to auscultation. Abdomen: Soft, nontender, nondistended with bowel sounds. No guarding or rigidity. Skin: No rashes. No jaundice. Extremities: Normal skin color and turgor. No pedal edema. Neurological: No focal deficits. Alert and oriented x3. Results CBC & Chem 7: 04/08/21 07:13 04/07/21 14:50 Labs: Microbiology - Last 24 Hours (Table) 04/07/21 14:50 Urine Culture - Final Urine,Catheterized Escherichia coli Assessment and Plan (1) Chronic diarrhea Narrative/Plan: A 80-year-old female with a history of chronic diarrhea since 2018. Patient states she goes multiple times a day which it is loose and occasionally has bright red blood per rectum. Patient does have a history of colonoscopy in May of [address] Kirk findings of diverticulosis and external and internal hemorrhoids. The patient then followed and had a hemorrhoidectomy of both internal and external hemorrhoids and July 2017. Patient states since then she's had chronic loose stools up to 70 times per day. She does not take any medications at home however was on Imodium at one time. She does not use any medications to treat her hemorrhoids either. She states she does not follow regularly with anybody for her chronic diarrhea. Today she seen and evaluated with improvement in her stool, states it was performed today with no bleeding. She does have a history of coronary artery disease and atrial fibrillation on Eliquis which has been on hold for the past 2 days duration. Hemoglobin has been stable since admission at 12.1 with a repeat on 04/08/2021 of 13.1. Patient also has a history of IBS, however again does not follow with any end finder twisting department and currently not on any medications. She states she was taking Imodium however it was not helping so she stopped taking it. Patient states she does believe she was on antibiotics within the last 2 months. Denies any associated abdominal pain, nausea, or vomiting. She's been afebrile and no leukocytosis. Current Visit: Yes Status: Acute Code(s): K52.9 - NONINFECTIVE GASTROENTERITIS AND COLITIS, UNSPECIFIED SNOMED Code(s): 400386130 (2) IBS (irritable bowel syndrome) Current Visit: Yes Status: Acute Code(s): K58.9 - IRRITABLE BOWEL SYNDROME WITHOUT DIARRHEA SNOMED Code(s): 58911873 (3) Rectal bleed Current Visit: Yes Status: Acute Code(s): K62.5 - HEMORRHAGE OF ANUS AND RECTUM SNOMED Code(s): 10749263 (4) Hemorrhoids Current Visit: Yes Status: Acute Code(s): K64.9 - UNSPECIFIED HEMORRHOIDS SNOMED Code(s): 83090838 Plan: 1. Continue symptomatic and supportive care 2. Continue dicyclomine as ordered 3. Stool studies ordered 4. Hemorrhoidal suppository ordered 5. No plans on endoscopic evaluation at this time 6. May resume anticoagulation Thank you for this consultation, we will continue to follow. Dr. Torrie Rayo I agree with the dictator's note, documented as a scribe by Yuni Jc.
[2021-04-10] MEDS: HYDROCORTISONE SUPPOSITORY 25 MG SUPP RECTAL SCH (14:12)
--- NOTE | 2021-04-10 17:55 | PN ---
PROGRESS NOTE DATE OF SERVICE: 04/09/2021. CHIEF COMPLAINT: Hematochezia and diarrhea. HISTORY OF PRESENT ILLNESS: This lady is doing much better. The diarrhea has nearly subsided. She was seen for the bleeding. She is to be seen by Gastroenterology. PHYSICAL EXAMINATION: Her vital signs are normal and the chest is clear. Cardiac exam is normal. Abdomen is soft, nontender. Bowel sounds present. IMPRESSION: 1. Chronic diarrhea. 2. Hematochezia. 3. History of ulcerative colitis. PLAN: Continue with current program and try adding Bentyl 10 mg 3 or 4 times a day. She will be seen by Gastroenterology and possibly undergo another scope. MMODL / IJN: [id number] /
--- NOTE | 2021-04-10 18:01 | PN ---
PROGRESS NOTE CHIEF COMPLAINT: Chronic diarrhea and hematochezia. HISTORY OF PRESENT ILLNESS: This lady is doing well and her diarrhea is nearly stopped. She is not having any significant abdominal pain and there has been no blood. She waits GI consult. PHYSICAL EXAMINATION: Chest: Clear. Cardiac exam is normal. Abdomen is soft, nontender. IMPRESSION: 1. Persistent diarrhea with episodes of hematochezia. 2. ? Ulcerative colitis ? PLAN: Continue with current program and await GI evaluation. MMODL / IJN: [id number] /
[2021-04-10] MEDS: ATORVASTATIN 10 MG TAB PO SCH (20:07)
[2021-04-10] MEDS: diphenhydrAMINE 25 MG CAP PO SCH (20:09)
[2021-04-10] MEDS: ACETAMINOPHEN TAB 500 MG TAB PO SCH (22:56)
[2021-04-10] MEDS: MELATONIN 5 MG TABLET PO SCH (22:56)
[2021-04-11] MEDS: ALPRAZolam 0.25 MG TAB PO SCH (05:17)
[2021-04-11 06:34] VITALS: PULSE 60; TEMP 97.8
[2021-04-11] MEDS: SULFAMETHOX-TMP 800-160MG 1 EACH TAB PO SCH (07:55)
[2021-04-11] MEDS: DICYCLOMINE 10 MG CAP PO SCH (07:55)
[2021-04-11] MEDS: SOTALOL 80 MG TAB PO SCH (07:55)
[2021-04-11] MEDS: FUROSEMIDE 20 MG TAB PO SCH (07:55)
[2021-04-11] MEDS: ASPIRIN 81 MG PO SCH (07:55)
[2021-04-11] MEDS: APIXABAN 5 MG TAB PO SCH (07:55)
[2021-04-11] MEDS: HYDROCORTISONE SUPPOSITORY 25 MG SUPP RECTAL SCH (07:55)
[2021-04-11] MEDS: LOSARTAN 50 MG TAB PO SCH (07:55)
[2021-04-11 08:13] VITALS: BP 179/86; RESP 16
--- NOTE | 2021-04-11 15:17 | P.PN ---
Subjective Progress Note Date: 04/11/21 Principal diagnosis: Diarrhea, rectal bleeding 80-year-old female who came in for complaints of chronic diarrhea with rectal bleeding. She has had previous colonoscopy and hemorrhoidectomy with Dr. Kirk in 2018. She has followed with Tere CISNEROS, from gastroenterology re garding chronic diarrhea. She's had a stable hemoglobin since admission. She's had no further diarrhea today and no further rectal bleeding. She denies any abdominal pain nausea or vomiting. She's been afebrile. C. diff stool studies were ordered however stool was formed so could not be run. Stool cultures are pending. Objective - Vital Signs Vital signs: Vital Signs Temp 97.8 F 04/11/21 07:00 Pulse 60 04/11/21 07:00 Resp 16 04/11/21 07:00 BP 179/86 04/11/21 07:00 Pulse Ox 99 04/11/21 07:00 Intake & Output 04/10/21 04/11/21 04/11/21 18:59 06:59 18:59 Intake Total 318 Output Total 3 Balance 315 Intake: Oral 318 Output: Stool 3 Other: Voiding Method Bedside Commode Bedside Commode # Voids 3 1 # Bowel Movements 2 - Exam General appearance: The patient is alert, oriented, appears in no acute distres s. HET: Head is normocephalic and atraumatic. Conjunctiva pink. Sclera anicteric. Neck: Supple without lymphadenopathy. Abdomen: Soft, nontender, nondistended with bowel sounds. No guarding or rigidity. Extremities: Normal skin color and turgor. No pedal edema Skin: No rashes, no jaundice Neurological: No focal deficits. Alert and oriented -3. - Labs CBC & Chem 7: 04/08/21 07:13 04/07/21 14:50 Labs: Microbiology - Last 24 Hours (Table) 04/10/21 16:23 Stool Culture - Preliminary Stool Assessment and Plan (1) Chronic diarrhea Narrative/Plan: A 80-year-old female with a history of chronic diarrhea since 2018. Patient states she goes multiple times a day which it is loose and occasionally has bright red blood per rectum. Patient does have a history of colonoscopy in May of [address] Kirk findings of diverticulosis and external and internal hemorrhoids. The patient then followed and had a hemorrhoidectomy of both internal and external hemorrhoids and July 2017. Patient states since then she's had chronic loose stools up to 70 times per day. She does not take any medications at home however was on Imodium at one time. She does not use any medications to treat her hemorrhoids either. She states she does not follow regularly with anybody for her chronic diarrhea. Today she seen and evaluated with improvement in her stool, states it was performed today with no bleeding. She does have a history of coronary artery disease and atrial fibrillation on Eliquis which has been on hold for the past 2 days duration. Hemoglobin has been stable since admission at 12.1 with a repeat on 04/08/2021 of 13.1. Patient also has a history of IBS, however again does not follow with any nurse esthetician and currently not on any medications. She states she was taking Imodium however it was not helping so she stopped taking it. Patient states she does believe she was on antibiotics within the last 2 months. Denies any associated abdominal pain, nausea, or vomiting. She's been afebrile and no leukocytosis. Status: Acute Code(s): K52.9 - NONINFECTIVE GASTROENTERITIS AND COLITIS, UNSPECIFIED SNOMED Code(s): 162083806 (2) IBS (irritable bowel syndrome) Status: Acute Code(s): K58.9 - IRRITABLE BOWEL SYNDROME WITHOUT DIARRHEA SNOMED Code(s): 42023300 (3) Rectal bleed Status: Acute Code(s): K62.5 - HEMORRHAGE OF ANUS AND RECTUM SNOMED Code(s): 39725925 (4) Hemorrhoids Status: Acute Code(s): K64.9 - UNSPECIFIED HEMORRHOIDS SNOMED Code(s): 79053012 Plan: 1. Continue symptomatic and supportive care 2. Continue dicyclomine as ordered 3. Stool studies ordered 4. Hemorrhoidal suppository ordered 5. No plans on endoscopic evaluation at this time 6. May resume anticoagulation Thank you for this consultation, patient is cleared for discharge from gastroenterology. She may follow-up in 2-[address] Torrie Rayo I agree with the dictator's note, documented as a scribe by Yuni Jc.
[2021-04-11] MEDS ORDERED: busPIRone HCl 5 MG TAB PO SCH (16:00)
--- NOTE | 2021-04-11 21:50 | DS ---
DISCHARGE SUMMARY CHIEF COMPLAINT: Abdominal pain, diarrhea, and rectal bleeding. HISTORY OF PRESENT ILLNESS AND PHYSICAL EXAMINATION: Details of this lady's history and physical can be found in the initial workup. LABORATORY STUDIES: While she was in the hospital, she had laboratory studies, details of which can be found in the laboratory section of her chart. COURSE IN THE HOSPITAL: After admission, she was placed on bedrest, started intravenous fluids and her diarrhea stopped almost immediately. She had no further bleeding. She remained stable and afebrile. She did have urinary tract infection. She was seen by Gastroenterology. They did an endoscopy on her in the last several years and only displayed diverticulosis and not ulcerative colitis. They felt the bleeding was from hemorrhoids. The scope was not performed. She was doing well and it was felt she could be discharged and she will go home on usual activity, diet, medication. We are going to change her Xanax to Buspar which was discussed with her daughter and will also send her home on Bentyl and Anusol HC suppositories. She will be seen in the office in several days. FINAL DIAGNOSES: 1. Chronic diarrhea. 2. Bright red rectal bleeding. 3. Hemorrhoids. 4. Coronary artery disease. 5. Congestive heart failure. 6. Internal hemorrhoids. 7. Diverticulosis. OPERATIONS: None. CONSULTATIONS: Gastroenterology. She is improved. MMODL / GLENDAN: [id number] /
== END 2021-04-11 14:47 | disposition home health service (06) ==
LOC: EC 12:54 → 6NMEDSUR 16:50 → OBSVTOIN 04-10 13:33 → INTOOBSV 04-10 13:33 → UNDODISIN 04-11 14:47
PROVIDERS: ADMIT Family Medicine; ATTEND Family Medicine
DX: K58.0 Irritable bowel syndrome with diarrhea (principal); K64.8 Other hemorrhoids; K64.4 Residual hemorrhoidal skin tags; I25.10 Atherosclerotic heart disease of native coronary artery without angina pectoris; I11.0 Hypertensive heart disease with heart failure; I50.9 Heart failure, unspecified; N39.0 Urinary tract infection, site not specified; K57.90 Diverticulosis of intestine, part unspecified, without perforation or abscess without bleeding; I48.91 Unspecified atrial fibrillation; J45.909 Unspecified asthma, uncomplicated; K92.1 Melena; K21.9 Gastro-esophageal reflux disease without esophagitis; E78.5 Hyperlipidemia, unspecified; H91.90 Unspecified hearing loss, unspecified ear; I25.2 Old myocardial infarction; M19.90 Unspecified osteoarthritis, unspecified site; G47.30 Sleep apnea, unspecified; M06.9 Rheumatoid arthritis, unspecified; R41.3 Other amnesia; I34.1 Nonrheumatic mitral (valve) prolapse; G89.29 Other chronic pain; M54.9 Dorsalgia, unspecified; M48.00 Spinal stenosis, site unspecified; I83.90 Asymptomatic varicose veins of unspecified lower extremity; H40.9 Unspecified glaucoma; E04.1 Nontoxic single thyroid nodule; L40.9 Psoriasis, unspecified; L30.9 Dermatitis, unspecified; F41.9 Anxiety disorder, unspecified; F32.A Depression, unspecified; F41.0 Panic disorder [episodic paroxysmal anxiety]; R32 Unspecified urinary incontinence; R35.0 Frequency of micturition; B96.20 Unspecified Escherichia coli [E. coli] as the cause of diseases classified elsewhere; Z20.822 Contact with and (suspected) exposure to COVID-19; Z71.9 Counseling, unspecified; Z79.899 Other long term (current) drug therapy; Z79.01 Long term (current) use of anticoagulants; Z79.82 Long term (current) use of aspirin; Z88.5 Allergy status to narcotic agent; Z88.8 Allergy status to other drugs, medicaments and biological substances; Z87.01 Personal history of pneumonia (recurrent); Z91.81 History of falling; Z85.828 Personal history of other malignant neoplasm of skin; Z87.09 Personal history of other diseases of the respiratory system; Z87.891 Personal history of nicotine dependence; Z90.49 Acquired absence of other specified parts of digestive tract; Z90.710 Acquired absence of both cervix and uterus; Z96.653 Presence of artificial knee joint, bilateral; Z96.612 Presence of left artificial shoulder joint; Z96.611 Presence of right artificial shoulder joint; Z80.8 Family history of malignant neoplasm of other organs or systems
CPT/HCPCS: 96361 ×3; 96374; 99285; 36415; 80053; 83735; 84484; 85025 ×2; 85610; 85730; 81001; 87086; 87045; 87077; 87186; 87046; 87635; G0378 ×5; J0696

== ENCOUNTER 2021-11-20 03:38 | Inpatient (IN) | payer MEDICARE ==
--- NOTE | 2021-11-20 03:49 | ED ---
General Adult HPI - General Chief complaint: GI Bleed Stated complaint: GI Bleed Time Seen by Provider: 11/20/21 03:46 Source: EMS Mode of arrival: EMS - History of Present Illness Initial comments: Dictation was produced using [employer] dictation software. please excuse any gr ammatical, word or spelling errors. Chief Complaint: 81-year-old female presents emergency department for GI bleed History of Present Illness: 81-year-old female she presents to the emergency Department for GI bleed for 3-4 years. Patient is a poor historian. She presents with EMS. She lives at home by herself. Patient states that she felt some leakage tonight. She has a history of hemorrhoids that required surgical intervention. Patient denies lightheadedness. Denies any fever or constitutional symptoms. Denies any abdominal pain. Denies any nausea vomiting. The ROS documented in this emergency department record has been reviewed and confirmed by me. Those systems with pertinent positive or negative responses have been documented in the HPI. All other systems are other negative and/or noncontributory. PHYSICAL EXAM: General Impression: Alert and oriented x3, not in acute distress HEENT: Normocephalic atraumatic, extra-ocular movements intact, pupils equal and reactive to light bilaterally, mucous membranes moist. Cardiovascular: Heart regular rate and rhythm Chest: Able to complete full sentences, no retractions, no tachypnea Abdomen: abdomen soft, non-tender, non-distended, no organomegaly Musculoskeletal: Pulses present and equal in all extremities, no peripheral edema Motor: no focal deficits noted Neurological: CN II-XII grossly intact, no focal motor or sensory deficits noted Skin: Intact with no visualized rashes Psych: Normal affect and mood Rectal exam: There is appear to be some red colored soft stool. No obvious hemorrhaging ED course: 81-year-old female presents emergency department for chief complaint of GI bleed. Chart review was performed. In April of last year she was advised by a master esthetician for GI bleed and fecal impaction. At that time her anticoagulation medication was held. There is appear to have been a colonoscopy and polypectomy and biopsy performed by GI in 2013. Laboratory evaluation obtained. CBC shows hemoglobin of 7.5. There is appear to be macrocytic anemia. Stool occult blood is positive. Coag panel is negative. Metabolic panel shows potassium 2.9. Patient given IV potassium. I feel that patient's anemia is likely multifactorial involving GI bleed and nutritional anemia. Nonetheless she given Protonix. We do have GI coverage in our hospital throughout the week. Patient reevaluated at the bedside at 4:30 AM found with stable medical condition. She is not showing any signs of distress. Patient's vitals are within acceptable limits. At this point no indication for ICU admission. Discussed patient case with Dr. De La Garza who is willing to accept patients care. EKG interpretation: Ventricular rate 64, atrial pacemaker,. Interval to 8, QRS 1:30, QTc 458. No KS prolongation, no QTC prolongation, no ST or T-wave changes noted. EKG compared to a general fourth 2020 showing no changes. Overall, this EKG is unremarkable - Related Data Home Medications Medication Instructions Recorded Confirmed Simvastatin [Zocor] 10 mg PO HS 10/03/13 04/07/21 Irbesartan 300 mg PO DAILY 07/25/15 04/07/21 Potassium Chloride [Klor-Con 20] 20 meq PO DAILY 03/06/19 04/07/21 Ergocalciferol [Vitamin D2 50,000 unit PO SA 05/01/19 04/07/21 (DRISDOL)] Apixaban [Eliquis] 5 mg PO BID 04/04/20 04/07/21 Sotalol [Betapace] 80 mg PO BID 04/04/20 04/07/21 Acetaminophen [Tylenol] 500 mg PO HS 02/27/21 04/07/21 Cranberry Fruit Concentrate [Azo 500 mg PO DAILY PRN 02/27/21 04/07/21 Cranberry] Saliva Stimulant Comb. No.3 1 spray MUCOUS MEM DAILY PRN 02/27/21 04/07/21 [Biotene Moisturizing Mouth] Aspirin EC [Ecotrin Low Dose] 81 mg PO DAILY 03/10/21 04/07/21 Furosemide [Lasix] 20 mg PO DAILY 03/10/21 04/07/21 Melatonin 5 mg PO HS 03/10/21 04/07/21 Previous Rx's Medication Instructions Recorded Dicyclomine [Bentyl] 10 mg PO TID #90 cap 04/11/21 Hydrocortisone Suppository 25 mg RECTAL DAILY #30 supp 04/11/21 [Anusol-Hc] Sulfamethox-Tmp 800-160Mg [Bactrim 1 each PO BID #20 tab 04/11/21 DS 800-160 mg] busPIRone HCl [Buspar] 5 mg PO TID #30 tab 04/11/21 Allergies Allergy/AdvReac Type Severity Reaction Status Date / Time famotidine Allergy Unknown Verified 04/07/21 15:33 morphine Allergy Unknown Verified 04/07/21 15:33 spironolactone Allergy Unknown Verified 04/07/21 15:33 codeine AdvReac Severe Nausea & Verified 04/07/21 15:33 Vomiting omeprazole AdvReac Nausea, Verified 04/07/21 15:33 dizzyness Opioids - Morphine Analogues AdvReac Dyspnea- Verified 04/07/21 15:33 Review of Systems ROS Statement: Those systems with pertinent positive or pertinent negative responses have been documented in the HPI. ROS Other: All systems not noted in ROS Statement are negative. Past Medical History Past Medical History: Atrial Fibrillation, Asthma, Cancer, Heart Failure, Eye Disorder, GERD/Reflux, Hearing Disorder / Deafness, Hyperlipidemia, Hypertension, Memory Impairment, Myocardial Infarction ([place]), Mitral Valve Prolapse (MVP), Osteoarthritis (OA), Pneumonia, Respiratory Disorder, Rheumatoid Arthritis (RA), Skin Disorder, Sleep Apnea/CPAP/BIPAP, Thyroid Disorder Additional Past Medical History / Comment(s): CHRONIC BACK PAIN, SPINAL STENOSIS, SCOLIOSIS, IBS, VARICOSE VEINS, STRESS INDUCED ASTHMA. 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 GLAUCOMA -"STRESS INDUCED",8 NODULES ON THYROID, psoriasis, eczema Last Myocardial Infarction Date:: Pt unknown History of Any Multi-Drug Resistant Organisms: None Reported Past Surgical History: Cardiac Ablation, Cholecystectomy, Heart Catheterization, Hysterectomy, Joint Replacement, Orthopedic Surgery Additional Past Surgical History / Comment(s): THYROID BX, LINDSAY. TOTAL KNEES, LINDSAY TOTAL SHOULDERS,Cardiac ablation x2,skin CA removed with skin graft to neck Past Anesthesia/Blood Transfusion Reactions: No Reported Reaction Additional Past Anesthesia/Blood Transfusion Reaction / Comment(s): BRADYCARDIA. Past Psychological History: Anxiety, Depression, Panic Disorder Smoking Status: Former smoker Past Alcohol Use History: None Reported Past Drug Use History: None Reported - Past Family History Father Family Medical History: Cancer Additional Family Medical History / Comment(s): ORAL CANCER Course Vital Signs 11/20/21 03:39 Temperature 98.2 F Pulse Rate 67 Respiratory 18 Rate Blood Pressure 144/84 O2 Sat by Pulse 98 Oximetry Medical Decision Making - Lab Data Result diagrams: 11/20/21 03:46 11/20/21 03:46 Lab Results 11/20/21 11/20/21 11/20/21 Range/Units 03:46 03:46 03:46 WBC 5.9 (3.8-10.6) k/uL RBC 3.22 L (3.80-5.40) m/uL Hgb 7.5 L (11.4-16.0) gm/dL Hct 24.8 L (34.0-46.0) % MCV 77.0 L (80.0-100.0) fL MCH 23.2 L (25.0-35.0) pg MCHC 30.1 L (31.0-37.0) g/dL RDW 15.0 (11.5-15.5) % Plt Count 350 (150-450) k/uL MPV 8.4 Neutrophils % 63 % Lymphocytes % 20 % Monocytes % 9 % Eosinophils % 4 % Basophils % 1 % Neutrophils # 3.7 (1.3-7.7) k/uL Lymphocytes # 1.2 (1.0-4.8) k/uL Monocytes # 0.5 (0-1.0) k/uL Eosinophils # 0.2 (0-0.7) k/uL Basophils # 0.0 (0-0.2) k/uL Hypochromasia Marked Poikilocytosis Slight Microcytosis Slight PT 11.3 (9.0-12.0) sec INR 1.0 (<1.2) APTT 24.9 (22.0-30.0) sec Sodium (137-145) mmol/L Potassium (3.5-5.1) mmol/L Chloride (98-107) mmol/L Carbon Dioxide (22-30) mmol/L Anion Gap mmol/L BUN (7-17) mg/dL Creatinine (0.52-1.04) mg/dL Est GFR (CKD-EPI)AfAm (>60 ml/min/1.73 sqM) Est GFR (CKD-EPI)NonAf (>60 ml/min/1.73 sqM) Glucose (74-99) mg/dL Calcium (8.4-10.2) mg/dL Stool Occult Blood Positive H (Negative) Blood Type Recheck Bld Type Recheck Status Spec Expiration Date 11/20/21 11/20/21 Range/Units 03:46 03:46 WBC (3.8-10.6) k/uL RBC (3.80-5.40) m/uL Hgb (11.4-16.0) gm/dL Hct (34.0-46.0) % MCV (80.0-100.0) fL MCH (25.0-35.0) pg MCHC (31.0-37.0) g/dL RDW (11.5-15.5) % Plt Count (150-450) k/uL MPV Neutrophils % % Lymphocytes % % Monocytes % % Eosinophils % % Basophils % % Neutrophils # (1.3-7.7) k/uL Lymphocytes # (1.0-4.8) k/uL Monocytes # (0-1.0) k/uL Eosinophils # (0-0.7) k/uL Basophils # (0-0.2) k/uL Hypochromasia Poikilocytosis Microcytosis PT (9.0-12.0) sec INR (<1.2) APTT (22.0-30.0) sec Sodium 139 (137-145) mmol/L Potassium 2.9 L (3.5-5.1) mmol/L Chloride 102 (98-107) mmol/L Carbon Dioxide 29 (22-30) mmol/L Anion Gap 8 mmol/L BUN 15 (7-17) mg/dL Creatinine 0.70 (0.52-1.04) mg/dL Est GFR (CKD-EPI)AfAm >90 (>60 ml/min/1.73 sqM) Est GFR (CKD-EPI)NonAf 82 (>60 ml/min/1.73 sqM) Glucose 106 H (74-99) mg/dL Calcium 9.5 (8.4-10.2) mg/dL Stool Occult Blood (Negative) Blood Type Recheck No Previous Record Bld Type Recheck Status CABO Indicated Spec Expiration Date 11/23/2021 - 2345 Critical Care Time Critical Care Time: Yes Total Critical Care Time: 33 Disposition Clinical Impression: GI bleed, Anemia Disposition: ADMITTED IP TO THIS [facility] Condition: Serious Referrals: Sergei De La Garza MD [Primary Care Provider] - 1-2 days Decision Time: 04:33
[2021-11-20 03:58] LABS: Basophils % (A) 1 %; Eosinophils # (A) 0.2 k/uL (0-0.7); Eosinophils % (A) 4 %; HCT 24.8 % (34.0-46.0); HGB 7.5 gm/dL (11.4-16.0); Hypochromasia Marked; Lymphocytes # (A) 1.2 k/uL (1.0-4.8); Lymphocytes % (A) 20 %; MCH 23.2 pg (25.0-35.0); MCHC 30.1 g/dL (31.0-37.0); Mean Platelet Volume 8.4; Microcytosis Slight; Monocytes # (A) 0.5 k/uL (0-1.0); Monocytes % (A) 9 %; Neutrophils # (A) 3.7 k/uL (1.3-7.7); Neutrophils % (A) 63 %; Platelet Count 350 k/uL (150-450); Poikilocytosis Slight; RBC 3.22 m/uL (3.80-5.40); WBC 5.9 k/uL (3.8-10.6)
[2021-11-20 04:14] LABS: Partial Thromboplastin Time 24.9 sec (22.0-30.0); Prothrombin Time 11.3 sec (9.0-12.0)
[2021-11-20] MEDS ORDERED: PANTOPRAZOLE 40 MG/10 ML VIAL IVP ONE (04:21)
[2021-11-20 04:26] LABS: African American GFR (CKD) >90 (>60 ml/min/1.73 sqM); Anion Gap 8 mmol/L; Blood Urea Nitrogen 15 mg/dL (7-17); Calcium 9.5 mg/dL (8.4-10.2); Carbon Dioxide 29 mmol/L (22-30); Chloride 102 mmol/L (98-107); Glucose 106 mg/dL (74-99); Non-African American GFR(CKD) 82 (>60 ml/min/1.73 sqM); Potassium 2.9 mmol/L (3.5-5.1); Sodium 139 mmol/L (137-145)
[2021-11-20] MEDS ORDERED: NALOXONE 0.4 MG/ML 1 ML VIAL IV PRN (04:27)
[2021-11-20] MEDS ORDERED: ONDANSETRON 4 MG/2 ML VIAL IVP PRN (04:27)
[2021-11-20] MEDS ORDERED: POTASSIUM CHLORIDE 20 MEQ in WATER FOR INJECTION 1 100ML.BAG IVPB ONE (04:30)
[2021-11-20] MEDS: SODIUM CHLORIDE 0.9% 1,000 ML IV SCH ×2 (05:04→18:08)
[2021-11-20] MEDS ORDERED: ALPRAZolam 0.5 MG TAB PO STA (06:48)
[2021-11-20] MEDS ORDERED: POTASSIUM CHLORIDE ER 20 MEQ TAB.ER PO STA (08:32)
[2021-11-20] MEDS: PANTOPRAZOLE 40 MG/10 ML VIAL IV SCH (08:40)
--- NOTE | 2021-11-20 11:13 | P.CONS ---
History of Present Illness - Reason for Consult Consult date: 11/20/21 GI bleed Requesting physician: Sergei De La Garza - Chief Complaint Diarrhea, urinary incontinence, GI bleed - History of Present Illness This is an 81-year-old female with multiple comorbidities including coronary artery disease, atrial fibrillation on Eliquis last taken yesterday evening, heart failure, GERD, hyperlipidemia, hypertension, memory impairment, rheumatoid arthritis, sleep apnea, thyroid disorder, and IBS who presented to the emergency department with complaints of chronic diarrhea, states it's been happening over the last few weeks which has been continuous and multiple times a day, with dark to bright red blood mixed in her stool. She also states she has urinary incontinence and complaining of urinating on herself off all day. She does have a history of a hemorrhoidectomy in July [address] Kirk. Her last colonoscopy was June 2017 with findings of diverticulosis, internal and external hemorrhoids. Patient also states during her colonoscopy she had issues with anesthesia. She is also complaining of abdominal pain, mostly in her lower abdominal region, left flank. She is denying any nausea or vomiting. She does state that she has a colonoscopy scheduled with Dr. Joseph on December 01. She was noted to have microcytic anemia on this admission, concerns for GI bleed so gastroenterology was consulted. Note we have GI this week Labs: WBC 5.9 hemoglobin 7.5 hematocrit 24 platelet count 350,000 INR 1.0 sodium 139 potassium 2.9 BUN 15 creatinine 0.7 total bilirubin 1.2 AST 23 ALT 10, alk phos 52, stool occult blood positive Review of Systems REVIEW OF SYSTEMS: CARDIOPULMONARY: No chest pain or shortness of breath. Gastrointestinal: Abdominal pain, left lower quadrant. No nausea or vomiting. No hematemesis, coffee-ground emesis. Reports of dark and bright red blood mixed with stool. Chronic diarrhea. GENITOURINARY: No dysuria or hematuria. Urinary incontinence. MUSCULOSKELETAL: Reports normal range of motion., Joint pain. SKIN: No rashes. No jaundice. ENDOCRINE: No chills, fevers. No excessive weight gain or loss. No polydipsia or polyuria. PSYCHIATRIC: Unremarkable. NEUROLOGY: No change in mental status. Denies dizziness, headache. ENT: Vision unremarkable. CONSTITUTIONAL: No recent weight loss. No fever, chills, night sweats. Past Medical History Past Medical History: Atrial Fibrillation, Asthma, Cancer, Heart Failure, Eye Disorder, GERD/Reflux, Hearing Disorder / Deafness, Hyperlipidemia, Hypertension, Memory Impairment, Myocardial Infarction ([place]), Mitral Valve Prolapse (MVP), Osteoarthritis (OA), Pneumonia, Respiratory Disorder, Rheumatoid Arthritis (RA), Skin Disorder, Sleep Apnea/CPAP/BIPAP, Thyroid Disorder Additional Past Medical History / Comment(s): CHRONIC BACK PAIN, SPINAL STEN OSIS, SCOLIOSIS, IBS, VARICOSE VEINS, STRESS INDUCED ASTHMA. 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 GLAUCOMA -"STRESS INDUCED",8 NODULES ON THYROID, psoriasis, eczema Last Myocardial Infarction Date:: Pt unknown History of Any Multi-Drug Resistant Organisms: None Reported Past Surgical History: Cardiac Ablation, Cholecystectomy, Heart Catheterization, Hysterectomy, Joint Replacement, Orthopedic Surgery Additional Past Surgical History / Comment(s): THYROID BX, LINDSAY. TOTAL KNEES, LINDSAY TOTAL SHOULDERS,Cardiac ablation x2,skin CA removed with skin graft to neck Past Anesthesia/Blood Transfusion Reactions: No Reported Reaction Additional Past Anesthesia/Blood Transfusion Reaction / Comm: BRADYCARDIA. Past Psychological History: Anxiety, Depression, Panic Disorder Smoking Status: Former smoker Past Alcohol Use History: None Reported Past Drug Use History: None Reported - Past Family History Father Family Medical History: Cancer Additional Family Medical History / Comment(s): ORAL CANCER Mother Additional Family Medical History / Comment(s): Alcoholism. Medications and Allergies Home Medications Medication Instructions Recorded Confirmed Type Simvastatin [Zocor] 10 mg PO HS 10/03/13 11/20/21 History Irbesartan 300 mg PO DAILY 07/25/15 11/20/21 History Potassium Chloride [Klor-Con 20] 20 meq PO DAILY 03/06/19 11/20/21 History Apixaban [Eliquis] 5 mg PO BID 04/04/20 11/20/21 History Sotalol [Betapace] 80 mg PO BID 04/04/20 11/20/21 History Cranberry Fruit Concentrate [Azo 500 mg PO DAILY PRN 02/27/21 11/20/21 History Cranberry] Aspirin EC [Ecotrin Low Dose] 81 mg PO DAILY 03/10/21 11/20/21 History ALPRAZolam [Xanax] 0.25 mg PO BID PRN 11/20/21 11/20/21 History Vitamin D3 1,250 Mcg 1,250 mcg PO QMONTHLY 11/20/21 11/20/21 History amLODIPine [Norvasc] 2.5 mg PO DAILY 11/20/21 11/20/21 History carvediloL [Coreg] 12.5 mg PO BID 11/20/21 11/20/21 History Allergies Allergy/AdvReac Type Severity Reaction Status Date / Time famotidine Allergy Unknown Verified 11/20/21 09:25 morphine Allergy Unknown Verified 11/20/21 09:25 spironolactone Allergy Unknown Verified 11/20/21 09:25 codeine AdvReac Severe Nausea & Verified 11/20/21 09:25 Vomiting omeprazole AdvReac Nausea, Verified 11/20/21 09:25 dizzyness Opioids - Morphine Analogues AdvReac Dyspnea- Verified 11/20/21 09:25 Physical Exam Vitals: Vital Signs Temp Pulse Pulse Resp BP BP Pulse Ox 11/20/21 08:14 60 150/103 95 11/20/21 03:39 98.2 F 67 18 144/84 98 Intake and Output 11/19/21 11/20/21 11/20/21 22:59 06:59 14:59 Other: Weight 58.967 kg General appearance: The patient is alert, oriented, appears in no acute distress. HET: Head is normocephalic and atraumatic. Conjunctiva pink. Sclera anicteric. Neck: Supple without lymphadenopathy. Trachea midline. Heart: S1 S2. Regular rate and rhythm. Lungs: Clear to auscultation. Abdomen: Soft, diffuse tenderness to palpation, nondistended with bowel sounds. No guarding or rigidity. Skin: No rashes. No jaundice. Extremities: Normal skin color and turgor. No pedal edema. Neurological: No focal deficits. Alert and oriented x3. Results CBC & Chem 7: 11/20/21 11:31 11/20/21 03:46 Labs: Abnormal Lab Results - Last 24 Hours (Table) 11/20/21 11/20/21 11/20/21 Range/Units 03:46 03:46 03:46 RBC 3.22 L (3.80-5.40) m/uL Hgb 7.5 L (11.4-16.0) gm/dL Hct 24.8 L (34.0-46.0) % MCV 77.0 L (80.0-100.0) fL MCH 23.2 L (25.0-35.0) pg MCHC 30.1 L (31.0-37.0) g/dL Potassium 2.9 L (3.5-5.1) mmol/L Glucose 106 H (74-99) mg/dL Stool Occult Blood Positive H (Negative) Assessment and Plan (1) Microcytic hypochromic anemia Narrative/Plan: 81-year-old female with multiple comorbidities on Eliquis for atrial fibrillation came into the emergency department with complaints of diarrhea mixed with blood. Patient has long-standing history of chronic diarrhea, IBS and has been seen in the past with Dr. Rayo. She also had a history of hemor rhoidectomy [place] [address] Raines, who also did her last colonoscopy which was significant for diverticulosis, internal and external hemorrhoids which was done in June 2017. Patient states she is scheduled for colonoscopy with Dr. Brar on 12/01/2021. She states she has blood mixed in her stool sometimes history of concurrent bright red. No associated nausea or vomiting. Was noted to have microcytic anemia on admission. Need to consider possible GI source of blood loss. Will run iron studies as well as recommend endoscopy for further evaluation. Current Visit: Yes Status: Acute Code(s): D50.9 - IRON DEFICIENCY ANEMIA, UNSPECIFIED SNOMED Code(s): 25034911 (2) Occult blood positive stool Current Visit: Yes Status: Acute Code(s): R19.5 - OTHER FECAL ABNORMALITIES SNOMED Code(s): 49583439 (3) Chronic diarrhea Current Visit: No Status: Acute Code(s): K52.9 - NONINFECTIVE GASTROENTERITIS AND COLITIS, UNSPECIFIED SNOMED Code(s): 225885328 (4) IBS (irritable bowel syndrome) Current Visit: No Status: Acute Code(s): K58.9 - IRRITABLE BOWEL SYNDROME WITHOUT DIARRHEA SNOMED Code(s): 07872831 (5) Hypokalemia Narrative/Plan: Replace electrolytes Current Visit: No Status: Acute Code(s): E87.6 - HYPOKALEMIA SNOMED Code(s): 17729125 Plan: 1. Continue symptomatic supportive care 2. Hold Eliquis 3. Collect iron studies 4. Stool studies, stool for C. diff 5. Daily CBC, transfuse for hemoglobin less than 7 6. Replace potassium 7. Clear liquid diet, NPO after midnight 8. stool culture and cdiff ordered 9. EGD and colonoscopy scheduled for tomorrow. Discussed with patient risks and benefits, patient willingly understands. 10. Start bowel prep this afternoon Thank you for this consultation, we will continue to follow. Dr. Torrie Rayo I agree with the dictator's note, documented as a scribe by [employer].
--- NOTE | 2021-11-20 11:31 | XR ---
EXAMINATION TYPE: XR KUB DATE OF EXAM: 11/20/2021 11:21 AM INDICATION: Patient age:Female; 81 years old; Reason for study: abdominal pain, diarrhea; PHH. COMPARISON: None. TECHNIQUE: One radiographic view of the abdomen was obtained. FINDINGS: There is a large stool burden within the rectum. The bowel gas pattern is nonspecific witho ut dilated loops of small or large bowel. Fecal material and gas are demonstrated throughout the colo n and rectum. Severe degeneration changes of the spine with levoscoliosis. There is atherosclerosis of the arterial vasculature. There is moderate degeneration changes of the hips. Surgical clips are s een in the right upper quadrant. IMPRESSION: 1. Large stool burden within the rectum with a nonspecific bowel gas pattern without radiographic ev idence for acute process. 2. Moderate to severe multilevel disc degeneration with levoscoliosis. 3. Atherosclerosis of the arterial vasculature.
[2021-11-20 11:57] LABS: HCT 27.6 % (34.0-46.0); Hypochromasia Marked; MCH 22.7 pg (25.0-35.0); MCHC 29.1 g/dL (31.0-37.0); MCV 78.2 fL (80.0-100.0); Platelet Count 315 k/uL (150-450); RBC 3.53 m/uL (3.80-5.40); RDW 14.9 % (11.5-15.5); WBC 6.1 k/uL (3.8-10.6)
[2021-11-20] MEDS: ALPRAZolam 0.25 MG TAB PO PRN (12:21)
[2021-11-20] MEDS ORDERED: PEG 3350 (236 GM/BTL) + LYTES 4,000 ML BOTTLE PO ONE ×3 (13:22→19:00)
[2021-11-20] MEDS ORDERED: ALPRAZolam 0.25 MG TAB PO PRN (16:14)
[2021-11-20 19:27] LABS: HCT 30.4 % (34.0-46.0); HGB 8.8 gm/dL (11.4-16.0); Hypochromasia Marked; MCH 22.3 pg (25.0-35.0); Mean Platelet Volume 7.4; Microcytosis Slight; Platelet Count 392 k/uL (150-450); Poikilocytosis Slight; RBC 3.94 m/uL (3.80-5.40); WBC 8.4 k/uL (3.8-10.6)
[2021-11-20] MEDS: SOTALOL 80 MG TAB PO SCH (20:36)
[2021-11-20] MEDS: carvediloL 12.5 MG TAB PO SCH (20:36)
[2021-11-20] MEDS: ACETAMINOPHEN TAB 325 MG TAB PO PRN (22:27)
[2021-11-21 01:31] LABS: HCT 26.4 % (34.0-46.0); HGB 7.8 gm/dL (11.4-16.0); Hypochromasia Marked; MCH 22.7 pg (25.0-35.0); MCHC 29.5 g/dL (31.0-37.0); MCV 76.9 fL (80.0-100.0); Mean Platelet Volume 7.8; Microcytosis Slight; Platelet Count 355 k/uL (150-450); Poikilocytosis Slight; RBC 3.43 m/uL (3.80-5.40); WBC 9.6 k/uL (3.8-10.6)
[2021-11-21 02:28] LABS: % Iron Saturation 3.48 (12.00-45.00); Ferritin 13.4 ng/mL (10.0-291.0)
--- NOTE | 2021-11-21 04:42 | HP ---
HISTORY AND PHYSICAL CHIEF COMPLAINT: Diarrhea and melena, as well as hematochezia for the last week. HISTORY OF PRESENT ILLNESS: This is another admission for this 81-year-old white female. She presented to the emergency room with a history of frequent loose stools and hematochezia. Stools are sometimes maroon. She has had an upper GI bleed in the past. She denied any abdominal pain. REVIEW OF SYSTEMS: She has had no chest pain or shortness of breath. No abdominal pain, hematemesis, etc. Past medical history, family history, personal and social histories reveal that she has had numerous problems including coronary artery disease, congestive heart failure, pacemaker, ulcerative colitis with bleeding, diverticulosis, GERD, and vitamin D deficiency. Her medications have included ibuprofen, ropinirole, Xanax, amlodipine, Ultram, carvedilol, Imodium, Lasix, Eliquis, pantoprazole, irbesartan, simvastatin, and sotalol. Remainder of her history is unremarkable and noncontributory. PHYSICAL EXAMINATION: VITAL SIGNS: Blood pressure is 136/74 with a pulse of 78, respirations of 32 and she is afebrile. GENERAL: She appeared to be slightly pale and is in acute distress. SKIN: Warm and dry. HEAD, EARS, EYES, NOSE, MOUTH AND THROAT: Normal. NECK: Supple. CHEST: Clear. CARDIAC: Demonstrates sinus rhythm without tachycardia. ABDOMEN: Soft, nontender without visceromegaly or masses. Bowel sounds present. EXTREMITIES: Normal. NEUROLOGICAL: She is intact. She is admitted to the hospital with diagnoses: 1. Probable upper gastrointestinal bleed. 2. History of hypertension. 3. History of coronary artery disease. 4. History of ulcerative colitis. 5. History of previous upper gastrointestinal bleed. 6. History of diverticulosis. PLAN: 1. Bedrest. 2. IV fluids. 3. Consult with Gastroenterology. MMODL / IJN: [id number] /
[2021-11-21] MEDS: SODIUM CHLORIDE 0.9% 1,000 ML IV SCH ×2 (05:44→19:03)
[2021-11-21] MEDS: SOTALOL 80 MG TAB PO SCH ×2 (08:49→21:10)
[2021-11-21] MEDS: PANTOPRAZOLE 40 MG/10 ML VIAL IV SCH (08:49)
[2021-11-21] MEDS: carvediloL 12.5 MG TAB PO SCH ×2 (08:50→21:10)
[2021-11-21] MEDS: LOSARTAN 50 MG TAB PO SCH (08:51)
[2021-11-21] MEDS: amLODIPine 2.5 MG TAB PO SCH (08:51)
[2021-11-21] MEDS: POTASSIUM CHLORIDE ER 20 MEQ TAB.ER PO SCH ×4 (08:51→12:08)
[2021-11-21 08:55] LABS: Basophils % (A) 0 %; Eosinophils # (A) 0.1 k/uL (0-0.7); Eosinophils % (A) 2 %; HCT 23.6 % (34.0-46.0); Hypochromasia Marked; Lymphocytes # (A) 0.8 k/uL (1.0-4.8); Lymphocytes % (A) 15 %; MCH 22.1 pg (25.0-35.0); MCHC 28.7 g/dL (31.0-37.0); MCV 76.9 fL (80.0-100.0); Mean Platelet Volume 7.5; Microcytosis Slight; Monocytes # (A) 0.4 k/uL (0-1.0); Monocytes % (A) 7 %; Neutrophils % (A) 74 %; Platelet Count 297 k/uL (150-450); Poikilocytosis Slight; RBC 3.07 m/uL (3.80-5.40); RDW 15.2 % (11.5-15.5); WBC 5.5 k/uL (3.8-10.6)
[2021-11-21 09:12] LABS: HGB 6.8 gm/dL (11.4-16.0)
[2021-11-21 09:15] LABS: African American GFR (CKD) >90 (>60 ml/min/1.73 sqM); Anion Gap 8 mmol/L; Blood Urea Nitrogen 7 mg/dL (7-17); Calcium 8.3 mg/dL (8.4-10.2); Carbon Dioxide 29 mmol/L (22-30); Chloride 102 mmol/L (98-107); Glucose 85 mg/dL (74-99); Non-African American GFR(CKD) >90 (>60 ml/min/1.73 sqM); Sodium 139 mmol/L (137-145)
[2021-11-21 09:24] LABS: Potassium 2.5 mmol/L (3.5-5.1)
[2021-11-21] MEDS ORDERED: Potassium Replacement Protocol 1 EACH MISC MISCELLANE PRN (10:12)
--- NOTE | 2021-11-21 11:59 | P.PN ---
Subjective Progress Note Date: 11/21/21 Principal diagnosis: GI bleed This is an 81-year-old female with multiple comorbidities including coronary artery disease, atrial fibrillation on Eliquis last taken yesterday evening, heart failure, GERD, hyperlipidemia, hypertension, memory impairment, rheumatoid arthritis, sleep apnea, thyroid disorder, and IBS who presented to the emergency department with complaints of chronic diarrhea, states it's been happening over the last few weeks which has been continuous and multiple times a day, with dark to bright red blood mixed in her stool. She also states she has urinary incontinence and complaining of urinating on herself off all day. She does have a history of a hemorrhoidectomy in July [address] Kirk. Her last colonoscopy was June 2017 with findings of diverticulosis, internal and external hemorrhoids. Patient also states during her colonoscopy she had issues with anesthesia. She is also complaining of abdominal pain, mostly in her lower abdominal region, left flank. She is denying any nausea or vomiting. She does state that she has a colonoscopy scheduled with Dr. Joseph on December 01. She was noted to have microcytic anemia on this admission, concerns for GI bleed so gastroenterology was consulted. Note we have GI this week 11/21/2021: Patient seen and examined as a follow-up. She was scheduled for EGD and colonoscopy today for repeat labs came back with a potassium of 2.5 and anesthesia canceled procedure. Patient underwent bowel prep yesterday evening for colonoscopy and nursing stated they were told she was clear. Patient also had a drop in her hemoglobin to 6.8. She denies any abdominal pain, nausea or vomiting. Objective - Vital Signs Vital signs: Vital Signs Temp 97.8 F 11/21/21 08:00 Pulse 64 11/21/21 08:00 Resp 16 11/21/21 08:00 BP 152/80 11/21/21 08:00 Pulse Ox 95 11/21/21 08:00 FiO2 Intake & Output 11/20/21 11/21/21 11/21/21 18:59 06:59 18:59 Intake Total 400 Output Total 700 Balance -300 Weight 58.967 kg Intake: IV 400 Invasive Line 1 400 Output: Urine 700 Other: Voiding Method External Catheter External Catheter Bedside Commode # Voids 1 1 2 # Bowel Movements 1 4 - Exam General appearance: The patient is alert, oriented, appears in no acute distress. HET: Head is normocephalic and atraumatic. Conjunctiva pink. Sclera anicteric. Neck: Supple without lymphadenopathy. Abdomen: Soft, nontender, nondistended with bowel sounds. No guarding or rigidity. Extremities: Normal skin color and turgor. No pedal edema Skin: No rashes, no jaundice Neurological: No focal deficits. Alert and oriented -3. - Labs CBC & Chem 7: 11/21/21 08:13 11/21/21 08:13 Labs: Abnormal Lab Results - Last 24 Hours (Table) 11/20/21 11/20/21 11/20/21 Range/Units 03:46 11:31 11:31 RBC 3.53 L (3.80-5.40) m/uL Hgb 8.0 L (11.4-16.0) gm/dL Hct 27.6 L (34.0-46.0) % MCV 78.2 L (80.0-100.0) fL MCH 22.7 L (25.0-35.0) pg MCHC 29.1 L (31.0-37.0) g/dL Lymphocytes # (1.0-4.8) k/uL Potassium (3.5-5.1) mmol/L Creatinine (0.52-1.04) mg/dL Calcium (8.4-10.2) mg/dL Iron 16 L (50-170) ug/dL % Saturation 3.48 L (12.00-45.00) Crossmatch See Detail 11/20/21 11/21/21 11/21/21 Range/Units 18:38 00:31 08:13 RBC 3.43 L 3.07 L (3.80-5.40) m/uL Hgb 8.8 L 7.8 L 6.8 L* (11.4-16.0) gm/dL Hct 30.4 L 26.4 L 23.6 L (34.0-46.0) % MCV 77.0 L 76.9 L 76.9 L (80.0-100.0) fL MCH 22.3 L 22.7 L 22.1 L (25.0-35.0) pg MCHC 29.0 L 29.5 L 28.7 L (31.0-37.0) g/dL Lymphocytes # 0.8 L (1.0-4.8) k/uL Potassium (3.5-5.1) mmol/L Creatinine (0.52-1.04) mg/dL Calcium (8.4-10.2) mg/dL Iron (50-170) ug/dL % Saturation (12.00-45.00) Crossmatch 11/21/21 Range/Units 08:13 RBC (3.80-5.40) m/uL Hgb (11.4-16.0) gm/dL Hct (34.0-46.0) % MCV (80.0-100.0) fL MCH (25.0-35.0) pg MCHC (31.0-37.0) g/dL Lymphocytes # (1.0-4.8) k/uL Potassium 2.5 L* (3.5-5.1) mmol/L Creatinine 0.47 L (0.52-1.04) mg/dL Calcium 8.3 L (8.4-10.2) mg/dL Iron (50-170) ug/dL % Saturation (12.00-45.00) Crossmatch Microbiology - Last 24 Hours (Table) 11/20/21 18:04 Stool Culture - Preliminary Stool Assessment and Plan (1) Microcytic hypochromic anemia Narrative/Plan: 81-year-old female with multiple comorbidities on Eliquis for atrial fib rillation came into the emergency department with complaints of diarrhea mixed with blood. Patient has long-standing history of chronic diarrhea, IBS and has been seen in the past with Dr. Rayo. She also had a history of hemorrhoidectomy in [address] Raines, who also did her last colonoscopy which was significant for diverticulosis, internal and external hemorrhoids which was done in June 2017. Patient states she is scheduled for colonoscopy with Dr. Brar on 12/01/2021. She states she has blood mixed in her stool sometimes history of concurrent bright red. No associated nausea or vomiting. Was noted to have microcytic anemia on admission. Need to consider possible GI source of blood loss. Will run iron studies as well as recommend endoscopy for further evaluation. Current Visit: Yes Status: Acute Code(s): D50.9 - IRON DEFICIENCY ANEMIA, UNSPECIFIED SNOMED Code(s): 84355952 (2) Occult blood positive stool Current Visit: Yes Status: Acute Code(s): R19.5 - OTHER FECAL ABNORMALITIES SNOMED Code(s): 37962982 (3) Chronic diarrhea Current Visit: No Status: Acute Code(s): K52.9 - NONINFECTIVE GASTROENTERITIS AND COLITIS, UNSPECIFIED SNOMED Code(s): 812085014 (4) IBS (irritable bowel syndrome) Current Visit: No Status: Acute Code(s): K58.9 - IRRITABLE BOWEL SYNDROME WITHOUT DIARRHEA SNOMED Code(s): 25202067 (5) Hypokalemia Narrative/Plan: Replace potassium. Anesthesia canceled EGD/colonoscopy today due to hypokalemia. Current Visit: No Status: Acute Code(s): E87.6 - HYPOKALEMIA SNOMED Code(s): 37484806 Plan: 1. Continue symptomatic supportive care 2. Hold Eliquis 3. Give 1 unit PRBC transfusion 4. Daily CBC, transfuse for hemoglobin less than 7 5. Stool studies, stool for C. diff 6. Replace potassium 7. Clear liquid diet, NPO after midnight 8. EGD and colonoscopy scheduled canceled today by anesthesia for hypokalemia. Tentative plan to do EGD colonoscopy tomorrow following potassium replacement. Thank you for this consultation, we will continue to follow. Dr. Torrie Rayo I agree with the dictator's note, documented as a scribe by Yuni Brownlee
[2021-11-21 13:28] VITALS: BMI 20.9
[2021-11-21] MEDS: FERROUS SULFATE 325 MG TAB PO SCH (17:03)
[2021-11-21] MEDS: ALPRAZolam 0.25 MG TAB PO PRN (17:04)
[2021-11-21] MEDS ORDERED: LACTULOSE 20 GM/30 ML CUP PO ONE (19:00)
[2021-11-21 19:02] LABS: Potassium 4.1 mmol/L (3.5-5.1)
[2021-11-21] MEDS ORDERED: LACTULOSE 20 GM/30 ML CUP PO PRN (19:26)
[2021-11-21 20:00] LABS: HCT 26.6 % (34.0-46.0); Hypochromasia Marked; MCH 23.5 pg (25.0-35.0); MCHC 31.5 g/dL (31.0-37.0); MCV 74.6 fL (80.0-100.0); Mean Platelet Volume 9.4; Microcytosis Slight; Platelet Count 306 k/uL (150-450); Poikilocytosis Moderate; RBC 3.56 m/uL (3.80-5.40); RDW 15.3 % (11.5-15.5); WBC 6.9 k/uL (3.8-10.6)
[2021-11-21] MEDS ORDERED: MAGNESIUM CITRATE 296 ML BOTTLE PO ONE (20:00)
[2021-11-21 20:02] LABS: HGB 8.4 gm/dL (11.4-16.0)
[2021-11-21 20:07] LABS: Eosinophils # (M) 0.07 k/uL (0-0.7); Lymphocytes # (M) 1.93 k/uL (1.0-4.8); Monocytes # (M) 0.48 k/uL (0-1.0); Neutrophils # (M) 4.42 k/uL (1.3-7.7); Neutrophils % (M) 64 %; Nucleated Red Blood Cells 0 /100 WBC (0-0); Total Cells Counted 100
[2021-11-21] MEDS: DEXTROSE 5% IN WATER 1,000 ML IV SCH (20:52)
[2021-11-22] MEDS: DEXTROSE 5% IN WATER 1,000 ML IV SCH ×3 (05:06→22:28)
[2021-11-22] MEDS: FERROUS SULFATE 325 MG TAB PO SCH ×2 (05:40→16:53)
[2021-11-22] MEDS: ACETAMINOPHEN TAB 325 MG TAB PO PRN ×2 (06:31→22:25)
--- NOTE | 2021-11-22 06:32 | PN ---
PROGRESS NOTE CHIEF COMPLAINT: GI bleed. HISTORY OF PRESENT ILLNESS: This lady was to go for endoscopy, but her potassium was quite low at 2.9 and later in the day her sodium was identified as being elevated at 159. There does not appear to be any active bleeding, although her hemoglobin has dropped down toward 7 and she has been transfused. PHYSICAL EXAMINATION: She is awake and alert. She is pale. Chest is clear and cardiac exam demonstrates what sounds like atrial fibrillation with a grade 2/6 murmur. IMPRESSION: 1. Gastrointestinal bleed. 2. Hypokalemia. 3. Atrial fibrillation. 4. Hypernatremia. PLAN: 1. Replace potassium. 2. Change IV solution to D5 water. 3. Continue to monitor her electrolytes and hemoglobin. MMODL / IJN: [id number] /
[2021-11-22 08:17] LABS: HCT 27.1 % (34.0-46.0); HGB 8.4 gm/dL (11.4-16.0); Hypochromasia Marked; MCH 23.4 pg (25.0-35.0); MCV 75.6 fL (80.0-100.0); Mean Platelet Volume 7.4; Microcytosis Slight; Platelet Count 292 k/uL (150-450); Poikilocytosis Moderate; RBC 3.59 m/uL (3.80-5.40); RDW 15.3 % (11.5-15.5); WBC 7.3 k/uL (3.8-10.6)
[2021-11-22 08:43] LABS: African American GFR (CKD) >90 (>60 ml/min/1.73 sqM); Anion Gap 6 mmol/L; Blood Urea Nitrogen 3 mg/dL (7-17); Calcium 8.4 mg/dL (8.4-10.2); Carbon Dioxide 31 mmol/L (22-30); Chloride 100 mmol/L (98-107); Glucose 117 mg/dL (74-99); Non-African American GFR(CKD) 86 (>60 ml/min/1.73 sqM); Sodium 137 mmol/L (137-145)
[2021-11-22] MEDS: PANTOPRAZOLE 40 MG/10 ML VIAL IV SCH (08:50)
[2021-11-22] MEDS: SOTALOL 80 MG TAB PO SCH ×2 (08:50→22:25)
[2021-11-22] MEDS: amLODIPine 2.5 MG TAB PO SCH (08:51)
[2021-11-22] MEDS: POTASSIUM BICARBONATE/CIT AC 20 MEQ TABLET.EFF PO SCH (08:51)
[2021-11-22] MEDS: carvediloL 12.5 MG TAB PO SCH ×2 (08:51→22:25)
[2021-11-22] MEDS: LOSARTAN 50 MG TAB PO SCH (08:51)
[2021-11-22] MEDS: POTASSIUM CHLORIDE ER 20 MEQ TAB.ER PO SCH (08:51)
[2021-11-22 09:02] LABS: Potassium 2.7 mmol/L (3.5-5.1)
[2021-11-22] MEDS ORDERED: Potassium Replacement Protocol 1 EACH MISC MISCELLANE PRN (09:09)
[2021-11-22] MEDS: POTASSIUM CHLORIDE 10 MEQ in WATER FOR INJECTION 1 100ML.BAG IVPB SCH ×7 (09:34→16:13)
[2021-11-22] MEDS ORDERED: PROPOFOL 10 MG/ML 20 ML VIAL IV ONE (17:28)
[2021-11-22] MEDS ORDERED: LIDOCAINE 2% INJ 20 MG/ML (2 ML VIAL) ONE (17:28)
--- NOTE | 2021-11-22 17:52 | P.PCN ---
Date of Procedure: 11/22/21 Procedure(s) Performed: Brief history: Patient is a pleasant 81-year-old white female scheduled for an elective upper endoscopy as well as colonoscopy as a part of evaluation of iron deficiency anemia and intermittent rectal bleeding for the last few weeks duration Procedure performed: Esophagogastroduodenoscopy with cautery Colonoscopy snare polypectomy Preoperative diagnosis: Iron deficiency anemia and intermittent rectal bleeding Anesthesia: [facility] [place] Procedure: After informed consent was obtained from the patient was brought into the endoscopy unit and IV sedation was administered by anesthesia under continuous monitoring. Initially upper endoscopy was done. The Olympus GF 160 video endoscope was inserted inserted into the mouth and esophagus intubated without any difficulty and was gradually advanced into the stomach and duodenum and carefully examined. The bulb and second part of the duodenum appeared normal. There was a 3 mm nonbleeding angiectasia in the second part of the duodenum that was cauterized using a gold probe. The scope was then withdrawn into the stomach adequately insufflated with air and upon careful examination the antrum and body, cardia and fundus appeared normal. In the fundus of the stomach there was another 3 mm nonbleeding angiectasia noted which was also cauterized using a cold probe. The scope was then withdrawn into the esophagus. The GE junction was located at 40 cm to the incisors. It appeared regular with no erythema erosions or ulcerations. Rest of the esophagus appeared normal. Patient tolerated the procedure well. At this time the patient continued to remain sedation. Initial digital rectal examination was normal. Olympus CF 160 video colonoscope was then inserted into the rectum and gradually advanced to the cecum without any difficulty. Careful examination was performed as the scope was gradually being withdrawn. The prep was excellent. The cecum, had a 7 mm polyp removed by snare. In the ascending colon there was a 5 mm and 7 mm polyps removed by snare polypectomy. Rest of the ascending colon, transverse colon, descending colon, sigmoid colon and rectum appeared normal. Scattered sigmoid diverticulosis. Retroflexion was performed in the rectum and monitor hemorrhoids were noted. Patient tolerated the procedure well. Impression: 1. Upper endoscopy revealed nonbleeding angiectasia in the duodenum and in the fundus of the stomach status post cautery as described above 2. Colonoscopy revealed colonoscopy revealed: a) 5 mm and 7 mm ascending colon polyp status post snare polypectomy b) 7 mm cecal polyp status post polypectomy c) scattered sigmoid diverticulosis d) small internal hemorrhoids Recommendations: Findings of this examination were discussed with the patient. She was advised to follow with the biopsy results. Diet will be advanced as tolerated. Start on iron supplements and monitor CBC periodically
[2021-11-22] MEDS ORDERED: SODIUM CHLORIDE 0.9% 500 ML 350 ML IV ONE (17:53)
[2021-11-23] MEDS: FERROUS SULFATE 325 MG TAB PO SCH ×2 (06:35→18:11)
[2021-11-23] MEDS: DEXTROSE 5% IN WATER 1,000 ML IV SCH ×3 (06:35→20:15)
[2021-11-23] MEDS: ALPRAZolam 0.25 MG TAB PO PRN ×2 (06:44→23:06)
[2021-11-23 08:34] LABS: HCT 27.2 % (34.0-46.0); HGB 8.1 gm/dL (11.4-16.0); Hypochromasia Marked; MCH 22.8 pg (25.0-35.0); MCHC 29.8 g/dL (31.0-37.0); MCV 76.7 fL (80.0-100.0); Mean Platelet Volume 7.6; Microcytosis Slight; Platelet Count 287 k/uL (150-450); Poikilocytosis Slight; RBC 3.55 m/uL (3.80-5.40); RDW 15.9 % (11.5-15.5); WBC 7.6 k/uL (3.8-10.6)
[2021-11-23 08:54] LABS: African American GFR (CKD) >90 (>60 ml/min/1.73 sqM); Anion Gap 3 mmol/L; Blood Urea Nitrogen 6 mg/dL (7-17); Calcium 8.7 mg/dL (8.4-10.2); Carbon Dioxide 32 mmol/L (22-30); Chloride 100 mmol/L (98-107); Glucose 114 mg/dL (74-99); Non-African American GFR(CKD) 80 (>60 ml/min/1.73 sqM); Sodium 135 mmol/L (137-145)
[2021-11-23] MEDS: PANTOPRAZOLE 40 MG/10 ML VIAL IV SCH (09:07)
[2021-11-23] MEDS: amLODIPine 2.5 MG TAB PO SCH (09:07)
[2021-11-23] MEDS: carvediloL 12.5 MG TAB PO SCH ×2 (09:07→20:16)
[2021-11-23] MEDS: LOSARTAN 50 MG TAB PO SCH (09:07)
[2021-11-23] MEDS: POTASSIUM CHLORIDE ER 20 MEQ TAB.ER PO SCH (09:07)
[2021-11-23] MEDS: SOTALOL 80 MG TAB PO SCH ×2 (09:08→20:16)
[2021-11-23] MEDS: POTASSIUM BICARBONATE/CIT AC 20 MEQ TABLET.EFF PO SCH (09:08)
--- NOTE | 2021-11-23 12:56 | P.PN ---
Subjective Progress Note Date: 11/23/21 Principal diagnosis: GI bleed This is an 81-year-old female with multiple comorbidities including coronary artery disease, atrial fibrillation on Eliquis last taken yesterday evening, heart failure, GERD, hyperlipidemia, hypertension, memory impairment, rheumatoid arthritis, sleep apnea, thyroid disorder, and IBS who presented to the emergency department with complaints of chronic diarrhea, states it's been happening over the last few weeks which has been continuous and multiple times a day, with dark to bright red blood mixed in her stool. She also states she has urinary incontinence and complaining of urinating on herself off all day. She does have a history of a hemorrhoidectomy in July [address] Kirk. Her last colonoscopy was June 2017 with findings of diverticulosis, internal and external hemorrhoids. Patient also states during her colonoscopy she had issues with anesthesia. She is also complaining of abdominal pain, mostly in her lower abdominal region, left flank. She is denying any nausea or vomiting. She does state that she has a colonoscopy scheduled with Dr. Joseph on December 01. She was noted to have microcytic anemia on this admission, concerns for GI bleed so gastroenterology was consulted. Note we have GI this week 11/21/2021: Patient seen and examined as a follow-up. She was scheduled for EGD and colonoscopy today for repeat labs came back with a potassium of 2.5 and anesthesia canceled procedure. Patient underwent bowel prep yesterday evening for colonoscopy and nursing stated they were told she was clear. Patient also had a drop in her hemoglobin to 6.8. She denies any abdominal pain, nausea or vomiting. 11/23/2021: Patient is seen and examined as a follow-up for GI bleed. Yesterday she underwent EGD and colonoscopy. EGD with findings of nonbleeding angiectasia in the duodenum and in the fundus of the stomach status post cautery. Colonoscopy revealed ascending colon polyp and cecal polyp status post po lypectomy, scattered sigmoid diverticulosis and small internal hemorrhoids. Patient states today she is doing well. She denies any abdominal pain nausea or vomiting. She has not had another bowel movement today. Hemoglobin is stable at 8.1. Objective - Vital Signs Vital signs: Vital Signs Temp 98.0 F 11/23/21 09:03 Pulse 60 11/23/21 09:03 Resp 18 11/23/21 09:03 BP 112/61 11/23/21 09:03 Pulse Ox 97 11/23/21 09:03 FiO2 Intake & Output 11/22/21 11/23/21 11/23/21 18:59 06:59 18:59 Intake Total 1375 180 Output Total 2550 900 Balance -2550 475 180 Intake: Intake, IV Titration 1375 Amount Dextrose 5% in Water 1, 1375 000 ml @ 125 mls/hr IV . Q8H [facility] Rx#:[id number] Oral 180 Output: Urine 2550 900 Other: Voiding Method External Catheter External Catheter External Catheter # Bowel Movements 1 - Exam General appearance: The patient is alert, oriented, appears in no acute dis tress. HET: Head is normocephalic and atraumatic. Conjunctiva pink. Sclera anicteric. Neck: Supple without lymphadenopathy. Abdomen: Soft, nontender, nondistended with bowel sounds. No guarding or rigidity. Extremities: Normal skin color and turgor. No pedal edema Skin: No rashes, no jaundice Neurological: No focal deficits. Alert and oriented -3. - Labs CBC & Chem 7: 11/23/21 07:50 11/23/21 07:50 Labs: Abnormal Lab Results - Last 24 Hours (Table) 11/22/21 11/23/21 11/23/21 Range/Units 14:26 07:50 07:50 RBC 3.55 L (3.80-5.40) m/uL Hgb 8.1 L (11.4-16.0) gm/dL Hct 27.2 L (34.0-46.0) % MCV 76.7 L (80.0-100.0) fL MCH 22.8 L (25.0-35.0) pg MCHC 29.8 L (31.0-37.0) g/dL RDW 15.9 H (11.5-15.5) % Sodium 135 L (137-145) mmol/L Potassium 3.1 L 3.0 L (3.5-5.1) mmol/L Carbon Dioxide 32 H (22-30) mmol/L BUN 6 L (7-17) mg/dL Glucose 114 H (74-99) mg/dL Microbiology - Last 24 Hours (Table) 11/20/21 18:04 Stool Culture - Preliminary Stool Assessment and Plan (1) Microcytic hypochromic anemia Narrative/Plan: 81-year-old female with multiple comorbidities on Eliquis for atrial fibrillation came into the emergency department with complaints of diarrhea mixed with blood. Patient has long-standing history of chronic diarrhea, IBS and has been seen in the past with Dr. Rayo. She also had a history of hemorrhoidectomy in [address] Raines, who also did her last colonoscopy which was significant for diverticulosis, internal and external hemorrhoids which was done in June 2017. Patient states she is scheduled for colonoscopy with Dr. Brar on 12/01/2021. She states she has blood mixed in her stool sometimes history of concurrent bright red. No associated nausea or vomiting. Was noted to have microcytic anemia on admission. Need to consider possible GI source of blood loss. Will run iron studies as well as recommend endoscopy for further evaluation. Patient is status post EGD colonoscopy with findings of AVM in the duodenum and fundus of the stomach, nonbleeding, status post cautery. Colonoscopy significant for colon polyps status post polypectomy, sigmoid diverticulosis and internal hemorrhoids. Current Visit: Yes Status: Acute Code(s): D50.9 - IRON DEFICIENCY ANEMIA, UNSPECIFIED SNOMED Code(s): 12151083 (2) Occult blood positive stool Current Visit: Yes Status: Acute Code(s): R19.5 - OTHER FECAL ABNORMALITIES SNOMED Code(s): 50614745 (3) Chronic diarrhea Current Visit: No Status: Acute Code(s): K52.9 - NONINFECTIVE GASTROENTERITIS AND COLITIS, UNSPECIFIED SNOMED Code(s): 741400974 (4) IBS (irritable bowel syndrome) Current Visit: No Status: Acute Code(s): K58.9 - IRRITABLE BOWEL SYNDROME WITHOUT DIARRHEA SNOMED Code(s): 37943827 (5) Hypokalemia Narrative/Plan: Replace potassium. Anesthesia canceled EGD/colonoscopy today due to hypokalemia. Current Visit: No Status: Acute Code(s): E87.6 - HYPOKALEMIA SNOMED Code(s): 27703161 Plan: 1. Continue symptomatic supportive care 2. Hold Eliquis, may resume in 2-3 days 3. Daily CBC, transfuse for hemoglobin less than 7 4. Replace potassium per protocol 5. Diet as tolerated 6. Patient is status post EGD and colonoscopy 7. Patient is cleared by gastroenterology for discharge once otherwise medically stable. Thank you for this consultation, we will continue to follow. She is instructed to call office for biopsy results. Dr. Torrie Rayo I agree with the dictator's note, documented as a scribe by Yuni Brownlee
[2021-11-23] MEDS: ACETAMINOPHEN TAB 325 MG TAB PO PRN (23:06)
[2021-11-24 04:46] VITALS: TEMP 97.9
[2021-11-24] MEDS: ACETAMINOPHEN TAB 325 MG TAB PO PRN (06:09)
[2021-11-24] MEDS: FERROUS SULFATE 325 MG TAB PO SCH (06:09)
[2021-11-24] MEDS: DEXTROSE 5% IN WATER 1,000 ML IV SCH (06:12)
[2021-11-24] MEDS: amLODIPine 2.5 MG TAB PO SCH (08:43)
[2021-11-24] MEDS: carvediloL 12.5 MG TAB PO SCH (08:43)
[2021-11-24] MEDS: SOTALOL 80 MG TAB PO SCH (08:43)
[2021-11-24] MEDS: LOSARTAN 50 MG TAB PO SCH (08:43)
[2021-11-24] MEDS: POTASSIUM CHLORIDE ER 20 MEQ TAB.ER PO SCH (08:44)
[2021-11-24] MEDS: POTASSIUM BICARBONATE/CIT AC 20 MEQ TABLET.EFF PO SCH (08:44)
[2021-11-24] MEDS: PANTOPRAZOLE 40 MG/10 ML VIAL IV SCH (08:44)
[2021-11-24 12:06] VITALS: BP 111/66; PULSE 62; RESP 16
--- NOTE | 2021-11-24 14:00 | P.PN ---
Subjective Progress Note Date: 11/24/21 Principal diagnosis: GI bleed This is an 81-year-old female with multiple comorbidities including coronary artery disease, atrial fibrillation on Eliquis last taken yesterday evening, heart failure, GERD, hyperlipidemia, hypertension, memory impairment, rheumatoid arthritis, sleep apnea, thyroid disorder, and IBS who presented to the emergency department with complaints of chronic diarrhea, states it's been happening over the last few weeks which has been continuous and multiple times a day, with dark to bright red blood mixed in her stool. She also states she has urinary incontinence and complaining of urinating on herself off all day. She does have a history of a hemorrhoidectomy in July [address] Kirk. Her last colonoscopy was June 2017 with findings of diverticulosis, internal and external hemorrhoids. Patient also states during her colonoscopy she had issues with anesthesia. She is also complaining of abdominal pain, mostly in her lower abdominal region, left flank. She is denying any nausea or vomiting. She does state that she has a colonoscopy scheduled with Dr. Joseph on December 01. She was noted to have microcytic anemia on this admission, concerns for GI bleed so gastroenterology was consulted. Note we have GI this week 11/21/2021: Patient seen and examined as a follow-up. She was scheduled for EGD and colonoscopy today for repeat labs came back with a potassium of 2.5 and anesthesia canceled procedure. Patient underwent bowel prep yesterday evening for colonoscopy and nursing stated they were told she was clear. Patient also had a drop in her hemoglobin to 6.8. She denies any abdominal pain, nausea or vomiting. 11/23/2021: Patient is seen and examined as a follow-up for GI bleed. Yesterday she underwent EGD and colonoscopy. EGD with findings of nonbleeding angiectasia in the duodenum and in the fundus of the stomach status post cautery. Colonoscopy revealed ascending colon polyp and cecal polyp status post po lypectomy, scattered sigmoid diverticulosis and small internal hemorrhoids. Patient states today she is doing well. She denies any abdominal pain nausea or vomiting. She has not had another bowel movement today. Hemoglobin is stable at 8.1. A 2622: Patient seen and examined today as a follow-up. She is doing well overall. No further rectal bleeding. Potassium improved to 4.0 today. She de nies any abdominal pain, nausea or vomiting. Objective - Vital Signs Vital signs: Vital Signs Temp 97.9 F 11/24/21 03:30 Pulse 60 11/24/21 08:42 Resp 18 11/24/21 08:42 BP 147/76 11/24/21 08:42 Pulse Ox 96 11/24/21 08:42 FiO2 Intake & Output 11/23/21 11/24/21 11/24/21 18:59 06:59 18:59 Intake Total 360 118 Output Total 250 550 Balance 110 -550 118 Intake: Oral 360 118 Output: Urine 250 550 Other: Voiding Method External Catheter External Catheter # Voids 1 - Exam General appearance: The patient is alert, oriented, appears in no acute distress. HET: Head is normocephalic and atraumatic. Conjunctiva pink. Sclera anicteric. Neck: Supple without lymphadenopathy. Abdomen: Soft, nontender, nondistended with bowel sounds. No guarding or rigidity. Extremities: Normal skin color and turgor. No pedal edema Skin: No rashes, no jaundice Neurological: No focal deficits. Alert and oriented -3. - Labs CBC & Chem 7: 11/23/21 07:50 11/23/21 18:21 Labs: Microbiology - Last 24 Hours (Table) 11/20/21 18:04 Stool Culture - Final Stool Assessment and Plan (1) Microcytic hypochromic anemia Narrative/Plan: 81-year-old female with multiple comorbidities on Eliquis for atrial fib rillation came into the emergency department with complaints of diarrhea mixed with blood. Patient has long-standing history of chronic diarrhea, IBS and has been seen in the past with Dr. Rayo. She also had a history of hemorrhoidectomy [place] [address] Raines, who also did her last colonoscopy which was significant for diverticulosis, internal and external hemorrhoids which was done in June 2017. Patient states she is scheduled for colonoscopy with Dr. Brar on 12/01/2021. She states she has blood mixed in her stool sometimes history of concurrent bright red. No associated nausea or vomiting. Was noted to have microcytic anemia on admission. Need to consider possible GI source of blood loss. Will run iron studies as well as recommend endoscopy for further evaluation. Patient is status post EGD colonoscopy with findings of AVM in the duodenum and fundus of the stomach, nonbleeding, status post cautery. Colonoscopy significant for colon polyps status post polypectomy, sigmoid diverticulosis and internal hemorrhoids. Current Visit: Yes Status: Acute Code(s): D50.9 - IRON DEFICIENCY ANEMIA, UNSPECIFIED SNOMED Code(s): 40390830 (2) Occult blood positive stool Current Visit: Yes Status: Acute Code(s): R19.5 - OTHER FECAL ABNORMALITIES SNOMED Code(s): 72418576 (3) Chronic diarrhea Current Visit: No Status: Acute Code(s): K52.9 - NONINFECTIVE GAS TROENTERITIS AND COLITIS, UNSPECIFIED SNOMED Code(s): 456179512 (4) IBS (irritable bowel syndrome) Current Visit: No Status: Acute Code(s): K58.9 - IRRITABLE BOWEL SYNDROME WITHOUT DIARRHEA SNOMED Code(s): 32523131 (5) Hypokalemia Narrative/Plan: Replace potassium. Anesthesia canceled EGD/colonoscopy today due to hypokalemia. Current Visit: No Status: Acute Code(s): E87.6 - HYPOKALEMIA SNOMED Code(s): 30289139 Plan: 1. Continue symptomatic supportive care 2. Hold Eliquis, may resume in 1-2 days 3. Diet as tolerated 4. Patient is status post EGD and colonoscopy 5. Patient is cleared by gastroenterology for discharge Thank you for this consultation, we will sign off at this time. She is instructed to call office for biopsy results. Dr. Torrie Rayo I agree with the dictator's note, documented as a scribe by Yuni Brownlee
[2021-11-24] MEDS ORDERED: PANTOPRAZOLE 40 MG TABLET PO SCH (17:30)
[2021-11-24] MEDS ORDERED: APIXABAN 2.5 MG TABLET PO SCH (21:00)
--- NOTE | 2021-11-24 21:48 | PN ---
PROGRESS NOTE CHIEF COMPLAINT: GI bleed. HISTORY OF PRESENT ILLNESS: This lady's hemoglobin dropped slightly and she is going today for endoscopies. She denies shortness of breath, chest pain. PHYSICAL EXAMINATION: She remains pale. Chest is clear and cardiac demonstrates atrial fibrillation. The abdomen is soft and nontender without masses. IMPRESSION: 1. Gastrointestinal bleed, source unknown. 2. Atrial fibrillation. 3. Blood loss anemia. PLAN: Endoscopies today and we will follow her hemoglobin and results of her study afterwards. MMODL / IJN: [id number] /
--- NOTE | 2021-11-24 22:13 | PN ---
PROGRESS NOTE CHIEF COMPLAINT: Upper GI bleed and anemia. HISTORY OF PRESENT ILLNESS: This lady is feeling fairly well and her hemoglobin is still hanging around 8. Scope apparently only revealed 2 or 3 small polyps in the colon and some gastritis. There is no clear evidence as to where bleeding came from. PHYSICAL EXAMINATION: CHEST: Clear. CARDIAC: Demonstrates her atrial fibrillation. ABDOMEN: Soft and nontender. IMPRESSION: 1. Gastrointestinal bleed. 2. Gastritis. 3. Colonic polyps. 4. Defibrillation. PLAN: 1. Progress activity and diet. 2. We will withhold anticoagulants for a period time. 3. Discharge planning. She may have to go through rehab. MMODL / IJN: [id number] /
--- NOTE | 2021-12-02 19:55 | DS ---
DISCHARGE SUMMARY CHIEF COMPLAINT: Gastrointestinal hemorrhage. HISTORY OF PRESENT ILLNESS AND PHYSICAL EXAMINATION: Details of this lady's history and physical can be found in the initial workup. LABORATORY STUDIES: While she was in the hospital, she had laboratory studies, details of which can be found in the laboratory section. COURSE IN THE HOSPITAL: After admission, she was placed on bedrest and anticoagulation with help. She eventually was taken for GI endoscopy, where there were several small colonic polyps found and gastritis, but no definite source of original bleed. There was no gastric ulcer and no neoplasm. She stabilized and was doing well. It was felt that she could go home and she will follow up in the office in a week. FINAL DIAGNOSES: 1. Upper gastrointestinal hemorrhage. 2. Blood-loss anemia. 3. History of depression. 4. History of anxiety. OPERATIONS: GI endoscopy. CONSULTATIONS: Gastroenterology. She is improved. KRISSY / MARGOT: [id number] /
== END 2021-11-24 14:25 | disposition home or self-care (01) | DRG 378 ==
LOC: EC 03:38 → 3SCARD 04:27
PROVIDERS: ADMIT Family Medicine; ATTEND Family Medicine
PROC: 30233N1 Transfusion of Nonautologous Red Blood Cells into Peripheral Vein, Percutaneous Approach (ICD-10-PCS; 2021-11-21)
PROC: 0DBH8ZX Excision of Cecum, Via Natural or Artificial Opening Endoscopic, Diagnostic (ICD-10-PCS; 2021-11-22)
PROC: 0D598ZZ Destruction of Duodenum, Via Natural or Artificial Opening Endoscopic (ICD-10-PCS; principal; 2021-11-22 11:40)
PROC: 0DBK8ZX Excision of Ascending Colon, Via Natural or Artificial Opening Endoscopic, Diagnostic (ICD-10-PCS; 2021-11-22 11:40)
DX: K92.2 Gastrointestinal hemorrhage, unspecified (principal); E87.0 Hyperosmolality and hypernatremia; D50.0 Iron deficiency anemia secondary to blood loss (chronic); E78.5 Hyperlipidemia, unspecified; E87.6 Hypokalemia; F41.0 Panic disorder [episodic paroxysmal anxiety]; F41.9 Anxiety disorder, unspecified; F32.A Depression, unspecified; I11.0 Hypertensive heart disease with heart failure; I25.10 Atherosclerotic heart disease of native coronary artery without angina pectoris; K58.0 Irritable bowel syndrome with diarrhea; I34.1 Nonrheumatic mitral (valve) prolapse; I48.91 Unspecified atrial fibrillation; I50.9 Heart failure, unspecified; J45.909 Unspecified asthma, uncomplicated; K21.9 Gastro-esophageal reflux disease without esophagitis; G47.30 Sleep apnea, unspecified; H91.90 Unspecified hearing loss, unspecified ear; K29.70 Gastritis, unspecified, without bleeding; K31.819 Angiodysplasia of stomach and duodenum without bleeding; R32 Unspecified urinary incontinence; K57.30 Diverticulosis of large intestine without perforation or abscess without bleeding; K63.5 Polyp of colon; K64.8 Other hemorrhoids; K64.4 Residual hemorrhoidal skin tags; M06.9 Rheumatoid arthritis, unspecified; M48.00 Spinal stenosis, site unspecified; M41.9 Scoliosis, unspecified; I25.2 Old myocardial infarction; Z79.01 Long term (current) use of anticoagulants; Z79.82 Long term (current) use of aspirin; Z79.899 Other long term (current) drug therapy; Z85.828 Personal history of other malignant neoplasm of skin; Z87.891 Personal history of nicotine dependence; Z90.710 Acquired absence of both cervix and uterus
CPT/HCPCS: 36415; 43270; 45385; 74018; 80048; 80051; 82272; 82728; 83540; 83550; 84132; 85025; 85027; 85610; 85730; 86850; 86900; 86901; 86920; 87045; 87046; 88305; 93005; 96365; 96366; 96375; 96376; 99291

== ENCOUNTER 2022-01-08 08:27 | Inpatient (IN) | payer MEDICARE ==
[2022-01-08] MEDS ORDERED: SODIUM CHLORIDE 0.9% 500 ML 500 ML IV STA (08:57)
[2022-01-08] MEDS ORDERED: MECLIZINE 12.5 MG TAB PO STA (08:57)
[2022-01-08 09:30] LABS: Anisocytosis Moderate; Basophils % (A) 1 %; Eosinophils # (A) 0.1 k/uL (0-0.7); Eosinophils % (A) 2 %; HCT 34.1 % (34.0-46.0); HGB 10.9 gm/dL (11.4-16.0); Hypochromasia Marked; Lymphocytes # (A) 1.2 k/uL (1.0-4.8); Lymphocytes % (A) 27 %; MCH 28.1 pg (25.0-35.0); MCV 87.7 fL (80.0-100.0); Mean Platelet Volume 7.8; Microcytosis Slight; Monocytes # (A) 0.3 k/uL (0-1.0); Monocytes % (A) 6 %; Neutrophils # (A) 2.8 k/uL (1.3-7.7); Neutrophils % (A) 62 %; Platelet Count 194 k/uL (150-450); RBC 3.89 m/uL (3.80-5.40); RDW 20.8 % (11.5-15.5); WBC 4.5 k/uL (3.8-10.6)
[2022-01-08 09:36] LABS: Appearance,Urine Clear (Clear); Bacteria,Urine Rare /hpf; Bilirubin,Urine Negative (Negative); Blood,Urine Negative (Negative); Color,Urine Colorless; Glucose,Urine (UA) Negative (Negative); Ketones,Urine Negative (Negative); Leukocyte Esterase,Urine Trace (Negative); Nitrite,Urine Negative (Negative); PH, Urine 7.5 (5.0-8.0); Protein,Urine Negative (Negative); Specific Gravity,Urine 1.004 (1.001-1.035); Squamous Epithelial Cell,Urine <1 /hpf (0-4); Urobilinogen,Urine <2.0 mg/dL (<2.0); WBC,Urine 2 /hpf (0-5)
[2022-01-08 09:39] LABS: Partial Thromboplastin Time 24.5 sec (22.0-30.0); Prothrombin Time 10.6 sec (9.0-12.0)
[2022-01-08] MEDS ORDERED: LORazepam 2 MG/ML INJ IV STA (09:48)
[2022-01-08 09:51] LABS: ALT 9 U/L (4-34); AST 16 U/L (14-36); African American GFR (CKD) >90 (>60 ml/min/1.73 sqM); Albumin 3.4 g/dL (3.5-5.0); Alkaline Phosphatase 49 U/L (38-126); Anion Gap 6 mmol/L; Blood Urea Nitrogen 12 mg/dL (7-17); Calcium 9.3 mg/dL (8.4-10.2); Carbon Dioxide 27 mmol/L (22-30); Chloride 105 mmol/L (98-107); Glucose 97 mg/dL (74-99); Magnesium 1.8 mg/dL (1.6-2.3); Non-African American GFR(CKD) >90 (>60 ml/min/1.73 sqM); Sodium 138 mmol/L (137-145); Total Bilirubin 0.8 mg/dL (0.2-1.3); Total Protein 5.5 g/dL (6.3-8.2)
--- NOTE | 2022-01-08 10:13 | XR ---
EXAMINATION TYPE: XR chest 2V DATE OF EXAM: 01/08/2022 10:05 AM COMPARISON: Chest radiographs from 04/04/2020. TECHNIQUE: XR chest 2V Frontal and lateral views of the chest. CLINICAL INDICATION:Female, 81 years old with history of Weakness; FINDINGS: Lungs/Pleura: There is no evidence of pleural effusion, focal consolidation, or pneumothorax. Chroni c senescent parenchymal changes. Pulmonary vascularity: Unremarkable. Heart/mediastinum: Cardiomediastinal silhouette is enlarged and stable. Atherosclerotic calcificatio ns are seen in the aorta. Two lead cardiac conduction device overlying the left hemithorax with lead tips projecting over the right ventricle and right atrium. Musculoskeletal: Multiple level degenerative disc disease changes seen throughout the spine. Bilatera l shoulder arthroplasty changes. IMPRESSION: Chronic changes and cardiomegaly without acute pulmonary process.
[2022-01-08] MEDS ORDERED: POTASSIUM CHLORIDE ER 20 MEQ TAB.ER PO STA (10:58)
--- NOTE | 2022-01-08 11:00 | ED ---
General Adult HPI - General Chief complaint: Urogenital Stated complaint: weakness Time Seen by Provider: 01/08/22 08:32 Source: patient, RN notes reviewed Mode of arrival: EMS Limitations: no limitations - History of Present Illness Initial comments: This an 9-year-old female presents emergency from with chief complaint of lower abdominal pain, weakness. Patient states she's not felt well last couple days. Patient states she has urinary incontinence which is chronic for patient. Patient states that she has had multiple urinary tract infection. Patient states she has lower abdominal cramping. No flank pain no chest pain or shortness of breath. Patient states she did have some dizziness which she states room was spinning. Patient denies any fever, chills no cough symptoms. Patient denies any headache, chest pain - Related Data Home Medications Medication Instructions Recorded Confirmed Simvastatin [Zocor] 10 mg PO HS 10/03/13 01/08/22 Irbesartan 300 mg PO DAILY 07/25/15 01/08/22 Potassium Chloride [Klor-Con 20] 20 meq PO DAILY 03/06/19 01/08/22 Sotalol [Betapace] 80 mg PO BID 04/04/20 01/08/22 Cranberry Fruit Concentrate [Azo 500 mg PO DAILY PRN 02/27/21 01/08/22 Cranberry] ALPRAZolam [Xanax] 0.25 mg PO BID PRN 11/20/21 01/08/22 Vitamin D3 1,250 Mcg 1,250 mcg PO QMONTHLY 11/20/21 01/08/22 amLODIPine [Norvasc] 2.5 mg PO DAILY 11/20/21 01/08/22 carvediloL [Coreg] 12.5 mg PO BID 11/20/21 01/08/22 Previous Rx's Medication Instructions Recorded Apixaban [Eliquis] 2.5 mg PO BID #60 tab 11/24/21 Ferrous Sulfate [Iron (65 MG 325 mg PO BID-W/MEALS #60 tab 11/24/21 Elemental)] Pantoprazole [Protonix] 40 mg PO AC-BID #60 tab 11/24/21 Allergies Allergy/AdvReac Type Severity Reaction Status Date / Time famotidine Allergy Unknown Verified 01/08/22 12:25 morphine Allergy Unknown Verified 01/08/22 12:25 spironolactone Allergy Unknown Verified 01/08/22 12:25 codeine AdvReac Severe Nausea & Verified 01/08/22 12:25 Vomiting omeprazole AdvReac Nausea, Verified 01/08/22 12:25 dizzyness Opioids - Morphine Analogues AdvReac Dyspnea- Verified 01/08/22 12:25 Review of Systems ROS Statement: Those systems with pertinent positive or pertinent negative responses have been documented in the HPI. ROS Other: All systems not noted in ROS Statement are negative. Past Medical History Past Medical History: Atrial Fibrillation, Asthma, Cancer, Heart Failure, Eye Disorder, GERD/Reflux, Hearing Disorder / Deafness, Hyperlipidemia, Hypertension, Memory Impairment, Myocardial Infarction ([place]), Mitral Valve Prolapse (MVP), Osteoarthritis (OA), Pneumonia, Respiratory Disorder, Rheumatoid Arthritis (RA), Skin Disorder, Sleep Apnea/CPAP/BIPAP, Thyroid Disorder Additional Past Medical History / Comment(s): CHRONIC BACK PAIN, SPINAL STENOSIS, SCOLIOSIS, IBS, VARICOSE VEINS, STRESS INDUCED ASTHMA. 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 GLAUCOMA -"STRESS INDUCED",8 NODULES ON THYROID, psoriasis, eczema Last Myocardial Infarction Date:: Pt unknown History of Any Multi-Drug Resistant Organisms: None Reported Past Surgical History: Cardiac Ablation, Cholecystectomy, Heart Catheterization, Hysterectomy, Joint Replacement, Orthopedic Surgery Additional Past Surgical History / Comment(s): THYROID BX, LINDSAY. TOTAL KNEES, BI L TOTAL SHOULDERS,Cardiac ablation x2,skin CA removed with skin graft to neck Past Anesthesia/Blood Transfusion Reactions: No Reported Reaction Additional Past Anesthesia/Blood Transfusion Reaction / Comment(s): BRADYCARDIA. Type of Cardiac Device: AICD Device Placement Date:: 2019 Past Psychological History: Anxiety, Depression, Panic Disorder Smoking Status: Former smoker Past Alcohol Use History: None Reported Past Drug Use History: None Reported - Past Family History Father Family Medical History: Cancer Additional Family Medical History / Comment(s): ORAL CANCER Mother Additional Family Medical History / Comment(s): Alcoholism. General Exam Limitations: no limitations General appearance: alert, in no apparent distress Head exam: Present: atraumatic, normocephalic, normal inspection Eye exam: Present: normal appearance, PERRL, EOMI. Absent: scleral icterus, conjunctival injection, periorbital swelling ENT exam: Present: normal exam, normal oropharynx, mucous membranes moist Neck exam: Present: normal inspection, full ROM. Absent: tenderness, meningismus, lymphadenopathy Respiratory exam: Present: normal lung sounds bilaterally. Absent: respiratory distress, wheezes, rales, rhonchi, stridor Cardiovascular Exam: Present: regular rate, normal rhythm, normal heart sounds. Absent: systolic murmur, diastolic murmur, rubs, gallop, clicks GI/Abdominal exam: Present: soft, tenderness (Lower), normal bowel sounds. Absent: distended, guarding, rebound, rigid Course Vital Signs 01/08/22 01/08/22 01/08/22 08:33 10:58 12:34 Temperature 97.6 F Pulse Rate 62 60 58 L Respiratory 16 16 Rate Blood Pressure 178/76 173/80 164/84 O2 Sat by Pulse 97 97 Oximetry 01/08/22 14:16 Temperature Pulse Rate 65 Respiratory 16 Rate Blood Pressure 166/71 O2 Sat by Pulse 98 Oximetry Medical Decision Making - Medical Decision Making 81-year-old presented for increased abdominal pain. Patient found have severe fecal impaction, patient had urinary retention noted on CT. Caldwell catheters placed states she does feel greatly improved after Caldwell catheter but remains a constipation unable tolerate fecal disimpaction. I discussed this case with Dr. De La Garza recommends patient placed on MiraLAX 3 times daily, fully catheter in the Place for Comfort, Potassium Replacement. - Lab Data Result diagrams: 01/08/22 09:01 01/08/22 09:01 Lab Results 01/08/22 01/08/22 01/08/22 Range/Units 09:01 09:01 09:01 WBC 4.5 (3.8-10.6) k/uL RBC 3.89 (3.80-5.40) m/uL Hgb 10.9 L (11.4-16.0) gm/dL Hct 34.1 (34.0-46.0) % MCV 87.7 (80.0-100.0) fL MCH 28.1 (25.0-35.0) pg MCHC 32.0 (31.0-37.0) g/dL RDW 20.8 H (11.5-15.5) % Plt Count 194 (150-450) k/uL MPV 7.8 Neutrophils % 62 % Lymphocytes % 27 % Monocytes % 6 % Eosinophils % 2 % Basophils % 1 % Neutrophils # 2.8 (1.3-7.7) k/uL Lymphocytes # 1.2 (1.0-4.8) k/uL Monocytes # 0.3 (0-1.0) k/uL Eosinophils # 0.1 (0-0.7) k/uL Basophils # 0.0 (0-0.2) k/uL Hypochromasia Marked Anisocytosis Moderate Microcytosis Slight PT 10.6 (9.0-12.0) sec INR 1.0 (<1.2) APTT 24.5 (22.0-30.0) sec Sodium 138 (137-145) mmol/L Potassium 3.0 L (3.5-5.1) mmol/L Chloride 105 (98-107) mmol/L Carbon Dioxide 27 (22-30) mmol/L Anion Gap 6 mmol/L BUN 12 (7-17) mg/dL Creatinine 0.53 (0.52-1.04) mg/dL Est GFR (CKD-EPI)AfAm >90 (>60 ml/min/1.73 sqM) Est GFR (CKD-EPI)NonAf >90 (>60 ml/min/1.73 sqM) Glucose 97 (74-99) mg/dL Plasma Lactic Acid Chriss (0.7-2.0) mmol/L Calcium 9.3 (8.4-10.2) mg/dL Magnesium 1.8 (1.6-2.3) mg/dL Total Bilirubin 0.8 (0.2-1.3) mg/dL AST 16 (14-36) U/L ALT 9 (4-34) U/L Alkaline Phosphatase 49 (38-126) U/L Troponin I (0.000-0.034) ng/mL Total Protein 5.5 L (6.3-8.2) g/dL Albumin 3.4 L (3.5-5.0) g/dL Urine Color Urine Appearance (Clear) Urine pH (5.0-8.0) Ur Specific Mcfarland (1.001-1.035) Urine Protein (Negative) Urine Glucose (UA) (Negative) Urine Ketones (Negative) Urine Blood (Negative) Urine Nitrite (Negative) Urine Bilirubin (Negative) Urine Urobilinogen (<2.0) mg/dL Ur Leukocyte Esterase (Negative) Urine WBC (0-5) /hpf Ur Squamous Epith Cells (0-4) /hpf Urine Bacteria (None) /hpf 01/08/22 01/08/22 01/08/22 Range/Units 09:01 09:01 09:18 WBC (3.8-10.6) k/uL RBC (3.80-5.40) m/uL Hgb (11.4-16.0) gm/dL Hct (34.0-46.0) % MCV (80.0-100.0) fL MCH (25.0-35.0) pg MCHC (31.0-37.0) g/dL RDW (11.5-15.5) % Plt Count (150-450) k/uL MPV Neutrophils % % Lymphocytes % % Monocytes % % Eosinophils % % Basophils % % Neutrophils # (1.3-7.7) k/uL Lymphocytes # (1.0-4.8) k/uL Monocytes # (0-1.0) k/uL Eosinophils # (0-0.7) k/uL Basophils # (0-0.2) k/uL Hypochromasia Anisocytosis Microcytosis PT (9.0-12.0) sec INR (<1.2) APTT (22.0-30.0) sec Sodium (137-145) mmol/L Potassium (3.5-5.1) mmol/L Chloride (98-107) mmol/L Carbon Dioxide (22-30) mmol/L Anion Gap mmol/L BUN (7-17) mg/dL Creatinine (0.52-1.04) mg/dL Est GFR (CKD-EPI)AfAm (>60 ml/min/1.73 sqM) Est GFR (CKD-EPI)NonAf (>60 ml/min/1.73 sqM) Glucose (74-99) mg/dL Plasma Lactic Acid Chriss 0.9 (0.7-2.0) mmol/L Calcium (8.4-10.2) mg/dL Magnesium (1.6-2.3) mg/dL Total Bilirubin (0.2-1.3) mg/dL AST (14-36) U/L ALT (4-34) U/L Alkaline Phosphatase (38-126) U/L Troponin I <0.012 (0.000-0.034) ng/mL Total Protein (6.3-8.2) g/dL Albumin (3.5-5.0) g/dL Urine Color Colorless Urine Appearance Clear (Clear) Urine pH 7.5 (5.0-8.0) Ur Specific Mcfarland 1.004 (1.001-1.035) Urine Protein Negative (Negative) Urine Glucose (UA) Negative (Negative) Urine Ketones Negative (Negative) Urine Blood Negative (Negative) Urine Nitrite Negative (Negative) Urine Bilirubin Negative (Negative) Urine Urobilinogen <2.0 (<2.0) mg/dL Ur Leukocyte Esterase Trace H (Negative) Urine WBC 2 (0-5) /hpf Ur Squamous Epith Cells <1 (0-4) /hpf Urine Bacteria Rare H (None) /hpf Disposition Clinical Impression: Fecal impaction, Urinary retention, Hypokalemia Disposition: ADMITTED IP TO THIS HOSP Referrals: Sergei De La Garza MD [Primary Care Provider] - 1-2 days Time of Disposition: 14:35
--- NOTE | 2022-01-08 11:08 | CT ---
EXAMINATION TYPE: CT abdomen pelvis wo con DATE OF EXAM: 01/08/2022 COMPARISON: 03/10/2021 INDICATION: Lower abdominal pain DLP: 437.4 mGycm, Automated exposure control for dose reduction was used. CONTRAST: 0 mL of Isovue 300. Study performed without Oral Contrast TECHNIQUE: Axial images were obtained from above the diaphragm to the pubic rami in the axial plane a t 5 mm thick sections. Reconstructed images are reviewed on the computer in the coronal plane. FINDINGS: Limited CT sections are obtained the lung bases. The lung bases are clear. Heart is enlarged. CT ABDOMEN: Liver: Normal Spleen: Normal Pancreas: Fatty infiltration and atrophy Adrenal glands: There is thickening of the bilateral adrenal glands. On the right this measures 1.7 c m. On the left this measures 2.0 cm. These were present previously. Gallbladder: Surgically absent Kidneys: No masses are evident. There is a left hydronephrosis. Significant hydroureter is not identi fied. No renal stones are evident. Minimal prominence of the right renal collecting system may be pre sent. No cysts are present. Aorta: Vascular calcification is within the aorta. Inferior vena cava: Normal. CT PELVIS: Fecal debris throughout the colon. Larger fecal boluses of the rectum. Correlate for fecal impaction. This study is performed without oral contrast limiting evaluation Appendix: Normal as visualized. Urinary bladder: Normal. Genitourinary structures: Uterus is not identified. Adnexa appear within normal limits. Osseous structures: No suspicious lytic or sclerotic lesions. Degenerative disc changes are within th e lumbar spine. Scoliosis is present. There is a round catheter length structure posterior to the buttocks of uncertain etiology IMPRESSIONS: 1. Large fecal bolus of the rectum. Correlate for fecal impaction. Moderate fecal retention of stool colon. No obstruction is identified. 2. Moderate left hydronephrosis with some minimal right hydronephrosis of uncertain etiology. No obst ructing renal or ureteral stones are evident. 3. Chronic mild thickening the bilateral adrenal glands.
[2022-01-08] MEDS ORDERED: KETOROLAC 15 MG/ML 1 ML VIAL IVP STA (11:12)
[2022-01-08] MEDS ORDERED: HYDROmorphone 0.5 MG/0.5 ML SYRINGE IVP STA (11:26)
[2022-01-08] MEDS ORDERED: polyethylene glycoL 3350 17 GM POWD.PACK PO STA (14:33)
[2022-01-08] MEDS ORDERED: NALOXONE 0.4 MG/ML 1 ML VIAL IV PRN (14:35)
[2022-01-08] MEDS: polyethylene glycoL 3350 17 GM POWD.PACK PO SCH ×2 (17:06→23:52)
[2022-01-08] MEDS ORDERED: ONDANSETRON 4 MG/2 ML VIAL IVP STA (17:35)
[2022-01-09] MEDS: polyethylene glycoL 3350 17 GM POWD.PACK PO SCH ×3 (10:10→20:35)
[2022-01-09] MEDS: ACETAMINOPHEN TAB 325 MG TAB PO PRN (12:29)
[2022-01-09] MEDS: ALPRAZolam 0.25 MG TAB PO PRN (12:30)
[2022-01-09] MEDS: FERROUS SULFATE 325 MG TAB PO SCH (16:56)
[2022-01-09] MEDS: PANTOPRAZOLE 40 MG TABLET PO SCH (16:56)
[2022-01-09] MEDS: carvediloL 12.5 MG TAB PO SCH (16:56)
[2022-01-09] MEDS: APIXABAN 2.5 MG TABLET PO SCH (20:35)
[2022-01-09] MEDS: SOTALOL 80 MG TAB PO SCH (20:35)
--- NOTE | 2022-01-10 05:00 | HP ---
HISTORY AND PHYSICAL CHIEF COMPLAINT: Constipation, rectal impaction and incontinence with hypokalemia. HISTORY OF PRESENT ILLNESS: This is another admission for this 81-year-old white female who is very debilitated and living alone since her this year. She has been having a lot of trouble with constipation and got to the point where she was unable to empty her bladder and she went to the emergency room. Because she lives alone and she is debilitated, it was not expected that she could manage this at home, a Caldwell catheter was placed and she was admitted. REVIEW OF SYSTEMS: She denies any focal neurologic deficits, confusion, chest pain, shortness of breath, abdominal pain, nausea, vomiting, hematemesis, chills, fever, etc. Past medical history, family history, personal and social histories are essentially noncontributory and unchanged from her previous admitting and discharge summaries. She is not allergic to any medication. She does take Motrin, Xanax, pantoprazole, and iron. She is also on Eliquis 2.5 twice a day and carvedilol. It is not clear if she takes her medications responsibly. She has been on sotalol 80 mg twice a day in the past and simvastatin. PHYSICAL EXAMINATION: VITAL SIGNS: Blood pressure is 142/63 with a pulse of 85, respirations of 34, and she is afebrile. GENERAL: She appeared to be pale, weak, and debilitated. HEAD, EARS, EYES, NOSE, MOUTH AND THROAT: Normal. CHEST: Clear except for occasional rales. CARDIAC: Demonstrated what sounded like atrial fibrillation. ABDOMEN: Soft and nontender. EXTREMITIES: Normal. Caldwell catheter was in place. IMPRESSION: 1. Constipation. 2. Urinary retention. 3. General debility. 4. History of ulcerative colitis. 5. History of coronary artery disease. 6. History of congestive heart failure. 7. Atrial fibrillation. PLAN: 1. Bedrest. 2. IV fluids. 3. Manage constipation, and then remove Caldwell catheter. MMODL / IJN: [id number] /
[2022-01-10] MEDS: ACETAMINOPHEN TAB 325 MG TAB PO PRN ×2 (05:47→23:49)
[2022-01-10] MEDS: ALPRAZolam 0.25 MG TAB PO PRN (05:47)
[2022-01-10] MEDS: polyethylene glycoL 3350 17 GM POWD.PACK PO SCH ×3 (06:48→22:24)
--- NOTE | 2022-01-10 08:16 | PN ---
PROGRESS NOTE CHIEF COMPLAINT: Constipation and urinary retention. HISTORY OF PRESENT ILLNESS: This lady is very depressed and said something about wanting to kill herself. Other than that, she has been stable. PHYSICAL EXAMINATION: VITAL SIGNS: Normal. CHEST: Clear. CARDIAC: Exam is normal. ABDOMEN: Soft. Caldwell catheter still in place and will endeavor to clear impaction. We will also request a psych consult for her depression. MMODL / IJN: [id number] /
[2022-01-10] MEDS: POTASSIUM CHLORIDE ER 20 MEQ TAB.ER PO SCH (08:51)
[2022-01-10] MEDS: PANTOPRAZOLE 40 MG TABLET PO SCH ×2 (08:53→16:43)
[2022-01-10] MEDS: FERROUS SULFATE 325 MG TAB PO SCH ×2 (08:53→16:43)
[2022-01-10] MEDS: amLODIPine 2.5 MG TAB PO SCH (08:53)
[2022-01-10] MEDS: APIXABAN 2.5 MG TABLET PO SCH ×2 (08:53→20:40)
[2022-01-10] MEDS: carvediloL 12.5 MG TAB PO SCH ×2 (11:24→16:43)
[2022-01-10] MEDS: SOTALOL 80 MG TAB PO SCH ×2 (11:24→20:39)
[2022-01-10] MEDS: LOSARTAN 50 MG TAB PO SCH (12:42)
--- NOTE | 2022-01-10 14:05 | P.CN ---
Psychiatric Consult - . Consult date: 01/10/22 Consult:: 01/10/22 14:04 IDENTIFYING DATA: This patient is a , tired, 81-year-old female significant history of chronic UTIs who presents to the hospital for lower abdominal pain and weakness. HISTORY OF PRESENT ILLNESS: The patient presented to the hospital on 01/08/2022, brought into the hospital on her own volition for increased weakness, abdominal pain, and urinary incontinence. Patient was admitted medically for management of urinary tract infection and fecal impaction. Psychiatry has been consulted for evaluation and management of possible depression and anxiety. Upon evaluation of the patient, the patient reports that she's been feeling increasingly depressed and anxious for many years however it has been worse over the past year since the of her second . Her second this past July. The patient endorses significant symptoms of depression including chronic suicidal ideation, difficulty with insomnia, low mood, and elevated anxiety. However, the patient denies any previous suicide attempts and is currently denying any suicidal ideation, intention, and/or plan. She is denying any homicidal ideation, intention, and/or plan. In regards to other dep ressive symptoms, the patient is currently denying any appetite changes, feelings of guilt, or any change in her psychomotor activity. In regards to bipolar symptoms, the patient denies any overt history of manic or hypomanic episodes. She denies any increased goal-directed activity, grandiosity, or periods of excessive energy. In regards to psychotic symptoms, the patient is denying any significant history of auditory or visual hallucinations. She reports no history of paranoia or other delusions. The patient reports a significant history of poor bladder control and poor bowel control. The patient describes having been diagnosed with irritable bowel syndrome for most of her adult life. In regards to having previous psychiatric care, the patient states that she attempted to receive psychiatric care approximately 40 years ago however was denied treatment by the psychiatrist who evaluated her at the time. The patient has been receiving her psychiatric care through her primary care physician. She has been managing her anxiety with the chronic prescription of Xanax. PAST PSYCHIATRIC HISTORY: Patient has a history of anxiety. The patient is able to recall being. Was prescribed Xanax and melatonin however denies any other psychotropic medications. Patient denies any previous psychiatric hospitalizations. Patient denies any psychiatric outpatient follow-up. Patient denies any history of suicide attempts in the past. PAST MEDICAL HISTORY: Past Medical History: Atrial Fibrillation, Asthma, Cancer, Heart Failure, Eye Disorder, GERD/Reflux, Hearing Disorder / Deafness, Hyperlipidemia, Hypertension, Memory Impairment, Myocardial Infarction ([place]), Mitral Valve Prolapse (MVP), Osteoarthritis (OA), Pneumonia, Respiratory Disorder, Rheumatoid Arthritis (RA), Skin Disorder, Sleep Apnea/CPAP/BIPAP, Thyroid Disorder Additional Past Medical History / Comment(s): CHRONIC BACK PAIN, SPINAL STENOSIS, SCOLIOSIS, IBS, VARICOSE VEINS, STRESS INDUCED ASTHMA. 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 GLAUCOMA -"STRESS INDUCED",8 NODULES ON THYROID, psoriasis, eczema Last Myocardial Infarction Date:: Pt unknown History of Any Multi-Drug Resistant Organisms: None Reported Past Surgical History: Cardiac Ablation, Cholecystectomy, Heart Catheterization, Hysterectomy, Joint Replacement, Orthopedic Surgery Additional Past Surgical History / Comment(s): THYROID BX, LINDSAY. TOTAL KNEES, LINDSAY TOTAL SHOULDERS,Cardiac ablation x2,skin CA removed with skin graft to neck Past Anesthesia/Blood Transfusion Reactions: No Reported Reaction Additional Past Anesthesia/Blood Transfusion Reaction / Comment(s): BRADYCARDIA. Type of Cardiac Device: AICD Device Placement Date:: 2019 Past Psychological History: Anxiety, Depression, Panic Disorder Smoking Status: Former smoker Past Alcohol Use History: None Reported Past Drug Use History: None Reported ALLERGIES: Famotidine, morphine, spironolactone, codeine, omeprazole, opioid CHEMICAL DEPENDENCY HISTORY: Patient reports that she quit tobacco. She is denying any alcohol, marijuana, or illicit drug use. FAMILY PSYCHIATRIC/SUBSTANCE USE HISTORY: No reported family psychiatric history. SOCIAL HISTORY: Patient was born and raised in [place], [place] and is currently a resident in [place], [place]. She is currently after being twice. Both of her husbands have . She does report that she is 3 adult daughters. She is retired. MENTAL STATUS EXAM: General Appearance: Patient appears to be stated age is alert, pleasant, and cooperative. Patient appears to have fair hygiene and grooming wearing hospital gown with fair eye contact. Behavior: Patient is calmly lying in bed without any agitated behavior. Patient is calmly eating her meal. Speech: Patient's speech is fluent and nonpressured. Mood/Affect: Patient reports their mood is "anxious", affect is congruent and nervous Suicidality/Homicidality: Patient denies having any suicidal or homicidal ideation intent or plan. Perceptions: Patient denies any visual hallucinations and denies any auditory hallucinations Though content/process: There is no evidence of any delusional thought content and thought process is linear and goal-directed. Memory and concentration: AOX3, grossly intact for the purposes of this session. Can spell "WORLD" backwards Judgment and insight: Fair IMPRESSIONS: Anxiety disorder, unspecified Irritable bowel syndrome PLAN: -At this time patient DOES NOT meet criteria for inpatient psychiatric admission. The patient is not presenting imminent risk of harm to self or others. She has no prior attempts at suicide and expressed a strong desire to live. -Delirium precautions recommended with patient including - avoiding use of narcotics and MANAGER ANIMAL sedatives, limit anticholinergic medications when possible, frequent re-orientation, minimize use of restraints, open window shades during the day and close them at night -Would recommend the following medication changes/additions: We will discontinue Xanax at this time as the patient has been chronically prescribed this medication and may contribute to worsening anxiety and tolerance. Start trazodone 50 mg by mouth at bedtime for depression/insomnia Start sertraline 25 mg by mouth at bedtime for depression/anxiety/IBS -Patient does not require a one-to-one sitter. -Recommend outpatient psychiatric/primary care medicine follow-up. -Psychiatry will follow loosely at this time. However, the patient is cleared psychiatrically for discharge. We will reevaluate tomorrow to see how she is tolerating her medication changes. 01/10/22 14:04
[2022-01-10] MEDS: SERTRALINE 25 MG TAB PO SCH (20:40)
[2022-01-10] MEDS: traZODone HCL 50 MG TAB PO SCH (20:40)
[2022-01-10] MEDS: MELATONIN 3 MG TABLET PO SCH (20:40)
[2022-01-11] MEDS: polyethylene glycoL 3350 17 GM POWD.PACK PO SCH ×3 (07:54→22:05)
[2022-01-11] MEDS: APIXABAN 2.5 MG TABLET PO SCH ×2 (09:30→22:04)
[2022-01-11] MEDS: SOTALOL 80 MG TAB PO SCH ×3 (09:30→22:07)
[2022-01-11] MEDS: POTASSIUM CHLORIDE ER 20 MEQ TAB.ER PO SCH (09:30)
[2022-01-11] MEDS: carvediloL 12.5 MG TAB PO SCH ×2 (09:30→18:06)
[2022-01-11] MEDS: ACETAMINOPHEN TAB 325 MG TAB PO PRN (09:31)
[2022-01-11] MEDS: PANTOPRAZOLE 40 MG TABLET PO SCH ×2 (09:32→18:06)
[2022-01-11] MEDS: FERROUS SULFATE 325 MG TAB PO SCH ×2 (09:32→18:06)
[2022-01-11] MEDS: amLODIPine 2.5 MG TAB PO SCH (09:32)
[2022-01-11] MEDS: LOSARTAN 50 MG TAB PO SCH (09:32)
--- NOTE | 2022-01-11 11:44 | P.PN ---
Progress Note - Text Progress Note Date: 01/11/22 Interval History: Patient was seen resting in bed and was directable and agreeable to speak with in the room. As per chart review, the patient has been sleeping poorly and has been getting up multiple times at bedtime to urinate. The patient reports that she has been feeling increasingly anxious and stressed due to her inability to sleep. She is now endorsing visual hallucinations in the form of odd shapes and buildings outside her window as well as images appearing on her TV screen. Despite this, the patient is not reporting any auditory hallucinations, paranoia, or other psychotic symptoms. In regards to mood, the patient is not reporting any suicidal or homicidal ideation, intention, and/or plan. She is not reporting any significant changes in her appetite and was able to eat this morning. The patient's primary concern is her perceived lack of appropriate assessment and care for her urinary problems. She has been compliant with her medications however reports no significant benefit at this time. Mental Status Exam: General Appearance: Patient appears to be stated age is alert, directable, and cooperative. Behavior: She is calmly lying down in bed without any agitated behavior. Eye contact is appropriate. Speech: Patient's speech is spontaneous with normal rate, tone, volume, and fluency. Mood/Affect: Mood is described as "not good." Affect appears to be somewhat expansive and histrionic. Suicidality/Homicidality: Patient is denying any suicidal or homicidal ideation, intention, and/or plan. Perceptions: Patient is endorsing visual disturbances however is not reporting any auditory hallucinations. Though content/process: The patient is fixated on her urinary tract problems. Memory and concentration: AOX3, grossly intact for the purposes of this session Judgment and insight: Fair Vital Signs Temp 98.4 F 01/11/22 05:00 Pulse 67 01/11/22 09:37 Resp 16 01/11/22 05:00 BP 178/70 01/11/22 09:37 Pulse Ox 99 01/11/22 05:00 FiO2 Intake & Output 01/10/22 01/11/22 01/11/22 18:59 06:59 18:59 Intake Total 590 Output Total 1604 5 Balance -1604 590 -5 Intake: Oral 590 Output: Urine 1601 5 Uretheral (Caldwell) 800 Stool 3 Other: Voiding Method Indwelling Catheter Toilet Toilet Bedside Commode Bedside Commode Diaper Incontinent External Catheter # Voids 22 Assessment Eye disorder, unspecified Irritable bowel syndrome Polyuria Plan: Recommend medical management and evaluation of her perceived UTI. -At this time patient DOES NOT meet criteria for inpatient psychiatric admission . The patient is not presenting imminent risk of harm to self or others. The patient has no prior attempts at suicide. In regards to her visual disturbances, this can be attributed to her sleep deprivation. Otherwise the patient is not overtly psychotic or displaying any significant symptoms of schizophrenia or other acute psychotic processes that are warranting inpatient psychiatric admission. -Delirium precautions recommended with patient including - avoiding use of narcotics and DUMPMAN sedatives, limit anticholinergic medications when possible, frequent re-orientation, minimize use of restraints, open window shades during the day and close them at night -Would recommend the following medication changes/additions: Increase trazodone to 100 mg by mouth at bedtime for depression/insomnia Increase Zoloft to 50 mg by mouth at bedtime for depression/anxiety/IBS -Patient does not require a one-to-one sitter. -Recommend outpatient psychiatric/primary care medicine follow-up. -Psychiatry will sign off at this time. Please call call us with any questions or concerns or reconsult us if necessary.
[2022-01-11] MEDS: MELATONIN 3 MG TABLET PO SCH (22:04)
[2022-01-11] MEDS: SERTRALINE 25 MG TAB PO SCH (22:04)
[2022-01-11] MEDS: traZODone HCL 50 MG TAB PO SCH (22:04)
--- NOTE | 2022-01-12 05:00 | PN ---
PROGRESS NOTE CHIEF COMPLAINT: Fecal impaction and urinary incontinence. HISTORY OF PRESENT ILLNESS: This lady is complaining of a dry mouth. She has multiple complaints about everything. Catheter has been removed and she is stooling. PHYSICAL EXAMINATION: CHEST: Clear. CARDIAC: Unremarkable. ABDOMEN: Soft, nontender. IMPRESSION: 1. Incontinence. 2. Fecal impaction. 3. Constipation. 4. Hypokalemia. 5. Depression. 6. Dry mouth. PLAN: 1. Encourage her to increase her activity and diet. 2. Psychiatric consult for depression. MMODL / IJN: [id number] /
--- NOTE | 2022-01-12 05:00 | PN ---
PROGRESS NOTE CHIEF COMPLAINT: Incontinence and fecal impaction. HISTORY OF PRESENT ILLNESS: This lady is complaining of not being able to sleep and having hallucinations. Caldwell catheter was removed and she is complaining of frequency as well. She has had no dysuria. She has had no fever, or chills. PHYSICAL EXAMINATION: CHEST: Clear. CARDIAC: Normal. ABDOMEN: Soft, nontender. IMPRESSION: 1. Fecal impaction. 2. Urinary incontinence. 3. Hallucinations. 4. Frequent urination. 5. Depression. PLAN: Increase her activity and monitor her urinary symptoms. She has been seen by Psychiatry and they are following her while she is in the hospital. MMODL / IJN: [id number] /
[2022-01-12] MEDS: POTASSIUM CHLORIDE ER 20 MEQ TAB.ER PO SCH (08:05)
[2022-01-12] MEDS: PANTOPRAZOLE 40 MG TABLET PO SCH ×2 (08:05→16:34)
[2022-01-12] MEDS: FERROUS SULFATE 325 MG TAB PO SCH ×2 (08:05→16:34)
[2022-01-12] MEDS: LOSARTAN 50 MG TAB PO SCH (08:05)
[2022-01-12] MEDS: APIXABAN 2.5 MG TABLET PO SCH ×2 (08:05→22:10)
[2022-01-12] MEDS: polyethylene glycoL 3350 17 GM POWD.PACK PO SCH ×3 (08:08→22:02)
[2022-01-12] MEDS: carvediloL 12.5 MG TAB PO SCH ×2 (08:10→16:39)
[2022-01-12] MEDS: amLODIPine 2.5 MG TAB PO SCH (08:10)
[2022-01-12] MEDS: SOTALOL 80 MG TAB PO SCH ×2 (08:10→22:09)
--- NOTE | 2022-01-12 13:39 | XR ---
EXAMINATION TYPE: XR chest 2V DATE OF EXAM: 01/12/2022 COMPARISON: 01/08/2022, 05/05/2019 INDICATION: Fever of unknown origin TECHNIQUE: Frontal and lateral views of the chest are obtained. FINDINGS: The heart size is normal. The pulmonary vasculature is normal. The lungs are clear. Oval densities adjacent to the right superior mediastinum. Present previously. Pacemaker overlies the left chest. IMPRESSION: 1. No acute pulmonary process.
[2022-01-12 15:26] LABS: Anisocytosis Moderate; Basophils % (A) 1 %; Eosinophils # (A) 0.1 k/uL (0-0.7); Eosinophils % (A) 2 %; HCT 39.1 % (34.0-46.0); HGB 12.2 gm/dL (11.4-16.0); Hypochromasia Marked; Lymphocytes # (A) 1.2 k/uL (1.0-4.8); Lymphocytes % (A) 24 %; MCHC 31.3 g/dL (31.0-37.0); MCV 89.5 fL (80.0-100.0); Mean Platelet Volume 8.2; Microcytosis Slight; Monocytes # (A) 0.4 k/uL (0-1.0); Monocytes % (A) 9 %; Neutrophils # (A) 3.3 k/uL (1.3-7.7); Neutrophils % (A) 63 %; Platelet Count 227 k/uL (150-450); RBC 4.37 m/uL (3.80-5.40); RDW 20.5 % (11.5-15.5); WBC 5.2 k/uL (3.8-10.6)
[2022-01-12 15:27] LABS: ALT 11 U/L (4-34); AST 17 U/L (14-36); African American GFR (CKD) 75 (>60 ml/min/1.73 sqM); Albumin 3.4 g/dL (3.5-5.0); Albumin/Globulin Ratio 1.5; Alkaline Phosphatase 50 U/L (38-126); Anion Gap 7 mmol/L; Blood Urea Nitrogen 27 mg/dL (7-17); Calcium 9.9 mg/dL (8.4-10.2); Carbon Dioxide 29 mmol/L (22-30); Chloride 100 mmol/L (98-107); Globulin 2.3 g/dL; Glucose 86 mg/dL (74-99); Non-African American GFR(CKD) 65 (>60 ml/min/1.73 sqM); Potassium 3.9 mmol/L (3.5-5.1); Sodium 136 mmol/L (137-145); Total Bilirubin 0.6 mg/dL (0.2-1.3); Total Protein 5.7 g/dL (6.3-8.2)
[2022-01-12 16:49] LABS: Appearance,Urine Cloudy (Clear); Bacteria,Urine Few /hpf; Bilirubin,Urine Negative (Negative); Blood,Urine Negative (Negative); Color,Urine Yellow; Glucose,Urine (UA) Negative (Negative); Ketones,Urine Negative (Negative); Leukocyte Esterase,Urine Large (Negative); Mucus,Urine Rare /hpf; Nitrite,Urine Positive (Negative); Protein,Urine Trace (Negative); RBC,Urine 4 /hpf (0-5); Specific Gravity,Urine 1.023 (1.001-1.035); Squamous Epithelial Cell,Urine 5 /hpf (0-4); Urobilinogen,Urine <2.0 mg/dL (<2.0); WBC,Urine >182 /hpf (0-5)
[2022-01-12] MEDS: ACETAMINOPHEN TAB 325 MG TAB PO PRN (19:36)
[2022-01-12] MEDS: MELATONIN 3 MG TABLET PO SCH (22:09)
[2022-01-12] MEDS: SERTRALINE 25 MG TAB PO SCH (22:10)
[2022-01-12] MEDS: traZODone HCL 50 MG TAB PO SCH (22:10)
[2022-01-13] MEDS: ACETAMINOPHEN TAB 325 MG TAB PO PRN ×2 (04:47→15:11)
[2022-01-13] MEDS: carvediloL 12.5 MG TAB PO SCH ×2 (07:31→17:46)
[2022-01-13] MEDS: amLODIPine 2.5 MG TAB PO SCH (07:31)
[2022-01-13] MEDS: FERROUS SULFATE 325 MG TAB PO SCH ×2 (07:31→17:46)
[2022-01-13] MEDS: PANTOPRAZOLE 40 MG TABLET PO SCH ×2 (07:32→17:46)
[2022-01-13] MEDS: LOSARTAN 50 MG TAB PO SCH (07:32)
[2022-01-13] MEDS: POTASSIUM CHLORIDE ER 20 MEQ TAB.ER PO SCH (07:32)
[2022-01-13] MEDS: APIXABAN 2.5 MG TABLET PO SCH ×2 (07:32→21:52)
[2022-01-13] MEDS: SOTALOL 80 MG TAB PO SCH ×2 (07:33→21:53)
[2022-01-13] MEDS: polyethylene glycoL 3350 17 GM POWD.PACK PO SCH ×3 (07:33→21:53)
[2022-01-13] MEDS: traZODone HCL 50 MG TAB PO SCH (21:52)
[2022-01-13] MEDS: SERTRALINE 25 MG TAB PO SCH (21:52)
[2022-01-13] MEDS: MELATONIN 3 MG TABLET PO SCH (21:52)
[2022-01-14] MEDS: SOTALOL 80 MG TAB PO SCH ×2 (07:42→21:48)
[2022-01-14] MEDS: APIXABAN 2.5 MG TABLET PO SCH ×2 (07:42→21:48)
[2022-01-14] MEDS: PANTOPRAZOLE 40 MG TABLET PO SCH ×2 (07:42→17:24)
[2022-01-14] MEDS: amLODIPine 2.5 MG TAB PO SCH (07:42)
[2022-01-14] MEDS: carvediloL 12.5 MG TAB PO SCH ×2 (07:42→17:24)
[2022-01-14] MEDS: LOSARTAN 50 MG TAB PO SCH (07:42)
[2022-01-14] MEDS: FERROUS SULFATE 325 MG TAB PO SCH ×2 (07:43→17:24)
[2022-01-14] MEDS: POTASSIUM CHLORIDE ER 20 MEQ TAB.ER PO SCH (08:41)
[2022-01-14] MEDS: polyethylene glycoL 3350 17 GM POWD.PACK PO SCH ×3 (08:41→21:48)
[2022-01-14] MEDS: SULFAMETHOX-TMP 800-160MG 1 EACH TAB PO SCH ×2 (09:57→21:48)
[2022-01-14] MEDS: ACETAMINOPHEN TAB 325 MG TAB PO PRN ×2 (15:31→22:15)
[2022-01-14 20:15] VITALS: RESP 18
[2022-01-14] MEDS: SERTRALINE 25 MG TAB PO SCH (21:48)
[2022-01-14] MEDS: traZODone HCL 50 MG TAB PO SCH (21:48)
[2022-01-14] MEDS: MELATONIN 3 MG TABLET PO SCH (21:48)
--- NOTE | 2022-01-14 23:42 | PN ---
PROGRESS NOTE CHIEF COMPLAINT: Urinary retention, constipation, and dysuria. HISTORY OF PRESENT ILLNESS: This lady is complaining of bladder pain, dysuria, and frequency. The urine is in the lab and results are pending. She is afebrile. PHYSICAL EXAMINATION: CHEST: Clear. CARDIAC: Normal. ABDOMEN: Soft, nontender. IMPRESSION: 1. Urinary retention. 2. Constipation. 3. General debility and weakness. PLAN: 1. Progress activity. 2. Await results of urinalysis. 3. Look into discharge planning. MMODL / IJN: [id number] /
--- NOTE | 2022-01-15 00:33 | PN ---
PROGRESS NOTE CHIEF COMPLAINT: Urinary retention. HISTORY OF PRESENT ILLNESS: This lady is still complaining of frequency, urgency, and dysuria. The urine has been ordered. She has had no fever or chills. She is having normal bowel movements now. She also states that she is . PHYSICAL EXAMINATION: CHEST: Clear. CARDIAC: Normal. ABDOMEN: Soft, nontender. NEUROLOGIC: Intact. IMPRESSION: 1. Urinary retention. 2. Constipation. 3. Dysuria and frequency. 4. Hallucinations. PLAN: UA will be repeated and cultures at that time if necessary. MMODL / IJN: [id number] /
--- NOTE | 2022-01-15 00:54 | PN ---
PROGRESS NOTE CHIEF COMPLAINT: Constipation and urinary retention. HISTORY OF PRESENT ILLNESS: This lady is voiding fairly well, but she is complaining of dysuria. Her culture did come back positive for E coli. PHYSICAL EXAMINATION: GENERAL: She is afebrile. CHEST: Clear. CARDIAC: Exam is normal. ABDOMEN: Soft and nontender. IMPRESSION: 1. Urinary retention. 2. Constipation. 3. Cystitis. PLAN: Start Bactrim DS and start to increase activity and fluids. Discharge planning is in place. MMODL / IJN: [id number] /
[2022-01-15 04:07] VITALS: TEMP 98.8
[2022-01-15] MEDS: APIXABAN 2.5 MG TABLET PO SCH (08:39)
[2022-01-15] MEDS: SOTALOL 80 MG TAB PO SCH (08:39)
[2022-01-15] MEDS: FERROUS SULFATE 325 MG TAB PO SCH (08:39)
[2022-01-15] MEDS: SULFAMETHOX-TMP 800-160MG 1 EACH TAB PO SCH (08:39)
[2022-01-15] MEDS: amLODIPine 2.5 MG TAB PO SCH (08:40)
[2022-01-15] MEDS: PANTOPRAZOLE 40 MG TABLET PO SCH (08:40)
[2022-01-15] MEDS: POTASSIUM CHLORIDE ER 20 MEQ TAB.ER PO SCH (08:40)
[2022-01-15] MEDS: LOSARTAN 50 MG TAB PO SCH (08:40)
[2022-01-15] MEDS: polyethylene glycoL 3350 17 GM POWD.PACK PO SCH (08:40)
[2022-01-15] MEDS: carvediloL 12.5 MG TAB PO SCH (08:40)
[2022-01-15 08:43] VITALS: BP 160/88; PULSE 60
[2022-01-15 10:17] VITALS: BMI 29.2
--- NOTE | 2022-01-16 11:22 | DS ---
DISCHARGE SUMMARY CHIEF COMPLAINT: Urinary retention and constipation. HISTORY OF PRESENT ILLNESS AND PHYSICAL EXAMINATION: Details of this lady's history and physical can be found in the initial workup. LABORATORY STUDIES: While she is in a hospital, she had laboratory studies, details of which can be found in the laboratory section of her chart. COURSE IN THE HOSPITAL: After admission, she was placed on bedrest and started on IV fluids. Caldwell catheter was in place for her retention. She was started on a bowel regimen and was able to pass stool and fecal impaction. She did well after that. Caldwell catheter was removed and she was urinating normally as well as retaining urine. She then developed dysuria with frequency and lower abdominal pain. Culture revealed urinary tract infection. This was treated. She was doing well and it was felt that she could be discharged home on the . She lives alone. She will be followed up in the office in several days. FINAL DIAGNOSES: 1. Urinary retention. 2. Constipation. 3. Urinary tract infection. 4. Depression. 5. Chronic pain. OPERATIONS: None. CONSULTATIONS: None. She is improved. MMODL / IJN: [id number] /
== END 2022-01-15 15:15 | disposition home or self-care (01) | DRG 389 ==
LOC: EC 08:27 → 5NMEDONC 15:05
PROVIDERS: ADMIT Family Medicine; ATTEND Family Medicine
DX: K56.41 Fecal impaction (principal); R45.851 Suicidal ideations; N30.90 Cystitis, unspecified without hematuria; M41.9 Scoliosis, unspecified; M06.9 Rheumatoid arthritis, unspecified; K58.9 Irritable bowel syndrome, unspecified; E78.5 Hyperlipidemia, unspecified; E87.6 Hypokalemia; F32.A Depression, unspecified; F41.0 Panic disorder [episodic paroxysmal anxiety]; G47.00 Insomnia, unspecified; R33.9 Retention of urine, unspecified; G89.29 Other chronic pain; H91.90 Unspecified hearing loss, unspecified ear; Z87.01 Personal history of pneumonia (recurrent); Z71.3 Dietary counseling and surveillance; J45.909 Unspecified asthma, uncomplicated; I34.1 Nonrheumatic mitral (valve) prolapse; I50.9 Heart failure, unspecified; I11.0 Hypertensive heart disease with heart failure; H40.9 Unspecified glaucoma; Z60.2 Problems related to living alone; Z63.4 Disappearance and death of family member; R53.81 Other malaise; I25.10 Atherosclerotic heart disease of native coronary artery without angina pectoris; I25.2 Old myocardial infarction; I48.91 Unspecified atrial fibrillation; K21.9 Gastro-esophageal reflux disease without esophagitis; L30.9 Dermatitis, unspecified; L40.9 Psoriasis, unspecified; M48.00 Spinal stenosis, site unspecified; Z79.01 Long term (current) use of anticoagulants; Z85.828 Personal history of other malignant neoplasm of skin; Z80.8 Family history of malignant neoplasm of other organs or systems; Z87.891 Personal history of nicotine dependence; Z88.5 Allergy status to narcotic agent; Z88.8 Allergy status to other drugs, medicaments and biological substances
CPT/HCPCS: 36415; 51702; 71046; 74176; 80053; 81001; 83605; 83735; 84484; 85025; 85610; 85730; 87077; 87086; 87186; 93005; 94760; 96361; 96374; 96375; 99285

== ENCOUNTER 2022-03-28 19:22 | Emergency (ER) | payer MEDICARE ==
--- NOTE | 2022-03-28 19:49 | ED ---
General Adult HPI - General Chief complaint: Abdominal Pain Stated complaint: Diarrhea Time Seen by Provider: 03/28/22 19:32 Source: patient, EMS, RN notes reviewed Mode of arrival: EMS Limitations: no limitations - History of Present Illness Initial comments: Patient is a 31-year-old female presenting in the emergency room via EMS from home with complaints of abdominal pain that began yesterday in the lower region along with some bloating, urinary frequency, some urinary incontinence along with diarrhea. She reports that she has taken Imodium for her diarrhea. She denies any chest pain, shortness of breath, nausea, vomiting, hematuria, dysuria fevers or chills. She does have an extensive past medical history including A. fib, asthma, CHF, chronic back pain, spinal stenosis, irritable bowel syndrome, GERD, hyperlipidemia, hypertension, memory impairment, [place], rheumatoid arthritis, sleep apnea and hypothyroidism. - Related Data Home Medications Medication Instructions Recorded Confirmed Simvastatin [Zocor] 10 mg PO HS 10/03/13 01/08/22 Irbesartan 300 mg PO DAILY 07/25/15 01/08/22 Potassium Chloride [Klor-Con 20] 20 meq PO DAILY 03/06/19 01/08/22 Sotalol [Betapace] 80 mg PO BID 04/04/20 01/08/22 Cranberry Fruit Concentrate [Azo 500 mg PO DAILY PRN 02/27/21 01/08/22 Cranberry] ALPRAZolam [Xanax] 0.25 mg PO BID PRN 11/20/21 01/08/22 Vitamin D3 1,250 Mcg 1,250 mcg PO QMONTHLY 11/20/21 01/08/22 amLODIPine [Norvasc] 2.5 mg PO DAILY 11/20/21 01/08/22 carvediloL [Coreg] 12.5 mg PO BID 11/20/21 01/08/22 Previous Rx's Medication Instructions Recorded Apixaban [Eliquis] 2.5 mg PO BID #60 tab 11/24/21 Ferrous Sulfate [Iron (65 MG 325 mg PO BID-W/MEALS #60 tab 11/24/21 Elemental)] Pantoprazole [Protonix] 40 mg PO AC-BID #60 tab 11/24/21 Sulfamethox-Tmp 800-160Mg [Bactrim 1 each PO BID #20 tab 01/15/22 DS 800-160 mg] Sulfamethox-Tmp 800-160Mg [Bactrim 1 tab PO Q12HR 5 Days #10 tab 03/28/22 DS 800-160 mg] Allergies Allergy/AdvReac Type Severity Reaction Status Date / Time famotidine Allergy Unknown Verified 03/28/22 19:27 morphine Allergy Unknown Verified 03/28/22 19:27 spironolactone Allergy Unknown Verified 03/28/22 19:27 codeine AdvReac Severe Nausea & Verified 03/28/22 19:27 Vomiting omeprazole AdvReac Nausea, Verified 03/28/22 19:27 dizzyness Opioids - Morphine Analogues AdvReac Dyspnea- Verified 03/28/22 19:27 Review of Systems ROS Statement: Those systems with pertinent positive or pertinent negative responses have been documented in the HPI. ROS Other: All systems not noted in ROS Statement are negative. Past Medical History Past Medical History: Atrial Fibrillation, Asthma, Cancer, Heart Failure, Eye Disorder, GERD/Reflux, Hearing Disorder / Deafness, Hyperlipidemia, Hypertension, Memory Impairment, Myocardial Infarction ([place]), Mitral Valve Prolapse (MVP), Osteoarthritis (OA), Pneumonia, Respiratory Disorder, Rheumatoid Arthritis (RA), Skin Disorder, Sleep Apnea/CPAP/BIPAP, Thyroid Disorder Additional Past Medical History / Comment(s): CHRONIC BACK PAIN, SPINAL STENOSIS, SCOLIOSIS, IBS, VARICOSE VEINS, STRESS INDUCED ASTHMA. 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 GLAUCOMA -"STRESS INDUCED",8 NODULES ON THYROID, psoriasis, eczema Last Myocardial Infarction Date:: Pt unknown History of Any Multi-Drug Resistant Organisms: None Reported Past Surgical History: Cardiac Ablation, Cholecystectomy, Heart Catheterization, Hysterectomy, Joint Replacement, Orthopedic Surgery Additional Past Surgical History / Comment(s): THYROID BX, LINDSAY. TOTAL KNEES, B [place] TOTAL SHOULDERS,Cardiac ablation x2,skin CA removed with skin graft to neck Past Anesthesia/Blood Transfusion Reactions: No Reported Reaction Additional Past Anesthesia/Blood Transfusion Reaction / Comment(s): BRADYCARDIA. Type of Cardiac Device: AICD Device Placement Date:: 2019 Past Psychological History: Anxiety, Depression, Panic Disorder Smoking Status: Former smoker Past Alcohol Use History: None Reported Past Drug Use History: None Reported - Past Family History Father Family Medical History: Cancer Additional Family Medical History / Comment(s): ORAL CANCER Mother Additional Family Medical History / Comment(s): Alcoholism. General Exam - General Exam Comments Initial Comments: GENERAL: No acute distress, well developed, well nourished. HEENT: Normocephalic, atraumatic. Pupils equal, round, reactive to light. Moist mucous membranes. LUNGS: No respiratory distress. Clear to auscultation, no adventitious sounds, no use of accessory muscles. HEART: Regular rate and irregular rhythm with systolic murmur, rub, or gallop. ABDOMEN: Normal bowel sounds. Soft, non-tender, non-distended. Rounded. Lower quadrant tenderness. BACK: Normal inspection. EXTREMITIES: No edema. No tenderness. Moves all extremities. NEUROLOGIC: Alert & oriented x 3. CN II-XII grossly intact. PSYCHIATRIC: Anxious. DERMATOLOGIC: Skin intact, without rashes or lesions noted. Limitations: no limitations Course Vital Signs 03/28/22 03/28/22 19:23 22:02 Temperature 98.3 F 98.0 F Pulse Rate 62 60 Respiratory 17 18 Rate Blood Pressure 173/95 141/77 O2 Sat by Pulse 97 96 Oximetry Medical Decision Making - Medical Decision Making Was pt. sent in by a medical professional or institution (, PA, PAYROLL AND BENEFITS ANALYST, urgent care, hospital, or assisted...) When possible be specific @ -No Did you speak to anyone other than the patient for history (EMS, parent, family, police, friend...)? What history was obtained from this source @ -No Did you review nursing and triage notes (agree or disagree)? Why? @ -I reviewed and agree with nursing and triage notes except complaining of abdominal pain. Were old charts reviewed (outside hosp., previous admission, EMS record, old EKG, old radiological studies, urgent care reports/EKG's, assisted records)? Report findings @ -EMS records Differential Diagnosis (chest pain, altered mental status, abdominal pain women, abdominal pain men, vaginal bleeding, weakness, fever, dyspnea, syncope, headache, dizziness, GI bleed, back pain, seizure, CVA, palpatations, mental health)? @ -Differential Abdominal Pain Women: Appendicitis, Cholecystitis, diverticulosis, ischemic bowel, pancreatitis, hepatitis, UTI, gastroenteritis, AAA, incarcerated hernia, bowel obstruction, constipation, inflammatory bowel, hepatitis, peptic ulcer disease, splenic infarction, perforated viscus, vulvitis, ovarian torsion, PID, kidney stone, placenta abruption, this is not meant to be an all-inclusive list EKG interpreted by me (3pts min.). @ -None X-rays interpreted by me (1pt min.). @ -None done CT interpreted by me (1pt min.). @ -CT of the abdomen and pelvis demonstrates large fecal load without fecal impaction. No ileus. U/S interpreted by me (1pt. min.). @ -None done What testing was considered but not performed or refused? (CT, X-rays, U/S, labs)? Why? @ -None What meds were considered but not given or refused? Why? @ -IV fluids consider however hemodynamically stable thus deferred Did you discuss the management of the patient with other professionals (professionals i.e. , PA, PAYROLL AND BENEFITS ANALYST, lab, RT, psych nurse, manager social services, cabin crew, teacher, chief analytics officer, digital communications manager)? Give summary @ -No Was smoking cessation discussed for >3mins.? @ -No Was critical care preformed (if so, how long)? @ -No Were there social determinants of health that impacted care today? How? (Homelessness, low income, unemployed, alcoholism, drug addiction, transportation, low edu. Level, literacy, decrease access to med. care, [facility], rehab)? @ -No Was there de-escalation of care discussed even if they declined (Discuss DNR or withdrawal of care, Hospice)? DNR status @ -No What co-morbidities impacted this encounter? (DM, HTN, Smoking, COPD, CAD, Cancer, CVA, ARF, Chemo, Hep., AIDS, mental health diagnosis, sleep apnea, morbid obesity)? @ -None Was patient admitted / discharged? Hospital course, mention meds given and route, prescriptions, significant lab abnormalities, going to OR and other pertinent info. @ -Patient presenting to the emergency room via EMS with complaints of lower abdominal pain diarrhea with an incontinence at times along with increased urinary frequency with incontinence. She has taken Imodium at home to treat her diarrhea. Workup for female abdominal pain initiated with CBC, CMP, amylase, lipase along with urinalysis. CT the abdomen also ordered. CT without concerning abnormalities constipation noted. Advised no use of Imodium. Overall labs stable no anomalies on CBC BUN slightly elevated at 18. Urinalysis consistent with UTI. No indication for further diagnostic imaging or laboratory studies at this time. Return parameters to the emergency room reviewed at length. Will discharge home in stable condition on oral antibiotic therapy and follow-up with her primary care provider. Undiagnosed new problem with uncertain prognosis? @ -No Drug Therapy requiring intensive monitoring for toxicity (Heparin, Nitro, Insulin, Cardizem)? @ -No Were any procedures done? @ -No Diagnosis/symptom? @ -UTI Acute, or Chronic, or Acute on Chronic? @ -Acute Uncomplicated (without systemic symptoms) or Complicated (systemic symptoms)? @ -default Side effects of treatment? @ -Uncomplicated Exacerbation, Progression, or Severe Exacerbation? @ -No Poses a threat to life or bodily function? How? (Chest pain, [place], [place], pneumonia, PE, COPD, DKA, ARF, appy, cholecystitis, CVA, Diverticulitis, Homicidal, Suicidal, threat to staff... and all critical care pts) @ -No Diagnosis/symptom? @ -Constipation Acute, or Chronic, or Acute on Chronic? @ -Likely acute on chronic Uncomplicated (without systemic symptoms) or Complicated (systemic symptoms)? @ -Uncomplicated Side effects of treatment? @ -none Exacerbation, Progression, or Severe Exacerbation] @ -no Poses a threat to life or bodily function? @ -no Diagnosis/symptom? @ -Abdominal pain Acute, or Chronic, or Acute on Chronic? @ -Acute Uncomplicated (without systemic symptoms) or Complicated (systemic symptoms)? @ -Uncomplicated Side effects of treatment? @ -none Exacerbation, Progression, or Severe Exacerbation] @ -no Poses a threat to life or bodily function? @ -no Case discussed with Dr. Strong - Lab Data Result diagrams: 03/28/22 20:01 03/28/22 20:01 Lab Results 03/28/22 03/28/22 03/28/22 Range/Units 20:01 20:01 20:01 WBC 8.8 (3.8-10.6) k/uL RBC 3.95 (3.80-5.40) m/uL Hgb 12.4 (11.4-16.0) gm/dL Hct 37.3 (34.0-46.0) % MCV 94.5 (80.0-100.0) fL MCH 31.4 (25.0-35.0) pg MCHC 33.2 (31.0-37.0) g/dL RDW 14.5 (11.5-15.5) % Plt Count 256 (150-450) k/uL MPV 7.5 Neutrophils % 76 % Lymphocytes % 15 % Monocytes % 6 % Eosinophils % 1 % Basophils % 0 % Neutrophils # 6.6 (1.3-7.7) k/uL Lymphocytes # 1.3 (1.0-4.8) k/uL Monocytes # 0.6 (0-1.0) k/uL Eosinophils # 0.1 (0-0.7) k/uL Basophils # 0.0 (0-0.2) k/uL Sodium 138 (137-145) mmol/L Potassium 3.6 (3.5-5.1) mmol/L Chloride 106 (98-107) mmol/L Carbon Dioxide 27 (22-30) mmol/L Anion Gap 5 mmol/L BUN 18 H (7-17) mg/dL Creatinine 0.56 (0.52-1.04) mg/dL Est GFR (CKD-EPI)AfAm >90 (>60 ml/min/1.73 sqM) Est GFR (CKD-EPI)NonAf 88 (>60 ml/min/1.73 sqM) Glucose 89 (74-99) mg/dL Calcium 9.9 (8.4-10.2) mg/dL Total Bilirubin 0.9 (0.2-1.3) mg/dL AST 18 (14-36) U/L ALT 12 (4-34) U/L Alkaline Phosphatase 59 (38-126) U/L Total Protein 5.8 L (6.3-8.2) g/dL Albumin 3.5 (3.5-5.0) g/dL Amylase 57 (30-110) U/L Lipase 125 (23-300) U/L Urine Color Colorless Urine Appearance Cloudy H (Clear) Urine pH 6.5 (5.0-8.0) Ur Specific [place] 1.009 (1.001-1.035) Urine Protein Trace H (Negative) Urine Glucose (UA) Negative (Negative) Urine Ketones Negative (Negative) Urine Blood Moderate H (Negative) Urine Nitrite Negative (Negative) Urine Bilirubin Negative (Negative) Urine Urobilinogen <2.0 (<2.0) mg/dL Ur Leukocyte Esterase Large H (Negative) Urine RBC 33 H (0-5) /hpf Urine WBC 113 H (0-5) /hpf Urine Bacteria Occasional H (None) /hpf - Radiology Data Radiology results: report reviewed, image reviewed Disposition Clinical Impression: Abdominal pain, acute, generalized, Constipation, Urinary tract infection Disposition: HOME SELF-CARE Condition: Stable Instructions (If sedation given, give patient instructions): Constipation (ED), Urinary Tract Infection in Women (ED), Abdominal Pain (ED) Additional Instructions: Please complete course of antibiotic as prescribed. Stop Imodium and increase fiber and water intake as you are constipated. Please follow-up with your primary care provider. Please return to the Emergency Department if symptoms worsen or any other concerns. Prescriptions: Sulfamethox-Tmp 800-160Mg [Bactrim DS 800-160 mg] 1 tab PO Q12HR 5 Days #10 tab Is patient prescribed a controlled substance at d/c from ED?: No Referrals: Sergei De La Garza MD [Primary Care Provider] - 1-2 days Time of Disposition: 21:43
[2022-03-28 20:17] LABS: Appearance,Urine Cloudy (Clear); Bacteria,Urine Occasional /hpf; Bilirubin,Urine Negative (Negative); Blood,Urine Moderate (Negative); Color,Urine Colorless; Glucose,Urine (UA) Negative (Negative); Ketones,Urine Negative (Negative); Leukocyte Esterase,Urine Large (Negative); Nitrite,Urine Negative (Negative); PH, Urine 6.5 (5.0-8.0); Protein,Urine Trace (Negative); RBC,Urine 33 /hpf (0-5); Specific Gravity,Urine 1.009 (1.001-1.035); Urobilinogen,Urine <2.0 mg/dL (<2.0); WBC,Urine 113 /hpf (0-5)
[2022-03-28 20:24] LABS: Basophils % (A) 0 %; Eosinophils # (A) 0.1 k/uL (0-0.7); Eosinophils % (A) 1 %; HCT 37.3 % (34.0-46.0); HGB 12.4 gm/dL (11.4-16.0); Lymphocytes # (A) 1.3 k/uL (1.0-4.8); Lymphocytes % (A) 15 %; MCH 31.4 pg (25.0-35.0); MCHC 33.2 g/dL (31.0-37.0); MCV 94.5 fL (80.0-100.0); Mean Platelet Volume 7.5; Monocytes # (A) 0.6 k/uL (0-1.0); Monocytes % (A) 6 %; Neutrophils # (A) 6.6 k/uL (1.3-7.7); Neutrophils % (A) 76 %; Platelet Count 256 k/uL (150-450); RBC 3.95 m/uL (3.80-5.40); RDW 14.5 % (11.5-15.5); WBC 8.8 k/uL (3.8-10.6)
[2022-03-28 20:31] LABS: ALT 12 U/L (4-34); AST 18 U/L (14-36); African American GFR (CKD) >90 (>60 ml/min/1.73 sqM); Albumin 3.5 g/dL (3.5-5.0); Alkaline Phosphatase 59 U/L (38-126); Amylase 57 U/L (30-110); Anion Gap 5 mmol/L; Blood Urea Nitrogen 18 mg/dL (7-17); Calcium 9.9 mg/dL (8.4-10.2); Carbon Dioxide 27 mmol/L (22-30); Chloride 106 mmol/L (98-107); Glucose 89 mg/dL (74-99); Lipase 125 U/L (23-300); Non-African American GFR(CKD) 88 (>60 ml/min/1.73 sqM); Potassium 3.6 mmol/L (3.5-5.1); Sodium 138 mmol/L (137-145); Total Bilirubin 0.9 mg/dL (0.2-1.3); Total Protein 5.8 g/dL (6.3-8.2)
--- NOTE | 2022-03-28 21:09 | CT ---
EXAMINATION TYPE: CT abdomen pelvis wo con CT DLP: 460.2 mGycm, Automated exposure control for dose reduction was used. DATE OF EXAM: 03/28/2022 8:34 PM COMPARISON: CT abdomen pelvis most recent from 01/08/2022 CLINICAL INDICATION:Female, 81 years old with history of abdominal pain; abd pain, diarrhea TECHNIQUE: Axial CT of the abdomen and pelvis. Sagittal and coronal reformats were created on a [employer] workstation. Contrast used: None Oral contrast used: without Oral Contrast FINDINGS: LOWER CHEST: Heart is mildly enlarged for size. Cardiac conduction leads partially visualized. ABDOMEN LIVER: Unremarkable GALLBLADDER AND BILE DUCTS: Gallbladder is surgically absent with mild intrahepatic and extra hepatic biliary dilatation likely physiologic and a postcholecystectomy change. No evidence of choledocholit hiasis. PANCREAS: Lipomatous pseudohypertrophy changes of the pancreas. SPLEEN: Unremarkable. ADRENAL GLANDS: Nodular thickening to the adrenal glands unchanged from multiple priors suggestive of adenomatous hypertrophy changes of the glands. KIDNEYS AND URETERS: Stable dilation of the collecting system on the left without evidence of obstruc ting uropathy. The right renal collecting system is without dilation. No calculi identified. PELVIS BLADDER: Unremarkable REPRODUCTIVE: Unremarkable. ABDOMEN & PELVIS STOMACH AND BOWEL: Large volume of stool within the rectum measuring up to 7.9 x 6.1 cm. Additionally there is stool seen throughout the colon and small bowel feces present. Asymmetric circumferential w all thickening of the rectum measuring up to 7 mm. Posterior gastric diverticulum near the left adren al gland. Scattered clonic diverticula are present throughout the colon. PERITONEUM: No evidence of pneumoperitoneum or free fluid. VASCULATURE: No evidence of aortic aneurysm. Atherosclerosis of the arterial vasculature. MUSCULOSKELETAL: No acute osseous abnormalities, scoliosis changes of the spine. Severe degeneration changes of the spine with facet joint arthropathy disc space narrowing, during this phenomenon, osteo phytes, and sclerosis. LYMPH NODES: No gross evidence for lymphadenopathy. SOFT TISSUE/ABDOMINAL WALL: Unremarkable IMPRESSION: 1. Large stool burden throughout the colon especially the rectum where there is a large fecaloma. Sm all bowel feces is also present correlate for fecal stasis. Some asymmetric wall thickening of the si gmoid rectal junction. Represent stercoral colitis 2. Colonic diverticulosis.
[2022-03-28 22:06] VITALS: BP 141/77; PULSE 60; RESP 18; TEMP 98
== END 2022-03-28 22:03 | disposition home or self-care (01) ==
LOC: EC 19:22
DX: N39.0 Urinary tract infection, site not specified (principal); K59.00 Constipation, unspecified; K57.30 Diverticulosis of large intestine without perforation or abscess without bleeding; I48.91 Unspecified atrial fibrillation; I11.0 Hypertensive heart disease with heart failure; I50.9 Heart failure, unspecified; J45.909 Unspecified asthma, uncomplicated; E78.5 Hyperlipidemia, unspecified; I25.2 Old myocardial infarction; G47.30 Sleep apnea, unspecified; M19.90 Unspecified osteoarthritis, unspecified site; F41.9 Anxiety disorder, unspecified; F32.A Depression, unspecified; Z79.1 Long term (current) use of non-steroidal anti-inflammatories (NSAID); Z87.891 Personal history of nicotine dependence; Z79.899 Other long term (current) drug therapy
CPT/HCPCS: 36415; 74176; 80053; 81001; 82150; 83690; 85025; 87077; 87086; 87186; 99285

== ENCOUNTER 2022-10-30 01:37 | Inpatient (IN) | payer MEDICARE ==
[2022-10-30 02:34] LABS: ALT 12 U/L (4-34); AST 21 U/L (14-36); African American GFR (CKD) >90 (>60 ml/min/1.73 sqM); Alkaline Phosphatase 73 U/L (38-126); Amylase 70 U/L (30-110); Anion Gap 6 mmol/L; Blood Urea Nitrogen 22 mg/dL (7-17); Calcium 10.1 mg/dL (8.4-10.2); Carbon Dioxide 26 mmol/L (22-30); Chloride 105 mmol/L (98-107); Glucose 99 mg/dL (74-99); Lipase 89 U/L (23-300); Non-African American GFR(CKD) 86 (>60 ml/min/1.73 sqM); Potassium 3.9 mmol/L (3.5-5.1); Sodium 137 mmol/L (137-145); Total Protein 6.7 g/dL (6.3-8.2)
[2022-10-30 02:56] LABS: Basophils % (A) 0 %; Eosinophils # (A) 0.1 k/uL (0-0.7); Eosinophils % (A) 1 %; HGB 13.5 gm/dL (11.4-16.0); Lymphocytes # (A) 1.2 k/uL (1.0-4.8); Lymphocytes % (A) 15 %; MCH 31.2 pg (25.0-35.0); MCV 94.6 fL (80.0-100.0); Mean Platelet Volume 7.5; Monocytes # (A) 0.6 k/uL (0-1.0); Monocytes % (A) 7 %; Neutrophils # (A) 6.1 k/uL (1.3-7.7); Neutrophils % (A) 75 %; Platelet Count 189 k/uL (150-450); RBC 4.34 m/uL (3.80-5.40); RDW 13.9 % (11.5-15.5); WBC 8.2 k/uL (3.8-10.6)
[2022-10-30] MEDS ORDERED: ONDANSETRON 4 MG/2 ML VIAL IVP STA (03:44)
[2022-10-30] MEDS ORDERED: SODIUM CHLORIDE 0.9% 1,000 ML IV STA (03:44)
[2022-10-30] MEDS ORDERED: HYDROmorphone 0.5 MG/0.5 ML SYRINGE IVP STA (03:45)
[2022-10-30] MEDS ORDERED: LORazepam 2 MG/ML INJ IV STA (04:38)
--- NOTE | 2022-10-30 06:24 | ED ---
Abdominal Pain HPI - General Chief Complaint: Abdominal Pain Stated Complaint: diaherra Time Seen by Provider: 10/30/22 03:40 Source: patient, RN notes reviewed, old records reviewed Mode of arrival: EMS Limitations: no limitations - History of Present Illness Initial Comments: This is a 82-year-old female to the emergency department today for evaluation today. Patient coming in for multiple complaints weakness nausea and diarrhea. Significant amounts of diarrhea and unable control her bowel movements. Patient is also having rectal and vaginal pain. Patient did lose control of her bowels here in the emergency department. Denying any fevers. Patient does admit to chills and feels cold. Patient is anxious on evaluation MD Complaint: abdominal pain, other (Nausea vomiting diarrhea) -: hour(s) (5) Location: suprapubic Radiation: suprapubic Migration to: suprapubic Severity: moderate Severity scale (1-10): 7 Quality: fullness, sharp Consistency: constant Improves With: nothing Worsens With: nothing Associated Symptoms: nausea, diarrhea Treatments Prior to Arrival: other (0) - Related Data Home Medications Medication Instructions Recorded Confirmed Simvastatin [Zocor] 10 mg PO HS 10/03/13 10/30/22 Irbesartan 300 mg PO DAILY 07/25/15 10/30/22 Potassium Chloride [Klor-Con 20] 20 meq PO DAILY 03/06/19 10/30/22 Sotalol [Betapace] 80 mg PO BID 04/04/20 10/30/22 Cranberry Fruit Concentrate [Azo 500 mg PO DAILY 02/27/21 10/30/22 Cranberry] ALPRAZolam [Xanax] 0.25 mg PO BID 11/20/21 10/30/22 carvediloL [Coreg] 12.5 mg PO BID 11/20/21 10/30/22 Acetaminophen Tab [Tylenol] 500 mg PO Q6H PRN 10/30/22 10/30/22 Cholecalciferol (Vitamin D3) 1,250 mcg PO QMONTHLY 10/30/22 10/30/22 [Vitamin D3] Melatonin 10 mg PO HS 10/30/22 10/30/22 Pantoprazole [Protonix] 40 mg PO BID 10/30/22 10/30/22 Previous Rx's Medication Instructions Recorded amLODIPine [Norvasc] 5 mg PO HS #30 tab 11/05/22 Allergies Allergy/AdvReac Type Severity Reaction Status Date / Time famotidine Allergy Unknown Verified 10/30/22 08:35 morphine Allergy Unknown Verified 10/30/22 08:35 spironolactone Allergy Unknown Verified 10/30/22 08:35 codeine AdvReac Severe Nausea & Verified 10/30/22 08:35 Vomiting omeprazole AdvReac Nausea, Verified 10/30/22 08:35 dizzyness Opioids - Morphine Analogues AdvReac Dyspnea- Verified 10/30/22 08:35 Review of Systems ROS Statement: Those systems with pertinent positive or pertinent negative responses have been documented in the HPI. ROS Other: All systems not noted in ROS Statement are negative. Past Medical History Past Medical History: Atrial Fibrillation, Asthma, Cancer, Heart Failure, Eye Disorder, GERD/Reflux, Hearing Disorder / Deafness, Hyperlipidemia, Hypertension, Memory Impairment, Myocardial Infarction (DC), Mitral Valve Prolapse (MVP), Osteoarthritis (OA), Pneumonia, Respiratory Disorder, Rheumatoid Arthritis (RA), Skin Disorder, Sleep Apnea/CPAP/BIPAP, Thyroid Disorder Additional Past Medical History / Comment(s): CHRONIC BACK PAIN, SPINAL STENOSIS, SCOLIOSIS, IBS, VARICOSE VEINS, STRESS INDUCED ASTHMA. 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 GLAUCOMA -"STRESS INDUCED",8 NODULES ON THYROID, psoriasis, eczema Last Myocardial Infarction Date:: Pt unknown History of Any Multi-Drug Resistant Organisms: None Reported Past Surgical History: Cardiac Ablation, Cholecystectomy, Heart Catheterization, Hysterectomy, Joint Replacement, Orthopedic Surgery Additional Past Surgical History / Comment(s): THYROID BX, LINDSAY. TOTAL KNEES, LINDSAY TOTAL SHOULDERS,Cardiac ablation x2,skin CA removed with skin graft to neck Past Anesthesia/Blood Transfusion Reactions: No Reported Reaction Additional Past Anesthesia/Blood Transfusion Reaction / Comment(s): BRADYCARDIA. Type of Cardiac Device: AICD Device Placement Date:: 2019 Past Psychological History: Anxiety, Depression, Panic Disorder Smoking Status: Former smoker Past Alcohol Use History: None Reported Past Drug Use History: None Reported - Past Family History Father Family Medical History: Cancer Additional Family Medical History / Comment(s): ORAL CANCER Mother Additional Family Medical History / Comment(s): Alcoholism. General Exam Limitations: no limitations General appearance: alert, in no apparent distress Head exam: Present: atraumatic, normocephalic, normal inspection Eye exam: Present: normal appearance, PERRL, EOMI. Absent: scleral icterus, conjunctival injection, periorbital swelling ENT exam: Present: normal exam, mucous membranes moist Neck exam: Present: normal inspection. Absent: tenderness, meningismus, lymphad enopathy Respiratory exam: Present: normal lung sounds bilaterally. Absent: respiratory distress, wheezes, rales, rhonchi, stridor Cardiovascular Exam: Present: regular rate, normal rhythm, normal heart sounds. Absent: systolic murmur, diastolic murmur, rubs, gallop, clicks GI/Abdominal exam: Present: soft, normal bowel sounds. Absent: distended, tenderness, guarding, rebound, rigid Extremities exam: Present: normal inspection, full ROM, normal capillary refill. Absent: tenderness, pedal edema, joint swelling, calf tenderness Back exam: Present: normal inspection Neurological exam: Present: alert, oriented X3, CN II-XII intact Psychiatric exam: Present: normal affect, normal mood Skin exam: Present: warm, dry, intact, normal color. Absent: rash Course Vital Signs 10/30/22 10/30/22 10/30/22 01:39 08:00 11:13 Temperature 98.2 F 97.3 F L 98.7 F Pulse Rate 85 65 61 Respiratory 16 16 19 Rate Blood Pressure 132/85 166/87 149/86 O2 Sat by Pulse 98 98 98 Oximetry 10/30/22 10/30/22 10/30/22 12:12 14:57 18:27 Temperature 97.1 F L 97.6 F Pulse Rate 60 61 82 Respiratory 20 17 16 Rate Blood Pressure 150/87 159/96 104/63 O2 Sat by Pulse 100 98 98 Oximetry - Reevaluation(s) Reevaluation #1: 10/30/22 06:24 Medical records reviewed Reevaluation #2: 10/30/22 07:27 Patient has no significant improvement in symptoms here Reevaluation #3: 10/30/22 07:27 Patient informed results questions answered Reevaluation #4: 10/30/22 06:24 Was pt. sent in by a medical professional or institution (, PA, THEATER TECHNICIAN, urgent care, hospital, or residential...) When possible be specific @ -no Did you speak to anyone other than the patient for history (EMS, parent, family, police, friend...)? What history was obtained from this source @ -no Did you review nursing and triage notes (agree or disagree)? Why? @ -agree Are old charts reviewed (outside hosp., previous admission, EMS record, old EKG, old radiological studies, urgent care reports/EKG's, residential records)? Report findings @ -yes Differential Diagnosis (chest pain, altered mental status, abdominal pain women, abdominal pain men, vaginal bleeding, weakness, fever, dyspnea, syncope, headache, dizziness, GI bleed, back pain, seizure, CVA, palpatations, mental health, musculoskeletal)? @ -prior EKG interpreted by me (3pts min.). @ -no X-rays interpreted by me (1pt min.). @ -no CT interpreted by me (1pt min.). @ -yes U/S interpreted by me (1pt. min.). @ -no What testing was considered but not performed or refused? (CT, X-rays, U/S, labs)? Why? @ -none What meds were considered but not given or refused? Why? @ -none Did you discuss the management of the patient with other professionals (professionals i.e. , PA, THEATER TECHNICIAN, lab, RT, psych nurse, social science research assistant, it programmer analyst, teacher, v/stol landing signal officer, case management director)? Give summary @ -no Was smoking cessation discussed for >3mins.? @ -no Was critical care preformed (if so, how long)? @ -no Were there social determinants of health that impacted care today? How? (Homelessness, low income, unemployed, alcoholism, drug addiction, transportation, low edu. Level, literacy, decrease access to med. care, [facility], rehab)? @ -none Was there de-escalation of care discussed even if they declined (Discuss DNR or withdrawal of care, Hospice)? DNR status @ -no What co-morbidities impacted this encounter? (DM, HTN, Smoking, COPD, CAD, Cancer, CVA, ARF, Chemo, Hep., AIDS, mental health diagnosis, sleep apnea, morbid obesity)? @ -none Was patient admitted / discharged? Hospital course, mention meds given and route, prescriptions, significant lab abnormalities, going to OR and other pertinent info. @ - 82 female to the emergency department for evaluation of diarrhea. Patient does have significant rectal distention and constipation. Patient be given enemas here in the emergency department and bowel regimen. Admitted Undiagnosed new problem with uncertain prognosis? @ -no Drug Therapy requiring intensive monitoring for toxicity (Heparin, Nitro, Insulin, Cardizem)? @ -no Were any procedures done? @ -no Diagnosis/symptom? @ -Fecal rectal impaction, constipation, abdominal pain Acute, or Chronic, or Acute on Chronic? @ -Acute Uncomplicated (without systemic symptoms) or Complicated (systemic symptoms)? @ -Complicated Side effects of treatment? @ -no Exacerbation, Progression, or Severe Exacerbation? @ -exacerbation Poses a threat to life or bodily function? How? (Chest pain, USA, DC, pneumonia, PE, COPD, DKA, ARF, appy, cholecystitis, CVA, Diverticulitis, Homicidal, Suicidal, threat to staff... and all critical care pts) @ -yno Reevaluation #5: 10/30/22 06:24 Differential Abdominal Pain Women: Appendicitis, Cholecystitis, diverticulosis, ischemic bowel, pancreatitis, hepatitis, UTI, gastroenteritis, AAA, incarcerated hernia, bowel obstruction, constipation, inflammatory bowel, hepatitis, peptic ulcer disease, splenic infarction, perforated viscus, vulvitis, ovarian torsion, PID, kidney stone, placenta abruption, this is not meant to be an all-inclusive list - Consultations Consultation #1: Spoke with [facility] to agrees to admit this patient Medical Decision Making - Medical Decision Making 82 female to the emergency department for evaluation of diarrhea. Patient does have significant rectal distention and constipation. Patient be given enemas here in the emergency department and bowel regimen. - Lab Data Result diagrams: 11/01/22 11:36 11/03/22 05:34 Lab Results 10/30/22 10/30/22 10/30/22 Range/Units 02:04 02:04 02:06 WBC 8.2 (3.8-10.6) k/uL RBC 4.34 (3.80-5.40) m/uL Hgb 13.5 (11.4-16.0) gm/dL Hct 41.0 (34.0-46.0) % MCV 94.6 (80.0-100.0) fL MCH 31.2 (25.0-35.0) pg MCHC 33.0 (31.0-37.0) g/dL RDW 13.9 (11.5-15.5) % Plt Count 189 (150-450) k/uL MPV 7.5 Neutrophils % 75 % Lymphocytes % 15 % Monocytes % 7 % Eosinophils % 1 % Basophils % 0 % Neutrophils # 6.1 (1.3-7.7) k/uL Lymphocytes # 1.2 (1.0-4.8) k/uL Monocytes # 0.6 (0-1.0) k/uL Eosinophils # 0.1 (0-0.7) k/uL Basophils # 0.0 (0-0.2) k/uL Sodium 137 (137-145) mmol/L Potassium 3.9 (3.5-5.1) mmol/L Chloride 105 (98-107) mmol/L Carbon Dioxide 26 (22-30) mmol/L Anion Gap 6 mmol/L BUN 22 H (7-17) mg/dL Creatinine 0.59 (0.52-1.04) mg/dL Est GFR (CKD-EPI)AfAm >90 (>60 ml/min/1.73 sqM) Est GFR (CKD-EPI)NonAf 86 (>60 ml/min/1.73 sqM) Glucose 99 (74-99) mg/dL Plasma Lactic Acid Chriss 0.8 (0.7-2.0) mmol/L Calcium 10.1 (8.4-10.2) mg/dL Total Bilirubin 1.0 (0.2-1.3) mg/dL AST 21 (14-36) U/L ALT 12 (4-34) U/L Alkaline Phosphatase 73 (38-126) U/L Total Protein 6.7 (6.3-8.2) g/dL Albumin 4.0 (3.5-5.0) g/dL Amylase 70 (30-110) U/L Lipase 89 (23-300) U/L Urine Color Urine Appearance (Clear) Urine pH (5.0-8.0) Ur Specific [place] (1.001-1.035) Urine Protein (Negative) Urine Glucose (UA) (Negative) Urine Ketones (Negative) Urine Blood (Negative) Urine Nitrite (Negative) Urine Bilirubin (Negative) Urine Urobilinogen (<2.0) mg/dL Ur Leukocyte Esterase (Negative) Urine RBC (0-5) /hpf Urine WBC (0-5) /hpf Urine Bacteria (None) /hpf 10/30/22 Range/Units 11:07 WBC (3.8-10.6) k/uL RBC (3.80-5.40) m/uL Hgb (11.4-16.0) gm/dL Hct (34.0-46.0) % MCV (80.0-100.0) fL MCH (25.0-35.0) pg MCHC (31.0-37.0) g/dL RDW (11.5-15.5) % Plt Count (150-450) k/uL MPV Neutrophils % % Lymphocytes % % Monocytes % % Eosinophils % % Basophils % % Neutrophils # (1.3-7.7) k/uL Lymphocytes # (1.0-4.8) k/uL Monocytes # (0-1.0) k/uL Eosinophils # (0-0.7) k/uL Basophils # (0-0.2) k/uL Sodium (137-145) mmol/L Potassium (3.5-5.1) mmol/L Chloride (98-107) mmol/L Carbon Dioxide (22-30) mmol/L Anion Gap mmol/L BUN (7-17) mg/dL Creatinine (0.52-1.04) mg/dL Est GFR (CKD-EPI)AfAm (>60 ml/min/1.73 sqM) Est GFR (CKD-EPI)NonAf (>60 ml/min/1.73 sqM) Glucose (74-99) mg/dL Plasma Lactic Acid Chriss (0.7-2.0) mmol/L Calcium (8.4-10.2) mg/dL Total Bilirubin (0.2-1.3) mg/dL AST (14-36) U/L ALT (4-34) U/L Alkaline Phosphatase (38-126) U/L Total Protein (6.3-8.2) g/dL Albumin (3.5-5.0) g/dL Amylase (30-110) U/L Lipase (23-300) U/L Urine Color Light Yellow Urine Appearance Cloudy H (Clear) Urine pH 7.5 (5.0-8.0) Ur Specific [place] 1.009 (1.001-1.035) Urine Protein Negative (Negative) Urine Glucose (UA) Negative (Negative) Urine Ketones Negative (Negative) Urine Blood Negative (Negative) Urine Nitrite Negative (Negative) Urine Bilirubin Negative (Negative) Urine Urobilinogen <2.0 (<2.0) mg/dL Ur Leukocyte Esterase Large H (Negative) Urine RBC 1 (0-5) /hpf Urine WBC 20 H (0-5) /hpf Urine Bacteria Occasional H (None) /hpf - Radiology Data Radiology results: report reviewed (CT head and pelvis positive for significant constipation), image reviewed Disposition Clinical Impression: Constipation, Altered mental status, Diarrhea, Chronic diarrhea, IBS (irritable bowel syndrome), Abdominal pain, Fecal impaction Disposition: ADMITTED IP TO THIS HOSP Condition: Fair Is patient prescribed a controlled substance at d/c from ED?: No Time of Disposition: 06:30
--- NOTE | 2022-10-30 06:58 | CT ---
EXAMINATION TYPE: CT abdomen pelvis wo con DATE OF EXAM: 10/30/2022 COMPARISON: 03/28/2022 HISTORY: 82-year-old female with diarrhea, rectal and vaginal CT DLP: 476.2 mGycm. Automated exposure control for dose reduction was used. TECHNIQUE: Contiguous axial scanning of the abdomen and pelvis without IV contrast. Coronal and sagit maribel reconstructions performed. FINDINGS: There is moderate cardiomegaly. Pacer leads are present. Strandy atelectasis in the lower lungs witho ut pleural effusion. Bile duct mildly dilated at 9 mm, acceptable given patient's age. Mild intrahepatic biliary ductal di latation also noted. Patient status post cholecystectomy. Correlation can be made with amylase and li pase levels. Either fatty atrophy of the pancreatic head versus some mild peripancreatic fat stranding, axial imag e 50. Correlate with amylase and lipase levels. There is low-density nodular thickening of the bilateral adrenal glands which remains unchanged. Similar mild fullness of the left renal collecting system. Right kidney, spleen show no gross abnorma lity. Moderate prostatic calcifications infrarenal abdominal aorta. There is a mild rectus diastases up to 5.8 cm wide. No dilated small bowel, free fluid, or free air. No mesenteric or retroperitoneal lymphadenopathy. Mild stool burden. Mild left-sided colonic diverticulosis. There is moderate circumferential wall thickening of the rectum with abnormal excessive distention up to 9.2 cm wide. Circumferential wall thickening extends to involve the distal sigmoid colon as well. Mild. Rectal fat stranding and edema. Bladder is urine distended. Uterus surgically absent. No abnormal fluid collection in the pelvis or p elvic lymphadenopathy. Degenerated levoconvex scoliosis. IMPRESSION: 1. Moderate abnormal circumferential rectal wall thickening. Circumferential wall thickening extends to involve the distal sigmoid colon as well. There is corresponding fecal impaction with distention up to 9.2 cm wide. The wall thickening may be secondary to excessive distention and secondary venous congestion. The patient is at risk for ischemic stercoral colitis. Mild early inflammation may be pre sent. 2. Mild peripancreatic fat stranding of the pancreatic head versus fatty atrophy. Correlate with rd lase and lipase levels to exclude mild acute pancreatitis. 3. Dilated bile duct at 9 mm appears chronic from the patient. Confirm with alkaline phosphatase and bilirubin levels.
[2022-10-30] MEDS ORDERED: MORPHINE SULFATE 4 MG/ML SYRINGE IV PRN (07:07)
[2022-10-30] MEDS ORDERED: SODIUM CHLORIDE 0.9% 500 ML 500 ML IV STA (07:07)
[2022-10-30] MEDS ORDERED: SENNOSIDES-DOCUSATE SODIUM 1 EACH TAB PO STA (07:07)
[2022-10-30] MEDS ORDERED: NALOXONE 0.4 MG/ML 1 ML VIAL IV PRN (07:07)
[2022-10-30 11:26] LABS: Appearance,Urine Cloudy (Clear); Bilirubin,Urine Negative (Negative); Blood,Urine Negative (Negative); Color,Urine Light Yellow; Glucose,Urine (UA) Negative (Negative); Ketones,Urine Negative (Negative); Leukocyte Esterase,Urine Large (Negative); Nitrite,Urine Negative (Negative); PH, Urine 7.5 (5.0-8.0); Protein,Urine Negative (Negative); Specific Gravity,Urine 1.009 (1.001-1.035); Urobilinogen,Urine <2.0 mg/dL (<2.0)
[2022-10-30] MEDS: ALPRAZolam 0.25 MG TAB PO SCH ×2 (11:33→23:03)
[2022-10-30] MEDS: PANTOPRAZOLE 40 MG TABLET PO SCH ×2 (11:33→23:05)
[2022-10-30] MEDS: carvediloL 12.5 MG TAB PO SCH ×2 (11:33→23:05)
[2022-10-30] MEDS: LOSARTAN 50 MG TAB PO SCH (11:35)
[2022-10-30 11:37] LABS: RBC,Urine 1 /hpf (0-5); WBC,Urine 20 /hpf (0-5)
[2022-10-30 11:38] LABS: Bacteria,Urine Occasional /hpf
[2022-10-30] MEDS: SOTALOL 80 MG TAB PO SCH ×2 (12:15→23:36)
[2022-10-30] MEDS: ACETAMINOPHEN TAB 500 MG TAB PO PRN (14:02)
[2022-10-30] MEDS ORDERED: CALCIUM CARBONATE 500 MG CHEWABLE PO PRN (14:43)
[2022-10-30] MEDS: SODIUM CHLORIDE 0.9% 1,000 ML IV SCH (15:00)
--- NOTE | 2022-10-30 15:11 | P.HPIM ---
History of Present Illness H&P Date: 10/30/22 Chief Complaint: Abdominal pain, diarrhea This is a pleasant 82-year-old patient follows with visiting physicians, [facility]. Patient lives at assisted living. That facility has a new T12. The residual still not like the food as per the patient. Yesterday went down to eat. And then started having describes as abdominal aching. Then she started passing significant gas from below. The started having multiple stools. No nausea vomiting. No fever no some chills. Has continued to have diarrhea through the night. Abdominal pain still present. Does use a walker at the baseline. Review of systems: GEN.: Tired EYES: None HEENT: Decreased hearing NECK: None RESPIRATORY: None CARDIOVASCULAR: None GASTROINTESTINAL: As above GENITOURINARY: None MUSCULOSKELETAL: Joint pains LYMPHATICS: None HEMATOLOGICAL: None PSYCHIATRY: Forgetful NEUROLOGICAL: Uses a walker Past medical history to include: Atrial fibrillation, asthma, CHF, GERD, hard of hearing, hypertension, hyperlipidemia, cognitive impairment, osteoarthritis, rheumatoid arthritis, obstructive sleep apnea, hypothyroid, spell stenosis and scoliosis, squamous cell skin cancer, anxiety depression Social history: Patient smoked for 33 years stopped in 1986. 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 . Lives alone [facility]. 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 Physical examination: VITAL SIGNS: 97.1, 61, 17, 159/96, 98% room air GENERAL: BMI 26.1, laying in bed awake slightly anxious. EYES: Pupils equal. Conjunctiva normal. Blurry vision through left eye, chronic HEENT: External appearance of nose and ears normal, oral cavity grossly normal. Decreased hearing NECK: JVD not raised; masses not palpable. HEART: First and second heart sounds are normal; no edema. LUNGS: Respiratory rate normal; clear to auscultation. ABDOMEN: Soft, distended some tenderness, no guarding rigidity, liver spleen not palpable, no masses palpable. PSYCH: [Alert and oriented x3; mood and affect anxious l. MUSCULOSKELETAL:No Clubbing/cyanosis;muscles-grossly intact. OA NEUROLOGICAL: Cranial nerves grossly intact; no facial asymmetry, power and sensation grossly intact. LYMPHATICS: No lymph nodes palpable in the axilla and neck INVESTIGATIONS, reviewed in the clinical context: White count 8.2 hemoglobin 13.5 platelets 189 sodium 137 potassium 3.9 BUN 22 creatinine 0.59 Computed tomography scan abdomen pelvis: Moderate cardiomegaly. Mild to 9 mm. Status post cholecystectomy low-density nodular thickening of the bilateral adre nal glands. Mild rectus diastasis up to 5.8 cm wide. Moderate circumferential wall thickening of the rectum with abnormal excessive distention up to 9.2 cm wide. Circumferential wall thickening extends to involve the distal sigmoid colon as well. Rectal fat stranding and edema. Assessment and plan: -Acute sigmoid and rectal colitis. Patient having abdominal pain and distention and diarrhea. IV Zosyn. Clear liquid diet. Consult surgery. -GERD Protonix -Hyperlipidemia Zocor 10 mg daily at bedtime -Essential hypertension Coreg. Sotalol. Irbesartan. Hold amlodipine -Chronic insomnia Melatonin Care was discussed with the patient. I called pharmacy to make sure patient's home medications are verified correct. Clear liquids for now. IV fluids. We'll be careful using narcotics given prior history of morphine abuse. K pad for abdominal pain for now. Given the complexity and severity of patient's condition expect the patient to be in the hospital at least for 2 overnights Past Medical History Past Medical History: Atrial Fibrillation, Asthma, Cancer, Heart Failure, Eye Disorder, GERD/Reflux, Hearing Disorder / Deafness, Hyperlipidemia, Hypertension, Memory Impairment, Myocardial Infarction (SC), Mitral Valve Prolapse (MVP), Osteoarthritis (OA), Pneumonia, Respiratory Disorder, Rheumatoid Arthritis (RA), Skin Disorder, Sleep Apnea/CPAP/BIPAP, Thyroid Disorder Additional Past Medical History / Comment(s): CHRONIC BACK PAIN, SPINAL STENOSIS, SCOLIOSIS, IBS, VARICOSE VEINS, STRESS INDUCED ASTHMA. 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 GLAUCOMA -"STRESS INDUCED",8 NODULES ON THYROID, psoriasis, eczema Last Myocardial Infarction Date:: Pt unknown History of Any Multi-Drug Resistant Organisms: None Reported Past Surgical History: Cardiac Ablation, Cholecystectomy, Heart Catheterization, Hysterectomy, Joint Replacement, Orthopedic Surgery Additional Past Surgical History / Comment(s): THYROID BX, LINDSAY. TOTAL KNEES, LINDSAY TOTAL SHOULDERS,Cardiac ablation x2,skin CA removed with skin graft to neck Past Anesthesia/Blood Transfusion Reactions: No Reported Reaction Additional Past Anesthesia/Blood Transfusion Reaction / Comment(s): BRADYCARDIA. Type of Cardiac Device: AICD Device Placement Date:: 2019 Past Psychological History: Anxiety, Depression, Panic Disorder Smoking Status: Former smoker Past Alcohol Use History: None Reported Past Drug Use History: None Reported - Past Family History Father Family Medical History: Cancer Additional Family Medical History / Comment(s): ORAL CANCER Mother Additional Family Medical History / Comment(s): Alcoholism. Medications and Allergies Home Medications Medication Instructions Recorded Confirmed Type Simvastatin [Zocor] 10 mg PO HS 10/03/13 10/30/22 History Irbesartan 300 mg PO DAILY 07/25/15 10/30/22 History Potassium Chloride [Klor-Con 20] 20 meq PO DAILY 03/06/19 10/30/22 History Sotalol [Betapace] 80 mg PO BID 04/04/20 10/30/22 History Cranberry Fruit Concentrate [Azo 500 mg PO DAILY 02/27/21 10/30/22 History Cranberry] ALPRAZolam [Xanax] 0.25 mg PO BID 11/20/21 10/30/22 History carvediloL [Coreg] 12.5 mg PO BID 11/20/21 10/30/22 History Acetaminophen Tab [Tylenol Tab] 500 mg PO Q6H PRN 10/30/22 10/30/22 History Cholecalciferol (Vitamin D3) 1,250 mcg PO QMONTHLY 10/30/22 10/30/22 History [Vitamin D3] Melatonin 10 mg PO HS 10/30/22 10/30/22 History Pantoprazole Sodium 40 mg PO BID 10/30/22 10/30/22 History Pantoprazole [Protonix] 40 mg PO BID 10/30/22 10/30/22 History amLODIPine [Norvasc] 10 mg PO DAILY 10/30/22 10/30/22 History Allergies Allergy/AdvReac Type Severity Reaction Status Date / Time famotidine Allergy Unknown Verified 10/30/22 08:35 morphine Allergy Unknown Verified 10/30/22 08:35 spironolactone Allergy Unknown Verified 10/30/22 08:35 codeine AdvReac Severe Nausea & Verified 10/30/22 08:35 Vomiting omeprazole AdvReac Nausea, Verified 10/30/22 08:35 dizzyness Opioids - Morphine Analogues AdvReac Dyspnea- Verified 10/30/22 08:35 Physical Exam Vitals: Vital Signs Temp Pulse Resp BP Pulse Ox 10/30/22 08:00 97.3 F L 65 16 166/87 98 10/30/22 01:39 98.2 F 85 16 132/85 98 Intake and Output 10/29/22 10/30/22 10/30/22 22:59 06:59 14:59 Other: Voiding Method Bedside Commode Weight 56.699 kg Results CBC & Chem 7: 10/30/22 02:04 10/30/22 02:04 Labs: Abnormal Lab Results - Last 24 Hours (Table) 10/30/22 Range/Units 02:04 BUN 22 H (7-17) mg/dL
[2022-10-30] MEDS: PIPERACILLIN-TAZOBACTAM 3.375 GM in SODIUM CHLORIDE 0.9% 100 ML IVPB SCH (15:33)
--- NOTE | 2022-10-30 16:08 | XR ---
EXAMINATION TYPE: XR abdomen 2V DATE OF EXAM: 10/30/2022 CLINICAL DATA: 82 year-old female abdominal pain with diarrhea, [facility] COMPARISON: 11/20/2021 FINDINGS: PFO closure device. Left anterior chest wall ICD generator with right atrial and right vent ricular leads. Surgical material in the upper abdomen. Patient's large splenic ileus limits the evalu ation on the upright view. No obvious free intraperitoneal air is seen. Air distended small bowel and colon throughout the abdomen. Air extends distally to the rectum. Mild overall stool burden. Advanced degenerated levoconvex scoliosis. IMPRESSION: Gassy small bowel and colon throughout the abdomen. Consider ileus. Mild stool burden. Overall nonobs tructive bowel gas pattern. No free air.
[2022-10-30] MEDS: MELATONIN 5 MG TABLET PO SCH (23:04)
[2022-10-30] MEDS: ATORVASTATIN 10 MG TAB PO SCH (23:04)
--- NOTE | 2022-10-30 23:23 | P.GSCN ---
History of Present Illness Consult date: 10/30/22 Reason for Consult: Abdominal pain History of present illness: 82-year-old female admitted with abdominal pain and diarrhea. Excision had a CA T scan performed showing constipation and fecal bolus. Patient says she moves her bowels quite frequently. She does have a history of constipation. Feels better currently. No nausea or vomiting. Abdominal pain is diffuse and mild. Review of Systems The patient denies any acute changes in vision or hearing, no dysphagia or odynophagia, no chest pain or shortness of breath, no dysuria or hematuria, no headache, no runny nose, no rectal bleeding or melena, no unexplained weight loss Past Medical History Past Medical History: Atrial Fibrillation, Asthma, Cancer, Heart Failure, Eye Disorder, GERD/Reflux, Hearing Disorder / Deafness, Hyperlipidemia, Hypertension, Memory Impairment, Myocardial Infarction (AL), Mitral Valve Prolapse (MVP), Osteoarthritis (OA), Pneumonia, Respiratory Disorder, Rheumatoid Arthritis (RA), Skin Disorder, Sleep Apnea/CPAP/BIPAP, Thyroid Disorder Additional Past Medical History / Comment(s): CHRONIC BACK PAIN, SPINAL STENOSIS, SCOLIOSIS, IBS, VARICOSE VEINS, STRESS INDUCED ASTHMA. 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 GLAUCOMA -"STRESS I NDUCED",8 NODULES ON THYROID, psoriasis, eczema Last Myocardial Infarction Date:: Pt unknown History of Any Multi-Drug Resistant Organisms: None Reported Past Surgical History: Cardiac Ablation, Cholecystectomy, Heart Catheterization, Hysterectomy, Joint Replacement, Orthopedic Surgery Additional Past Surgical History / Comment(s): THYROID BX, LINDSAY. TOTAL KNEES, LINDSAY TOTAL SHOULDERS,Cardiac ablation x2,skin CA removed with skin graft to neck Past Anesthesia/Blood Transfusion Reactions: No Reported Reaction Additional Past Anesthesia/Blood Transfusion Reaction / Comm: BRADYCARDIA. Type of Cardiac Device: AICD Device Placement Date:: 2019 Past Psychological History: Anxiety, Depression, Panic Disorder Smoking Status: Former smoker Past Alcohol Use History: None Reported Past Drug Use History: None Reported - Past Family History Father Family Medical History: Cancer Additional Family Medical History / Comment(s): ORAL CANCER Mother Additional Family Medical History / Comment(s): Alcoholism. Medications and Allergies Home Medications Medication Instructions Recorded Confirmed Type Simvastatin [Zocor] 10 mg PO HS 10/03/13 10/30/22 History Irbesartan 300 mg PO DAILY 07/25/15 10/30/22 History Potassium Chloride [Klor-Con 20] 20 meq PO DAILY 03/06/19 10/30/22 History Sotalol [Betapace] 80 mg PO BID 04/04/20 10/30/22 History Cranberry Fruit Concentrate [Azo 500 mg PO DAILY 02/27/21 10/30/22 History Cranberry] ALPRAZolam [Xanax] 0.25 mg PO BID 11/20/21 10/30/22 History carvediloL [Coreg] 12.5 mg PO BID 11/20/21 10/30/22 History Acetaminophen Tab [Tylenol Tab] 500 mg PO Q6H PRN 10/30/22 10/30/22 History Cholecalciferol (Vitamin D3) 1,250 mcg PO QMONTHLY 10/30/22 10/30/22 History [Vitamin D3] Melatonin 10 mg PO HS 10/30/22 10/30/22 History Pantoprazole [Protonix] 40 mg PO BID 10/30/22 10/30/22 History amLODIPine [Norvasc] 10 mg PO DAILY 10/30/22 10/30/22 History Allergies Allergy/AdvReac Type Severity Reaction Status Date / Time famotidine Allergy Unknown Verified 10/30/22 08:35 morphine Allergy Unknown Verified 10/30/22 08:35 spironolactone Allergy Unknown Verified 10/30/22 08:35 codeine AdvReac Severe Nausea & Verified 10/30/22 08:35 Vomiting omeprazole AdvReac Nausea, Verified 10/30/22 08:35 dizzyness Opioids - Morphine Analogues AdvReac Dyspnea- Verified 10/30/22 08:35 Surgical - Exam Vital Signs Temp Pulse Resp BP Pulse Ox 98.2 F 85 16 132/85 98 10/30/22 01:39 10/30/22 01:39 10/30/22 01:39 10/30/22 01:39 10/30/22 01:39 Physical exam: General: Well-developed, well-nourished HEENT: Normocephalic, sclerae nonicteric Abdomen: Mild tenderness diffusely, mild distention Rectal: Soft semiformed stool within the rectal vault Extremities: No edema Neuro: Alert and oriented Results - Labs 10/30/22 02:04 10/30/22 02:04 Abnormal Lab Results - Last 24 Hours (Table) 10/30/22 10/30/22 Range/Units 02:04 11:07 BUN 22 H (7-17) mg/dL Urine Appearance Cloudy H (Clear) Ur Leukocyte Esterase Large H (Negative) Urine WBC 20 H (0-5) /hpf Urine Bacteria Occasional H (None) /hpf Diabetes panel 10/30/22 Range/Units 02:04 Sodium 137 (137-145) mmol/L Potassium 3.9 (3.5-5.1) mmol/L Chloride 105 (98-107) mmol/L Carbon Dioxide 26 (22-30) mmol/L BUN 22 H (7-17) mg/dL Creatinine 0.59 (0.52-1.04) mg/dL Glucose 99 (74-99) mg/dL Calcium 10.1 (8.4-10.2) mg/dL AST 21 (14-36) U/L ALT 12 (4-34) U/L Alkaline Phosphatase 73 (38-126) U/L Total Protein 6.7 (6.3-8.2) g/dL Albumin 4.0 (3.5-5.0) g/dL Calcium panel 10/30/22 Range/Units 02:04 Calcium 10.1 (8.4-10.2) mg/dL Albumin 4.0 (3.5-5.0) g/dL Pituitary panel 10/30/22 Range/Units 02:04 Sodium 137 (137-145) mmol/L Potassium 3.9 (3.5-5.1) mmol/L Chloride 105 (98-107) mmol/L Carbon Dioxide 26 (22-30) mmol/L BUN 22 H (7-17) mg/dL Creatinine 0.59 (0.52-1.04) mg/dL Glucose 99 (74-99) mg/dL Calcium 10.1 (8.4-10.2) mg/dL Adrenal panel 10/30/22 Range/Units 02:04 Sodium 137 (137-145) mmol/L Potassium 3.9 (3.5-5.1) mmol/L Chloride 105 (98-107) mmol/L Carbon Dioxide 26 (22-30) mmol/L BUN 22 H (7-17) mg/dL Creatinine 0.59 (0.52-1.04) mg/dL Glucose 99 (74-99) mg/dL Calcium 10.1 (8.4-10.2) mg/dL Total Bilirubin 1.0 (0.2-1.3) mg/dL AST 21 (14-36) U/L ALT 12 (4-34) U/L Alkaline Phosphatase 73 (38-126) U/L Total Protein 6.7 (6.3-8.2) g/dL Albumin 4.0 (3.5-5.0) g/dL Assessment and Plan (1) Constipation Narrative/Plan: 82-year-old female with abdominal pain and constipation. On exam stool is fairly soft and I do think she should be able to pass this. It is too soft to disimpact manually. Begin soapsuds enemas tomorrow. Continue stool softeners. Will follow. Current Visit: No Status: Acute Code(s): K59.00 - CONSTIPATION, UNSPECIFIED SNOMED Code(s): 49800711
[2022-10-31] MEDS: PIPERACILLIN-TAZOBACTAM 3.375 GM in SODIUM CHLORIDE 0.9% 100 ML IVPB SCH ×3 (00:29→16:56)
[2022-10-31] MEDS: SODIUM CHLORIDE 0.9% 1,000 ML IV SCH ×3 (05:52→20:33)
[2022-10-31] MEDS: LOSARTAN 50 MG TAB PO SCH (08:44)
[2022-10-31] MEDS: LACTULOSE 20 GM/30 ML CUP PO SCH ×2 (08:45→20:33)
[2022-10-31] MEDS: POTASSIUM CHLORIDE ER 20 MEQ TAB.ER PO SCH (08:45)
[2022-10-31] MEDS: carvediloL 12.5 MG TAB PO SCH ×2 (08:45→16:55)
[2022-10-31] MEDS: PANTOPRAZOLE 40 MG TABLET PO SCH ×2 (08:45→16:55)
[2022-10-31] MEDS: ALPRAZolam 0.25 MG TAB PO SCH ×2 (08:45→22:53)
[2022-10-31 08:47] LABS: Basophils # (A) 0.03 X 10*3/uL (0.00-0.10); Basophils % (A) 0.6 %; Eosinophils # (A) 0.16 X 10*3/uL (0.04-0.35); Eosinophils % (A) 3.3 %; HCT 35.1 % (37.2-46.3); HGB 11.4 d/dL (12.0-15.0); Lymphocytes # (A) 0.95 X 10*3/uL (0.90-5.00); Lymphocytes % (A) 19.4 %; MCH 30.8 pg (27.0-32.0); MCHC 32.5 d/dL (32.0-37.0); MCV 94.9 FL (80.0-97.0); Mean Platelet Volume 9.9 FL (9.5-12.2); Monocytes # (A) 0.53 X 10*3/uL (0.20-1.00); Monocytes % (A) 10.8 %; NRBC Per 100 WBC 0 X 10*3/uL (0.00-0.01); Neutrophils # (A) 3.22 X 10*3/uL (1.80-7.70); Neutrophils % (A) 65.7 %; Platelet Count 184 X 10*3/uL (140-440); RDW 13.9 % (11.5-14.5)
[2022-10-31 08:51] LABS: ALT 7 U/L (8-44); AST 15 U/L (13-35); Albumin 3.2 d/dL (3.8-4.9); Albumin/Globulin Ratio 1.78 Ratio (1.60-3.17); Alkaline Phosphatase 60 U/L (41-126); Blood Urea Nitrogen 10.8 mg/dL (9.0-27.0); Calcium 9.4 mg/dL (8.7-10.3); Carbon Dioxide 25.4 mmol/L (21.6-31.8); Chloride 108 mmol/L (96-109); Globulin 1.8 d/dL (1.6-3.3); Glucose 74 mg/dL (70-110); Potassium 3.5 mmol/L (3.5-5.5); Sodium 142 mmol/L (135-145); Total Bilirubin 1.6 mg/dL (0.3-1.2)
[2022-10-31] MEDS: SOTALOL 80 MG TAB PO SCH ×2 (10:00→20:33)
--- NOTE | 2022-10-31 14:08 | P.PN ---
Progress Note - Text Progress Note Date: 10/31/22 Chief Complaint: Abdominal pain, diarrhea This is a pleasant 82-year-old patient follows with visiting physicians, Fuentes pink. Patient lives at assisted living. That facility has a new food caterer. The residents still not like the food as per the patient. Yesterday went down to eat. And then started having describes as abdominal aching. Then she started passing significant gas from below. The started having multiple stools. No nausea vomiting. No fever no some chills. Has continued to have diarrhea through the night. Abdominal pain still present. Does use a walker at the baseline. 10/31/2022: Admitted with acute sigmoid and rectal colitis. Stool retention. Started on IV Zosyn. Surgery consulted. They ordered an enema. Pending the same. On clear liquid diet. No abdominal pain. Active Medications Acetaminophen (Acetaminophen Tab 500 Mg Tab) 500 mg PO Q6H PRN PRN Reason: Pain or Fever > 100.5 Last Admin: 10/30/22 14:02 Dose: 500 mg Alprazolam (Alprazolam 0.25 Mg Tab) 0.25 mg PO BID [facility] Last Admin: 10/31/22 08:45 Dose: 0.25 mg Atorvastatin Calcium (Atorvastatin 10 Mg Tab) 10 mg PO HS [facility] Last Admin: 10/30/22 23:04 Dose: 10 mg Calcium Carbonate/Glycine (Calcium Carbonate 500 Mg Chewable) 1,000 mg PO Q4HR PRN PRN Reason: Dyspepsia Carvedilol (Carvedilol 12.5 Mg Tab) 12.5 mg PO BID-W/MEALS [facility] Last Admin: 10/31/22 08:45 Dose: 12.5 mg Piperacillin Sod/Tazobactam (Sod 3.375 gm/ Sodium Chloride) 100 mls @ 25 mls/hr IVPB Q8HR [facility]; Protocol Last Admin: 10/31/22 08:45 Dose: 25 mls/hr Sodium Chloride (Saline 0.9%) 1,000 mls @ 100 mls/hr IV .Q10H [facility] Last Admin: 10/31/22 05:52 Dose: 100 mls/hr Lactulose (Lactulose 20 Gm/30 Ml Cup) 20 gm PO DAILY PRN PRN Reason: Constipation Lactulose (Lactulose 20 Gm/30 Ml Cup) 20 gm PO BID [facility] Last Admin: 10/31/22 08:45 Dose: 20 gm Losartan Potassium (Losartan 50 Mg Tab) 100 mg PO DAILY [facility] Last Admin: 10/31/22 08:44 Dose: 100 mg Melatonin (Melatonin 5 Mg Tablet) 10 mg PO HS [facility] Last Admin: 10/30/22 23:04 Dose: 10 mg Naloxone HCl (Naloxone 0.4 Mg/Ml 1 Ml Vial) 0.2 mg IV Q2M PRN PRN Reason: Opioid Reversal Ondansetron HCl (Ondansetron 4 Mg/2 Ml Vial) 4 mg IVP Q8HR PRN PRN Reason: Nausea And Vomiting Pantoprazole Sodium (Pantoprazole 40 Mg Tablet) 40 mg PO AC-BID [facility] Last Admin: 10/31/22 08:45 Dose: 40 mg Potassium Chloride (Potassium Chloride Er 20 Meq Tab.Er) 20 meq PO DAILY [facility] Last Admin: 10/31/22 08:45 Dose: 20 meq Sotalol HCl (Sotalol 80 Mg Tab) 80 mg PO BID [facility] Last Admin: 10/31/22 10:00 Dose: 80 mg Past medical history to include: Atrial fibrillation, asthma, CHF, GERD, hard of hearing, hypertension, hyperlipidemia, cognitive impairment, osteoarthritis, rheumatoid arthritis, obstructive sleep apnea, hypothyroid, spell stenosis and scoliosis, squamous cell skin cancer, anxiety depression Social history: Patient smoked for 33 years stopped in 1986. 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 . Lives alone [facility]. 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 Physical examination: VITAL SIGNS: 98.3, 74, 18, 154/81, 97% room air GENERAL: BMI 26.1, laying in bed awake slightly anxious. EYES: Pupils equal. Conjunctiva normal. Blurry vision through left eye, chronic HEENT: External appearance of nose and ears normal, oral cavity grossly normal. Decreased hearing NECK: JVD not raised; masses not palpable. HEART: First and second heart sounds are normal; no edema. LUNGS: Respiratory rate normal; clear to auscultation. ABDOMEN: Soft, distended , no tenderness, no guarding rigidity, liver spleen not palpable, no masses palpable. PSYCH: [Alert and oriented x3; mood and affect anxious l. MUSCULOSKELETAL:No Clubbing/cyanosis;muscles-grossly intact. OA INVESTIGATIONS, reviewed in the clinical context: Abdominal x-ray: Gassy small bowel and some colon throughout the abdomen. Some stool burden. No free air. 10/31/2022: White count 4.9 hemoglobin 11.4 platelets with 84 potassium 3.5 creatinine 0.6 White count 8.2 hemoglobin 13.5 platelets 189 sodium 137 potassium 3.9 BUN 22 creatinine 0.59 Computed tomography scan abdomen pelvis: Moderate cardiomegaly. Mild to 9 mm. Status post cholecystectomy low-density nodular thickening of the bilateral adrenal glands. Mild rectus diastasis up to 5.8 cm wide. Moderate circumferential wall thickening of the rectum with abnormal excessive distention up to 9.2 cm wide. Circumferential wall thickening extends to involve the distal sigmoid colon as well. Rectal fat stranding and edema. Assessment and plan: -Acute sigmoid and rectal colitis. Patient having abdominal pain and distention and diarrhea, on presentation. IV Zosyn. Clear liquid diet. Follow with surgery -GERD Protonix -Hyperlipidemia Zocor 10 mg daily at bedtime -Essential hypertension Coreg. Sotalol. Irbesartan. Hold amlodipine -Chronic insomnia Melatonin Patient has no abdominal pain today. Pending enema. Other medications to continue. On clear liquid diet.
--- NOTE | 2022-10-31 15:26 | P.PN ---
Subjective Progress Note Date: 10/31/22 CHIEF COMPLAINT: Constipation HISTORY OF PRESENT ILLNESS: Patient's admitted hospital with abdominal pain and constipation. She reports that her abdominal pain is better. She reports having bowel movements in the ER. She is scheduled for soapsuds enemas today. Abdominal x-ray from yesterday shows gassy small bowel and colon throughout the abdomen. Consider ileus. Mild stool burden. Overall nonobstructive bowel gas pattern. No free air. Afebrile. WBC is 4.90 Hgb 11.4 platelets 184 potassium 3.5 PHYSICAL EXAM: VITAL SIGNS: Reviewed. GENERAL: Well-developed in no acute distress. ABDOMEN: Soft. Nondistended. Nontender. NEUROLOGIC: Alert and oriented. Cranial nerves II through XII grossly intact. ASSESSMENT: 1. Constipation 2. Abdominal pain 3. Possible UTI PLAN: -Soap thad enemas today -Continue lactulose twice a day -Continue clear liquid diet -Continue antibiotics for UTI Physician Transport Specialist note has been reviewed by physician. Signing provider agrees with the documented findings, assessment, and plan of care. Objective - Vital Signs Vital signs: Vital Signs Temp 98.3 F 10/31/22 12:15 Pulse 74 10/31/22 12:15 Resp 18 10/31/22 12:15 BP 154/81 10/31/22 12:15 Pulse Ox 97 10/31/22 12:15 FiO2 Intake & Output 10/30/22 10/31/22 10/31/22 18:59 06:59 18:59 Weight 56.699 kg Other: Voiding Method Toilet # Voids 1 1 # Bowel Movements 1 - Labs CBC & Chem 7: 10/31/22 06:02 10/31/22 06:02 Labs: Abnormal Lab Results - Last 24 Hours (Table) 10/31/22 10/31/22 Range/Units 06:02 06:02 RBC 3.70 L (4.10-5.20) X 10*6/uL Hgb 11.4 L (12.0-15.0) d/dL Hct 35.1 L (37.2-46.3) % Total Bilirubin 1.6 H (0.3-1.2) mg/dL ALT 7 L (8-44) U/L Total Protein 5.0 L (6.2-8.2) d/dL Albumin 3.2 L (3.8-4.9) d/dL Microbiology - Last 24 Hours (Table) 10/30/22 11:07 Urine Culture - Preliminary Urine,Voided Gram Neg Bacilli
[2022-10-31] MEDS: MELATONIN 5 MG TABLET PO SCH (20:31)
[2022-10-31] MEDS: ATORVASTATIN 10 MG TAB PO SCH (20:32)
[2022-10-31] MEDS: ACETAMINOPHEN TAB 500 MG TAB PO PRN (22:50)
[2022-11-01] MEDS: PIPERACILLIN-TAZOBACTAM 3.375 GM in SODIUM CHLORIDE 0.9% 100 ML IVPB SCH ×4 (01:08→23:45)
[2022-11-01] MEDS: SODIUM CHLORIDE 0.9% 1,000 ML IV SCH (04:59)
[2022-11-01] MEDS: carvediloL 12.5 MG TAB PO SCH ×2 (08:32→15:30)
[2022-11-01] MEDS: PANTOPRAZOLE 40 MG TABLET PO SCH ×2 (08:33→15:30)
[2022-11-01] MEDS: SOTALOL 80 MG TAB PO SCH ×2 (08:33→22:07)
[2022-11-01] MEDS: LOSARTAN 50 MG TAB PO SCH (08:33)
[2022-11-01] MEDS: POTASSIUM CHLORIDE ER 20 MEQ TAB.ER PO SCH (08:33)
[2022-11-01] MEDS: ALPRAZolam 0.25 MG TAB PO SCH ×2 (08:33→22:03)
[2022-11-01] MEDS: LACTULOSE 20 GM/30 ML CUP PO SCH ×2 (08:34→20:04)
[2022-11-01] MEDS: ONDANSETRON 4 MG/2 ML VIAL IVP PRN (11:05)
[2022-11-01] MEDS: ACETAMINOPHEN TAB 500 MG TAB PO PRN ×2 (11:05→20:03)
[2022-11-01 11:59] LABS: Basophils % (A) 0 %; Eosinophils # (A) 0.2 k/uL (0-0.7); Eosinophils % (A) 2 %; HCT 39.7 % (34.0-46.0); HGB 13.6 gm/dL (11.4-16.0); Lymphocytes # (A) 0.9 k/uL (1.0-4.8); Lymphocytes % (A) 12 %; MCH 31.8 pg (25.0-35.0); MCHC 34.1 g/dL (31.0-37.0); MCV 93.2 fL (80.0-100.0); Mean Platelet Volume 7.5; Monocytes # (A) 0.6 k/uL (0-1.0); Monocytes % (A) 8 %; Neutrophils # (A) 5.7 k/uL (1.3-7.7); Neutrophils % (A) 76 %; Platelet Count 176 k/uL (150-450); RBC 4.26 m/uL (3.80-5.40); RDW 13.7 % (11.5-15.5); WBC 7.5 k/uL (3.8-10.6)
--- NOTE | 2022-11-01 13:49 | P.PN ---
Subjective Progress Note Date: 11/01/22 CHIEF COMPLAINT: Constipation HISTORY OF PRESENT ILLNESS: Patient's admitted hospital with abdominal pain and constipation. Patient reports multiple bowel movements after soapsuds yesterday. Stools a day and mostly liquidy. She does complain of increased abdominal pain and abdominal distention. She does report feeling nauseous. No vomiting. She did have a clear liquid breakfast this morning. Afebrile. WBC 7.5 hgb 13.6 platelets 176. Case discussed with medicine service PHYSICAL EXAM: VITAL SIGNS: Reviewed. GENERAL: Well-developed in no acute distress. ABDOMEN: Soft. Nondistended. Nontender. NEUROLOGIC: Alert and oriented. Cranial nerves II through XII grossly intact. ASSESSMENT: 1. Constipation 2. Abdominal pain 3. Possible UTI PLAN: -Follow up on abdominal x-ray ordered by medicine service -Patient is likely still retaining stool and another soapsuds enema has been ordered -Continue lactulose twice a day -Continue clear liquid diet -Continue antibiotics for UTI Physician Parks Worker note has been reviewed by physician. Signing provider agrees with the documented findings, assessment, and plan of care. I have personally seen and examined the patient, reviewed the ACCOUNTING BOOKKEEPER /PAs history, exam and MDM and agree with the assessment and plan as written. Based on total visit time, I have performed more than 50% of the visit. As above: Patient was having some increased abdominal pain. This is likely related to lactulose. She is having some liquid stools. Still suspect some degree of distal colonic constipation. Soapsuds enemas will be provided this afternoon. Continue lactulose for now. Will follow closely. Objective - Vital Signs Vital signs: Vital Signs Temp 98.5 F 11/01/22 08:44 Pulse 89 11/01/22 08:44 Resp 15 11/01/22 08:44 BP 156/90 11/01/22 08:44 Pulse Ox 98 11/01/22 08:44 FiO2 Intake & Output 10/31/22 11/01/22 11/01/22 18:59 06:59 18:59 Other: Voiding Method Toilet Toilet Toilet Bedside Commode Bedside Commode # Voids 1 1 1 # Bowel Movements 1 1 1 - Labs CBC & Chem 7: 11/01/22 11:36 10/31/22 06:02 Labs: Abnormal Lab Results - Last 24 Hours (Table) 11/01/22 Range/Units 11:36 Lymphocytes # 0.9 L (1.0-4.8) k/uL Microbiology - Last 24 Hours (Table) 10/30/22 15:24 Blood Culture Gram Stain - Preliminary Blood Blood Culture - Preliminary Coagulase Negative Staph 10/30/22 15:10 Blood Culture - Preliminary Blood 10/30/22 11:07 Urine Culture - Preliminary Urine,Voided Gram Neg Bacilli
--- NOTE | 2022-11-01 15:10 | XR ---
EXAMINATION TYPE: XR abdomen 2V DATE OF EXAM: 11/01/2022 COMPARISON: 10/30/2022 HISTORY: 82-year-old female distended, pain FINDINGS: Severe degenerated levoconvex scoliosis. Other scattered calcifications throughout the abdominal aort a. Cholecystectomy clips. Right atrial and right ventricular AICD leads. Lung bases clear. Diffusely air distended bowel is redemonstrated. Possibly slightly increasing in the interval with distention u p to 6.5 cm on the right. IMPRESSION: Progressive diffuse air distended colon measuring up to 6.5 cm wide. Query if the previous fecal imp action has been cleared. If still present, a distal colonic obstruction would be a consideration. O therwise, consider increasing generalized ileus.
[2022-11-01] MEDS: LACTULOSE 20 GM/30 ML CUP PO PRN (15:34)
--- NOTE | 2022-11-01 16:11 | P.PN ---
Progress Note - Text Progress Note Date: 11/01/22 Chief Complaint: Abdominal pain, diarrhea This is a pleasant 82-year-old patient follows with visiting physicians, Fuentes pink. Patient lives at assisted living. That facility has a new food caterer. The residents still not like the food as per the patient. Yesterday went down to eat. And then started having describes as abdominal aching. Then she started passing significant gas from below. The started having multiple stools. No nausea vomiting. No fever no some chills. Has continued to have diarrhea through the night. Abdominal pain still present. Does use a walker at the baseline. 10/31/2022: Admitted with acute sigmoid and rectal colitis. Stool retention. Started on IV Zosyn. Surgery consulted. They ordered an enema. Pending the same. On clear liquid diet. No abdominal pain. 11/01/2022: Patient today is more abdominal distention. Did pass a cup full of mushy stool. No nausea vomiting. Made nothing by mouth. Abdominal x-ray confirms diffuse distention of the colon up to 6.5 cm. Surgery following. Past medical history to include: Atrial fibrillation, asthma, CHF, GERD, hard of hearing, hypertension, hyperlipidemia, cognitive impairment, osteoarthritis, rheumatoid arthritis, obstructive sleep apnea, hypothyroid, spell stenosis and scoliosis, squamous cell skin cancer, anxiety depression Social history: Patient smoked for 33 years stopped in 1986. 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 . Lives alone [facility]. 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 Physical examination: VITAL SIGNS: 7.4, 96, 18, 146/82, 96% room air GENERAL: BMI 26.1, laying in bed EYES: Pupils equal. Conjunctiva normal. Blurry vision through left eye, chronic HEENT: External appearance of nose and ears normal, oral cavity grossly normal. Decreased hearing NECK: JVD not raised; masses not palpable. HEART: First and second heart sounds are normal; no edema. LUNGS: Respiratory rate normal; clear to auscultation. ABDOMEN: Soft, more distended , some tenderness, no guarding rigidity, liver spleen not palpable, no masses palpable. PSYCH: [Alert and oriented x3; mood and affect anxious MUSCULOSKELETAL:No Clubbing/cyanosis;muscles-grossly intact. OA INVESTIGATIONS, reviewed in the clinical context: Abdominal x-ray [November 01]: Seemingly dilatated large bowels. Up to 6. centimeters reported 11/01/2022: White count 7.5 hemoglobin 13.6 platelets 176 Abdominal x-ray: Gassy small bowel and some colon throughout the abdomen. Some stool burden. No free air. 10/31/2022: White count 4.9 hemoglobin 11.4 platelets with 84 potassium 3.5 creatinine 0.6 White count 8.2 hemoglobin 13.5 platelets 189 sodium 137 potassium 3.9 BUN 22 creatinine 0.59 Computed tomography scan abdomen pelvis: Moderate cardiomegaly. Mild to 9 mm. Status post cholecystectomy low-density nodular thickening of the bilateral adrenal glands. Mild rectus diastasis up to 5.8 cm wide. Moderate circumferential wall thickening of the rectum with abnormal excessive distention up to 9.2 cm wide. Circumferential wall thickening extends to involve the distal sigmoid colon as well. Rectal fat stranding and edema. Assessment and plan: -Acute sigmoid and rectal colitis. Patient having abdominal pain and distention and diarrhea, on presentation. IV Zosyn. Nothing by mouth. Follow with surgery -ileus. Symptomatic.: Worsening Patient made nothing by mouth. May need a rectal tube. -GERD Protonix -Hyperlipidemia Zocor 10 mg daily at bedtime -Essential hypertension Coreg. Sotalol. Irbesartan. Hold amlodipine -Chronic insomnia Melatonin Patient made nothing by mouth. Medications to continue. May consider rectal tube. Follow with surgery.
[2022-11-01] MEDS: LACTATED RINGERS 1,000 ML IV SCH (16:44)
[2022-11-01] MEDS: ATORVASTATIN 10 MG TAB PO SCH (22:03)
[2022-11-01] MEDS: MELATONIN 5 MG TABLET PO SCH (22:03)
[2022-11-02] MEDS: ACETAMINOPHEN TAB 500 MG TAB PO PRN ×2 (03:32→12:36)
[2022-11-02] MEDS: LACTULOSE 20 GM/30 ML CUP PO PRN (04:57)
[2022-11-02] MEDS: ONDANSETRON 4 MG/2 ML VIAL IVP PRN (04:59)
[2022-11-02] MEDS: LACTATED RINGERS 1,000 ML IV SCH ×2 (05:06→14:34)
[2022-11-02 06:16] LABS: African American GFR (CKD) >90 (>60 ml/min/1.73 sqM); Anion Gap 8 mmol/L; Blood Urea Nitrogen 3 mg/dL (7-17); Calcium 9.9 mg/dL (8.4-10.2); Carbon Dioxide 29 mmol/L (22-30); Chloride 103 mmol/L (98-107); Glucose 111 mg/dL (74-99); Non-African American GFR(CKD) 90 (>60 ml/min/1.73 sqM); Potassium 2.9 mmol/L (3.5-5.1); Sodium 140 mmol/L (137-145)
--- NOTE | 2022-11-02 07:36 | XR ---
EXAMINATION TYPE: XR abdomen 2V DATE OF EXAM: 11/02/2022 COMPARISON: 11/01/2022 HISTORY: 82-year-old female with history of ileus. TECHNIQUE: 2 supine radiographs of the abdomen were obtained. FINDINGS: Severe degenerated levoconvex scoliosis. Other scattered calcifications throughout the abdominal aort a. Cholecystectomy clips in the right upper quadrant. Diffusely air distended bowel is redemonstrated . Increasing bowel dilatation measuring up to 9.5 cm in the right abdomen. Right atrial and right ventricular AICD leads. Cardiomegaly. Lung bases clear. Levoscoliotic curvatur e of the thoracolumbar spine. IMPRESSION: Progressive diffuse air distended colon measuring up to 9.5 cm wide. This could represent worsening colonic ileus versus fecal impaction.
[2022-11-02] MEDS: LOSARTAN 50 MG TAB PO SCH (08:13)
[2022-11-02] MEDS: POTASSIUM CHLORIDE ER 20 MEQ TAB.ER PO SCH ×3 (08:13→14:33)
[2022-11-02] MEDS: PANTOPRAZOLE 40 MG TABLET PO SCH ×2 (08:13→17:33)
[2022-11-02] MEDS: PIPERACILLIN-TAZOBACTAM 3.375 GM in SODIUM CHLORIDE 0.9% 100 ML IVPB SCH ×2 (08:13→17:33)
[2022-11-02] MEDS: LACTULOSE 20 GM/30 ML CUP PO SCH ×2 (08:14→22:13)
[2022-11-02] MEDS: carvediloL 12.5 MG TAB PO SCH ×2 (08:14→17:33)
[2022-11-02] MEDS: ALPRAZolam 0.25 MG TAB PO SCH ×2 (08:14→22:14)
[2022-11-02] MEDS: SOTALOL 80 MG TAB PO SCH ×2 (08:14→22:14)
--- NOTE | 2022-11-02 09:23 | P.PN ---
Subjective Progress Note Date: 11/02/22 Principal diagnosis: Ileus/constipation Patient doing better today. Minimal abdominal pain. Still having stools and flatus. Morning x-rays reviewed. Less stool noted. Still has air-filled colonic loops. Patient is quite hungry she states. No nausea or vomiting. Objective - Vital Signs Vital signs: Vital Signs Temp 98.1 F 11/02/22 07:20 Pulse 91 11/02/22 07:20 Resp 18 11/02/22 07:20 BP 134/87 11/02/22 07:20 Pulse Ox 93 L 11/02/22 07:20 FiO2 Intake & Output 11/01/22 11/02/22 11/02/22 18:59 06:59 18:59 Other: Voiding Method Bedside Commode Toilet Bedside Commode # Voids 1 1 1 # Bowel Movements 1 1 1 - Exam Abdomen: Soft, nondistended, nontender - Labs CBC & Chem 7: 11/01/22 11:36 11/02/22 05:39 Labs: Abnormal Lab Results - Last 24 Hours (Table) 11/01/22 11/02/22 Range/Units 11:36 05:39 Lymphocytes # 0.9 L (1.0-4.8) k/uL Potassium 2.9 L (3.5-5.1) mmol/L BUN 3 L (7-17) mg/dL Glucose 111 H (74-99) mg/dL Microbiology - Last 24 Hours (Table) 10/30/22 15:10 Blood Culture - Preliminary Blood 10/30/22 11:07 Urine Culture - Final Urine,Voided Klebsiella oxytoca Escherichia coli 10/30/22 15:24 Blood Culture Gram Stain - Preliminary Blood Blood Culture - Preliminary Coagulase Negative Staph Assessment and Plan (1) Constipation Narrative/Plan: 82-year-old female with abdominal pain that is improving. Patient presented with constipation but has been clearing her stools well. I am comfortable with advancing to soft diet. Continue increasing activity. Continue stool softeners. Current Visit: No Status: Acute Code(s): K59.00 - CONSTIPATION, UNSPECIFIED SNOMED Code(s): 63020222
[2022-11-02 15:29] VITALS: BMI 26.1
--- NOTE | 2022-11-02 18:12 | P.PN ---
Progress Note - Text Progress Note Date: 11/02/22 Chief Complaint: Abdominal pain, diarrhea This is a pleasant 82-year-old patient follows with visiting physicians, Fuentes pink. Patient lives at assisted living. That facility has a new food caterer. The residents still not like the food as per the patient. Yesterday went down to eat. And then started having describes as abdominal aching. Then she started passing significant gas from below. The started having multiple stools. No nausea vomiting. No fever no some chills. Has continued to have diarrhea through the night. Abdominal pain still present. Does use a walker at the baseline. 10/31/2022: Admitted with acute sigmoid and rectal colitis. Stool retention. Started on IV Zosyn. Surgery consulted. They ordered an enema. Pending the same. On clear liquid diet. No abdominal pain. 11/01/2022: Patient today is more abdominal distention. Did pass a cup full of mushy stool. No nausea vomiting. Made nothing by mouth. Abdominal x-ray confirms diffuse distention of the colon up to 6.5 cm. Surgery following. 11/02/2022: Patient had a small bowel movement earlier. Some decrease in distention. Abdominal pain better. Patient did ambulate. Diet advanced per surgery. X-ray shows:colon: Distended upper 9.5 cm. Active Medications Acetaminophen (Acetaminophen Tab 500 Mg Tab) 500 mg PO Q6H PRN PRN Reason: Pain or Fever > 100.5 Last Admin: 11/02/22 12:36 Dose: 500 mg Alprazolam (Alprazolam 0.25 Mg Tab) 0.25 mg PO BID [facility] Last Admin: 11/02/22 08:14 Dose: 0.25 mg Atorvastatin Calcium (Atorvastatin 10 Mg Tab) 10 mg PO HS [facility] Last Admin: 11/01/22 22:03 Dose: 10 mg Calcium Carbonate/Glycine (Calcium Carbonate 500 Mg Chewable) 1,000 mg PO Q4HR PRN PRN Reason: Dyspepsia Carvedilol (Carvedilol 12.5 Mg Tab) 12.5 mg PO BID-W/MEALS [facility] Last Admin: 11/02/22 17:33 Dose: 12.5 mg Piperacillin Sod/Tazobactam (Sod 3.375 gm/ Sodium Chloride) 100 mls @ 25 mls/hr IVPB Q8HR [facility]; Protocol Last Admin: 11/02/22 17:33 Dose: 25 mls/hr Lactated Ringer's (Lactated Ringers) 1,000 mls @ 100 mls/hr IV .Q10H [facility] Last Admin: 11/02/22 14:34 Dose: 100 mls/hr Lactulose (Lactulose 20 Gm/30 Ml Cup) 20 gm PO DAILY PRN PRN Reason: Constipation Last Admin: 11/02/22 04:57 Dose: 20 gm Lactulose (Lactulose 20 Gm/30 Ml Cup) 20 gm PO BID [facility] Last Admin: 11/02/22 08:14 Dose: 20 gm Losartan Potassium (Losartan 50 Mg Tab) 100 mg PO DAILY [facility] Last Admin: 11/02/22 08:13 Dose: 100 mg Melatonin (Melatonin 5 Mg Tablet) 10 mg PO HS [facility] Last Admin: 11/01/22 22:03 Dose: 10 mg Naloxone HCl (Naloxone 0.4 Mg/Ml 1 Ml Vial) 0.2 mg IV Q2M PRN PRN Reason: Opioid Reversal Ondansetron HCl (Ondansetron 4 Mg/2 Ml Vial) 4 mg IVP Q8HR PRN PRN Reason: Nausea And Vomiting Last Admin: 11/02/22 04:59 Dose: 4 mg Pantoprazole Sodium (Pantoprazole 40 Mg Tablet) 40 mg PO AC-BID [facility] Last Admin: 11/02/22 17:33 Dose: 40 mg Potassium Chloride (Potassium Chloride Er 20 Meq Tab.Er) 20 meq PO DAILY [facility] Last Admin: 11/02/22 08:13 Dose: 20 meq Sotalol HCl (Sotalol 80 Mg Tab) 80 mg PO BID [facility] Last Admin: 11/02/22 08:14 Dose: 80 mg Past medical history to include: Atrial fibrillation, asthma, CHF, GERD, hard of hearing, hypertension, hyperlipidemia, cognitive impairment, osteoarthritis, rheumatoid arthritis, obstructive sleep apnea, hypothyroid, spell stenosis and scoliosis, squamous cell skin cancer, anxiety depression Social history: Patient smoked for 33 years stopped in 1986. 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 . Lives alone [facility]. 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 Physical examination: VITAL SIGNS: 98.2, 63, 17, 1:30/70, 96% room air GENERAL: BMI 26.1, laying in bed EYES: Pupils equal. Conjunctiva normal. Blurry vision through left eye, chronic HEENT: External appearance of nose and ears normal, oral cavity grossly normal. Decreased hearing NECK: JVD not raised; masses not palpable. HEART: First and second heart sounds are normal; no edema. LUNGS: Respiratory rate normal; clear to auscultation. ABDOMEN: Soft, less distended , minimal tenderness, no guarding rigidity, liver spleen not palpable, no masses palpable. PSYCH: [Alert and oriented x3; mood and affect anxious MUSCULOSKELETAL:No Clubbing/cyanosis;muscles-grossly intact. OA INVESTIGATIONS, reviewed in the clinical context: November 02: Potassium 2.9 creatinine 0.53 Abdominal x-ray [November 01]: Seemingly dilatated large bowels. Up to 6. centimeters reported 11/01/2022: White count 7.5 hemoglobin 13.6 platelets 176 Abdominal x-ray: Gassy small bowel and some colon throughout the abdomen. Some stool burden. No free air. 10/31/2022: White count 4.9 hemoglobin 11.4 platelets with 84 potassium 3.5 creatinine 0.6 White count 8.2 hemoglobin 13.5 platelets 189 sodium 137 potassium 3.9 BUN 22 creatinine 0.59 Computed tomography scan abdomen pelvis: Moderate cardiomegaly. Mild to 9 mm. Status post cholecystectomy low-density nodular thickening of the bilateral adrenal glands. Mild rectus diastasis up to 5.8 cm wide. Moderate circumferential wall thickening of the rectum with abnormal excessive distention up to 9.2 cm wide. Circumferential wall thickening extends to involve the distal sigmoid colon as well. Rectal fat stranding and edema. Assessment and plan: -Acute sigmoid and rectal colitis. Patient having abdominal pain and distention and diarrhea, on presentation. IV Zosyn. Nothing by mouth. Follow with surgery -ileus. Symptomatic.: Radiologically not improving but clinically patient looking better. Diet advanced per surgery. Follow -GERD Protonix -Severe hypokalemia Replace -Hyperlipidemia Zocor 10 mg daily at bedtime -Essential hypertension Coreg. Sotalol. Irbesartan. Hold amlodipine -Chronic insomnia Melatonin Diet advanced per surgery. Replace potassium. Other medications to continue.
[2022-11-02] MEDS: ATORVASTATIN 10 MG TAB PO SCH (22:13)
[2022-11-02] MEDS: MELATONIN 5 MG TABLET PO SCH (22:14)
[2022-11-03] MEDS: PIPERACILLIN-TAZOBACTAM 3.375 GM in SODIUM CHLORIDE 0.9% 100 ML IVPB SCH ×3 (00:07→15:22)
[2022-11-03] MEDS: LACTATED RINGERS 1,000 ML IV SCH ×3 (04:13→17:27)
[2022-11-03 06:17] LABS: African American GFR (CKD) >90 (>60 ml/min/1.73 sqM); Anion Gap 4 mmol/L; Blood Urea Nitrogen 16 mg/dL (7-17); Calcium 9.6 mg/dL (8.4-10.2); Carbon Dioxide 28 mmol/L (22-30); Chloride 108 mmol/L (98-107); Glucose 113 mg/dL (74-99); Non-African American GFR(CKD) 83 (>60 ml/min/1.73 sqM); Potassium 4.1 mmol/L (3.5-5.1); Sodium 140 mmol/L (137-145)
[2022-11-03] MEDS: LACTULOSE 20 GM/30 ML CUP PO SCH ×2 (08:32→21:01)
[2022-11-03] MEDS: POTASSIUM CHLORIDE ER 20 MEQ TAB.ER PO SCH (08:32)
[2022-11-03] MEDS: LOSARTAN 50 MG TAB PO SCH (08:32)
[2022-11-03] MEDS: SOTALOL 80 MG TAB PO SCH ×2 (08:33→21:01)
[2022-11-03] MEDS: ALPRAZolam 0.25 MG TAB PO SCH ×2 (08:33→21:01)
[2022-11-03] MEDS: ACETAMINOPHEN TAB 500 MG TAB PO PRN (08:33)
[2022-11-03] MEDS: carvediloL 12.5 MG TAB PO SCH ×2 (08:33→17:27)
[2022-11-03] MEDS: PANTOPRAZOLE 40 MG TABLET PO SCH ×2 (08:33→17:27)
--- NOTE | 2022-11-03 18:17 | P.PN ---
Subjective Progress Note Date: 11/03/22 Tolerating diet. Having bowel movements. Recommend home health care for home Objective - Vital Signs Vital signs: Vital Signs Temp 98.0 F 11/03/22 11:40 Pulse 98 11/03/22 11:40 Resp 16 11/03/22 11:40 BP 138/83 11/03/22 11:40 Pulse Ox 98 11/03/22 11:40 FiO2 Intake & Output 11/02/22 11/03/22 11/03/22 18:59 06:59 18:59 Weight 56.699 kg Other: Voiding Method Toilet Toilet Toilet Bedside Commode Bedside Commode Bedside Commode # Voids 1 10 4 # Bowel Movements 1 1 - Labs CBC & Chem 7: 11/01/22 11:36 11/03/22 05:34 Labs: Abnormal Lab Results - Last 24 Hours (Table) 11/03/22 Range/Units 05:34 Chloride 108 H (98-107) mmol/L Glucose 113 H (74-99) mg/dL Microbiology - Last 24 Hours (Table) 10/30/22 15:10 Blood Culture - Preliminary Blood
[2022-11-03] MEDS: MELATONIN 5 MG TABLET PO SCH (21:01)
[2022-11-03] MEDS: ATORVASTATIN 10 MG TAB PO SCH (21:02)
--- NOTE | 2022-11-03 21:30 | P.PN ---
Subjective Progress Note Date: 11/03/22 This is a pleasant 82-year-old patient follows with visiting physicians, Fuentes pink. Patient lives at assisted living. That facility has a new food caterer. The residents still not like the food as per the patient. Yesterday went down to eat. And then started having describes as abdominal aching. Then she started passing significant gas from below. The started having multiple stools. No nausea vomiting. No fever no some chills. Has continued to have diarrhea through the night. Abdominal pain still present. Does use a walker at the baseline. 10/31/2022: Admitted with acute sigmoid and rectal colitis. Stool retention. Started on IV Zosyn. Surgery consulted. They ordered an enema. Pending the same. On clear liquid diet. No abdominal pain. 11/01/2022: Patient today is more abdominal distention. Did pass a cup full of mushy stool. No nausea vomiting. Made nothing by mouth. Abdominal x-ray confirms diffuse distention of the colon up to 6.5 cm. Surgery following. 11/02/2022: Patient had a small bowel movement earlier. Some decrease in distention. Abdominal pain better. Patient did ambulate. Diet advanced per surgery. X-ray shows:colon: Distended upper 9.5 cm. 11/03/2022 Patient is evaluated today resting in bed. Continues to report abdominal distention. Abdomen is soft and nontender. Patient is nontympanic on examination. Does report fullness suprapubic region. Bladder scan showing less than 10 mls. Patient having diarrhea no bowel movements today though. Abdominal xray ordered. Labs improved potassium now 4.1. Hemodynamically stable. Review of Systems Constitutional: Denied any fatigue denied any fever. Cardio vascular: denied any chest pain, palpitations Gastrointestinal: denied any nausea, vomiting, diarrhea, reports abdominal distention and fullness. Pulmonary: Denied any shortness of breath cough Neurologic denied any new focal deficits, reports diffuse weakness. All inpatient medications were reviewed and appropriate changes in these medica tions as dictated in the interval history and assessment and plan. PHYSICAL EXAMINATION: GENERAL: The patient is alert and oriented x3, not in any acute distress. Well developed, well nourished. HEENT: Pupils are round and equally reacting to light. EOMI. No scleral icterus. No conjunctival pallor. Normocephalic, atraumatic. No pharyngeal erythema. No thyromegaly. CARDIOVASCULAR: S1 and S2 present. No murmurs, rubs, or gallops. PULMONARY: Chest is clear to auscultation, no wheezing or crackles. ABDOMEN: Soft, nontender, distended, dull to percussion. normoactive bowel sounds. No palpable organomegaly. MUSCULOSKELETAL: No joint swelling or deformity. EXTREMITIES: No cyanosis, clubbing, or pedal edema. NEUROLOGICAL: Gross neurological examination did not reveal any focal deficits. SKIN: No rashes. Assessment Acute sigmoid and rectal colitis remains on IV zosyn and diet has been advanced to dysphagia ground 2 having loose stools, none today Ileus improving History of atrial fibrillation s/p cardiac ablation in the past with permanent pacemaker and watchmen device Hx asthma with no acute exacerbation Gastroesophageal reflux disease Hypokalemia resolved with supplementation Hyperlipidemia Hx hypertension Anxiety/Depression/Panic disorder GI prophylaxis Full Code Plan Abdominal xray ordered abdomen remains distended with abdominal fullness noted. Continues on IV zosyn Diet per surgery The impression and plan of care has been dictated by Lolly Santos, Nurse Practitioner as directed. Dr. Enrique MD I have performed a history and physical examination and medical decision making of this patient, discussed the same with the dictator, and agree with the dictators assessment and plan as written, documented as a scribe. Based on total visit time, I have performed more than 50% of this visit. Objective - Vital Signs Vital signs: Vital Signs Temp 98.4 F 11/03/22 07:10 Pulse 66 11/03/22 07:10 Resp 16 11/03/22 07:10 BP 169/85 11/03/22 07:10 Pulse Ox 96 11/03/22 07:10 FiO2 Intake & Output 11/02/22 11/03/22 11/03/22 18:59 06:59 18:59 Weight 56.699 kg Other: Voiding Method Toilet Toilet Bedside Commode Bedside Commode # Voids 1 10 # Bowel Movements 1 1 - Labs CBC & Chem 7: 11/01/22 11:36 11/03/22 05:34 Labs: Abnormal Lab Results - Last 24 Hours (Table) 11/03/22 Range/Units 05:34 Chloride 108 H (98-107) mmol/L Glucose 113 H (74-99) mg/dL Microbiology - Last 24 Hours (Table) 10/30/22 15:10 Blood Culture - Preliminary Blood 10/30/22 15:24 Blood Culture Gram Stain - Final Blood Blood Culture - Final Coagulase Negative Staph Assessment and Plan Time with Patient: Less than 30
--- NOTE | 2022-11-03 23:20 | XR ---
EXAMINATION TYPE: XR abdomen 1V DATE OF EXAM: 11/03/2022 COMPARISON: 11/02/2022 INDICATION: Abdomen pain and constipation TECHNIQUE: Single view abdomen upright view FINDINGS: No free air is under the diaphragm. Colonic bowel gas is present. No mass effect is evident. Psoas margins are normal. No organomegaly is present. Degenerative changes are within the lumbar spine. IMPRESSION: 1. Nonspecific abdomen.
[2022-11-04] MEDS: PIPERACILLIN-TAZOBACTAM 3.375 GM in SODIUM CHLORIDE 0.9% 100 ML IVPB SCH ×3 (00:51→16:58)
[2022-11-04] MEDS: LACTULOSE 20 GM/30 ML CUP PO PRN (02:05)
[2022-11-04] MEDS: LACTATED RINGERS 1,000 ML IV SCH ×2 (05:22→14:22)
[2022-11-04] MEDS: LACTULOSE 20 GM/30 ML CUP PO SCH ×2 (08:36→21:11)
[2022-11-04] MEDS: ALPRAZolam 0.25 MG TAB PO SCH ×2 (08:36→22:05)
[2022-11-04] MEDS: LOSARTAN 50 MG TAB PO SCH (08:36)
[2022-11-04] MEDS: SOTALOL 80 MG TAB PO SCH ×2 (08:36→21:07)
[2022-11-04] MEDS: ACETAMINOPHEN TAB 500 MG TAB PO PRN ×3 (08:36→22:24)
[2022-11-04] MEDS: POTASSIUM CHLORIDE ER 20 MEQ TAB.ER PO SCH (08:36)
[2022-11-04] MEDS: PANTOPRAZOLE 40 MG TABLET PO SCH ×2 (08:37→16:58)
[2022-11-04] MEDS: carvediloL 12.5 MG TAB PO SCH ×2 (08:37→16:58)
--- NOTE | 2022-11-04 12:42 | P.PN ---
Subjective Progress Note Date: 11/04/22 She reports 4 bowel movements today since walking up. Discussion with nursing reports small bowel movements, soft No increased abdominal pain Abdominal xray reviewed without obstruction or impaction. This is my independent interpretation. Pending home health and social work evaluation for discharge planning. Objective - Vital Signs Vital signs: Vital Signs Temp 98 F 11/04/22 07:45 Pulse 56 L 11/04/22 07:45 Resp 15 11/04/22 07:45 BP 153/84 11/04/22 07:45 Pulse Ox 97 11/04/22 07:45 FiO2 Intake & Output 11/03/22 11/04/22 11/04/22 18:59 06:59 18:59 Output Total 0 Balance 0 Output: Urine 0 Other: Voiding Method Toilet Toilet Bedside Commode Bedside Commode # Voids 4 12 - Labs CBC & Chem 7: 11/01/22 11:36 11/03/22 05:34
--- NOTE | 2022-11-04 16:57 | P.PN ---
Subjective Progress Note Date: 11/04/22 This is a pleasant 82-year-old patient follows with visiting physicians, Fuentes pink. Patient lives at assisted living. That facility has a new food caterer. The residents still not like the food as per the patient. Yesterday went down to eat. And then started having describes as abdominal aching. Then she started passing significant gas from below. The started having multiple stools. No nausea vomiting. No fever no some chills. Has continued to have diarrhea through the night. Abdominal pain still present. Does use a walker at the baseline. 10/31/2022: Admitted with acute sigmoid and rectal colitis. Stool retention. Started on IV Zosyn. Surgery consulted. They ordered an enema. Pending the same. On clear liquid diet. No abdominal pain. 11/01/2022: Patient today is more abdominal distention. Did pass a cup full of mushy stool. No nausea vomiting. Made nothing by mouth. Abdominal x-ray confirms diffuse distention of the colon up to 6.5 cm. Surgery following. 11/02/2022: Patient had a small bowel movement earlier. Some decrease in distention. Abdominal pain better. Patient did ambulate. Diet advanced per surgery. X-ray shows:colon: Distended upper 9.5 cm. 11/03/2022 Patient is evaluated today resting in bed. Continues to report abdominal distention. Abdomen is soft and nontender. Patient is nontympanic on examination. Does report fullness suprapubic region. Bladder scan showing less than 10 mls. Patient having diarrhea no bowel movements today though. Abdominal xray ordered. Labs improved potassium now 4.1. Hemodynamically stable. 11/04/2022 Patient evaluated today resting in bed. Having diarrhea today. Abdomen soft and nontender. On ground 2 dysphagia diet. General surgery following. Social work for discharge planning tomorrow. Review of Systems Constitutional: Denied any fatigue denied any fever. Cardio vascular: denied any chest pain, palpitations Gastrointestinal: denied any nausea, vomiting. Reports diarrhea. Pulmonary: Denied any shortness of breath cough Neurologic denied any new focal deficits, reports diffuse weakness. All inpatient medications were reviewed and appropriate changes in these medications as dictated in the interval history and assessment and plan. PHYSICAL EXAMINATION: GENERAL: The patient is alert and oriented x3, not in any acute distress. Well developed, well nourished. HEENT: Pupils are round and equally reacting to light. EOMI. No scleral icterus. No conjunctival pallor. Normocephalic, atraumatic. No pharyngeal erythema. No thyromegaly. CARDIOVASCULAR: S1 and S2 present. No murmurs, rubs, or gallops. PULMONARY: Chest is clear to auscultation, no wheezing or crackles. ABDOMEN: Soft, nontender, nondistended. normoactive bowel sounds. No palpable organomegaly. MUSCULOSKELETAL: No joint swelling or deformity. EXTREMITIES: No cyanosis, clubbing, or pedal edema. NEUROLOGICAL: Gross neurological examination did not reveal any focal deficits. SKIN: No rashes. Assessment Acute sigmoid and rectal colitis remains on IV zosyn and diet has been advanced to dysphagia ground 2 having loose stools Ileus improving History of atrial fibrillation s/p cardiac ablation in the past with permanent p acemaker and watchmen device Hx asthma with no acute exacerbation Gastroesophageal reflux disease Hypokalemia resolved with supplementation Hyperlipidemia Hx hypertension Anxiety/Depression/Panic disorder GI prophylaxis Full Code Plan Continues on IV zosyn Diet per surgery Patient to be evaluated by social work for discharge planning tomorrow Medically she is stable. The impression and plan of care has been dictated by Lolly Santos Nurse Practitioner as directed. Dr. Enrique MD I have performed a history and physical examination and medical decision making of this patient, discussed the same with the dictator, and agree with the dictators assessment and plan as written, documented as a scribe. Based on total visit time, I have performed more than 50% of this visit. Objective - Vital Signs Vital signs: Vital Signs Temp 97.6 F 11/04/22 12:10 Pulse 56 L 11/04/22 12:10 Resp 16 11/04/22 12:10 BP 134/74 11/04/22 12:10 Pulse Ox 96 11/04/22 12:10 FiO2 Intake & Output 11/03/22 11/04/22 11/04/22 18:59 06:59 18:59 Output Total 0 Balance 0 Output: Urine 0 Other: Voiding Method Toilet Toilet Bedside Commode Bedside Commode # Voids 4 12 - Labs CBC & Chem 7: 11/01/22 11:36 11/03/22 05:34 Assessment and Plan Time with Patient: Less than 30
[2022-11-04] MEDS: ATORVASTATIN 10 MG TAB PO SCH (21:07)
[2022-11-04] MEDS: MELATONIN 5 MG TABLET PO SCH (22:05)
[2022-11-05] MEDS: PIPERACILLIN-TAZOBACTAM 3.375 GM in SODIUM CHLORIDE 0.9% 100 ML IVPB SCH ×2 (01:56→08:45)
[2022-11-05] MEDS: LACTATED RINGERS 1,000 ML IV SCH ×2 (01:57→12:58)
[2022-11-05 02:12] VITALS: RESP 18; TEMP 97.7
[2022-11-05 08:02] VITALS: BP 158/89; PULSE 56
[2022-11-05] MEDS: POTASSIUM CHLORIDE ER 20 MEQ TAB.ER PO SCH (08:44)
[2022-11-05] MEDS: LACTULOSE 20 GM/30 ML CUP PO SCH (08:44)
[2022-11-05] MEDS: PANTOPRAZOLE 40 MG TABLET PO SCH (08:45)
[2022-11-05] MEDS: SOTALOL 80 MG TAB PO SCH (08:45)
[2022-11-05] MEDS: ALPRAZolam 0.25 MG TAB PO SCH (08:45)
[2022-11-05] MEDS: carvediloL 12.5 MG TAB PO SCH (08:45)
[2022-11-05] MEDS: LOSARTAN 50 MG TAB PO SCH (08:45)
--- NOTE | 2022-11-05 16:04 | P.PN ---
Subjective Progress Note Date: 11/05/22 CHIEF COMPLAINT: Constipation HISTORY OF PRESENT ILLNESS: Patient's admitted hospital with abdominal pain and constipation. Patient having multiple bowel movements. Tolerating diet. Abdominal pain resolved. Denies any nausea or vomiting. Has been up and ambulating. PHYSICAL EXAM: VITAL SIGNS: Reviewed. GENERAL: Well-developed in no acute distress. ABDOMEN: Soft. Nondistended. Nontender. NEUROLOGIC: Alert and oriented. Cranial nerves II through XII grossly intact. ASSESSMENT: 1. Constipation 2. Abdominal pain PLAN: -Patient can be discharged from surgical standpoint -Continue good bowel regimen Physician Cannery Worker note has been reviewed by physician. Signing provider agrees with the documented findings, assessment, and plan of care. Objective - Vital Signs Vital signs: Vital Signs Temp 97.7 F 11/05/22 07:30 Pulse 56 L 11/05/22 07:30 Resp 18 11/05/22 07:30 BP 158/89 11/05/22 07:30 Pulse Ox 97 11/05/22 07:30 FiO2 Intake & Output 11/04/22 11/05/22 11/05/22 18:59 06:59 18:59 Intake Total 600 Balance 600 Intake: Intake, IV Titration 600 Amount Lactated Ringers 1,000 ml 500 @ 100 mls/hr IV .Q10H [facility] Rx#:[id number] Piperacillin-Tazobactam 3 100 .375 gm In Sodium Chloride 0.9% 100 ml @ 25 mls/hr IVPB Q8HR [facility] Rx# :[id number] Other: Voiding Method Toilet Bedside Commode # Voids 10 1 # Bowel Movements 5 1 - Labs CBC & Chem 7: 11/01/22 11:36 11/03/22 05:34 Labs: Microbiology - Last 24 Hours (Table) 10/30/22 15:10 Blood Culture - Final Blood
--- NOTE | 2022-11-05 22:09 | P.DS ---
Providers Date of admission: 10/30/22 15:12 Expected date of discharge: 11/05/22 Attending physician: Nathanael Fong Consults: 10/30/22 14:47 Consult Physician Routine Consulting Provider: Mumtaz Baig Consult Reason/Comments: Abdominal pain Do you want consulting provider notified?: Yes Primary care physician: Stated None Hospital Course: Chief Complaint: Abdominal pain, diarrhea This is a pleasant 82-year-old patient follows with visiting physicians, Fuentes pink. Patient lives at assisted living. That facility has a new food caterer. The residents still not like the food as per the patient. Yesterday went down to eat. And then started having describes as abdominal aching. Then she started passing significant gas from below. The started having multiple stools. No nausea vomiting. No fever no some chills. Has continued to have diarrhea through the night. Abdominal pain still present. Does use a walker at the baseline. 10/31/2022: Admitted with acute sigmoid and rectal colitis. Stool retention. Started on IV Zosyn. Surgery consulted. They ordered an enema. Pending the same. On clear liquid diet. No abdominal pain. 11/01/2022: Patient today is more abdominal distention. Did pass a cup full of mushy stool. No nausea vomiting. Made nothing by mouth. Abdominal x-ray confirms diffuse distention of the colon up to 6.5 cm. Surgery following. 11/02/2022: Patient had a small bowel movement earlier. Some decrease in distention. Abdominal pain better. Patient did ambulate. Diet advanced per surgery. X-ray shows:colon: Distended upper 9.5 cm. 11/03/2022 Patient is evaluated today resting in bed. Continues to report abdominal distention. Abdomen is soft and nontender. Patient is nontympanic on examination. Does report fullness suprapubic region. Bladder scan showing less than 10 mls. Patient having diarrhea no bowel movements today though. Abdominal xray ordered. Labs improved potassium now 4.1. Hemodynamically stable. 11/04/2022 Patient evaluated today resting in bed. Having diarrhea today. Abdomen soft and nontender. On ground 2 dysphagia diet. General surgery following. Social work for discharge planning tomorrow. 11/05/2022: Patient's had bowel movements overnight. And yesterday. Abdomen is soft. Tolerating ground diet. Discussed with the patient at length. Questions answered. Also discussed with the medical case manager. Antibiotics discontinued. Discussion and discharge planning more than 35 minutes Past medical history to include: Atrial fibrillation, asthma, CHF, GERD, hard of hearing, hypertension, hyperlipidemia, cognitive impairment, osteoarthritis, rheumatoid arthritis, obstructive sleep apnea, hypothyroid, spell stenosis and scoliosis, squamous cell skin cancer, anxiety depression Social history: Patient smoked for 33 years stopped in 1986. 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 . Lives alone [place]. 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 Physical examination: VITAL SIGNS: 97.7, 56, 18, 1 5899, 97% room air GENERAL: Appearing more comfortable EYES: Pupils equal. Conjunctiva normal. Blurry vision through left eye, chronic HEENT: External appearance of nose and ears normal, oral cavity grossly normal. Decreased hearing NECK: JVD not raised; masses not palpable. HEART: First and second heart sounds are normal; no edema. LUNGS: Respiratory rate normal; clear to auscultation. ABDOMEN: Soft, not distended , no tenderness, no guarding rigidity, liver spleen not palpable, no masses palpable. PSYCH: [Alert and oriented x3; mood and affect anxious MUSCULOSKELETAL:No Clubbing/cyanosis;muscles-grossly intact. OA INVESTIGATIONS, reviewed in the clinical context: November 03: Denzel 4.1 creatinine 0.67 Abdominal x-ray [November 01]: Seemingly dilatated large bowels. Up to 6. centimeters reported 11/01/2022: White count 7.5 hemoglobin 13.6 platelets 176 Abdominal x-ray: Gassy small bowel and some colon throughout the abdomen. Some stool burden. No free air. 10/31/2022: White count 4.9 hemoglobin 11.4 platelets with 84 potassium 3.5 creatinine 0.6 White count 8.2 hemoglobin 13.5 platelets 189 sodium 137 potassium 3.9 BUN 22 creatinine 0.59 Computed tomography scan abdomen pelvis: Moderate cardiomegaly. Mild to 9 mm. Status post cholecystectomy low-density nodular thickening of the bilateral adrenal glands. Mild rectus diastasis up to 5.8 cm wide. Moderate circumferential wall thickening of the rectum with abnormal excessive distention up to 9.2 cm wide. Circumferential wall thickening extends to involve the distal sigmoid colon as well. Rectal fat stranding and edema. Assessment and plan: -Acute sigmoid and rectal colitis. Patient having abdominal pain and distention and diarrhea, on presentation.: Improved IV Zosyn. Treated course. -ileus. Symptomatic.: Improved On ground diet. -GERD Protonix -Severe hypokalemia Replaced -Hyperlipidemia Zocor 10 mg daily at bedtime -Essential hypertension Coreg. Sotalol. Irbesartan. amlodipine -Chronic insomnia Melatonin Disposition: Home with home care. Labs: BMP: 3-5 days Plan - Discharge Summary Discharge Rx Participant: No New Discharge Prescriptions: New amLODIPine [Norvasc] 5 mg PO HS #30 tab Continue Simvastatin [Zocor] 10 mg PO HS Irbesartan 300 mg PO DAILY Potassium Chloride [Klor-Con 20] 20 meq PO DAILY Sotalol [Betapace] 80 mg PO BID ALPRAZolam [Xanax] 0.25 mg PO BID Cranberry Fruit Concentrate [Azo Cranberry] 500 mg PO DAILY carvediloL [Coreg] 12.5 mg PO BID Acetaminophen Tab [Tylenol] 500 mg PO Q6H PRN PRN Reason: Pain Or Fever > 100.5 Melatonin 10 mg PO HS Pantoprazole [Protonix] 40 mg PO BID Cholecalciferol (Vitamin D3) [Vitamin D3] 1,250 mcg PO QMONTHLY Discontinued amLODIPine [Norvasc] 10 mg PO DAILY Discharge Medication List Simvastatin [Zocor] 10 mg PO HS 10/03/13 [History] Irbesartan 300 mg PO DAILY 07/25/15 [History] Potassium Chloride [Klor-Con 20] 20 meq PO DAILY 03/06/19 [History] Sotalol [Betapace] 80 mg PO BID 04/04/20 [History] Cranberry Fruit Concentrate [Azo Cranberry] 500 mg PO DAILY 02/27/21 [History] ALPRAZolam [Xanax] 0.25 mg PO BID 11/20/21 [History] carvediloL [Coreg] 12.5 mg PO BID 11/20/21 [History] Acetaminophen Tab [Tylenol] 500 mg PO Q6H PRN 10/30/22 [History] Cholecalciferol (Vitamin D3) [Vitamin D3] 1,250 mcg PO QMONTHLY 10/30/22 [History] Melatonin 10 mg PO HS 10/30/22 [History] Pantoprazole [Protonix] 40 mg PO BID 10/30/22 [History] amLODIPine [Norvasc] 5 mg PO HS #30 tab 11/05/22 [Rx] Follow up Appointment(s)/Referral(s): Raj Dill NPC [REFERRING] - 11/07/22 ([facility] will call with a time frame.) Patient Instructions/Handouts: Amlodipine (By mouth) Activity/Diet/Wound Care/Special Instructions: ground / soft diet pt visiting physician office is setting the pt up with home care - after follow up visit. Discharge Disposition: HOME WITH HOME HEALTH SERVICES
== END 2022-11-05 14:15 | disposition home health service (06) | DRG 389 ==
LOC: EC 01:37 → 6NMEDSUR 07:09 → OBSVTOIN 15:12 → 5NMEDONC 17:17
PROVIDERS: ADMIT Hospitalist; ATTEND Hospitalist
DX: K56.41 Fecal impaction (principal); K56.7 Ileus, unspecified; N39.0 Urinary tract infection, site not specified; E03.9 Hypothyroidism, unspecified; E78.5 Hyperlipidemia, unspecified; E87.6 Hypokalemia; F10.21 Alcohol dependence, in remission; F32.A Depression, unspecified; F41.0 Panic disorder [episodic paroxysmal anxiety]; F51.04 Psychophysiologic insomnia; G47.33 Obstructive sleep apnea (adult) (pediatric); H91.90 Unspecified hearing loss, unspecified ear; I11.0 Hypertensive heart disease with heart failure; I25.2 Old myocardial infarction; L30.9 Dermatitis, unspecified; F11.21 Opioid dependence, in remission; I34.1 Nonrheumatic mitral (valve) prolapse; I48.91 Unspecified atrial fibrillation; E04.1 Nontoxic single thyroid nodule; I50.9 Heart failure, unspecified; J45.909 Unspecified asthma, uncomplicated; M06.9 Rheumatoid arthritis, unspecified; R13.10 Dysphagia, unspecified; Z28.310 Unvaccinated for COVID-19; M19.90 Unspecified osteoarthritis, unspecified site; M41.9 Scoliosis, unspecified; G89.29 Other chronic pain; L40.9 Psoriasis, unspecified; K52.89 Other specified noninfective gastroenteritis and colitis; K21.9 Gastro-esophageal reflux disease without esophagitis; Z85.828 Personal history of other malignant neoplasm of skin; Z79.899 Other long term (current) drug therapy; Z87.891 Personal history of nicotine dependence; Z71.3 Dietary counseling and surveillance; Z60.2 Problems related to living alone; Z96.653 Presence of artificial knee joint, bilateral; Z96.612 Presence of left artificial shoulder joint; Z96.611 Presence of right artificial shoulder joint; Z87.01 Personal history of pneumonia (recurrent); Z88.5 Allergy status to narcotic agent; Z88.8 Allergy status to other drugs, medicaments and biological substances; Z95.810 Presence of automatic (implantable) cardiac defibrillator
CPT/HCPCS: 36415; 74018; 74019; 74176; 80048; 80053; 81001; 82150; 83605; 83690; 84132; 85025; 87040; 87077; 87086; 87186; 93005

== ENCOUNTER 2022-11-16 13:51 | Emergency (ER) | payer MEDICARE ==
[2022-11-16 15:08] VITALS: RESP 16
[2022-11-16 15:33] LABS: Basophils % (A) 0 %; Eosinophils # (A) 0.1 k/uL (0-0.7); Eosinophils % (A) 2 %; HCT 41.7 % (34.0-46.0); HGB 13.7 gm/dL (11.4-16.0); Lymphocytes # (A) 1.3 k/uL (1.0-4.8); Lymphocytes % (A) 27 %; MCH 30.9 pg (25.0-35.0); MCHC 32.8 g/dL (31.0-37.0); MCV 94.3 fL (80.0-100.0); Mean Platelet Volume 7.3; Monocytes # (A) 0.5 k/uL (0-1.0); Monocytes % (A) 11 %; Neutrophils # (A) 2.8 k/uL (1.3-7.7); Neutrophils % (A) 58 %; Platelet Count 200 k/uL (150-450); RBC 4.43 m/uL (3.80-5.40); RDW 13.5 % (11.5-15.5); WBC 4.8 k/uL (3.8-10.6)
[2022-11-16 15:47] LABS: African American GFR (CKD) >90 (>60 ml/min/1.73 sqM); Anion Gap 4 mmol/L; Blood Urea Nitrogen 17 mg/dL (7-17); Carbon Dioxide 32 mmol/L (22-30); Chloride 103 mmol/L (98-107); Glucose 83 mg/dL (74-99); Non-African American GFR(CKD) 88 (>60 ml/min/1.73 sqM); Potassium 3.5 mmol/L (3.5-5.1); Sodium 139 mmol/L (137-145)
[2022-11-16 15:59] LABS: Appearance,Urine Clear (Clear); Bilirubin,Urine Negative (Negative); Blood,Urine Negative (Negative); Color,Urine Light Yellow; Glucose,Urine (UA) Negative (Negative); Ketones,Urine Negative (Negative); Leukocyte Esterase,Urine Negative (Negative); Nitrite,Urine Negative (Negative); PH, Urine 7.5 (5.0-8.0); Protein,Urine Negative (Negative); Specific Gravity,Urine 1.009 (1.001-1.035); Urobilinogen,Urine <2.0 mg/dL (<2.0)
--- NOTE | 2022-11-16 15:59 | XR ---
EXAMINATION TYPE: XR KUB DATE OF EXAM: 11/16/2022 3:55 PM INDICATION: Patient age:Female; 82 years old; Reason for study: abdominal pain; COMPARISON: 11/20/2021 TECHNIQUE: One radiographic view of the abdomen was obtained. FINDINGS: Severe scoliosis changes with the spine with multilevel degeneration. Suture projects over the right pelvis and abdomen. The bowel gas pattern is nonspecific without dilated loops of small or large bowel. There is no evidence for organomegaly or pneumoperitoneum. The osseous structures are i ntact. No abnormal calcifications are present. Fecal material and gas are demonstrated throughout th e colon and rectum. IMPRESSION: Nonspecific bowel gas pattern without radiographic evidence for acute process.
--- NOTE | 2022-11-16 16:11 | ED ---
General Adult HPI - General Source: patient, EMS Mode of arrival: EMS - History of Present Illness -: week(s) Improves with: none Worsens with: none Associated Symptoms: other Treatments Prior to Arrival: none (Stool softener) <Nuno Strong - Last Filed: 11/16/22 18:59> <Roberto Yadav - Last Filed: 11/17/22 01:34> - General Chief complaint: Psychiatric Symptoms Stated complaint: Mental Health Time Seen by Provider: 11/16/22 13:59 - History of Present Illness Initial comments: This patient is an 82-year-old woman who presents with complaint that she has been having frequent episodes of urination, frequent bowel movements, and that this is preventing her sleep. She states that she probably can only get 20-30 minutes of uninterrupted sleep before she wakes up with urge to use the bathroom. She states that she starting to have increasingly worse depressed mood and has been considering suicide. Patient denies other complaints. There is no abdominal pain. She is not passing any blood. No chest pain or dyspnea. (Nuno Strong) - Related Data Home Medications Medication Instructions Recorded Confirmed Simvastatin [Zocor] 10 mg PO HS 10/03/13 10/30/22 Irbesartan 300 mg PO DAILY 07/25/15 10/30/22 Potassium Chloride [Klor-Con 20] 20 meq PO DAILY 03/06/19 10/30/22 Sotalol [Betapace] 80 mg PO BID 04/04/20 10/30/22 Cranberry Fruit Concentrate [Azo 500 mg PO DAILY 02/27/21 10/30/22 Cranberry] ALPRAZolam [Xanax] 0.25 mg PO BID 11/20/21 10/30/22 carvediloL [Coreg] 12.5 mg PO BID 11/20/21 10/30/22 Acetaminophen Tab [Tylenol] 500 mg PO Q6H PRN 10/30/22 10/30/22 Cholecalciferol (Vitamin D3) 1,250 mcg PO QMONTHLY 10/30/22 10/30/22 [Vitamin D3] Melatonin 10 mg PO HS 10/30/22 10/30/22 Pantoprazole [Protonix] 40 mg PO BID 10/30/22 10/30/22 Previous Rx's Medication Instructions Recorded amLODIPine [Norvasc] 5 mg PO HS #30 tab 11/05/22 Allergies Allergy/AdvReac Type Severity Reaction Status Date / Time famotidine Allergy Unknown Verified 11/16/22 14:46 morphine Allergy Unknown Verified 10/30/22 08:35 spironolactone Allergy Unknown Verified 11/16/22 14:46 codeine AdvReac Severe Nausea & Verified 11/16/22 14:46 Vomiting omeprazole AdvReac Nausea, Verified 11/16/22 14:46 dizzyness Opioids - Morphine Analogues AdvReac Dyspnea- Verified 11/16/22 14:46 Review of Systems ROS Other: All systems not noted in ROS Statement are negative. <Nuno Strong - Last Filed: 11/16/22 18:59> ROS Other: All systems not noted in ROS Statement are negative. <Roberto Yadav - Last Filed: 11/17/22 01:34> ROS Statement: Those systems with pertinent positive or pertinent negative responses have been documented in the HPI. Past Medical History Past Medical History: Atrial Fibrillation, Asthma, Cancer, Heart Failure, Eye Disorder, GERD/Reflux, Hearing Disorder / Deafness, Hyperlipidemia, Hypertension, Memory Impairment, Myocardial Infarction (NM), Mitral Valve Prolapse (MVP), Osteoarthritis (OA), Pneumonia, Respiratory Disorder, Rheumatoid Arthritis (RA), Skin Disorder, Sleep Apnea/CPAP/BIPAP, Thyroid Disorder Additional Past Medical History / Comment(s): CHRONIC BACK PAIN, SPINAL STENOSIS, SCOLIOSIS, IBS, VARICOSE VEINS, STRESS INDUCED ASTHMA. 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 GLAUCOMA -"STRESS INDUCED",8 NODULES ON THYROID, psoriasis, eczema Last Myocardial Infarction Date:: Pt unknown History of Any Multi-Drug Resistant Organisms: None Reported Past Surgical History: Cardiac Ablation, Cholecystectomy, Heart Catheterization, Hysterectomy, Joint Replacement, Orthopedic Surgery Additional Past Surgical History / Comment(s): THYROID BX, LINDSAY. TOTAL KNEES, LINDSAY TOTAL SHOULDERS,Cardiac ablation x2,skin CA removed with skin graft to neck Past Anesthesia/Blood Transfusion Reactions: No Reported Reaction Additional Past Anesthesia/Blood Transfusion Reaction / Comment(s): BRADYCARDIA. Type of Cardiac Device: AICD Device Placement Date:: 2019 Past Psychological History: Anxiety, Depression, Panic Disorder Smoking Status: Former smoker Past Alcohol Use History: None Reported Past Drug Use History: None Reported - Past Family History Father Family Medical History: Cancer Additional Family Medical History / Comment(s): ORAL CANCER Mother Additional Family Medical History / Comment(s): Alcoholism. <Nuno Strong - Last Filed: 11/16/22 18:59> Course Vital Signs 11/16/22 11/16/22 14:19 23:14 Temperature 98.7 F 98.9 F Pulse Rate 60 89 Respiratory 16 16 Rate Blood Pressure 150/87 153/99 O2 Sat by Pulse 97 98 Oximetry Medical Decision Making - Lab Data Result diagrams: 11/16/22 15:17 11/16/22 15:17 <Nuno Strong - Last Filed: 11/16/22 18:59> - Lab Data Result diagrams: 11/16/22 15:17 11/16/22 15:17 <Roberto Yadav - Last Filed: 11/17/22 01:34> - Medical Decision Making The patient was signed out to me from Dr. Strong pending evaluation by EPS. Was pt. sent in by a medical professional or institution (, PA, DOCK HAND, urgent care, hospital, or [facility]...) When possible be specific @ -No Did you speak to anyone other than the patient for history (EMS, parent, family, police, friend...)? What history was obtained from this source @ -No Did you review nursing and triage notes (agree or disagree)? Why? @ -I reviewed and agree with nursing and triage notes Were old charts reviewed (outside hosp., previous admission, EMS record, old EK G, old radiological studies, urgent care reports/EKG's, [facility] records)? Report findings @ -No old charts were reviewed Differential Diagnosis (chest pain, altered mental status, abdominal pain women, abdominal pain men, vaginal bleeding, weakness, fever, dyspnea, syncope, headache, dizziness, GI bleed, back pain, seizure, CVA, palpatations, mental health)? @ -Anxiety, depression, constipation EKG interpreted by me (3pts min.). @ -As above X-rays interpreted by me (1pt min.). @ -KUB x-ray was obtained and was interpreted by myself showing no acute proc ess. There was nonspecific bowel gas pattern without really graphic evidence for acute process. CT interpreted by me (1pt min.). @ -None done U/S interpreted by me (1pt. min.). @ -None done What testing was considered but not performed or refused? (CT, X-rays, U/S, labs)? Why? @ -None What meds were considered but not given or refused? Why? @ -None Did you discuss the management of the patient with other professionals (myriam knight i.e. , PA, DOCK HAND, lab, RT, psych nurse, social worker masters, exchange teller, teacher, aviation tactical readiness officer, case briefer)? Give summary @ -Yes, EPS evaluated the patient and deemed patient stable for discharge from their perspective. Was smoking cessation discussed for >3mins.? @ -No Was critical care preformed (if so, how long)? @ -No Were there social determinants of health that impacted care today? How? (Homelessness, low income, unemployed, alcoholism, drug addiction, transportation, low edu. Level, literacy, decrease access to med. care, [place] [facility], rehab)? @ -No Was there de-escalation of care discussed even if they declined (Discuss DNR or withdrawal of care, Hospice)? DNR status @ -No What co-morbidities impacted this encounter? (DM, HTN, Smoking, COPD, CAD, Cancer, CVA, ARF, Chemo, Hep., AIDS, mental health diagnosis, sleep apnea, morbid obesity)? @ -None Was patient admitted / discharged? Hospital course, mention meds given and route, prescriptions, significant lab abnormalities, going to OR and other pertinent info. @ -The patient was initially seen and evaluated by Dr. Humphries. The patient was signed out to me. The patient was signed out pending EPS evaluation. All laboratory workup and imaging was negative. The patient and multiple complaints however was resting in bed company. EPS evaluated the patient stated that the patient was stable for discharge home and there was no need for any further intervention at this time. Due to the patient's negative workup and ability to be discharged by EPS, the patient was stable for discharge home. The patient was understanding of this and all her questions were answered appropriate. The patient was discharged in stable condition. Undiagnosed new problem with uncertain prognosis? @ -No Drug Therapy requiring intensive monitoring for toxicity (Heparin, Nitro, Insulin, Cardizem)? @ -No Were any procedures done? @ -No Diagnosis/symptom? @ -Anxiety, NOS Acute, or Chronic, or Acute on Chronic? @ -Acute on chronic Uncomplicated (without systemic symptoms) or Complicated (systemic symptoms)? @ -Uncomplicated Side effects of treatment? @ -No Exacerbation, Progression, or Severe Exacerbation? @ -No Poses a threat to life or bodily function? How? (Chest pain, USA, NM, pneumonia, PE, COPD, DKA, ARF, appy, cholecystitis, CVA, Diverticulitis, Homicidal, Suicidal, threat to staff... and all critical care pts) @ -No (Roberto Yadav) - Lab Data Lab Results 11/16/22 11/16/22 11/16/22 Range/Units 15:17 15:17 15:43 WBC 4.8 (3.8-10.6) k/uL RBC 4.43 (3.80-5.40) m/uL Hgb 13.7 (11.4-16.0) gm/dL Hct 41.7 (34.0-46.0) % MCV 94.3 (80.0-100.0) fL MCH 30.9 (25.0-35.0) pg MCHC 32.8 (31.0-37.0) g/dL RDW 13.5 (11.5-15.5) % Plt Count 200 (150-450) k/uL MPV 7.3 Neutrophils % 58 % Lymphocytes % 27 % Monocytes % 11 % Eosinophils % 2 % Basophils % 0 % Neutrophils # 2.8 (1.3-7.7) k/uL Lymphocytes # 1.3 (1.0-4.8) k/uL Monocytes # 0.5 (0-1.0) k/uL Eosinophils # 0.1 (0-0.7) k/uL Basophils # 0.0 (0-0.2) k/uL Sodium 139 (137-145) mmol/L Potassium 3.5 (3.5-5.1) mmol/L Chloride 103 (98-107) mmol/L Carbon Dioxide 32 H (22-30) mmol/L Anion Gap 4 mmol/L BUN 17 (7-17) mg/dL Creatinine 0.56 (0.52-1.04) mg/dL Est GFR (CKD-EPI)AfAm >90 (>60 ml/min/1.73 sqM) Est GFR (CKD-EPI)NonAf 88 (>60 ml/min/1.73 sqM) Glucose 83 (74-99) mg/dL Calcium 10.0 (8.4-10.2) mg/dL Urine Color Light Yellow Urine Appearance Clear (Clear) Urine pH 7.5 (5.0-8.0) Ur Specific [place] 1.009 (1.001-1.035) Urine Protein Negative (Negative) Urine Glucose (UA) Negative (Negative) Urine Ketones Negative (Negative) Urine Blood Negative (Negative) Urine Nitrite Negative (Negative) Urine Bilirubin Negative (Negative) Urine Urobilinogen <2.0 (<2.0) mg/dL Ur Leukocyte Esterase Negative (Negative) Disposition <Nuno Strong - Last Filed: 11/16/22 18:59> Is patient prescribed a controlled substance at d/c from ED?: No Time of Disposition: 22:30 <Roberto Yadav - Last Filed: 11/17/22 01:34> Clinical Impression: Acute anxiety, Depression, Diarrhea Disposition: HOME SELF-CARE Condition: Stable Instructions (If sedation given, give patient instructions): Anxiety (ED) Referrals: Raj Dill NPC [Primary Care Provider] - 1-2 days
[2022-11-16] MEDS ORDERED: ALPRAZolam 0.25 MG TAB PO STA (22:45)
[2022-11-16 23:15] VITALS: BP 153/99; PULSE 89; TEMP 98.9
== END 2022-11-17 00:20 | disposition home or self-care (01) ==
LOC: EC 13:51
DX: F41.9 Anxiety disorder, unspecified (principal); R19.7 Diarrhea, unspecified; F32.A Depression, unspecified; J45.909 Unspecified asthma, uncomplicated; I48.91 Unspecified atrial fibrillation; I50.9 Heart failure, unspecified; K21.9 Gastro-esophageal reflux disease without esophagitis; E78.5 Hyperlipidemia, unspecified; I10 Essential (primary) hypertension; I25.2 Old myocardial infarction; M19.90 Unspecified osteoarthritis, unspecified site; G47.30 Sleep apnea, unspecified; Z87.891 Personal history of nicotine dependence; Z79.1 Long term (current) use of non-steroidal anti-inflammatories (NSAID); Z79.899 Other long term (current) drug therapy; Z88.6 Allergy status to analgesic agent; Z88.8 Allergy status to other drugs, medicaments and biological substances
CPT/HCPCS: 36415; 74018; 80048; 81003; 82075; 85025; 99285